=== PATIENT | male | born 1950 | race Caucasian/White ===

== ENCOUNTER 2018-01-08 10:12 | Inpatient (IN) | payer MEDICARE ==
[2018-01-08] MEDS ORDERED: Clindamycin 600 MG IVPREMIX(* 600 MG/50 ML SDV IV ONE (10:23)
[2018-01-08] MEDS ORDERED: Acetaminophen TAB* 325 MG PO ONE (10:24)
[2018-01-08] MEDS: NS 0.9% 1000 ML*IV.FLUID IV ONE (10:30)
[2018-01-08] MEDS ORDERED: cefTRIAXone(*) 1 GM in NS 0.9% 50 ML* 50 ML IVPB ONE (10:41)
[2018-01-08 10:43] LABS: ABS Basophils 0 10^3/ul (0-0.2); ABS Eosinophils 0.1 10^3/ul (0-0.6); ABS Lymphocytes 0.5 10^3/ul (1.0-4.8); ABS Monocytes 0.8 10^3/ul (0-0.8); ABS Neutrophils 8.7 10^3/ul (1.5-7.7); ABS Nucleated RBC 0 10^3/ul; Eosinophil % 0.7 % (0-6); Hematocrit 42 % (42-52); Hemoglobin 14.6 g/dl (14.0-18.0); Lymphocyte % 5.3 % (25-47); Mean Corpuscular HGB Conc 35 g/dl (31-36); Mean Corpuscular Hemoglobin 33 pg (27-31); Mean Corpuscular Volume 94 fL (80-94); Mean Platelet Volume 9.2 um3 (7.4-10.4); Nucleated Red Blood Cells % 0; Platelet Count 147 10^3/ul (150-450); Red Cell Distribution Width 13 % (10.5-15); White Blood Count 10.1 10^3/ul (3.5-10.8)
[2018-01-08 10:52] LABS: INR 1.1 (0.77-1.02)
--- NOTE | 2018-01-08 10:59 | RAD ---
HISTORY: Sepsis COMPARISONS: May 10, 2016 VIEWS: 1: frontal portable view of the chest at 10:50 AM FINDINGS: LINES AND TUBES: None. CARDIOMEDIASTINAL SILHOUETTE: The cardiomediastinal silhouette is normal for portable technique. PLEURA: The costophrenic angles are sharp. No pleural abnormalities are noted. LUNG PARENCHYMA: The lungs are clear. ABDOMEN: The upper abdomen is clear. There is no subphrenic gas. BONES AND SOFT TISSUES: The patient is status post anterior cervical fusion. IMPRESSION: NO ACTIVE CARDIOPULMONARY DISEASE.
[2018-01-08 11:20] LABS: EGFR Non-African American 165.4 (>60)
[2018-01-08 11:40] LABS: Urine Appearance Turbid; Urine Blood 1+ (Negative); Urine Color Yellow; Urine Ketones 2+ (Negative); Urine Protein 2+(100 mg/dL) (Negative); Urine Specific Gravity 1.017 (1.010-1.030); Urine Urobilinogen Negative (Negative)
[2018-01-08] MEDS: Heparin VIAL(*) 5000 UNITS/ML VIAL (FIVE THOUSAND) SUBCUT SCH ×2 (15:29→22:32)
[2018-01-08] MEDS: NS 0.9% 1000 ML* 1,000 ML IV SCH ×2 (15:29→23:37)
--- NOTE | 2018-01-08 16:18 | HP ---
ADDENDUM NOW INCLUDED ON THIS REPORT CC: Dr. Coulter * HISTORY AND PHYSICAL: DATE OF ADMISSION: 01/08/18 PRIMARY CARE PROVIDER: Dr. Coulter. CHIEF COMPLAINT: Fever of 105 degrees. HISTORY OF PRESENT ILLNESS: Mr. Jay is a 67-year-old male with history of multiple sclerosis who is basically wheelchair bound and is able to move only partially his right arm, who has indwelling Reddy in place, and he had been feeling poorly with muscle aches last night, and today in the morning he developed a fever of 105 degrees. The patient was slightly confused when he came into the emergency department with fever of 105 degrees. Currently after 1 g of Tylenol, his fever is down to 101. His confusion appears to have resolved by now. In addition to the symptoms of myalgias, the patient complains of dry and itchy eyes yesterday and "scratchy throat." The patient is going to be admitted with the diagnosis of sepsis. At this point , the suspected source is urinary tract infection and the patient has indwelling Reddy in place. Of note, the patient's Reddy was replaced in the emergency department. PAST MEDICAL HISTORY: 1. Depression. 2. History of multiple sclerosis. Once again, the patient is wheelchair bound. 3. Status post C3-C4 discectomy. CURRENT MEDICATIONS: Include: 1. Multivitamin 1 tablet daily. 2. Vitamin C 1000 mg daily. 3. Zanaflex 6 mg at bedtime. 4. Mirabegron 75 mg at bedtime. 5. Baclofen 20 mg at noon and in the a.m. and 40 mg q.p.m. and bedtime. 6. Lexapro 15 mg daily. 7. Diazepam 5 mg at night p.r.n. 8. Vitamin D3 of 1000 units daily. ALLERGIES: Include DACLIZUMAB. FAMILY HISTORY: Positive for mother with history of colon cancer. SOCIAL HISTORY: The patient is living with his family and his is his healthcare proxy. There is no history of alcohol, tobacco, or drug use. REVIEW OF SYSTEMS: Please see history of present illness. In addition to the above mentioned, the patient stated that he routinely "chokes on food." He does not eat modified diet and he is not interested in further swallow evaluation. Having said that, the patient stated that recently he has not choked on food significantly so that would cause him to be in distress. He denies shortness of breathing or problems with cough. He denies chest pain. All the remaining 12 systems were reviewed with the patient and were otherwise negative. PHYSICAL EXAMINATION GENERAL: This is a very pleasant 67-year-old male who is in no acute distress. Alert, awake, and oriented x3. VITAL SIGNS: Blood pressure is 128/54, heart rate of 93 and regular, respiratory rate 18, oxygen saturation 93% on room air, temperature currently 101.7. HEENT: Head is atraumatic, normocephalic. Eyes: Pupils are equal and reactive to light and accommodation. Oropharynx with slight injection on the pharyngeal arch. No exudates. Mucosa moist. NECK: Supple. No JVD. No bruits bilaterally. RESPIRATORY: Clear to auscultation bilaterally. CARDIOVASCULAR: Regular rate and rhythm. No murmur. ABDOMEN: Soft, nontender. Bowel sounds present in all 4 quadrants. There is no CVA tenderness bilaterally on palpation, although the patient's sensation is somewhat diminished in this level. EXTREMITIES: There is no edema. Pulses +2 bilaterally. No clubbing or cyanosis. NEUROLOGIC: Speech clear. Cranial nerves II through XII grossly intact. Motor strength, basically the patient is paraplegic from the level of his chest down. He is able to move his right upper extremity somewhat at approximately 3+ /5. DIAGNOSTIC STUDIES/LAB DATA: Laboratory data and studies performed during his ER stay includes: White blood cell count of 10.1, hemoglobin 14.6, hematocrit of 42, and platelets of 147. Sodium of 134, potassium 3.9, chloride 97, carbon dioxide 28, anion gap 9, BUN 10, creatinine 0.5. Liver function tests are unremarkable. C-reactive protein 124. Troponin of 0.04. Lactic acid of 0.6. Urinalysis showed +2 ketones, +1 blood, +3 red blood cells, white blood cells, and esterase. No bacteria. Flu testing is pending at the time of dictation. Portable chest x-ray, impression: "No active cardiopulmonary disease." ASSESSMENT AND PLAN: 1. This is a 67-year-old male with history of multiple sclerosis who presents with fever of 101 degrees, altered mental status, and tachycardia. The patient is going to be admitted to the hospital with diagnosis of sepsis with the likely source being unary tract infection, which is probably associated in patient with history of chronic indwelling Reddy. Ceftriaxone is going to be continued at this time. Blood cultures were obtained in the emergency department. I will also obtain flu test and monospot. 2. In regards to the patient's history of multiple sclerosis, his baclofen and diazepam as well as Zanaflex are going to be continued. 3. In regards to the patient's chronically indwelling Reddy, Reddy was already exchanged in the emergency department. I will obtain ultrasound of the bilateral kidneys as well as bladder to evaluate for possibility of obstructive pyelonephritis. At this point, although by exam the patient has no CVA tenderness, it is difficult to be certain of that since the patient has problems with sensation due to his multiple sclerosis. 4. For DVT prophylaxis, the patient is going to be placed on heparin subcutaneously. 5. The patient's code status, the patient wishes to be do not resuscitate and MOLST is going to be signed. His surrogate is his . TIME SPENT: Approximately 65 minutes were spent on admission of this patient, more than half that time was spent [id number] with the patient during the interview and physical exam. ADDENDUM: 1. Please note that I just discussed with the patient's who is upset after the patient was admitted that he is not constantly monitored and no one checks on him on every 30-minute basis. I spoke with the patient's about the hospital routine when we usually check vitals every 4 hours and the nurse checks on the patient as needed. The patient's was concerned that the patient may not be able to push the nurse button to notify nursing staff that he needs something. I did talk with the nurse and apparently the patient is right-handed, so weak that he is unable to push even one of the more sensitive nurse notification buttons. At this point, I offered to the that the patient may be placed on a safety monitoring status which would involve having a person next to his bedside or in his room to monitor for safety making sure that his needs are met. The patient's refused. She requested for the patient to have baclofen at 20 mg every 4 hours. When I questioned that since just a few hours ago at admission, the patient's told me that the patient takes his baclofen in the morning and at noon at 6 p.m. and at night, the patient's stated that now in fact what she told me before was not true and the patient is given baclofen every 4 hours even in the middle of the night, she wakes him up to give it to him. At this point, I did schedule the baclofen every [address] in hold parameters for the baclofen. I also discussed with the nurse that the patient is alert and oriented x3 and he can decide if he want to have his scheduled baclofen as administered every 4 hours later on. I also discussed it with our pharmacist. 2. I explained to the patient's that the studies are still not available and we are awaiting the renal ultrasound results. The patient's appeared to be anxious and exhausted, and I advised her to go home with her daughter, who also has multiple sclerosis, and I asked the nursing staff to monitor the patient more frequently than any other patient due to the patient's inability to once again notify the nurse of a problem. Please also note that although the patient is not able to move his hands apart from minimally moving his right upper extremity, he has no problems with verbal communication. [id number]/CPS #: [id number]/CPS #: [id number] MTDD
[2018-01-08] MEDS: Acetaminophen TAB* 325 MG PO PRN (17:10)
[2018-01-08] MEDS ORDERED: Baclofen TAB* 20 MG PO SCH (18:00)
[2018-01-08] MEDS: Baclofen TAB* 20 MG PO SCH ×3 (18:24→23:11)
--- NOTE | 2018-01-08 18:28 | RAD ---
INDICATION: Pyelonephritis. Evaluate for obstruction COMPARISON: None TECHNIQUE: Longitudinal and transverse scans of the kidneys and bladder were obtained. FINDINGS: Kidneys: The kidneys are normal in size and echogenicity. There is a probable, nonobstructive 0.6 cm lower pole right renal calculus. No masses or hydronephrosis is seen. The right kidney measures 10.5 x 4.7 x 5.0 cm and the left kidney 10.5 x 5.8 x 5.8 cm. Bladder: The bladder is only partially distended. There are no intrinsic or extrinsic masses. The prevoid volume is 41 ml. There is a Reddy catheter. Ureteral jets not seen. This could be technical and related to hydration status. Other: The prostate is normal in size. The prostate measures 3.7 x 4.1 x 4.5 cm (volume equal 35 mL IMPRESSION: PROBABLE LOWER POLE RIGHT RENAL CALCULUS. NO EVIDENCE OF HYDRONEPHROSIS.
--- NOTE | 2018-01-08 21:42 | HP ---
HISTORY AND PHYSICAL: ADDENDUM: 1. Please note that I just discussed with the patient's who is upset after the patient was admitted that he is not constantly monitored and no one checks on him on every 30-minute basis. I spoke with the patient's about the hospital routine when we usually check vitals every 4 hours and the nurse checks on the patient as needed. The patient's was concerned that the patient may not be able to push the nurse button to notify nursing staff that he needs something. I did talk with the nurse and apparently the patient is right-handed, so weak that he is unable to push even one of the more sensitive nurse notification buttons. At this point, I offered to the that the patient may be placed on a safety monitoring status which would involve having a person next to his bedside or in his room to monitor for safety making sure that his needs are met. The patient's refused. She requested for the patient to have baclofen at 20 mg every 4 hours. When I questioned that since just a few hours ago at admission, the patient's told me that the patient takes his baclofen in the morning and at noon at 6 p.m. and at night, the patient's stated that now in fact what she told me before was not true and the patient is given baclofen every 4 hours even in the middle of the night, she wakes him up to give it to him. At this point, I did schedule the baclofen every [address] in hold parameters for the baclofen. I also discussed with the nurse that the patient is alert and oriented x3 and he can decide if he want to have his scheduled baclofen as administered every 4 hours later on. I also discussed it with our pharmacist. 2. I explained to the patient's that the studies are still not available and we are awaiting the renal ultrasound results. The patient's appeared to be anxious and exhausted and I advised her to go home with her daughter, who also has multiple sclerosis and I asked the nursing staff to monitor the patient more frequently than any other patient due to the patient's inability to once again notify the nurse of a problem. Please also note that although the patient is not able to move his hands apart from minimally moving his right upper extremity, he has no problems with verbalizing and verbally communicating with the surroundings. [id number]/[facility] #: [id number] PAPO
[2018-01-08] MEDS: Docusate CAP* 100 MG PO SCH (22:30)
[2018-01-08] MEDS: tiZANidine TAB* 2 MG PO SCH (22:32)
[2018-01-08] MEDS: Diazepam TAB(*) 5 MG PO PRN (22:43)
[2018-01-08] MEDS: Mirabegron (NF) 25 MG TAB PO SCH (23:06)
[2018-01-09] MEDS: Acetaminophen TAB* 325 MG PO PRN ×3 (02:21→20:50)
[2018-01-09] MEDS: Baclofen TAB* 20 MG PO SCH ×7 (02:22→21:49)
[2018-01-09 05:53] LABS: ABS Basophils 0 10^3/ul (0-0.2); ABS Eosinophils 0 10^3/ul (0-0.6); ABS Monocytes 0.7 10^3/ul (0-0.8); ABS Nucleated RBC 0 10^3/ul; Eosinophil % 0 % (0-6); Hematocrit 33 % (42-52); Hemoglobin 11.6 g/dl (14.0-18.0); Lymphocyte % 9.3 % (25-47); Mean Corpuscular HGB Conc 35 g/dl (31-36); Mean Corpuscular Hemoglobin 33 pg (27-31); Mean Corpuscular Volume 94 fL (80-94); Mean Platelet Volume 9.5 um3 (7.4-10.4); Nucleated Red Blood Cells % 0.1; Platelet Count 116 10^3/ul (150-450); Red Blood Count 3.54 10^6/ul (4.0-5.4); Red Cell Distribution Width 14 % (10.5-15); White Blood Count 10.7 10^3/ul (3.5-10.8)
[2018-01-09] MEDS: Heparin VIAL(*) 5000 UNITS/ML VIAL (FIVE THOUSAND) SUBCUT SCH ×3 (06:06→21:49)
[2018-01-09 06:08] LABS: EGFR Non-African American 169.3 (>60)
[2018-01-09] MEDS: Cefepime(*) 1 GM in D5W 50 ML BAG* 50 ML IVPB SCH ×2 (09:44→20:58)
[2018-01-09] MEDS: Cholecalciferol TAB* 1000 UNITS PO SCH (09:46)
[2018-01-09] MEDS: Docusate CAP* 100 MG PO SCH ×3 (09:48→20:55)
[2018-01-09] MEDS: ESCITALOPRAM 5 MG PO SCH (09:49)
[2018-01-09] MEDS: NS 0.9% 1000 ML* 1,000 ML IV SCH ×2 (09:52→20:15)
--- NOTE | 2018-01-09 10:27 | ECHO ---
Patient: MARIAELENA SPICER [facility] Rec#: [id number] : 1950 Date: 01/09/2018 Age: 67y Height: 167.6 cm / 66.0 in Weight: 68 kg / 149.9 lbs Sex: M BSA: 1.8 Room#: 403 Admit Date#: 01/08/2018 Type: Inpatient Referring: Beba Gaspar MD Reading: Irving Adams MD Inspector Brake Lining: Katelynn Ibrahim RN RDCS CC: Elliot Coulter MD Transthoracic Echocardiogram Indication: Elevated troponin levels, sepsis BP: 100/58 HR: 66 Rhythm: NSR Findings History: Multiple sclerosis Technical Comments: The study quality is fair. Completed at 0910. Left Ventricle: The left ventricular chamber size is decreased. There is increased basal septal hypertrophy noted without evidence of an increased gradient across the left ventricular outflow tract. Global left ventricular wall motion and contractility are within normal limits. There is normal left ventricular systolic function. The estimated ejection fraction is 55-60%. The assessment of diastolic function is non-diagnostic. Left Atrium: The left atrial chamber size is normal. Right Ventricle: The right ventricular chamber size and systolic function are within normal limits. Right Atrium: The right atrial cavity size is normal. There is evidence of an atrial septal aneurysm. No shunting noted. Aortic Valve: The aortic valve structure is not well visualized. The aortic valve is trileaflet. The aortic valve leaflets are moderately thickened. There is evidence of aortic sclerosis without stenosis. There is a trace of aortic regurgitation. There is no evidence of aortic stenosis. Mitral Valve: Mild mitral annular calcification present. The mitral valve leaflets are mildly thickened. There is trace to mild mitral regurgitation. Tricuspid Valve: The tricuspid valve leaflets are normal. There is trace to mild tricuspid regurgitation. There is evidence of borderline pulmonary hypertension. Pulmonic Valve: The pulmonic valve structure is not well visualized. There is no evidence of pulmonic regurgitation. There is no pulmonic stenosis. Pericardium: There is no significant pericardial effusion. Aorta: There is mild dilatation of the ascending aorta. There is no dilatation of the aortic arch. There is no dilation of the aortic root. Pulmonary Artery: The main pulmonary artery is not well visualized. Venous: The venous system is not well visualized. The inferior vena cava is not visualized. Conclusions There is normal left ventricular systolic function. The estimated ejection fraction is 55-60%. Global left ventricular wall motion and contractility are within normal limits. The left ventricular chamber size is decreased. Functionally benign heart valves. There is mild dilatation of the ascending aorta. There is no prior echocardiogram available to compare with at this time. Measurements Name Value Normal Range RVDdMajor (2D) 3.9 cm (2.2 - 4.4) RAd ISD 4CH 4.6 cm (3.4 - 4.9) RA (A4C)W 3.3 cm (2.9 - 4.6) IVSd (2D) 1 cm (0.6 - 1) LVPWd (2D) 1 cm (0.6 - 1) LVIDd (2D) 3.5 cm (3.6 - 5.4) LVIDs (2D) 2.5 cm - LV FS (2D) 29 % (25 - 45) Aortic Annulus 2.2 cm (1.4 - 2.6) Ao root diameter (2D) 3.4 cm (2.1 - 3.5) Ascending Ao 3.7 cm (2.1 - 3.4) Aortic arch 3 cm (1.8 - 3.4) LA dimension (AP) 2D 3.1 cm (2.3 - 3.8) LAd ISD 4CH 5.2 cm (2.9 - 5.3) LA ISD 4CH W 4.3 cm (2.5 - 4.5) Name Value Normal Range LA ESV SP 4CH (A/L) 42 ml - LA ESV SP 2CH (A/L) 66 ml - LA ESV BP (A/L) 60 ml - LA ESV BP (A/L) index 34 ml/m2 - LA ESV SP 4CH (MOD) 39 ml - LA ESV SP 2CH (MOD) 64 ml - Name Value Normal Range MV E-wave Vmax 0.71 m/sec - MV deceleration time 207 msec - MV A-wave Vmax 0.86 m/sec - MV E:A ratio 0.82 ratio - LV septal e' Vmax 0.08 m/sec - LV lateral e' Vmax 0.1 m/sec - LV E:e' septal ratio 8.9 ratio - LV E:e' lateral ratio 7.1 ratio - Name Value Normal Range AV Vmax 1.7 m/sec - AV VTI 39.3 cm - AV peak gradient 11.3 mmHg - AV mean gradient 7.4 mmHg - LVOT diameter 2 cm - LVOT Vmax 1.5 m/sec - LVOT VTI 35.2 cm - LVOT peak gradient 8.6 mmHg - LVOT mean gradient 4.8 mmHg - DARWIN (continuity Vmax) 2.8 cm2 - DARWIN (continuity VTI) 2.8 cm2 - LORENA Vmax 0.61 m/sec - Name Value Normal Range TR Vmax 2.6 m/sec - TR peak gradient 27 mmHg - RAP 8 mmHg - RVSP 35 mmHg - Name Value Normal Range PV Vmax 0.75 m/sec -
--- NOTE | 2018-01-09 11:05 | PN ---
Subjective Date of Service: 01/09/18 Interval History: Pt feels much better, friends noted that hi face is "flushed ", but temp down to 98 chocked on a pill today, but swallow eval OK'ed for regular solids Objective Active Medications: Acetaminophen (Tylenol Tab*) 650 mg PO Q4H PRN PRN Reason: FEVER/PAIN Last Admin: 01/09/18 02:21 Dose: 650 mg Baclofen (Lioresal Tab*) 40 mg PO 2100 [facility] Last Admin: 01/08/18 23:11 Dose: 40 mg Baclofen (Lioresal Tab*) 20 mg PO Q4H [facility] Last Admin: 01/09/18 09:47 Dose: 20 mg Cholecalciferol (Vitamin D Tab*) 1,000 units PO DAILY [facility] Last Admin: 01/09/18 09:46 Dose: 1,000 units Diazepam (Valium Tab(*)) 5 mg PO BID PRN PRN Reason: ANXIETY Last Admin: 01/08/18 22:43 Dose: 5 mg Docusate Sodium (Colace Cap*) 100 mg PO BID [facility] Last Admin: 01/09/18 10:01 Dose: Not Given Escitalopram Oxalate (Lexapro (Nf)) 15 mg PO DAILY [facility] Last Admin: 01/09/18 09:49 Dose: 15 mg Heparin Sodium (Porcine) (Heparin Vial(*)) 5,000 units SUBCUT Q8HR [facility] Last Admin: 01/09/18 06:06 Dose: 5,000 units Sodium Chloride (Ns 0.9% 1000 Ml*) 1,000 mls @ 100 mls/hr IV PER RATE [facility] Last Admin: 01/09/18 09:52 Dose: 100 mls/hr Cefepime HCl 1 gm/ Dextrose 50 mls @ 100 mls/hr IVPB Q12H [facility] Last Admin: 01/09/18 09:44 Dose: 100 mls/hr Mirabegron (Myrbetriq (Nf)) 75 mg PO BEDTIME [facility] Last Admin: 01/08/18 23:06 Dose: Not Given Tizanidine HCl (Zanaflex Tab*) 6 mg PO BEDTIME [facility] Last Admin: 01/08/18 22:32 Dose: 6 mg Vital Signs - 8 hr 01/09/18 01/09/18 01/09/18 03:34 04:08 07:24 Temperature 98.2 F 98.1 F Pulse Rate 78 66 Respiratory 14 16 Rate Blood Pressure 100/58 109/45 (mmHg) O2 Sat by Pulse 96 97 Oximetry Oxygen Devices in Use Now: None Appearance: 67 yo M in nAD, aAOx3 Eyes: No Scleral Icterus, PERRLA Ears/Nose/Mouth/Throat: NL Teeth, Lips, Gums, Mucous Membranes Moist Neck: NL Appearance and Movements; NL JVP, Trachea Midline Respiratory: Symmetrical Chest Expansion and Respiratory Effort, Clear to Auscultation Cardiovascular: NL Sounds; No Murmurs; No JVD, RRR Abdominal: NL Sounds; No Tenderness; No Distention, No Hepatosplenomegaly Lymphatic: No Cervical Adenopathy Extremities: No Edema, No Clubbing, Cyanosis Skin: No Nodules or Sclerosis, - - R second toe-dorsal aspect -small area of erythema Neurological: - - contracted, able to move R hand at 3+/5 Result Diagrams: 01/09/18 05:31 01/09/18 05:31 Microbiology and Other Data: Microbiology 01/08/18 13:30 Influenza Types A,B Antigen (ZAIDA) - Final Nasopharyngeal Specimen received for Influenza A/B Molecular testing Assess/Plan/Problems-Billing Assessment:67 yo M with progressive MS and paraplegia due to it as well as indwelling Reddy now with UTI and sepsis - Patient Problems (1) Sepsis Comment: Due to gram neg bacteremia-presumed source if Reddy associated UTI Encephalopathy noted when fever was 105 resolved VS stable Cont IVF Antibiotics changed from Ceftriaxone to Cefepime due to h/o psedudomonas UTI in the past. (2) Multiple sclerosis Comment: Continue home meds. (3) Dysphagia Comment: mild, chronic, due to progressive MS Swallow eval OK'ed regular diet (4) Indwelling Reddy catheter present Comment: Exchanged at admission Renal/bladder US unremarkable (5) DVT prophylaxis Current Visit: Yes Comment: HSQ Status and Disposition: inpatient
[2018-01-09] MEDS ORDERED: Baclofen TAB* 20 MG PO SCH (12:00)
[2018-01-09] MEDS ORDERED: cefTRIAXone 1000 MG SYRINGE IVPB Q24H (in NaCl) IVPB SCH ×2 (14:00)
[2018-01-09] MEDS ORDERED: cefTRIAXone(*) 1 GM in NS 0.9% 50 ML* 50 ML IVPB SCH (14:00)
[2018-01-09] MEDS: Sodium Phosphate ADULT ENEMA* 118 ml bottle PR SCH (19:11)
[2018-01-09] MEDS: tiZANidine TAB* 2 MG PO SCH (20:53)
[2018-01-09] MEDS: Polyethylene Glycol 3350* 17 GM PACKET PO SCH (20:55)
[2018-01-09] MEDS: Mirabegron (NF) 25 MG TAB PO SCH (20:56)
[2018-01-10] MEDS: Baclofen TAB* 20 MG PO SCH ×7 (03:15→23:00)
[2018-01-10] MEDS: Heparin VIAL(*) 5000 UNITS/ML VIAL (FIVE THOUSAND) SUBCUT SCH ×3 (06:05→20:47)
[2018-01-10] MEDS ORDERED: tiZANidine TAB* 2 MG PO SCH ×2 (08:50→21:00)
[2018-01-10 08:54] LABS: Hematocrit 36 % (42-52); Hemoglobin 12.4 g/dl (14.0-18.0); Mean Corpuscular HGB Conc 34 g/dl (31-36); Mean Corpuscular Hemoglobin 32 pg (27-31); Mean Corpuscular Volume 94 fL (80-94); Mean Platelet Volume 9.3 um3 (7.4-10.4); Platelet Count 126 10^3/ul (150-450); Red Blood Count 3.89 10^6/ul (4.0-5.4); Red Cell Distribution Width 14 % (10.5-15); White Blood Count 8.3 10^3/ul (3.5-10.8)
[2018-01-10] MEDS ORDERED: Ciprofloxacin 400MG IVPREMIX(* 400 MG/200 ML BAG IVPB SCH (09:00)
[2018-01-10] MEDS: Docusate CAP* 100 MG PO SCH ×2 (09:24→21:15)
[2018-01-10] MEDS: Cefepime(*) 1 GM in D5W 50 ML BAG* 50 ML IVPB SCH ×2 (09:30→20:47)
[2018-01-10] MEDS: Cholecalciferol TAB* 1000 UNITS PO SCH (09:30)
[2018-01-10] MEDS: ESCITALOPRAM 5 MG PO SCH (09:30)
[2018-01-10 10:09] LABS: ABS Basophils 0 10^3/ul (0-0.2); ABS Eosinophils 0.1 10^3/ul (0-0.6); ABS Lymphocytes 1.3 10^3/ul (1.0-4.8); ABS Monocytes 0.9 10^3/ul (0-0.8); ABS Neutrophils 5.9 10^3/ul (1.5-7.7); ABS Nucleated RBC 0 10^3/ul; Nucleated Red Blood Cells % 0
[2018-01-10 10:12] LABS: Monocytes % 11 % (0-7)
--- NOTE | 2018-01-10 10:21 | PN ---
Subjective Date of Service: 01/10/18 Interval History: Pt feels well. Stated that felt a little confused at night and when awaken at 2 AM thought that it was 2PM Temp max of 100.8 in 24H Objective Active Medications: Acetaminophen (Tylenol Tab*) 650 mg PO Q4H PRN PRN Reason: FEVER/PAIN Last Admin: 01/09/18 20:50 Dose: 650 mg Baclofen (Lioresal Tab*) 40 mg PO 2100 [facility] Last Admin: 01/09/18 20:52 Dose: 40 mg Baclofen (Lioresal Tab*) 20 mg PO Q4H [facility] Last Admin: 01/10/18 09:30 Dose: 20 mg Cholecalciferol (Vitamin D Tab*) 1,000 units PO DAILY [facility] Last Admin: 01/10/18 09:30 Dose: 1,000 units Diazepam (Valium Tab(*)) 5 mg PO BID PRN PRN Reason: ANXIETY Last Admin: 01/08/18 22:43 Dose: 5 mg Docusate Sodium (Colace Cap*) 100 mg PO BID [facility] Last Admin: 01/10/18 09:24 Dose: Not Given Escitalopram Oxalate (Lexapro (Nf)) 15 mg PO DAILY [facility] Last Admin: 01/10/18 09:30 Dose: 15 mg Heparin Sodium (Porcine) (Heparin Vial(*)) 5,000 units SUBCUT Q8HR [facility] Last Admin: 01/10/18 06:05 Dose: 5,000 units Cefepime HCl 1 gm/ Dextrose 50 mls @ 100 mls/hr IVPB Q12H [facility] Last Admin: 01/10/18 09:30 Dose: 100 mls/hr Ciprofloxacin/Dextrose (Cipro 400 Mg Ivpremix(*)) 400 mg in 200 mls @ 200 mls/ hr IVPB Q12HR@1000,2200 [facility] Mirabegron (Myrbetriq (Nf)) 75 mg PO BEDTIME [facility] Last Admin: 01/09/18 20:56 Dose: Not Given Polyethylene Glycol/Electrolytes (Miralax*) 17 gm PO BEDTIME [facility] Last Admin: 01/09/18 20:55 Dose: Not Given Sodium Biphosphate/Sodium Phosphate (Fleet Enema*) 1 bottle IA DAILY [facility] Last Admin: 01/09/18 19:11 Dose: 1 bottle Sodium Biphosphate/Sodium Phosphate (Fleet Enema*) 1 bottle IA BEDTIME PRN PRN Reason: CONSTIPATION Tizanidine HCl (Zanaflex Tab*) 3 mg PO BEDTIME [facility] Oxygen Devices in Use Now: None Appearance: 67 yo M in nAD, aAOx3 Eyes: No Scleral Icterus, PERRLA Ears/Nose/Mouth/Throat: NL Teeth, Lips, Gums, Mucous Membranes Moist Neck: NL Appearance and Movements; NL JVP, Trachea Midline Respiratory: Symmetrical Chest Expansion and Respiratory Effort, Clear to Auscultation Cardiovascular: NL Sounds; No Murmurs; No JVD, RRR Abdominal: NL Sounds; No Tenderness; No Distention Lymphatic: No Cervical Adenopathy Extremities: No Edema, No Clubbing, Cyanosis Skin: No Nodules or Sclerosis, - - slight erythema on R toes Neurological: - - paraplegic Result Diagrams: 01/10/18 08:45 01/09/18 05:31 Microbiology and Other Data: Microbiology 01/08/18 13:30 Influenza Types A,B Antigen (ZAIDA) - Final Nasopharyngeal Specimen received for Influenza A/B Molecular testing Assess/Plan/Problems-Billing Assessment:67 yo M with progressive MS and paraplegia due to it as well as indwelling Reddy now with UTI and sepsis - Patient Problems (1) Sepsis Comment: Due to Pseudomonas bacteremia-presumed source is Reddy associated UTI Encephalopathy noted when fever was 105 resolved, although last night pt felt confused again. Now resolved VS stable Antibiotics changed from Ceftriaxone to Cefepime due to h/o psedudomonas UTI on 01/09/18 in the past. now with dx of Pseudomonas bacteremia will add Cipro (2) Multiple sclerosis Comment: Continue home meds.Zanaflex will be held due to interaction with Cipro (3) Dysphagia Comment: mild, chronic, due to progressive MS Swallow eval OK'ed regular diet (4) Indwelling Reddy catheter present Comment: Exchanged at admission Renal/bladder US unremarkable (5) DVT prophylaxis Current Visit: Yes Comment: HSQ Status and Disposition: inpatient
[2018-01-10] MEDS: Ciprofloxacin 400MG IVPREMIX(* 400 MG/200 ML BAG IVPB SCH ×2 (11:11→23:00)
[2018-01-10] MEDS: Sodium Phosphate ADULT ENEMA* 118 ml bottle PR SCH (11:17)
[2018-01-10] MEDS: Polyethylene Glycol 3350* 17 GM PACKET PO SCH (20:47)
[2018-01-10] MEDS: Mirabegron (NF) 25 MG TAB PO SCH (21:16)
[2018-01-10] MEDS: Sodium Phosphate ADULT ENEMA* 118 ml bottle PR PRN (22:19)
[2018-01-10] MEDS: Diazepam TAB(*) 5 MG PO PRN (23:00)
[2018-01-11] MEDS: amLODIPine TAB* 5 MG PO SCH ×2 (00:44→09:48)
[2018-01-11] MEDS: Baclofen TAB* 20 MG PO SCH ×7 (00:53→22:04)
[2018-01-11] MEDS ORDERED: Diazepam TAB(*) 5 MG PO ONE (03:34)
[2018-01-11] MEDS: Ibuprofen TAB* 200 MG PO PRN ×2 (04:18→13:48)
[2018-01-11] MEDS: Heparin VIAL(*) 5000 UNITS/ML VIAL (FIVE THOUSAND) SUBCUT SCH ×3 (04:19→21:13)
[2018-01-11] MEDS: Cholecalciferol TAB* 1000 UNITS PO SCH (09:47)
[2018-01-11] MEDS: Docusate CAP* 100 MG PO SCH ×2 (09:48→21:13)
[2018-01-11] MEDS: ESCITALOPRAM 5 MG PO SCH (10:00)
[2018-01-11] MEDS: Cefepime(*) 1 GM in D5W 50 ML BAG* 50 ML IVPB SCH ×2 (10:01→21:13)
[2018-01-11] MEDS: Ciprofloxacin 400MG IVPREMIX(* 400 MG/200 ML BAG IVPB SCH ×2 (11:03→22:04)
--- NOTE | 2018-01-11 11:38 | PN ---
Subjective Date of Service: 01/11/18 Interval History: Pt feels well. afebrile x 24H Objective Active Medications: Acetaminophen (Tylenol Tab*) 650 mg PO Q4H PRN PRN Reason: FEVER/PAIN Last Admin: 01/09/18 20:50 Dose: 650 mg Amlodipine Besylate (Norvasc Tab*) 2.5 mg PO DAILY [facility] Last Admin: 01/11/18 09:48 Dose: 2.5 mg Baclofen (Lioresal Tab*) 40 mg PO 2100 [facility] Last Admin: 01/10/18 22:59 Dose: 40 mg Baclofen (Lioresal Tab*) 20 mg PO Q4H [facility] Last Admin: 01/11/18 09:49 Dose: 20 mg Cholecalciferol (Vitamin D Tab*) 1,000 units PO DAILY [facility] Last Admin: 01/11/18 09:47 Dose: 1,000 units Diazepam (Valium Tab(*)) 5 mg PO BID PRN PRN Reason: ANXIETY Last Admin: 01/10/18 23:00 Dose: 5 mg Docusate Sodium (Colace Cap*) 100 mg PO BID [facility] Last Admin: 01/11/18 09:48 Dose: 100 mg Escitalopram Oxalate (Lexapro (Nf)) 15 mg PO DAILY [facility] Last Admin: 01/11/18 10:00 Dose: 15 mg Heparin Sodium (Porcine) (Heparin Vial(*)) 5,000 units SUBCUT Q8HR [facility] Last Admin: 01/11/18 04:19 Dose: 5,000 units Cefepime HCl 1 gm/ Dextrose 50 mls @ 100 mls/hr IVPB Q12H [facility] Last Admin: 01/11/18 10:01 Dose: 100 mls/hr Ciprofloxacin/Dextrose (Cipro 400 Mg Ivpremix(*)) 400 mg in 200 mls @ 200 mls/ hr IVPB Q12HR@1000,2200 [facility] Last Admin: 01/11/18 11:03 Dose: 200 mls/hr Ibuprofen (Advil Tab*) 200 mg PO TID PRN PRN Reason: DISCOMFORT Last Admin: 01/11/18 04:18 Dose: 200 mg Mirabegron (Myrbetriq (Nf)) 75 mg PO BEDTIME [facility] Last Admin: 01/10/18 21:16 Dose: Not Given Polyethylene Glycol/Electrolytes (Miralax*) 17 gm PO BEDTIME [facility] Last Admin: 01/10/18 20:47 Dose: 17 gm Sodium Biphosphate/Sodium Phosphate (Fleet Enema*) 1 bottle [place] DAILY [facility] Last Admin: 01/10/18 11:17 Dose: Not Given Sodium Biphosphate/Sodium Phosphate (Fleet Enema*) 1 bottle [place] BEDTIME PRN PRN Reason: CONSTIPATION Last Admin: 01/10/18 22:19 Dose: 1 bottle Vital Signs - 8 hr 01/11/18 01/11/18 01/11/18 04:17 04:19 06:44 Temperature Pulse Rate Respiratory 18 18 Rate Blood Pressure 150/70 (mmHg) O2 Sat by Pulse Oximetry 01/11/18 08:00 Temperature 98.2 F Pulse Rate 72 Respiratory 18 Rate Blood Pressure 149/69 (mmHg) O2 Sat by Pulse 95 Oximetry Oxygen Devices in Use Now: None Appearance: 67 yo M in NAD, AAOx3 Eyes: No Scleral Icterus, PERRLA Ears/Nose/Mouth/Throat: NL Teeth, Lips, Gums, Mucous Membranes Moist Neck: NL Appearance and Movements; NL JVP, Trachea Midline Respiratory: Symmetrical Chest Expansion and Respiratory Effort, Clear to Auscultation Cardiovascular: NL Sounds; No Murmurs; No JVD, RRR Abdominal: NL Sounds; No Tenderness; No Distention Lymphatic: No Cervical Adenopathy Extremities: No Edema, No Clubbing, Cyanosis Skin: No Rash or Ulcers, No Nodules or Sclerosis Neurological: Alert and Oriented x 3, - - paraplegic Result Diagrams: 01/10/18 08:45 01/09/18 05:31 Microbiology and Other Data: Microbiology 01/08/18 13:30 Influenza Types A,B Antigen (ZAIDA) - Final Nasopharyngeal Specimen received for Influenza A/B Molecular testing Assess/Plan/Problems-Billing Assessment:67 yo M with progressive MS and paraplegia due to it as well as indwelling Reddy now with UTI and sepsis - Patient Problems (1) Sepsis Comment: Due to Pseudomonas bacteremia-presumed source is Reddy associated UTI Encephalopathy noted when fever was 105 resolved. VS stable, was hypertensive at night, but was anxious about finances Antibiotics changed from Ceftriaxone to Cefepime due to h/o psedudomonas UTI on 01/09/18 in the past. Now with dx of Pseudomonas bacteremia -cipro added to to Cefepime on 01/10/18 Plan to curbside ID for antibiotic tx at d/c (2) Multiple sclerosis Comment: Continue home meds.Zanaflex was held due to interaction with Cipro (3) Dysphagia Comment: mild, chronic, due to progressive MS Swallow eval OK'ed regular diet (4) Indwelling Reddy catheter present Comment: Exchanged at admission Renal/bladder US unremarkable (5) DVT prophylaxis Current Visit: Yes Comment: HSQ Status and Disposition: inpatient, plans to d/c on Friday, family interested in [facility] with VNS, CM following
[2018-01-11] MEDS: Sodium Phosphate ADULT ENEMA* 118 ml bottle PR SCH (13:49)
[2018-01-11] MEDS: Mirabegron (NF) 25 MG TAB PO SCH (21:06)
[2018-01-11] MEDS: Polyethylene Glycol 3350* 17 GM PACKET PO SCH (21:13)
[2018-01-11] MEDS: Diazepam TAB(*) 5 MG PO PRN (22:12)
[2018-01-12] MEDS: Baclofen TAB* 20 MG PO SCH ×7 (03:22→22:41)
[2018-01-12] MEDS: Heparin VIAL(*) 5000 UNITS/ML VIAL (FIVE THOUSAND) SUBCUT SCH ×3 (06:30→21:29)
[2018-01-12] MEDS: Cholecalciferol TAB* 1000 UNITS PO SCH (08:36)
[2018-01-12] MEDS: Docusate CAP* 100 MG PO SCH ×2 (08:36→21:28)
[2018-01-12] MEDS: ESCITALOPRAM 5 MG PO SCH (08:39)
[2018-01-12] MEDS: Cefepime(*) 1 GM in D5W 50 ML BAG* 50 ML IVPB SCH (08:40)
[2018-01-12] MEDS: amLODIPine TAB* 5 MG PO SCH (08:40)
[2018-01-12] MEDS: Ciprofloxacin 400MG IVPREMIX(* 400 MG/200 ML BAG IVPB SCH (10:53)
--- NOTE | 2018-01-12 13:19 | PN ---
Subjective Date of Service: 01/12/18 Interval History: No new c/o. Fair appetite. Constipated, takes an enema almost every day at home. Objective Active Medications: Acetaminophen (Tylenol Tab*) 650 mg PO Q4H PRN PRN Reason: FEVER/PAIN Last Admin: 01/09/18 20:50 Dose: 650 mg Amlodipine Besylate (Norvasc Tab*) 2.5 mg PO DAILY [facility] Last Admin: 01/12/18 08:40 Dose: 2.5 mg Baclofen (Lioresal Tab*) 40 mg PO 2100 [facility] Last Admin: 01/11/18 21:13 Dose: 40 mg Baclofen (Lioresal Tab*) 20 mg PO Q4H [facility] Last Admin: 01/12/18 10:53 Dose: 20 mg Cholecalciferol (Vitamin D Tab*) 1,000 units PO DAILY [facility] Last Admin: 01/12/18 08:36 Dose: 1,000 units Diazepam (Valium Tab(*)) 5 mg PO BID PRN PRN Reason: ANXIETY Last Admin: 01/11/18 22:12 Dose: 5 mg Docusate Sodium (Colace Cap*) 100 mg PO BID [facility] Last Admin: 01/12/18 08:36 Dose: Not Given Escitalopram Oxalate (Lexapro (Nf)) 15 mg PO DAILY [facility] Last Admin: 01/12/18 08:39 Dose: 15 mg Heparin Sodium (Porcine) (Heparin Vial(*)) 5,000 units SUBCUT Q8HR [facility] Last Admin: 01/12/18 06:30 Dose: 5,000 units Cefepime HCl 1 gm/ Dextrose 50 mls @ 100 mls/hr IVPB Q12H [facility] Last Admin: 01/12/18 08:40 Dose: 100 mls/hr Ibuprofen (Advil Tab*) 200 mg PO TID PRN PRN Reason: DISCOMFORT Last Admin: 01/11/18 13:48 Dose: 200 mg Mirabegron (Myrbetriq (Nf)) 75 mg PO BEDTIME [facility] Last Admin: 01/11/18 21:06 Dose: Not Given Polyethylene Glycol/Electrolytes (Miralax*) 17 gm PO BEDTIME [facility] Last Admin: 01/11/18 21:13 Dose: 17 gm Sodium Biphosphate/Sodium Phosphate (Fleet Enema*) 1 bottle [place] DAILY [facility] Last Admin: 01/11/18 13:49 Dose: 1 bottle Sodium Biphosphate/Sodium Phosphate (Fleet Enema*) 1 bottle [facility] BEDTIME PRN PRN Reason: CONSTIPATION Last Admin: 01/10/18 22:19 Dose: 1 bottle Vital Signs - 8 hr 01/12/18 08:24 Temperature 97.9 F Pulse Rate 66 Respiratory 16 Rate Blood Pressure 127/71 (mmHg) O2 Sat by Pulse 94 Oximetry Oxygen Devices in Use Now: None Appearance: Alert, partly up in bed. In good spirits. Looks comfortable. Eyes: No Scleral Icterus Respiratory: Symmetrical Chest Expansion and Respiratory Effort, Clear to Auscultation, Clear to Percussion Extremities: No Edema, No Clubbing, Cyanosis, - Skin: No Rash or Ulcers, No Nodules or Sclerosis, - Neurological: Alert and Oriented x 3, NL Sensation, - - Hands contracted, muscle wasting present. Speech clear and appropriate, good memory. No tremor. Result Diagrams: 01/10/18 08:45 01/09/18 05:31 Microbiology and Other Data: Microbiology 01/08/18 13:30 Influenza Types A,B Antigen (ZAIDA) - Final Nasopharyngeal Specimen received for Influenza A/B Molecular testing Assess/Plan/Problems-Billing Assessment:67 yo M with progressive MS and paraplegia due to it as well as indwelling Reddy now with UTI and sepsis - Patient Problems (1) UTI (urinary tract infection) Current Visit: Yes Status: Acute Comment: Pseudomonas, with bacteremia, also E. faecalis infection. Cefepime for Ps., ciprofloxacin for E. faecalis. (2) Multiple sclerosis Current Visit: No Status: Acute Code(s): G35 - MULTIPLE SCLEROSIS SNOMED Code(s): 63421620 Comment: Continue home meds. Zanaflex was held due to interaction with Cipro. Relapsing-remitting MS. According to , they were told by a specialist in [place] that nothing more could be done. (3) Indwelling Reddy catheter present Current Visit: Yes Status: Acute Code(s): Z96.0 - PRESENCE OF UROGENITAL IMPLANTS SNOMED Code(s): 782995877 Comment: Exchanged at admission Renal/bladder US unremarkable Status and Disposition: inpatient, plans to d/c on Friday, family interested in [facility] with VNS, CM following
[2018-01-12] MEDS ORDERED: Zosyn per Pharmacy* NOTE FOLLOW UP PRN (14:14)
[2018-01-12] MEDS ORDERED: ZOSYN 3.375 GM x ONE DOSE over 30 miuntes IVPB ×2 (15:00)
[2018-01-12] MEDS: Sodium Phosphate ADULT ENEMA* 118 ml bottle PR SCH (15:41)
[2018-01-12] MEDS: Sodium Phosphate ADULT ENEMA* 118 ml bottle PR PRN (18:28)
[2018-01-12] MEDS: Piperacillin/Tazobactam 13.5 GM IV 24 hour continuous infusion IVPB SCH ×2 (21:05)
[2018-01-12] MEDS: Mirabegron (NF) 25 MG TAB PO SCH (21:28)
[2018-01-12] MEDS: Polyethylene Glycol 3350* 17 GM PACKET PO SCH (21:29)
[2018-01-12] MEDS: Diazepam TAB(*) 5 MG PO PRN (21:39)
[2018-01-12] MEDS ORDERED: Ciprofloxacin 400MG IVPREMIX(* 400 MG/200 ML BAG IVPB SCH (22:00)
[2018-01-13] MEDS: Baclofen TAB* 20 MG PO SCH ×7 (02:35→22:42)
[2018-01-13] MEDS: Heparin VIAL(*) 5000 UNITS/ML VIAL (FIVE THOUSAND) SUBCUT SCH ×3 (05:59→21:20)
[2018-01-13] MEDS: Cholecalciferol TAB* 1000 UNITS PO SCH (10:46)
[2018-01-13] MEDS: amLODIPine TAB* 5 MG PO SCH (10:46)
[2018-01-13] MEDS: ESCITALOPRAM 5 MG PO SCH (10:46)
[2018-01-13] MEDS: Docusate CAP* 100 MG PO SCH ×2 (10:47→21:19)
[2018-01-13] MEDS: Sodium Phosphate ADULT ENEMA* 118 ml bottle PR SCH (10:54)
--- NOTE | 2018-01-13 12:22 | ED ---
Gerson Hanson Stephanie, scribed for Jacky Palmer MD on 01/08/18 at 1055 . Sepsis HPI - HPI Summary HPI Summary: The pt is a 67 y/o M presenting to the ED with c/o fever that began on 01/06/18. Symptoms include SOB, urinary retention and rhinorrhea. The pt denies sore throat, CP, productive cough and N/V/D. Per , the pt was running a fever on 01/06/18 and received Tylenol from his caregiver. Per caregiver, urine had not passed into his catheter. Dr. Conway stated to press on the pts bladder and urine came out and it was orange. The pt denies hx of prostate issues. He states he has MS and does not have full sensation over entire body. The pt took 2 ibuprofen [facility]ISTANCE WELDER of EMS to house. He denies recent falls. The pt states he thinks his MS symptoms are currently worse than at baseline. Per caregiver, the pt is eating and drinking normally. - History of Current Complaint Chief Complaint: EDFever Time Seen by Provider: 01/08/18 10:21 Stated Complaint: FEVER/SICKNESS Hx Obtained From: Patient, Family/Gunsmith Apprentice - , caregiver Onset/Duration: Started Days Ago - 2, Still Present Timing: Constant Current Severity: Mild Pain Intensity: 0 Pain Scale Used: 0-10 Numeric Aggravating Symptom(s): Nothing Alleviating Factor(s): Nothing Associated Signs & Symptoms: SOB, Other - rhinorrhea, fever - Additional Pertinent History Primary Care Physician: RONIT - Allergy/Home Medications Allergies/Adverse Reactions: Allergies Allergy/AdvReac Type Severity Reaction Status Date / Time daclizumab Allergy Unknown Verified 01/08/18 10:36 Reaction Details xenapak Allergy Intermediate Nausea And Uncoded 01/08/18 10:36 Vomiting Home Medications: Home Medications Ascorbic Acid TAB* [Vitamin C TAB*] 1,000 mg PO DAILY 01/08/18 [History Confirmed 01/08/18] Mirabegron (NF) [Myrbetriq (NF)] 75 mg PO BEDTIME 01/08/18 [History Confirmed ] Multivitamins/Minerals TAB* [Theragran/minerals TAB*] 1 tab PO DAILY 01/08/18 [ History Confirmed 01/08/18] tiZANidine TAB* [Zanaflex TAB*] 6 mg PO BEDTIME 01/08/18 [History Confirmed 02/20] PMH/Surg Hx/FS Hx/Imm Hx Endocrine/Hematology History: Denies: Hx Anticoagulant Therapy, Hx Blood Disorders, Hx Blood Transfusions, Hx Bone Marrow Disease, Hx Diabetes, Hx Systemic Lupus Erythematosus, Hx Sickle Cell Disease, Hx Thyroid Disease, Hx Anemia, Hx Unexplained Bleeding Cardiovascular History: Reports: Hx Hypertension Denies: Hx Aneurysm, Hx Angina, Hx Angioplasty, Hx Auto Implanted Cardiovert Defib, Hx Cardiac Arrest, Hx Cardiomegaly, Hx Congenital Heart Disease, Hx Congestive Heart Failure, Hx Coronary Artery Disease, Hx Deep Vein Thrombosis, Hx Hypercholesterolemia, Hx Hypotension, Hx Pacemaker/ICD, Hx Peripheral Vascular Disease, Hx Rheumatic Fever, Hx Syncope, Hx Valvular Heart Disease, Other Cardiovascular Problems/Disorders Respiratory History: Reports: Hx Seasonal Allergies Denies: Hx Asthma, Hx Chronic Bronchitis, Hx Chronic Obstructive Pulmonary Disease (COPD), Hx Cystic Fibrosis, Hx Lung Cancer, Hx Pleural Effusion, Hx Pneumonia, Hx Pulmonary Edema, Hx Pulmonary Embolism, Hx Sleep Apnea GI History: Reports: Hx Diverticulosis Denies: Hx Cirrhosis, Hx Crohn's Disease, Hx Gall Bladder Disease, Hx Gastroesophageal Reflux Disease, Hx Gastrointestinal Bleed, Hx Hiatal Hernia, Hx Irritable Bowel, Hx Jaundice, Hx Obstructive Bowel, Hx Ileostomy, Hx Pyloric Stenosis, Hx Ulcer History: Reports: Hx Benign Prostatic Hyperplasia, Other Problems/ Disorders - urinary retention Denies: Hx Acute Renal Failure, Hx Chronic Renal Failure, Hx Dialysis, Hx Kidney Infection, Hx Kidney Stones, Hx Renal Disease Musculoskeletal History: Reports: Hx Tendonitis, Other Musculoskeletal History - MS Denies: Hx Arthritis, Hx Back Problems, Hx Bursitis, Hx Congenital Bone Abnormalities, Hx Fibromyalgia, Hx Gout, Hx Orthopedic Injury, Hx Osteoporosis, Hx Scoliosis Sensory History: Reports: Hx Contacts or Glasses Denies: Hx Cataracts, Hx Eye Injury, Hx Eye Prosthesis, Hx Glaucoma, Hx Vision Problem, Hx Deafness, Hx Hearing Aid, Hx Hearing Problem, Other Sensory Impairments Opthamlomology History: Reports: Hx Contacts or Glasses Denies: Hx Cataracts, Hx Eye Injury, Hx Eye Prosthesis, Hx Glaucoma, Hx Vision Problem, Other Sensory Impairments Neurological History: Reports: Other Neuro Impairments/Disorders - MS Denies: Hx Dementia, Hx Developmental Delay, Hx Headaches, Hx Migraine, Hx Nerve Disease, Hx Seizures, Hx Spinal Cord Injury, Hx Transient Ischemic Attacks (TIA) Psychiatric History: Reports: Hx Depression Denies: Hx Anxiety, Hx Attention Deficit Hyperactivity Disorder, Hx Eating Disorder, Hx Panic Disorder, Hx Post Traumatic Stress Disorder, Hx Inpatient Treatment, Hx Community Mental Health Tx, Hx Schizophrenia, Hx Bipolar Disorder , Hx Suicide Attempt, Hx of Violent Episodes Against Others, Hx Substance Abuse , Other Psychiatric Issues/Disorders - Surgical History Surgery Procedure, Year, and Place: October 12, 2012 Anterior cervical dissection with fusion,removal of c3+c4 Hx Anesthesia Reactions: No Infectious Disease History: No Infectious Disease History: Denies: Hx Clostridium Difficile, Hx Hepatitis, Hx Human Immunodeficiency Virus (HIV), Hx of Known/Suspected MRSA, Hx Shingles, Hx Tuberculosis, Hx Known/ Suspected VRE, Hx Known/Suspected VRSA, History Other Infectious Disease, Traveled Outside the [place] in Last 30 Days - Family History Known Family History: Positive: Other - Reviewed and noncontributory. - Social History Occupation: Disabled Lives: With Family Alcohol Use: Occasionally Hx Substance Use: No Substance Use Type: Reports: None Hx Tobacco Use: No Smoking Status (MU): Never Smoked Tobacco Have You Smoked in the Last Year: No Review of Systems Positive: Fever. Negative: Chills Negative: Erythema Positive: Nasal Discharge. Negative: Sore Throat Negative: Chest Pain Positive: Shortness Of Breath. Negative: Cough Negative: Abdominal Pain, Vomiting, Diarrhea, Nausea Positive: other - urinary retention. Negative: dysuria, hematuria Negative: Myalgia, Edema Negative: Rash Neurological: Other - Negative: dizziness All Other Systems Reviewed And Are Negative: Yes Physical Exam - Summary Physical Exam Summary: Constitutional: Well-developed, Well-nourished, Alert. (-) Distressed Skin: Dry, skin diffusely hot to touch HENT: Normocephalic; Atraumatic Eyes: Conjunctiva normal Neck: Musculoskeletal ROM normal neck. (-) JVD, (-) Stridor, (-) Tracheal deviation Cardio: Rhythm regular, rate normal, Heart sounds normal; Intact distal pulses; The pedal pulses are 2+ and symmetric. Radial pulses are 2+ and symmetric. (-) Murmur Pulmonary/Chest wall: Effort normal. (-) Respiratory distress, (-) Wheezes, (-) Rales, crackles in R lower lung field Abd: Soft, (-) Tenderness, (-) Distension, (-) Guarding, (-) Rebound Musculoskeletal: (-) Edema GIGU:urine cloudy in brasher tubing Lymph: (-) Cervical adenopathy Neuro: Alert, Oriented x3 Psych: Mood and affect Normal Triage Information Reviewed: Yes Vital Signs On Initial Exam: Initial Vitals Temp Pulse Resp BP Pulse Ox 105 F 104 18 160/76 91 01/08/18 10:15 01/08/18 10:15 01/08/18 10:15 01/08/18 10:15 01/08/18 10:15 Vital Signs Reviewed: Yes Diagnostics - Vital Signs Vital Signs Temp Pulse Resp BP Pulse Ox 01/08/18 10:29 92 01/08/18 10:15 105 F 104 18 160/76 91 - Laboratory Result Diagrams: 01/08/18 10:30 01/08/18 10:30 Lab Statement: Any lab studies that have been ordered have been reviewed, and results considered in the medical decision making process. - Radiology CXR Xray Interpretation: No Acute Changes Radiology Interpretation Completed By: Radiologist - NO ACTIVE CARDIOPULMONARY DISEASE. ED physician has reviewed this report. Sepsis Re-assessment - Sepsis Re-Assessment First Eval Re-Evaluation Time: 13:47 - ED physician discussed plan of admission with the pt and the pt understands and agrees. Patient's Vitals Signs: Vital Signs Temp Pulse Resp BP Pulse Ox 01/08/18 12:30 90 136/60 92 01/08/18 12:00 91 141/58 93 01/08/18 11:47 101.7 F 01/08/18 11:30 97 143/67 92 01/08/18 11:00 101 150/68 92 01/08/18 10:30 100 163/73 92 01/08/18 10:29 92 01/08/18 10:20 103 91 01/08/18 10:18 160/76 01/08/18 10:15 105 F 104 18 160/76 91 Course/Dx - Course Course Of Treatment: High fever likely associated with UTI secondary to indwelling brasher. - Differential Dx/Clinical Impression Provider Diagnosis: UTI (urinary tract infection), Sepsis, Delirious - Provider Notifications Discussed Care Of Patient With: Beba Gaspar Time Discussed With Above Provider: 13:51 Instructed by Provider To: Admit As Inpatient Discharge - Sign-Out/Discharge Documenting (check all that apply): Discharge - Discharge Plan Condition: Stable Disposition: ADMITTED TO [facility] The documentation as recorded by the Gerson morin Stephanie accurately reflects the service I personally performed and the decisions made by me, Jacky Palmer MD.
--- NOTE | 2018-01-13 12:29 | PN ---
Subjective Date of Service: 01/13/18 Interval History: No new c/o. No chills, sweats, no bowel c/o. Objective Active Medications: Acetaminophen (Tylenol Tab*) 650 mg PO Q4H PRN PRN Reason: FEVER/PAIN Last Admin: 01/09/18 20:50 Dose: 650 mg Amlodipine Besylate (Norvasc Tab*) 2.5 mg PO DAILY [facility] Last Admin: 01/13/18 10:46 Dose: 2.5 mg Baclofen (Lioresal Tab*) 40 mg PO 2100 [facility] Last Admin: 01/12/18 21:29 Dose: 40 mg Baclofen (Lioresal Tab*) 20 mg PO Q4H [facility] Last Admin: 01/13/18 10:47 Dose: 20 mg Cholecalciferol (Vitamin D Tab*) 1,000 units PO DAILY [facility] Last Admin: 01/13/18 10:46 Dose: 1,000 units Diazepam (Valium Tab(*)) 5 mg PO BID PRN PRN Reason: ANXIETY Last Admin: 01/12/18 21:39 Dose: 5 mg Docusate Sodium (Colace Cap*) 100 mg PO BID [facility] Last Admin: 01/13/18 10:47 Dose: Not Given Escitalopram Oxalate (Lexapro (Nf)) 15 mg PO DAILY [facility] Last Admin: 01/13/18 10:46 Dose: 15 mg Heparin Sodium (Porcine) (Heparin Vial(*)) 5,000 units SUBCUT Q8HR [facility] Last Admin: 01/13/18 05:59 Dose: 5,000 units Piperacillin Sod/Tazobactam (Sod 13.5 gm/ Sodium Chloride) 500 mls @ 20.833 mls /hr IVPB Q24H [facility] Last Admin: 01/12/18 21:05 Dose: 20.833 mls/hr Ibuprofen (Advil Tab*) 200 mg PO TID PRN PRN Reason: DISCOMFORT Last Admin: 01/11/18 13:48 Dose: 200 mg Mirabegron (Myrbetriq (Nf)) 75 mg PO BEDTIME [facility] Last Admin: 01/12/18 21:28 Dose: Not Given Pharmacy Consult (Zosyn Per Pharmacy*) 1 note FOLLOW UP . PRN PRN Reason: PER PROTOCOL Polyethylene Glycol/Electrolytes (Miralax*) 17 gm PO BEDTIME [facility] Last Admin: 01/12/18 21:29 Dose: 17 gm Sodium Biphosphate/Sodium Phosphate (Fleet Enema*) 1 bottle [place] DAILY [facility] Last Admin: 01/13/18 10:54 Dose: Not Given Sodium Biphosphate/Sodium Phosphate (Fleet Enema*) 1 bottle WA BEDTIME PRN PRN Reason: CONSTIPATION Last Admin: 01/12/18 18:28 Dose: 1 bottle Vital Signs - 8 hr 01/13/18 01/13/18 01/13/18 05:08 07:44 08:00 Temperature 97.4 F 97.7 F Pulse Rate 73 68 Respiratory 16 16 16 Rate Blood Pressure 131/68 135/67 (mmHg) O2 Sat by Pulse 95 95 Oximetry Oxygen Devices in Use Now: None Appearance: Alert, partly up in bed. In good spirits. Looks comfortable. Eyes: No Scleral Icterus Extremities: No Edema, No Clubbing, Cyanosis, - Skin: No Rash or Ulcers, No Nodules or Sclerosis, - Neurological: Alert and Oriented x 3, NL Sensation Result Diagrams: 01/10/18 08:45 01/09/18 05:31 Microbiology and Other Data: Microbiology 01/08/18 13:30 Influenza Types A,B Antigen (ZAIDA) - Final Nasopharyngeal Specimen received for Influenza A/B Molecular testing Assess/Plan/Problems-Billing Assessment:67 yo M with progressive MS and paraplegia due to it as well as indwelling Reddy now with UTI and sepsis - Patient Problems (1) UTI (urinary tract infection) Current Visit: Yes Status: Acute Comment: Pseudomonas, with bacteremia, also E. faecalis infection. On pip/eleazar which covers both pathogens. Dr. Clark to consult. CBC, CRP 01/14. (2) Multiple sclerosis Current Visit: No Status: Acute Code(s): G35 - MULTIPLE SCLEROSIS SNOMED Code(s): 91837425 Comment: Continue home meds. Zanaflex was held due to interaction with Cipro. Relapsing-remitting MS. According to , they were told by a specialist in [place] that nothing more could be done. (3) Indwelling Reddy catheter present Current Visit: Yes Status: Acute Code(s): Z96.0 - PRESENCE OF UROGENITAL IMPLANTS SNOMED Code(s): 781389288 Comment: Exchanged at admission Renal/bladder US unremarkable (4) Hyponatremia Current Visit: Yes Status: Acute Code(s): E87.1 - HYPO-OSMOLALITY AND HYPONATREMIA SNOMED Code(s): 78259920 Comment: BMP 01/14. Status and Disposition: inpatient, plans to d/c on Friday, family interested in [facility] with VNS, CM following
[2018-01-13] MEDS: Sodium Phosphate ADULT ENEMA* 118 ml bottle PR PRN (19:45)
--- NOTE | 2018-01-13 19:47 | CONS ---
CONSULTATION REPORT: DATE OF CONSULT: 01/13/18 REQUESTING PHYSICIAN: Dr. Ward. CONSULTING SERVICE: Infectious Disease. REASON FOR CONSULT: Pseudomonas bacteremia. IMPRESSION: 1. Pseudomonas urinary tract infection, catheter associated, complicated by pseudomonas bacteremia. 2. Sepsis, present on admission and encephalopathy, present on admission, both resolved. 3. Wheelchair bound due to multiple sclerosis. 4. Chronic Reddy catheter. RECOMMENDATION: Recheck blood cultures assuming they are negative. We will plan on 5 more days of IV antibiotics to complete a 10-day course. There are no oral options for his isolative pseudomonas. He is tolerating Zosyn well. He can continue that. HISTORY OF PRESENT ILLNESS: This is a 67-year-old male with multiple sclerosis , chronic Reddy catheter for neurogenic bladder, admitted with encephalopathy and fever. He was found to have pseudomonas in the blood and the urine. He was initially on cefepime and Cipro, was changed to Zosyn yesterday. He is tolerating that well. He is afebrile. Energy is improving. He had his Reddy catheter exchange while he was here. He had an ultrasound of the abdomen and bladder that showed right lower pole renal calculus, no hydronephrosis. He has not had an infection requiring hospitalization in the last few years. PAST MEDICAL HISTORY: 1. Multiple sclerosis, neurogenic bladder, and chronic Reddy catheter. 2. Depression. 3. Status post C3-C4 diskectomy. MEDICATIONS: 1. Acetaminophen 2. Amlodipine. 3. Baclofen. 4. Cholecalciferol. 5. Diazepam. 6. Docusate. 7. Escitalopram. 8. Heparin subcutaneous injection. 9. Mirabegron. 10. Zosyn by continuous infusion. ALLERGIES: DACLIZUMAB. FAMILY HISTORY: No recurrent infections. SOCIAL HISTORY: He lives in [place]. He is retired truck engine technician. No travel. REVIEW OF SYSTEMS: A 14-point review of systems was all negative except as noted above. PHYSICAL EXAM: Vital Signs: Temperature 36.5, heart rate 70, respirations 16, blood pressure 135/67, and oxygen saturation 95% on room air. In general, he is awake, not in distress. Neurologic: He is oriented x3. Follows all commands. HEENT: There is conjunctival hemorrhage. Oropharynx without lesions. Neck is supple without mass. Lymph Nodes: No inguinal, axillary, or epitrochlear lymphadenopathy. Heart: Regular rate and rhythm without murmurs, rubs, or gallops. Lungs: Clear to auscultation bilaterally. Abdomen: Soft, nontender, nondistended. There are bowel sounds present. Skin: There is no rash or splinter hemorrhages. Genitourinary: There is a Reddy catheter present with clear urine. LABORATORY DATA: White blood cell count 8, hemoglobin 12, platelets 126. Creatinine is 0.5. CRP was 125 on admission. Please see impressions and recommendations as outlined above. Thanks for asking me to see Mr. Jay in consultation. [id number]/[facility] #: [id number] MTDD
[2018-01-13] MEDS: Polyethylene Glycol 3350* 17 GM PACKET PO SCH (21:18)
[2018-01-13] MEDS: Diazepam TAB(*) 5 MG PO PRN (21:18)
[2018-01-13] MEDS: Piperacillin/Tazobactam 13.5 GM IV 24 hour continuous infusion IVPB SCH ×2 (21:18)
[2018-01-13] MEDS: Mirabegron (NF) 25 MG TAB PO SCH (21:19)
[2018-01-14] MEDS: Baclofen TAB* 20 MG PO SCH ×10 (03:41→22:31)
[2018-01-14 05:39] LABS: Hematocrit 41 % (42-52); Hemoglobin 14.1 g/dl (14.0-18.0); Mean Corpuscular HGB Conc 35 g/dl (31-36); Mean Corpuscular Hemoglobin 32 pg (27-31); Mean Corpuscular Volume 93 fL (80-94); Mean Platelet Volume 8.2 um3 (7.4-10.4); Platelet Count 221 10^3/ul (150-450); Red Blood Count 4.38 10^6/ul (4.0-5.4); Red Cell Distribution Width 14 % (10.5-15); White Blood Count 7.2 10^3/ul (3.5-10.8)
[2018-01-14] MEDS: Diazepam TAB(*) 5 MG PO PRN ×2 (05:39→21:44)
[2018-01-14] MEDS: Heparin VIAL(*) 5000 UNITS/ML VIAL (FIVE THOUSAND) SUBCUT SCH ×3 (05:40→21:45)
[2018-01-14 05:57] LABS: EGFR Non-African American 145.1 (>60)
[2018-01-14 06:05] LABS: ABS Basophils 0.1 10^3/ul (0-0.2); ABS Eosinophils 0.4 10^3/ul (0-0.6); ABS Lymphocytes 2.3 10^3/ul (1.0-4.8); ABS Monocytes 0.7 10^3/ul (0-0.8); ABS Neutrophils 3.7 10^3/ul (1.5-7.7)
[2018-01-14 06:32] LABS: ABS Nucleated RBC 0 10^3/ul; Eosinophil % 6.1 % (0-6); Lymphocyte % 31.7 % (25-47); Nucleated Red Blood Cells % 0.1
[2018-01-14] MEDS: ESCITALOPRAM 5 MG PO SCH (09:53)
[2018-01-14] MEDS: Cholecalciferol TAB* 1000 UNITS PO SCH (09:53)
[2018-01-14] MEDS: amLODIPine TAB* 5 MG PO SCH (09:54)
[2018-01-14] MEDS: Docusate CAP* 100 MG PO SCH ×2 (10:02→21:17)
--- NOTE | 2018-01-14 10:53 | PN ---
Subjective Date of Service: 01/14/18 Interval History: He had a period of confusion overnight around 3am, thinking his son was outside his room, concerned about his breakfast getting cold, and thinking it was 330 in the afternoon. After his nurse came in, he was able to re-orient and recalls the episode. Otherwise feels well this morning, close to his baseline but his right hand is not back to its usual strength. Objective Active Medications: Acetaminophen (Tylenol Tab*) 650 mg PO Q4H PRN PRN Reason: FEVER/PAIN Last Admin: 01/09/18 20:50 Dose: 650 mg Amlodipine Besylate (Norvasc Tab*) 2.5 mg PO DAILY [facility] Last Admin: 01/14/18 09:54 Dose: 2.5 mg Baclofen (Lioresal Tab*) 40 mg PO 2100 [facility] Last Admin: 01/13/18 21:18 Dose: 40 mg Baclofen (Lioresal Tab*) 20 mg PO Q4H [facility] Last Admin: 01/14/18 09:53 Dose: 20 mg Cholecalciferol (Vitamin D Tab*) 1,000 units PO DAILY [facility] Last Admin: 01/14/18 09:53 Dose: 1,000 units Diazepam (Valium Tab(*)) 5 mg PO BID PRN PRN Reason: ANXIETY Last Admin: 01/14/18 05:39 Dose: 2.5 mg Docusate Sodium (Colace Cap*) 100 mg PO BID [facility] Last Admin: 01/14/18 10:02 Dose: Not Given Escitalopram Oxalate (Lexapro (Nf)) 15 mg PO DAILY [facility] Last Admin: 01/14/18 09:53 Dose: 15 mg Heparin Sodium (Porcine) (Heparin Vial(*)) 5,000 units SUBCUT Q8HR [facility] Last Admin: 01/14/18 05:40 Dose: 5,000 units Piperacillin Sod/Tazobactam (Sod 13.5 gm/ Sodium Chloride) 500 mls @ 20.833 mls /hr IVPB Q24H [facility] Last Admin: 01/13/18 21:18 Dose: 20.833 mls/hr Ibuprofen (Advil Tab*) 200 mg PO TID PRN PRN Reason: DISCOMFORT Last Admin: 01/11/18 13:48 Dose: 200 mg Mirabegron (Myrbetriq (Nf)) 75 mg PO BEDTIME [facility] Last Admin: 01/13/18 21:19 Dose: Not Given Pharmacy Consult (Zosyn Per Pharmacy*) 1 note FOLLOW UP . PRN PRN Reason: PER PROTOCOL Polyethylene Glycol/Electrolytes (Miralax*) 17 gm PO BEDTIME [facility] Last Admin: 01/13/18 21:18 Dose: 17 gm Sodium Biphosphate/Sodium Phosphate (Fleet Enema*) 1 bottle [place] DAILY [facility] Last Admin: 01/13/18 10:54 Dose: Not Given Sodium Biphosphate/Sodium Phosphate (Fleet Enema*) 1 bottle [place] BEDTIME PRN PRN Reason: CONSTIPATION Last Admin: 01/13/18 19:45 Dose: 1 bottle Vital Signs - 8 hr 01/14/18 01/14/18 01/14/18 03:51 05:39 08:00 Temperature 97.7 F Pulse Rate 65 Respiratory 16 16 16 Rate Blood Pressure 119/66 (mmHg) O2 Sat by Pulse 94 Oximetry 01/14/18 01/14/18 08:27 10:03 Temperature 97.7 F Pulse Rate 76 Respiratory 16 16 Rate Blood Pressure 126/62 (mmHg) O2 Sat by Pulse 94 Oximetry Oxygen Devices in Use Now: None Appearance: alert, nontoxic Eyes: No Scleral Icterus Ears/Nose/Mouth/Throat: NL Teeth, Lips, Gums, Mucous Membranes Moist, - - able to open mouth about 2 inches Neck: NL Appearance and Movements; NL JVP, Trachea Midline Respiratory: Symmetrical Chest Expansion and Respiratory Effort, Clear to Auscultation Cardiovascular: NL Sounds; No Murmurs; No JVD, RRR Abdominal: - - brasher catheter draining clear yellow urine Lymphatic: No Cervical Adenopathy Extremities: No Edema Skin: - - blanching erythematous macules over right dorsum of the foot Neurological: Alert and Oriented x 3, - - strength 0/5 in lue, both lower extremities, and only spasm in the right upper extremity in the thenar eminence Result Diagrams: 01/14/18 05:13 01/14/18 05:31 Microbiology and Other Data: Microbiology 01/08/18 13:30 Influenza Types A,B Antigen (ZAIDA) - Final Nasopharyngeal Specimen received for Influenza A/B Molecular testing Assess/Plan/Problems-Billing Assessment:67 yo M with progressive MS and paraplegia/neurogenic bladder, with indwelling Brasher admitted 4/5 with sepsis, found to have pseudomonas uti and bacteremia - Patient Problems (1) Sepsis Current Visit: Yes Status: Acute Comment: Present on admission, now resolved. Due chronic brasher associated UTI, complicated by bactermia Pseudomonas in blood and urine Pip/tazo until Friday per ID Repeat blood cultures drawn this morning, will follow up (2) Dysphagia Current Visit: Yes Status: Acute Code(s): R13.10 - DYSPHAGIA, UNSPECIFIED SNOMED Code(s): 24436872 Comment: mild, chronic, due to progressive MS Swallow eval OK'ed regular diet (3) Hyponatremia Current Visit: Yes Status: Acute Code(s): E87.1 - HYPO-OSMOLALITY AND HYPONATREMIA SNOMED Code(s): 21775330 Comment: Likely hypovolemic, improving after NS volume resuscitation (4) Indwelling Brasher catheter present Current Visit: Yes Status: Acute Code(s): Z96.0 - PRESENCE OF UROGENITAL IMPLANTS SNOMED Code(s): 515589266 Comment: Exchanged at admission Renal/bladder US unremarkable (5) Multiple sclerosis Current Visit: No Status: Acute Code(s): G35 - MULTIPLE SCLEROSIS SNOMED Code(s): 14810783 Comment: Relapsing-remitting MS. Continue baclofen, zanaflex, merobegron Status and Disposition: inpatient, plans to d/c on Friday, family interested in [facility] with VNS, CM following
[2018-01-14] MEDS: Sodium Phosphate ADULT ENEMA* 118 ml bottle PR SCH (12:19)
[2018-01-14] MEDS: Mirabegron (NF) 25 MG TAB PO SCH (21:18)
[2018-01-14] MEDS: Sodium Phosphate ADULT ENEMA* 118 ml bottle PR PRN (21:20)
[2018-01-14] MEDS: Polyethylene Glycol 3350* 17 GM PACKET PO SCH (21:44)
[2018-01-14] MEDS: Piperacillin/Tazobactam 13.5 GM IV 24 hour continuous infusion IVPB SCH ×2 (22:30)
[2018-01-15] MEDS: Baclofen TAB* 20 MG PO SCH ×7 (01:17→20:38)
[2018-01-15] MEDS: Ibuprofen TAB* 200 MG PO PRN (03:42)
[2018-01-15] MEDS ORDERED: Diazepam TAB(*) 5 MG PO ONE (04:18)
[2018-01-15] MEDS: Heparin VIAL(*) 5000 UNITS/ML VIAL (FIVE THOUSAND) SUBCUT SCH ×3 (05:59→21:58)
--- NOTE | 2018-01-15 08:05 | PN ---
Subjective Date of Service: 01/15/18 Interval History: No overnight events, reports poor sleep. No pain, feels okay. His right hand strength is not back to baseline. Objective Active Medications: Acetaminophen (Tylenol Tab*) 650 mg PO Q4H PRN PRN Reason: FEVER/PAIN Last Admin: 01/09/18 20:50 Dose: 650 mg Amlodipine Besylate (Norvasc Tab*) 2.5 mg PO DAILY [facility] Last Admin: 01/14/18 09:54 Dose: 2.5 mg Baclofen (Lioresal Tab*) 40 mg PO 2100 [facility] Last Admin: 01/14/18 21:44 Dose: 40 mg Baclofen (Lioresal Tab*) 20 mg PO Q4H [facility] Last Admin: 01/15/18 05:59 Dose: 20 mg Cholecalciferol (Vitamin D Tab*) 1,000 units PO DAILY [facility] Last Admin: 01/14/18 09:53 Dose: 1,000 units Diazepam (Valium Tab(*)) 5 mg PO BID PRN PRN Reason: ANXIETY Last Admin: 01/14/18 21:44 Dose: 5 mg Docusate Sodium (Colace Cap*) 100 mg PO BID [facility] Last Admin: 01/14/18 21:17 Dose: Not Given Escitalopram Oxalate (Lexapro (Nf)) 15 mg PO DAILY [facility] Last Admin: 01/14/18 09:53 Dose: 15 mg Heparin Sodium (Porcine) (Heparin Vial(*)) 5,000 units SUBCUT Q8HR [facility] Last Admin: 01/15/18 05:59 Dose: 5,000 units Piperacillin Sod/Tazobactam (Sod 13.5 gm/ Sodium Chloride) 500 mls @ 20.833 mls /hr IVPB Q24H [facility] Last Admin: 01/14/18 22:30 Dose: 20.833 mls/hr Ibuprofen (Advil Tab*) 200 mg PO TID PRN PRN Reason: DISCOMFORT Last Admin: 01/15/18 03:42 Dose: 200 mg Mirabegron (Myrbetriq (Nf)) 75 mg PO BEDTIME [facility] Last Admin: 01/14/18 21:18 Dose: Not Given Pharmacy Consult (Zosyn Per Pharmacy*) 1 note FOLLOW UP . PRN PRN Reason: PER PROTOCOL Polyethylene Glycol/Electrolytes (Miralax*) 17 gm PO BEDTIME [facility] Last Admin: 01/14/18 21:44 Dose: 17 gm Sodium Biphosphate/Sodium Phosphate (Fleet Enema*) 1 bottle [place] DAILY [facility] Last Admin: 01/14/18 12:19 Dose: Not Given Sodium Biphosphate/Sodium Phosphate (Fleet Enema*) 1 bottle [place] BEDTIME PRN PRN Reason: CONSTIPATION Last Admin: 01/14/18 21:20 Dose: 1 bottle Vital Signs - 8 hr 01/15/18 01/15/18 01/15/18 00:20 04:08 04:41 Temperature 97.5 F Pulse Rate 64 Respiratory 18 16 18 Rate Blood Pressure 125/54 (mmHg) O2 Sat by Pulse 96 Oximetry Oxygen Devices in Use Now: None Appearance: alert, nontoxic Eyes: No Scleral Icterus, PERRLA Ears/Nose/Mouth/Throat: NL Teeth, Lips, Gums Neck: NL Appearance and Movements; NL JVP Respiratory: Symmetrical Chest Expansion and Respiratory Effort, Clear to Auscultation Cardiovascular: NL Sounds; No Murmurs; No JVD, RRR Abdominal: NL Sounds; No Tenderness; No Distention, No Hepatosplenomegaly, - - brasher catheter draining clear urine Lymphatic: No Cervical Adenopathy Extremities: No Edema Skin: No Rash or Ulcers Neurological: Alert and Oriented x 3, - - strength 0/5 in all extremities with only 1/5 in the right hand, few spasm in the right leg Result Diagrams: 01/14/18 05:13 01/14/18 05:31 Microbiology and Other Data: Microbiology 01/08/18 13:30 Influenza Types A,B Antigen (ZAIDA) - Final Nasopharyngeal Specimen received for Influenza A/B Molecular testing Assess/Plan/Problems-Billing Assessment:67 yo M with progressive MS and paraplegia/neurogenic bladder, with indwelling Brasher admitted 01/08 with sepsis, found to have pseudomonas uti and bacteremia, now also with e. faecalis in the urine - Patient Problems (1) Sepsis Current Visit: Yes Status: Acute Comment: Present on admission, now resolved. Due chronic brasher associated UTI, complicated by bacteremia Pseudomonas in blood and urine from 01/08; subsequent blood cultures negative so far E. faecalis also in urine; hard to tell if this is pathogenic or colonized; has improved drastically on pip/tazo, but may warrant gram positive coverage Pip/tazo until Friday per ID; will discuss addition of amoxicillin with Dr. Riggins (2) Dysphagia Current Visit: Yes Status: Acute Code(s): R13.10 - DYSPHAGIA, UNSPECIFIED SNOMED Code(s): 83700154 Comment: mild, chronic, due to progressive MS Swallow eval OK'ed regular diet (3) Indwelling Brasher catheter present Current Visit: Yes Status: Acute Code(s): Z96.0 - PRESENCE OF UROGENITAL IMPLANTS SNOMED Code(s): 761354910 Comment: Exchanged at admission Renal/bladder US unremarkable (4) Multiple sclerosis Current Visit: No Status: Acute Code(s): G35 - MULTIPLE SCLEROSIS SNOMED Code(s): 33524879 Comment: Relapsing-remitting MS. Continue baclofen, merobegron Stretching and ROM with PT Status and Disposition: inpatient, plans to d/c on Friday, family interested in [facility] with VNS, CM following
[2018-01-15] MEDS: amLODIPine TAB* 5 MG PO SCH ×2 (09:35→09:36)
[2018-01-15] MEDS: ESCITALOPRAM 5 MG PO SCH (09:35)
[2018-01-15] MEDS: Cholecalciferol TAB* 1000 UNITS PO SCH (09:36)
[2018-01-15] MEDS: Docusate CAP* 100 MG PO SCH ×3 (09:37→20:41)
[2018-01-15] MEDS: Sodium Phosphate ADULT ENEMA* 118 ml bottle PR SCH (09:39)
[2018-01-15] MEDS ORDERED: NS 0.9% 1000 ML* 500 ML IV ONE (15:24)
--- NOTE | 2018-01-15 17:25 | PN ---
Hospitalist Progress Note Date of Service: 01/15/18 I updated Mr. Jay's , his daughter, and their caregiver at his bedside about his UTI, the presence of enterococcus and likely colonization, the need for iv antibiotics, the positive blood cultures which have since cleared. They request a Cough Assist at discharge, which I will discuss with Case Management. They use [facility].
[2018-01-15] MEDS: Polyethylene Glycol 3350* 17 GM PACKET PO SCH (20:36)
[2018-01-15] MEDS: Piperacillin/Tazobactam 13.5 GM IV 24 hour continuous infusion IVPB SCH ×2 (20:36)
[2018-01-15] MEDS: Diazepam TAB(*) 5 MG PO PRN (21:03)
[2018-01-16] MEDS: Baclofen TAB* 20 MG PO SCH ×7 (02:41→21:54)
[2018-01-16] MEDS: Diazepam TAB(*) 5 MG PO PRN (02:42)
[2018-01-16] MEDS: Heparin VIAL(*) 5000 UNITS/ML VIAL (FIVE THOUSAND) SUBCUT SCH ×3 (05:57→21:24)
[2018-01-16 06:01] LABS: ABS Basophils 0 10^3/ul (0-0.2); ABS Eosinophils 0.4 10^3/ul (0-0.6); ABS Monocytes 0.5 10^3/ul (0-0.8); ABS Neutrophils 3.1 10^3/ul (1.5-7.7); ABS Nucleated RBC 0 10^3/ul; Eosinophil % 7.2 % (0-6); Hematocrit 41 % (42-52); Hemoglobin 13.9 g/dl (14.0-18.0); Lymphocyte % 32.5 % (25-47); Mean Corpuscular HGB Conc 34 g/dl (31-36); Mean Corpuscular Hemoglobin 32 pg (27-31); Mean Corpuscular Volume 94 fL (80-94); Mean Platelet Volume 8.4 um3 (7.4-10.4); Nucleated Red Blood Cells % 0; Platelet Count 246 10^3/ul (150-450); Red Blood Count 4.38 10^6/ul (4.0-5.4); Red Cell Distribution Width 14 % (10.5-15); White Blood Count 6.1 10^3/ul (3.5-10.8)
[2018-01-16 06:17] LABS: EGFR Non-African American 161.6 (>60)
[2018-01-16] MEDS: Docusate CAP* 100 MG PO SCH ×3 (09:03→21:29)
[2018-01-16] MEDS: ESCITALOPRAM 5 MG PO SCH (09:03)
[2018-01-16] MEDS: amLODIPine TAB* 5 MG PO SCH (09:04)
[2018-01-16] MEDS: Cholecalciferol TAB* 1000 UNITS PO SCH (09:04)
[2018-01-16] MEDS: Sodium Phosphate ADULT ENEMA* 118 ml bottle PR SCH (09:05)
--- NOTE | 2018-01-16 15:12 | PN ---
Subjective Date of Service: 01/16/18 Interval History: No overnight events, feels okay today but not back to baseline with ability to use his right hand to steer his wheelchair. He has no pain. Otherwise he feels okay. Objective Active Medications: Acetaminophen (Tylenol Tab*) 650 mg PO Q4H PRN PRN Reason: FEVER/PAIN Last Admin: 01/09/18 20:50 Dose: 650 mg Amlodipine Besylate (Norvasc Tab*) 2.5 mg PO DAILY [facility] Last Admin: 01/16/18 09:04 Dose: 2.5 mg Baclofen (Lioresal Tab*) 40 mg PO 2100 [facility] Last Admin: 01/15/18 20:37 Dose: 40 mg Baclofen (Lioresal Tab*) 20 mg PO Q4H [facility] Last Admin: 01/16/18 14:32 Dose: 20 mg Cholecalciferol (Vitamin D Tab*) 1,000 units PO DAILY [facility] Last Admin: 01/16/18 09:04 Dose: 1,000 units Docusate Sodium (Colace Cap*) 100 mg PO BID [facility] Last Admin: 01/16/18 09:03 Dose: 100 mg Escitalopram Oxalate (Lexapro (Nf)) 15 mg PO DAILY [facility] Last Admin: 01/16/18 09:03 Dose: 15 mg Heparin Sodium (Porcine) (Heparin Vial(*)) 5,000 units SUBCUT Q8HR [facility] Last Admin: 01/16/18 14:32 Dose: 5,000 units Piperacillin Sod/Tazobactam (Sod 13.5 gm/ Sodium Chloride) 500 mls @ 20.833 mls /hr IVPB Q24H [facility] Last Admin: 01/15/18 20:36 Dose: 20.833 mls/hr Ibuprofen (Advil Tab*) 200 mg PO TID PRN PRN Reason: DISCOMFORT Last Admin: 01/15/18 03:42 Dose: 200 mg Pharmacy Consult (Zosyn Per Pharmacy*) 1 note FOLLOW UP . PRN PRN Reason: PER PROTOCOL Polyethylene Glycol/Electrolytes (Miralax*) 17 gm PO BEDTIME [facility] Last Admin: 01/15/18 20:36 Dose: 17 gm Sodium Biphosphate/Sodium Phosphate (Fleet Enema*) 1 bottle [place] DAILY [facility] Last Admin: 01/16/18 09:05 Dose: 1 bottle Sodium Biphosphate/Sodium Phosphate (Fleet Enema*) 1 bottle [place] BEDTIME PRN PRN Reason: CONSTIPATION Last Admin: 01/14/18 21:20 Dose: 1 bottle Vital Signs - 8 hr 01/16/18 08:01 Temperature 97.9 F Pulse Rate 78 Respiratory 19 Rate Blood Pressure 129/65 (mmHg) O2 Sat by Pulse 94 Oximetry Oxygen Devices in Use Now: None Appearance: alert, sitting up in his wheelchair in no distress Eyes: No Scleral Icterus Neck: NL Appearance and Movements; NL JVP Respiratory: Symmetrical Chest Expansion and Respiratory Effort, Clear to Auscultation, - - weak cough Cardiovascular: NL Sounds; No Murmurs; No JVD, RRR Abdominal: NL Sounds; No Tenderness; No Distention, - - brasher catheter draining clear yellow urine Lymphatic: No Cervical Adenopathy Extremities: No Edema Skin: No Rash or Ulcers Neurological: Alert and Oriented x 3, - - diffuse muscle atrophy, strength 0/5 in all extremities except right hand 1/5 Result Diagrams: 01/16/18 05:37 01/16/18 05:37 Microbiology and Other Data: Microbiology 01/08/18 13:30 Influenza Types A,B Antigen (ZAIDA) - Final Nasopharyngeal Specimen received for Influenza A/B Molecular testing Assess/Plan/Problems-Billing Assessment:67 yo M with progressive MS and paraplegia/neurogenic bladder, with indwelling Brasher admitted 01/08 with sepsis, found to have pseudomonas uti and bacteremia - Patient Problems (1) Complicated UTI (urinary tract infection) Current Visit: Yes Status: Acute Code(s): N39.0 - URINARY TRACT INFECTION, SITE NOT SPECIFIED SNOMED Code(s): 25960405 Comment: with pseudomonas complicated by bacteremia, blood cultures have subsequently cleared no PO antibiotic options pip/tazo until Friday E. faecalis also in urine; not thought to be pathogenic in this case (2) Dysphagia Current Visit: Yes Status: Acute Code(s): R13.10 - DYSPHAGIA, UNSPECIFIED SNOMED Code(s): 12960581 Comment: mild, chronic, due to progressive MS Swallow eval OK'ed regular diet (3) Indwelling Brasher catheter present Current Visit: Yes Status: Acute Code(s): Z96.0 - PRESENCE OF UROGENITAL IMPLANTS SNOMED Code(s): 313845223 Comment: Exchanged at admission Renal/bladder US unremarkable (4) Multiple sclerosis Current Visit: No Status: Acute Code(s): G35 - MULTIPLE SCLEROSIS SNOMED Code(s): 54735914 Comment: Relapsing-remitting MS. Continue baclofen, merobegron Stretching and ROM with PT Status and Disposition: inpatient, plans to d/c on Friday, family interested in [facility] with VNS, CM following
--- NOTE | 2018-01-16 15:45 | PN ---
Hospitalist Progress Note Date of Service: 01/16/18 Mr. Jay was evaluated by me today. Regarding the need for a hospital bed, Mr. Jay has the diagnosis of Multiple Sclerosis, necessitating an order for a semi-electric hospital bed. His medical condition requires the body to be positioned in a way that an ordinary bed cannot provide. He has progressive muscle atrophy and weakness such that a [place]ado lift is necessary to transfer him. Multiple sclerosis has also caused a weak cough reflex and as such, he would benefit from a Cough Assist machine.
[2018-01-16] MEDS: Polyethylene Glycol 3350* 17 GM PACKET PO SCH (21:22)
[2018-01-16] MEDS: Sodium Phosphate ADULT ENEMA* 118 ml bottle PR PRN (21:22)
[2018-01-16] MEDS: Piperacillin/Tazobactam 13.5 GM IV 24 hour continuous infusion IVPB SCH ×2 (21:24)
[2018-01-16] MEDS ORDERED: Diazepam TAB(*) 5 MG PO PRN (21:58)
[2018-01-17] MEDS: Baclofen TAB* 20 MG PO SCH ×7 (02:03→22:07)
[2018-01-17] MEDS: Heparin VIAL(*) 5000 UNITS/ML VIAL (FIVE THOUSAND) SUBCUT SCH ×3 (05:53→22:08)
[2018-01-17] MEDS: Cholecalciferol TAB* 1000 UNITS PO SCH (09:24)
[2018-01-17] MEDS: ESCITALOPRAM 5 MG PO SCH (09:24)
[2018-01-17] MEDS: Sodium Phosphate ADULT ENEMA* 118 ml bottle PR SCH (09:25)
[2018-01-17] MEDS: Docusate CAP* 100 MG PO SCH ×2 (09:25→22:07)
[2018-01-17] MEDS: amLODIPine TAB* 5 MG PO SCH (09:28)
--- NOTE | 2018-01-17 09:42 | PN ---
Subjective Date of Service: 01/17/18 Interval History: Slept better last night and denies any further episodes of confusion. No complaints this morning. No shortness of breath, cough, fevers, diarrhea, pain. Objective Active Medications: Acetaminophen (Tylenol Tab*) 650 mg PO Q4H PRN PRN Reason: FEVER/PAIN Last Admin: 01/09/18 20:50 Dose: 650 mg Baclofen (Lioresal Tab*) 40 mg PO 2100 [facility] Last Admin: 01/16/18 21:23 Dose: 40 mg Baclofen (Lioresal Tab*) 20 mg PO Q4H [facility] Last Admin: 01/17/18 09:24 Dose: 20 mg Cholecalciferol (Vitamin D Tab*) 1,000 units PO DAILY [facility] Last Admin: 01/17/18 09:24 Dose: 1,000 units Diazepam (Valium Tab(*)) 5 mg PO Q6H PRN PRN Reason: spasms Docusate Sodium (Colace Cap*) 100 mg PO BID [facility] Last Admin: 01/17/18 09:25 Dose: Not Given Escitalopram Oxalate (Lexapro (Nf)) 15 mg PO DAILY [facility] Last Admin: 01/17/18 09:24 Dose: 15 mg Heparin Sodium (Porcine) (Heparin Vial(*)) 5,000 units SUBCUT Q8HR [facility] Last Admin: 01/17/18 05:53 Dose: 5,000 units Piperacillin Sod/Tazobactam (Sod 13.5 gm/ Sodium Chloride) 500 mls @ 20.833 mls /hr IVPB Q24H [facility] Last Admin: 01/16/18 21:24 Dose: 20.833 mls/hr Ibuprofen (Advil Tab*) 200 mg PO TID PRN PRN Reason: DISCOMFORT Last Admin: 01/15/18 03:42 Dose: 200 mg Pharmacy Consult (Zosyn Per Pharmacy*) 1 note FOLLOW UP . PRN PRN Reason: PER PROTOCOL Polyethylene Glycol/Electrolytes (Miralax*) 17 gm PO BEDTIME [facility] Last Admin: 01/16/18 21:22 Dose: 17 gm Sodium Biphosphate/Sodium Phosphate (Fleet Enema*) 1 bottle [place] DAILY [facility] Last Admin: 01/17/18 09:25 Dose: 1 bottle Sodium Biphosphate/Sodium Phosphate (Fleet Enema*) 1 bottle [place] BEDTIME PRN PRN Reason: CONSTIPATION Last Admin: 01/16/18 21:22 Dose: 1 bottle Vital Signs - 8 hr 01/17/18 01/17/18 02:36 08:27 Temperature 98.8 F Pulse Rate 70 Respiratory 18 22 Rate Blood Pressure 122/65 (mmHg) O2 Sat by Pulse 95 Oximetry Oxygen Devices in Use Now: None Appearance: alert, well appearing Eyes: No Scleral Icterus Ears/Nose/Mouth/Throat: NL Teeth, Lips, Gums Neck: NL Appearance and Movements; NL JVP Respiratory: Symmetrical Chest Expansion and Respiratory Effort, Clear to Auscultation, - - anteriorly Cardiovascular: NL Sounds; No Murmurs; No JVD, RRR Abdominal: NL Sounds; No Tenderness; No Distention Lymphatic: No Cervical Adenopathy Extremities: No Edema Skin: No Rash or Ulcers Neurological: Alert and Oriented x 3, - - strength 0/5 in all extremities except 1/5 in right hand. sensation in tact. Result Diagrams: 01/16/18 05:37 01/16/18 05:37 Microbiology and Other Data: Microbiology 01/08/18 13:30 Influenza Types A,B Antigen (ZAIDA) - Final Nasopharyngeal Specimen received for Influenza A/B Molecular testing Assess/Plan/Problems-Billing Assessment:67 yo M with progressive MS and paraplegia/neurogenic bladder, with indwelling Brasher admitted /5 with sepsis, found to have pseudomonas uti and bacteremia - Patient Problems (1) Complicated UTI (urinary tract infection) Current Visit: Yes Status: Acute Code(s): N39.0 - URINARY TRACT INFECTION, SITE NOT SPECIFIED SNOMED Code(s): 99578756 Comment: in setting of chronic indwelling brasher cx: pseudomonas, e. faecalis complicated by pseudomonas bacteremia, blood cultures have subsequently cleared no PO antibiotic options pip/tazo until Friday (2) Dysphagia Current Visit: Yes Status: Acute Code(s): R13.10 - DYSPHAGIA, UNSPECIFIED SNOMED Code(s): 58016779 Comment: mild, chronic, due to progressive MS Swallow eval OK'ed regular diet (3) Indwelling Brasher catheter present Current Visit: Yes Status: Acute Code(s): Z96.0 - PRESENCE OF UROGENITAL IMPLANTS SNOMED Code(s): 245209108 Comment: Exchanged at admission Renal/bladder US unremarkable (4) Multiple sclerosis Current Visit: No Status: Acute Code(s): G35 - MULTIPLE SCLEROSIS SNOMED Code(s): 74418782 Comment: Relapsing-remitting MS. Continue baclofen. merobegron not on formulary Appreciate PT re-consultation for stretching and ROM Status and Disposition: inpatient, plans to d/c on Friday, CM following
[2018-01-17] MEDS: Piperacillin/Tazobactam 13.5 GM IV 24 hour continuous infusion IVPB SCH ×2 (22:04)
[2018-01-17] MEDS: Diazepam TAB(*) 5 MG PO PRN (22:07)
[2018-01-17] MEDS: Polyethylene Glycol 3350* 17 GM PACKET PO SCH (22:08)
[2018-01-18] MEDS: Baclofen TAB* 20 MG PO SCH ×7 (03:22→21:56)
[2018-01-18] MEDS: Heparin VIAL(*) 5000 UNITS/ML VIAL (FIVE THOUSAND) SUBCUT SCH ×3 (04:43→21:56)
[2018-01-18] MEDS: Diazepam TAB(*) 5 MG PO PRN ×3 (04:44→21:56)
[2018-01-18 07:15] LABS: ABS Basophils 0.1 10^3/ul (0-0.2); ABS Eosinophils 0.4 10^3/ul (0-0.6); ABS Lymphocytes 2.2 10^3/ul (1.0-4.8); ABS Monocytes 0.5 10^3/ul (0-0.8); ABS Neutrophils 2.4 10^3/ul (1.5-7.7); ABS Nucleated RBC 0 10^3/ul; Eosinophil % 7.2 % (0-6); Hematocrit 40 % (42-52); Hemoglobin 13.5 g/dl (14.0-18.0); Lymphocyte % 39.3 % (25-47); Mean Corpuscular HGB Conc 34 g/dl (31-36); Mean Corpuscular Hemoglobin 32 pg (27-31); Mean Corpuscular Volume 94 fL (80-94); Mean Platelet Volume 8.4 um3 (7.4-10.4); Nucleated Red Blood Cells % 0.1; Platelet Count 255 10^3/ul (150-450); Red Blood Count 4.21 10^6/ul (4.0-5.4); Red Cell Distribution Width 14 % (10.5-15); White Blood Count 5.5 10^3/ul (3.5-10.8)
[2018-01-18 07:16] LABS: EGFR Non-African American 154.6 (>60)
[2018-01-18] MEDS: Docusate CAP* 100 MG PO SCH ×2 (09:02→21:56)
[2018-01-18] MEDS: ESCITALOPRAM 5 MG PO SCH (09:03)
[2018-01-18] MEDS: Cholecalciferol TAB* 1000 UNITS PO SCH (09:03)
[2018-01-18] MEDS: Sodium Phosphate ADULT ENEMA* 118 ml bottle PR SCH (10:29)
[2018-01-18] MEDS: Polyethylene Glycol 3350* 17 GM PACKET PO SCH (21:57)
[2018-01-18] MEDS: Piperacillin/Tazobactam 13.5 GM IV 24 hour continuous infusion IVPB SCH ×2 (22:05)
--- NOTE | 2018-01-18 22:08 | PN ---
Subjective Date of Service: 01/18/18 Interval History: No overnight events. Feels good today. Right hand is still not back to baseline. His and friend are visiting. Objective Active Medications: Acetaminophen (Tylenol Tab*) 650 mg PO Q4H PRN PRN Reason: FEVER/PAIN Last Admin: 01/09/18 20:50 Dose: 650 mg Baclofen (Lioresal Tab*) 40 mg PO 2100 [facility] Last Admin: 01/18/18 21:55 Dose: 40 mg Baclofen (Lioresal Tab*) 20 mg PO Q4H [facility] Last Admin: 01/18/18 21:56 Dose: 20 mg Cholecalciferol (Vitamin D Tab*) 1,000 units PO DAILY [facility] Last Admin: 01/18/18 09:03 Dose: 1,000 units Diazepam (Valium Tab(*)) 5 mg PO Q6H PRN PRN Reason: spasms Last Admin: 01/18/18 21:56 Dose: 5 mg Docusate Sodium (Colace Cap*) 100 mg PO BID [facility] Last Admin: 01/18/18 21:56 Dose: Not Given Escitalopram Oxalate (Lexapro (Nf)) 15 mg PO DAILY [facility] Last Admin: 01/18/18 09:03 Dose: 15 mg Heparin Sodium (Porcine) (Heparin Vial(*)) 5,000 units SUBCUT Q8HR [facility] Last Admin: 01/18/18 21:56 Dose: 5,000 units Piperacillin Sod/Tazobactam (Sod 13.5 gm/ Sodium Chloride) 500 mls @ 20.833 mls /hr IVPB Q24H [facility] Last Admin: 01/17/18 22:04 Dose: 20.833 mls/hr Ibuprofen (Advil Tab*) 200 mg PO TID PRN PRN Reason: DISCOMFORT Last Admin: 01/15/18 03:42 Dose: 200 mg Pharmacy Consult (Zosyn Per Pharmacy*) 1 note FOLLOW UP . PRN PRN Reason: PER PROTOCOL Polyethylene Glycol/Electrolytes (Miralax*) 17 gm PO BEDTIME [facility] Last Admin: 01/18/18 21:57 Dose: 17 gm Sodium Biphosphate/Sodium Phosphate (Fleet Enema*) 1 bottle [place] DAILY [facility] Last Admin: 01/18/18 10:29 Dose: 1 bottle Sodium Biphosphate/Sodium Phosphate (Fleet Enema*) 1 bottle [place] BEDTIME PRN PRN Reason: CONSTIPATION Last Admin: 01/16/18 21:22 Dose: 1 bottle Vital Signs - 8 hr 01/18/18 01/18/18 01/18/18 14:12 15:37 18:15 Temperature 97.6 F Pulse Rate 66 Respiratory 16 16 18 Rate Blood Pressure 128/65 (mmHg) O2 Sat by Pulse 97 Oximetry 01/18/18 21:56 Temperature Pulse Rate Respiratory 16 Rate Blood Pressure (mmHg) O2 Sat by Pulse Oximetry Oxygen Devices in Use Now: None Appearance: alert, sitting in his wheelchair, pleasant Eyes: No Scleral Icterus Ears/Nose/Mouth/Throat: NL Teeth, Lips, Gums Neck: NL Appearance and Movements; NL JVP Respiratory: Symmetrical Chest Expansion and Respiratory Effort Extremities: No Edema Neurological: Alert and Oriented x 3 Result Diagrams: 01/18/18 06:34 01/18/18 06:34 Microbiology and Other Data: Microbiology 01/08/18 13:30 Influenza Types A,B Antigen (ZAIDA) - Final Nasopharyngeal Specimen received for Influenza A/B Molecular testing Assess/Plan/Problems-Billing Assessment:67 yo M with progressive MS and paraplegia/neurogenic bladder, with indwelling Brasher admitted /5 with sepsis, found to have pseudomonas uti and bacteremia - Patient Problems (1) Complicated UTI (urinary tract infection) Current Visit: Yes Status: Acute Code(s): N39.0 - URINARY TRACT INFECTION, SITE NOT SPECIFIED SNOMED Code(s): 03757557 Comment: now resolved. in setting of chronic indwelling brasher cx: pseudomonas, e. faecalis complicated by pseudomonas bacteremia, blood cultures have subsequently cleared no PO antibiotic options today is the last day of pip/tazo ? role for chronic antibiotics, need to discuss with ID tomorrow (2) Dysphagia Current Visit: Yes Status: Acute Code(s): R13.10 - DYSPHAGIA, UNSPECIFIED SNOMED Code(s): 90103372 Comment: mild, chronic, due to progressive MS Swallow eval OK'ed regular diet (3) Indwelling Brasher catheter present Current Visit: Yes Status: Acute Code(s): Z96.0 - PRESENCE OF UROGENITAL IMPLANTS SNOMED Code(s): 807101246 Comment: Exchanged at admission Renal/bladder US unremarkable (4) Multiple sclerosis Current Visit: No Status: Acute Code(s): G35 - MULTIPLE SCLEROSIS SNOMED Code(s): 22223701 Comment: Relapsing-remitting MS. Continue baclofen. merobegron not on formulary Appreciate PT re-consultation for stretching and ROM Status and Disposition: plan for Bridges Friday with VNS
[2018-01-19] MEDS: Baclofen TAB* 20 MG PO SCH ×4 (02:15→15:00)
[2018-01-19] MEDS: Diazepam TAB(*) 5 MG PO PRN (03:01)
[2018-01-19] MEDS: Heparin VIAL(*) 5000 UNITS/ML VIAL (FIVE THOUSAND) SUBCUT SCH ×2 (06:19→20:00)
--- NOTE | 2018-01-19 09:54 | PN ---
Progress Note - Progress Note Date of Service: 01/19/18 SOAP: Subjective: CC: UTI HPI: 67 year year old man with MS, neurogenic bladder, chronic brasher catheter admitted with sepsis due to Psuedomonas. Feels back to usual self, no fever, rash, or diarrhea. Objective: Vital Signs Temp 36.4 C 01/18/18 20:45 Pulse 64 01/18/18 20:45 Resp 16 01/19/18 06:20 BP 124/57 01/18/18 20:45 Pulse Ox 97 01/18/18 20:45 Intake & Output 01/18/18 01/19/18 01/19/18 18:59 06:59 18:59 Intake Total 680 1515 240 Output Total 1700 800 Balance -1020 715 240 Intake: IV Fluids 515 ABX - ZOSYN 515 Oral 680 1000 240 Output: Brasher 1700 800 Other: # Bowel Movements 1 1 Estimated Stool Amount Large Large # Voids 1 Gen:awake, no distress HEENT:PERRL, MMM Heart:RRR no murmur Lungs:CTA BL Abd:+BS NTND soft Skin: no rash MSK: no spine tenderness Microbiology 01/14/18 05:31 Aerobic Blood Culture - Final Blood Venous No Growth Day 5 Anaerobic Blood Culture - Final No Growth Day 5 Assessment: 1. Pseudomonas catheter associated UTI with bacteremia, resolved 2. sepsis, present on admission, resolved 3. encephalopathy, present on admission, resolved 4. MS, neurogenic bladder, chronic brasher catheter Plan: 1. day 7 of zosyn; no oral options for suppression and he has not had frequent UTI. 35 minutes floor time >50% face to face in counseling regarding infection prevention in setting of chronic brasher
[2018-01-19] MEDS: ESCITALOPRAM 5 MG PO SCH (10:23)
[2018-01-19] MEDS: Sodium Phosphate ADULT ENEMA* 118 ml bottle PR SCH (10:23)
[2018-01-19] MEDS: Docusate CAP* 100 MG PO SCH ×2 (10:23→10:29)
[2018-01-19] MEDS: Cholecalciferol TAB* 1000 UNITS PO SCH (10:23)
[2018-01-19 14:09] VITALS: BP 124/61
--- NOTE | 2018-01-19 14:53 | DS ---
CC: Dr. Gaspar; Dr. Coulter. * DISCHARGE SUMMARY: DATE OF ADMISSION: 01/08/18 DATE OF DISCHARGE: 01/19/18 PRIMARY CARE PROVIDER: Dr. Elliot Coulter. ATTENDING FOR THIS ADMISSION: Dr. Beba Gaspar.* (DICTATED BY PAWEL GUPTA NP) MY ATTENDING FOR TODAY: Dr. Gaspar. HOSPITAL COURSE: This is a 67-year-old male patient with a longstanding history of multiple sclerosis. He is wheelchair bound and only has partial movement of the right upper extremity. He also has neurogenic bladder and has had an indwelling Reddy catheter in place for sometime. The patient was at home , in his usual state of health until he began to feel poorly with some body aches and fever. He presented to the emergency department, his fever was 105 degrees Fahrenheit and then received a gram of Tylenol in the ER and some IV fluids. The temperature was down to 101. He was acutely confused and has a mild amount of resolution when the fever started to come down; however, the patient was still entirely too ill to be discharged. He was admitted with a diagnosis of sepsis secondary to urinary tract infection, secondary to chronic indwelling Reddy catheter. The patient was seen by Dr. Chace Clark of Infectious Disease, also had an echocardiogram to rule out any infective endocarditis or valvular vegetation. His echocardiogram was negative. He was placed on Zosyn empirically. His cultures on his urinalysis were growing out pseudomonas with limited options for p.o. medications. The patient has received 7 straight days of Zosyn. His sepsis and bacteremia have resolved. His encephalopathy has also resolved. His Reddy catheter was changed in the emergency department. The discussion of suppression medication being that he has chronic indwelling catheter was discussed; however given pseudomonas, there is no alternate p.o. antibiotic that the patient would be able to take for suppression on a long- term basis. The patient was cleared for discharge, was seen by Dr. Clark today and vital signs have been normal for the last 24 to 48 hours. The patient has been afebrile. PHYSICAL EXAM ON THE DAY OF DISCHARGE: Vital Signs: Temperature 97.5, heart rate 64, respiratory rate 16, and O2 saturation 97% on room air with a blood pressure of 124/57. HEENT: The patient is atraumatic and normocephalic. PERRLA with nonicteric sclerae. Neck is supple and nontender. No JVD noted and no carotid bruits auscultated. Cardiovascular: S1 and S2 were present. Rate and rhythm were regular. No murmurs, gallops, or rubs noted. Lungs are clear bilaterally to auscultation with no wheezing, rhonchi, or rales. Abdomen is soft, nontender, and nondistended. He has positive bowel sounds in all 4 quadrants. He did have a normal bowel movement earlier today. : Reddy catheter is inserted draining clear yellow urine. Musculoskeletal: There was no clubbing and no cyanosis. He does have spasms at baseline and some purposeless movements. He is wheelchair bound and not able to ambulate. He has a minimal amount of movement where he can be stood up and pivoted; however, he is essentially not able to control his lower extremities at all, has minimal movement of the right upper extremity. Neurologic: He is otherwise appropriate and intact, alert and oriented x3. Psychiatric: He is cooperative and appropriate. LABORATORY DATA: Most recent labs dated 01/18/18: WBC is 5.5, RBC is 4.21, hemoglobin 13.5, hematocrit 40, platelets 255. Sodium 137, potassium 4.0, chloride 102, CO2 of 29, BUN 10, creatinine 0.53, GFR is 154.6, lactic acid at admission was 0.6 and 0.8. Troponins were mildly elevated and likely due to demand ischemia and fever. Troponins were 0.04, 0.07, and then trended down to 0.05. Calcium is 8.8, phosphorous 3.5, magnesium 2.1. LFTs were within normal range. Urinalysis showed 2+ protein, 2+ ketones, 1+ blood, 3+ leukocyte esterase, 3+ wbc's, 3+ rbc's, and was yellow and turbid in appearance. The patient also had renal ultrasound given his advanced UTI which was negative for pyelonephritis or hydronephrosis. DISCHARGE PLAN: The patient will be discharged to [facility]. Normally, he would have gone home; however, the does need some respite from caring for the patient. He will be set up at [facility] with all his durable medical equipment that is required. DIAGNOSES: 1. Urinary tract infection complicated with urosepsis with pseudomonas in his urine culture. 2. Encephalopathy secondary to #1. 3. History of multiple sclerosis with neurogenic bladder and chronic Reddy catheter. DISCHARGE MEDICATIONS: Include: 1. Tylenol 650 mg q.4 hours as needed. 2. Baclofen 40 mg at 9 p.m. and 20 mg q.6 hours as needed. 3. Lexapro 15 mg daily. 4. Valium 5 to 10 mg q.6 hours as needed. 5. MiraLAX 17 g at bedtime. 6. Docusate 100 mg 2 times a day. 7. Vitamin D tablet 1000 units daily. 8. Myrbetriq 75 mg at bedtime. 9. Tizanidine 6 mg at bedtime. 10. Vitamin C 1000 mg daily. 11. Multivitamin 1 tablet daily. DISCHARGE PLAN: The patient again was discharged to [facility] in stable condition. This plan was discussed with Case Management who coordinated this with the patient's . His medical equipment has been set up. He does not require additional antibiotics or further changes in his medications. He will be discharged at approximately 2 p.m. today. All questions were answered. The patient is in agreement with his discharge plan. PAWEL GUPTA, ABDULAZIZ [id number]/[facility] #: [id number] PAPO
== END 2018-01-19 15:50 | DRG 698 ==
LOC: ED 10:12 → MED 12:49
PROVIDERS: ADMIT Internal Medicine; ATTEND Internal Medicine
DX: T83.518A Infection and inflammatory reaction due to other urinary catheter, initial encounter (principal); G93.40 Encephalopathy, unspecified; A41.9 Sepsis, unspecified organism; N39.0 Urinary tract infection, site not specified; G82.20 Paraplegia, unspecified; E87.1 Hypo-osmolality and hyponatremia; B96.5 Pseudomonas (aeruginosa) (mallei) (pseudomallei) as the cause of diseases classified elsewhere; B95.2 Enterococcus as the cause of diseases classified elsewhere; G35 Multiple sclerosis; N31.8 Other neuromuscular dysfunction of bladder; R13.10 Dysphagia, unspecified; K59.00 Constipation, unspecified; Z99.3 Dependence on wheelchair; Z79.899 Other long term (current) drug therapy; Z88.8 Allergy status to other drugs, medicaments and biological substances; Z80.0 Family history of malignant neoplasm of digestive organs
CPT/HCPCS: 36415; 71045; 76770; 80048; 80053; 81003; 81015; 83605; 83735; 84100; 84484; 85025; 85060; 85610; 85730; 86140; 86308; 86664; 86665; 87040; 87077; 87086; 87186; 87205; 87502; 93306; 99285; A9270-GY; G8978-GP-CM; G8978-GP-CN; G8979-GP-CL; G8979-GP-CM; G8981-GP-CM; G8982-GP-CL; G8987-GO-CL; G8988-GO-CL; G8989-GO-CL; J0692; J0696; J0744; J1644; J2543

== ENCOUNTER 2018-04-25 13:25 | Inpatient (IN) | payer MEDICARE ==
[2018-04-25] MEDS ORDERED: NS 0.9% 1000 ML* 1,000 ML IV ONE (15:38)
[2018-04-25] MEDS ORDERED: Piperacillin/Tazobac ADVAN(*) 3.375 GM in NS 0.9% 100 ML* 100 ML IVPB ONE (15:42)
--- NOTE | 2018-04-25 15:44 | ED ---
GI/ HPI - HPI Summary HPI Summary: This is scribe Zhane Martinez documenting for attending Michael Reyes MD. Pt is a 68 y/o male who [place] [facility] [place]. As per aerospace engineer officer armament, he started to spike a slight fever of 99.4 degrees F yesterday, and have urinary retention and dark urine. She states that usually a fever is related to a UTI for him. Pt was [place] [facility] for a septic UTI, and was advised to return to the ED for IV antibiotics for future UTIs. Pt lives at [facility], who called this morning to inform his aerospace engineer officer armament that his urine was positive for bacteria. He denies any pain, CP, SOB, cough, diarrhea, or constipation. PMHx MS, and he has a Reddy catheter in place. - History of Current Complaint Chief Complaint: EDUrogenitalProblems Time Seen by Provider: 04/25/18 14:55 Stated Complaint: UTI-LIKE SYMPTOMS-SENT BY DR Burton Obtained From: Patient, Family/Drama Professor Onset/Duration: Started Days Ago - 1, Still Present Timing: Constant Current Severity: None Pain Intensity: 0 Location of Pain: Other - None Associated Signs and Symptoms: Positive: Fever, Hematuria, Other: - Urinary retention. Negative: Constipation, Diarrhea, Cough, Chest Pain - Additional Pertinent History Primary Care Physician: [id number] - Allergy/Home Medications Allergies/Adverse Reactions: Allergies Allergy/AdvReac Type Severity Reaction Status Date / Time daclizumab Allergy Unknown Verified 01/08/18 10:36 Reaction Details xenapak Allergy Intermediate Nausea And Uncoded 01/08/18 10:36 Vomiting Home Medications: Home Medications Baclofen TAB* [Lioresal TAB*] 20 mg PO SEE INSTRUCTIONS 04/25/18 [History Confirmed 04/25/18] PMH/Surg Hx/FS Hx/Imm Hx Endocrine/Hematology History: Denies: Hx Anticoagulant Therapy, Hx Blood Disorders, Hx Blood Transfusions, Hx Bone Marrow Disease, Hx Diabetes, Hx Systemic Lupus Erythematosus, Hx Sickle Cell Disease, Hx Thyroid Disease, Hx Anemia, Hx Unexplained Bleeding Cardiovascular History: Reports: Hx Hypertension Denies: Hx Aneurysm, Hx Angina, Hx Angioplasty, Hx Auto Implanted Cardiovert Defib, Hx Cardiac Arrest, Hx Cardiomegaly, Hx Congenital Heart Disease, Hx Congestive Heart Failure, Hx Coronary Artery Disease, Hx Deep Vein Thrombosis, Hx Hypercholesterolemia, Hx Hypotension, Hx Pacemaker/ICD, Hx Peripheral Vascular Disease, Hx Rheumatic Fever, Hx Syncope, Hx Valvular Heart Disease, Other Cardiovascular Problems/Disorders Respiratory History: Reports: Hx Seasonal Allergies Denies: Hx Asthma, Hx Chronic Bronchitis, Hx Chronic Obstructive Pulmonary Disease (COPD), Hx Cystic Fibrosis, Hx Lung Cancer, Hx Pleural Effusion, Hx Pneumonia, Hx Pulmonary Edema, Hx Pulmonary Embolism, Hx Sleep Apnea GI History: Reports: Hx Diverticulosis Denies: Hx Cirrhosis, Hx Crohn's Disease, Hx Gall Bladder Disease, Hx Gastroesophageal Reflux Disease, Hx Gastrointestinal Bleed, Hx Hiatal Hernia, Hx Irritable Bowel, Hx Jaundice, Hx Obstructive Bowel, Hx Ileostomy, Hx Pyloric Stenosis, Hx Ulcer History: Reports: Hx Benign Prostatic Hyperplasia, Other Problems/ Disorders - urinary retention, septic UTI Denies: Hx Acute Renal Failure, Hx Chronic Renal Failure, Hx Dialysis, Hx Kidney Infection, Hx Kidney Stones, Hx Renal Disease Musculoskeletal History: Reports: Hx Tendonitis, Other Musculoskeletal History - MS Denies: Hx Arthritis, Hx Back Problems, Hx Bursitis, Hx Congenital Bone Abnormalities, Hx Fibromyalgia, Hx Gout, Hx Orthopedic Injury, Hx Osteoporosis, Hx Scoliosis Sensory History: Reports: Hx Contacts or Glasses Denies: Hx Cataracts, Hx Eye Injury, Hx Eye Prosthesis, Hx Glaucoma, Hx Vision Problem, Hx Deafness, Hx Hearing Aid, Hx Hearing Problem, Other Sensory Impairments Opthamlomology History: Reports: Hx Contacts or Glasses Denies: Hx Cataracts, Hx Eye Injury, Hx Eye Prosthesis, Hx Glaucoma, Hx Vision Problem, Other Sensory Impairments Neurological History: Reports: Other Neuro Impairments/Disorders - MS Denies: Hx Dementia, Hx Developmental Delay, Hx Headaches, Hx Migraine, Hx Nerve Disease, Hx Seizures, Hx Spinal Cord Injury, Hx Transient Ischemic Attacks (TIA) Psychiatric History: Reports: Hx Depression Denies: Hx Anxiety, Hx Attention Deficit Hyperactivity Disorder, Hx Eating Disorder, Hx Panic Disorder, Hx Post Traumatic Stress Disorder, Hx Inpatient Treatment, Hx Community Mental Health Tx, Hx Schizophrenia, Hx Bipolar Disorder , Hx Suicide Attempt, Hx of Violent Episodes Against Others, Hx Substance Abuse , Other Psychiatric Issues/Disorders - Surgical History Surgery Procedure, Year, and Place: October 12, 2012 Anterior cervical dissection with fusion,removal of c3+c4 Hx Anesthesia Reactions: No Infectious Disease History: No Infectious Disease History: Denies: Hx Clostridium Difficile, Hx Hepatitis, Hx Human Immunodeficiency Virus (HIV), Hx of Known/Suspected MRSA, Hx Shingles, Hx Tuberculosis, Hx Known/ Suspected VRE, Hx Known/Suspected VRSA, History Other Infectious Disease, Traveled Outside the [place] in Last 30 Days - Family History Known Family History: Positive: Other - Colon cancer - Social History Alcohol Use: Daily Alcohol Amount: 1 beer Hx Substance Use: No Substance Use Type: Reports: None Hx Tobacco Use: No Smoking Status (MU): Never Smoked Tobacco Have You Smoked in the Last Year: No Review of Systems Positive: Fever Negative: Chest Pain Negative: Shortness Of Breath, Cough Positive: Other - NEGATIVE: constipation. Negative: Diarrhea Positive: hematuria, other - urinary retention All Other Systems Reviewed And Are Negative: Yes Physical Exam - Summary Physical Exam Summary: VITAL SIGNS: Reviewed. GENERAL: Patient is a paraplegic MALE who is lying comfortable his wheelchair. Patient is not in any acute respiratory distress. HEAD AND FACE: No signs of trauma. No ecchymosis, hematomas or skull depressions. No sinus tenderness. EYES: PERRLA, EOMI x 2, No injected conjunctiva, no nystagmus. EARS: Hearing grossly intact. Ear canals and tympanic membranes are within normal limits. MOUTH: Oropharynx within normal limits. NECK: Supple, trachea is midline, no adenopathy, no JVD, no carotid bruit, no c- spine tenderness, neck with full ROM. CHEST: Symmetric, no tenderness at palpation LUNGS: Clear to auscultation bilaterally. No wheezing or crackles. CVS: Regular rate and rhythm, S1 and S2 present, no murmurs or gallops appreciated. ABDOMEN: Soft, non-tender. No signs of distention. No rebound no guarding, and no masses palpated. Bowel sounds are normal. EXTREMITIES: FROM in all major joints, no edema, no cyanosis or clubbing. NEURO: Alert and oriented x 3. No acute neurological deficits. Speech is normal and follows commands. SKIN: Dry and warm : Reddy catheter in place. Triage Information Reviewed: Yes Vital Signs On Initial Exam: Initial Vitals Temp Pulse Resp BP Pulse Ox 97.8 F 60 16 162/83 96 04/25/18 13:37 04/25/18 13:37 04/25/18 13:37 04/25/18 13:37 04/25/18 13:37 Vital Signs Reviewed: Yes Diagnostics - Vital Signs Vital Signs Temp Pulse Resp BP Pulse Ox 04/25/18 15:28 58 14 153/79 96 04/25/18 15:10 98.3 F 04/25/18 15:00 58 12 95 04/25/18 14:58 59 158/82 95 04/25/18 13:37 97.8 F 60 16 162/83 96 - Laboratory Result Diagrams: 04/25/18 16:10 04/25/18 16:10 Lab Statement: Any lab studies that have been ordered have been reviewed, and results considered in the medical decision making process. - EKG 15:49 Cardiac Rate: Bradycardia - 60 bpm EKG Rhythm: Sinus Rhythm ST Segment: Normal Re-Evaluation - Re-Evaluation First Eval Re-Evaluation Time: 15:43 Change: Unchanged Comment: Pt refuses CXR. GIGU Course/Dx - Course Assessment/Plan: This patient is a 59-year-old male with past medical history significant for multiple sclerosis and basically now well chair bound. He also has an chronic indwelling Reddy urinary catheter, depression, and back surgery. He presents today after he was sent by Dr. Chavarria the primary care physician reporting that the patient is having a fever. He reports that every time he has a fever is usually related to urinary tract infection and he wants IV antibiotics started ventilator since the patient tends to go into sepsis For the past. The last time the patient was admitted to the hospital he was in January 13 with a deep urine cultures and he was positive for pseudomonas and sensitivity for Zosyn. Dr. Conner was consulted and he also agreed with Zosyn. In the ED course the patient is not febrile. Blood test results without any significant abnormality except for sodium 1:30, glucose 104, and urinalysis with a possible UTI. I gave the patient so seen and at this point I discussed the physical exam findings and test results with Dr. Arce from the hospitalist services who accepted the patient for admission. The patient is hemodynamically stable alert and oriented 3. - Diagnoses Provider Diagnoses: Urinary tract infection - Physician Notifications Discussed Care Of Patient With: Nick Arce Time Discussed With Above Provider: 16:48 Instructed by Provider To: Will See In ED - Dr. Arce will see pt in the ED. Discharge - Sign-Out/Discharge Documenting (check all that apply): Patient Departure - Discharge Plan Condition: Stable Disposition: ADMITTED TO [facility] Referrals: Elliot Coulter MD [Medical Doctor] - - Billing Disposition and Condition Condition: STABLE Disposition: Admitted to [facility]
[2018-04-25 16:19] LABS: ABS Basophils 0 10^3/ul (0-0.2); ABS Eosinophils 0.3 10^3/ul (0-0.6); ABS Lymphocytes 1.6 10^3/ul (1.0-4.8); ABS Monocytes 0.5 10^3/ul (0-0.8); ABS Neutrophils 2.5 10^3/ul (1.5-7.7); ABS Nucleated RBC 0 10^3/ul; Eosinophil % 6.4 % (0-6); Hematocrit 41 % (42-52); Hemoglobin 14.3 g/dl (14.0-18.0); Lymphocyte % 33.1 % (25-47); Mean Corpuscular HGB Conc 35 g/dl (31-36); Mean Corpuscular Hemoglobin 32 pg (27-31); Mean Corpuscular Volume 91 fL (80-94); Mean Platelet Volume 7.9 um3 (7.4-10.4); Nucleated Red Blood Cells % 0.1; Platelet Count 182 10^3/ul (150-450); Red Cell Distribution Width 14 % (10.5-15)
[2018-04-25 16:30] LABS: Urine Appearance Cloudy; Urine Blood Negative (Negative); Urine Ketones Negative (Negative); Urine Protein Negative (Negative); Urine Red Blood Cell Trace(0-2/hpf) (Absent); Urine Specific Gravity 1.006 (1.010-1.030); Urine Urobilinogen Negative (Negative); Urine White Blood Cell 1+(6-10/hpf) (Absent)
[2018-04-25 16:31] LABS: Urine Color Yellow
[2018-04-25 16:35] LABS: EGFR Non-African American 201.6 (>60)
[2018-04-25] MEDS ORDERED: Acetaminophen TAB* 325 MG PO PRN (17:34)
[2018-04-25] MEDS ORDERED: Zosyn per Pharmacy* NOTE FOLLOW UP SCH (18:00)
[2018-04-25] MEDS ORDERED: Baclofen TAB* 20 MG PO SCH (18:00)
--- NOTE | 2018-04-25 19:29 | HP ---
HISTORY AND PHYSICAL: DATE OF ADMISSION: 04/25/18 ADMITTING PROVIDER: Nick Arce MD PRIMARY CARE PHYSICIAN: Dr. Karissa Garza. CHIEF COMPLAINT: Fevers; clinical concern for urinary tract infection in the setting of history of fluoroquinolone-resistant Pseudomonas UTIs which caused prolonged severe sepsis admission. HISTORY OF PRESENT ILLNESS: Pedro Jay is a 68-year-old male with past medical history of severely progressive multiple sclerosis, who is wheelchair bound, can barely move any of his extremities, with chronic indwelling Brasher and history of an 11-day stay between 01/08/18 and 01/19/18 for severe sepsis secondary to fluoroquinolone-resistant Pseudomonas. He had his chronic Brasher changed 3 days prior to admission, got a prophylaxis ciprofloxacin dose prior to that and then developed bladder spasms and his Brasher was again changed due to concern for it being too big. That day of the second change 2 days prior to admission, he started to develop fevers of "100.7 or 100.8". He has also noticed that his right hand seems to be more clenched than usual, which did happen last time he had severe infection. At [facility], a urine sample was collected on 04/24/18 and the patient was called this morning with results with concern for urinalysis suspicious for urinary tract infection and he was asked by Dr. Garza to present to the emergency room for further evaluation. His urinalysis was again repeated here, showed 2+ leukocyte esterase, 1+ wbc's and 1 + bacteria. He is currently afebrile without leukocytosis, but given the PSDA history needing IV zosyn and severity of his last UTI leading to systemic infection, hospitalist service was asked to admit for chronic indwelling brasher associated urinary tract infection given his clinical frailty. PAST MEDICAL HISTORY: 1. Progressive severe multiple sclerosis. 2. Chronic indwelling Brasher with frequent urinary tract infections, last with Pseudomonas UTI and Pseudomonas bacteremia, which was not susceptible to fluoroquinolones and only sensitive to cefepime and Zosyn. MEDICATIONS: Include (as confirmed with outpatient pharmacy by ED nursing staff ). 1. Ascorbic acid 1000 mg p.o. daily. 2. Baclofen 20 mg 1 tab in the morning, 1 tab in the afternoon, 2 tabs in the evening and 2 tabs before bed. 3. Tylenol 650 mg p.o. q.4 hours p.r.n. 4. Lexapro 15 mg p.o. daily. 5. Docusate 100 mg p.o. b.i.d. 7. Valium 5 to 10 mg p.o. q.6 hours. 8. Cholecalciferol 1000 units p.o. daily. 9. Zanaflex 6 mg p.o. at bedtime. 10. MiraLAX 17 g p.o. at bedtime. 11. Theragran Minerals tab 1 tab p.o. daily. 12. Myrbetriq 75 mg p.o. at bedtime. ALLERGIES: Include DACLIZUMAB, unknown and ZENAPAX, nausea, vomiting. FAMILY HISTORY: Positive for colon cancer in his mother. SOCIAL HISTORY: The patient drinks 1 beer nightly. He is never a smoker. No other drug use. His healthcare proxy is his , Amaya. His lives at [facility]. REVIEW OF SYSTEMS: A complete 14-point review of systems negative except as per HPI. PHYSICAL EXAMINATION GENERAL APPEARANCE: No acute distress. Sitting in his motorized wheelchair. VITAL SIGNS: Temperature 98.3, pulse 63, respiratory rate 13, blood pressure 145/78, satting 96% on room air. HEENT: Normocephalic, atraumatic. Pupils are equal, round, and reactive to light. Extraocular motions intact. No scleral icterus. No oropharyngeal lesions. NECK: No cervical lymphadenopathy. Neck is supple. LUNGS: Clear to auscultation bilaterally with no wheezing, rales, or rhonchi. CARDIAC: Regular rate and rhythm. No murmurs, rubs, or gallops. ABDOMEN: Soft, nontender, nondistended. EXTREMITIES: Warm, well perfused. No peripheral edema. NEURO: Not able to elicit any noticeable movement in the lower extremities or left arm. There is slight movement 1/5 in the right upper extremity. Facial motions are intact. DIAGNOSTIC STUDIES/LAB DATA: White count 5.0, hemoglobin 14.3, hematocrit 41, platelets 182. Sodium 130, potassium 3.9, chloride 95, carbon dioxide 28, BUN 8 , creatinine 0.42, glucose 104. AST 18, ALT 15, alk phos 64. CRP 7.3. Albumin 4.0, lipase 35. Urinalysis significant for specific gravity of 1.006, 2 + leukocyte esterase, 1+ rbc's, 1+ bacteria, negative nitrites. Of note, the urinalysis from 04/24/18 showed 1+ protein, 2+ leukocyte esterase, 3+ wbc's, no bacteria and no nitrites. Imaging: None. EKG demonstrated sinus bradycardia. No ST elevations or depressions. There is 1 PVC, T-wave inversions in lead III, QTc 472. ASSESSMENT AND PLAN: Pedro Jay is a 68-year-old male with past medical history significant for severe progressive multiple sclerosis, nearly paralyzed below the waist and chronic indwelling Brasher with history of severe sepsis, with 11 day stay (with Pseudomonas bacteremia as well) in January, who is presenting with urinalysis suspicious for urinary tract infection and fevers recently as high as 100.8 few days prior to presentation. He is afebrile currently. Of note, had 1 or 2 doses (not clear, we not have received records from [facility] yet) of ciprofloxacin. Given his clinical frailty and severity of reaction last time, I believe it is prudent to admit him to observation status until the sensitivities of his urine culture can be obtained. He will be continued on Zosyn given history of Pseudomonas in the past for now. I am adding on a procalcitonin and continuing with his home medications including his baclofen 20 mg multiple times a day for spasms along with the Zanaflex. Also continuing his Lexapro 15 mg daily, docusate 100 mg p.o. b.i.d., Tylenol as needed for pain or fevers, and MiraLAX p.o. at bedtime and Colace 100 mg p.o. b.i.d. p.r.n. for constipation. We will follow up his blood cultures, get BMP and CBC in the morning. I will call down to the lab to see if the urine that was dropped off yesterday has been also sent for urine culture that would greatly speed up his discharge disposition. Hopefully, we can get him back to [facility] in the next 24 to 48 hours. He is a DNR/DNI. Medical surrogate is Amaya (Celsa Jay). For DVT prophylaxis, we will continue heparin 5000 units t.i.d. Of note, given his multiple sclerosis, it will be important to position and reposition the patient frequently overnight and during the day as he is largely paralyzed. [id number]/[facility] #: [id number] [facility]
[2018-04-25] MEDS: Baclofen TAB* 20 MG PO PRN ×2 (19:51→23:13)
[2018-04-25] MEDS ORDERED: Baclofen TAB* 20 MG PO PRN ×3 (20:00→22:00)
[2018-04-25] MEDS: tiZANidine TAB* 2 MG PO SCH (21:40)
[2018-04-25] MEDS: Docusate CAP* 100 MG PO SCH (21:40)
[2018-04-25] MEDS: Polyethylene Glycol 3350* 17 GM PACKET PO SCH (21:59)
[2018-04-25] MEDS: Heparin VIAL(*) 5000 UNITS/ML VIAL (FIVE THOUSAND) SUBCUT SCH (21:59)
[2018-04-25] MEDS: ZOSYN 3.375 GM Q8H per EXTENDED INFUSION IVPB SCH ×2 (21:59)
[2018-04-25] MEDS: NF:Mirabegron (NF) 25 MG TAB PO SCH (22:06)
[2018-04-25] MEDS: Diazepam TAB(*) 5 MG PO SCH (23:10)
[2018-04-26] MEDS ORDERED: Piperacillin/Tazobac ADVAN(*) 3.375 GM in NS 0.9% 100 ML* 100 ML IVPB ONE (02:00)
[2018-04-26] MEDS: ZOSYN 3.375 GM Q8H per EXTENDED INFUSION IVPB SCH ×6 (06:03→20:23)
[2018-04-26] MEDS: Heparin VIAL(*) 5000 UNITS/ML VIAL (FIVE THOUSAND) SUBCUT SCH ×3 (06:06→20:24)
[2018-04-26] MEDS: Diazepam TAB(*) 5 MG PO SCH ×4 (06:06→23:21)
[2018-04-26 07:15] LABS: ABS Basophils 0 10^3/ul (0-0.2); ABS Eosinophils 0.3 10^3/ul (0-0.6); ABS Lymphocytes 1.7 10^3/ul (1.0-4.8); ABS Monocytes 0.5 10^3/ul (0-0.8); ABS Neutrophils 2.4 10^3/ul (1.5-7.7); ABS Nucleated RBC 0 10^3/ul; Hematocrit 39 % (42-52); Hemoglobin 13.1 g/dl (14.0-18.0); Lymphocyte % 35.1 % (25-47); Mean Corpuscular HGB Conc 34 g/dl (31-36); Mean Corpuscular Hemoglobin 31 pg (27-31); Mean Corpuscular Volume 93 fL (80-94); Mean Platelet Volume 8.2 um3 (7.4-10.4); Nucleated Red Blood Cells % 0.1; Platelet Count 159 10^3/ul (150-450); Red Blood Count 4.16 10^6/ul (4.00-5.40); Red Cell Distribution Width 14 % (10.5-15); White Blood Count 4.9 10^3/ul (3.5-10.8)
[2018-04-26 07:34] LABS: EGFR Non-African American 186.2 (>60)
[2018-04-26] MEDS: Baclofen TAB* 20 MG PO PRN ×3 (09:42→18:25)
[2018-04-26] MEDS: CMC:Escitalopram (NF) 10 MG TAB PO SCH (09:43)
[2018-04-26] MEDS: Ascorbic Acid TAB* 500 MG PO SCH (09:45)
[2018-04-26] MEDS: Multivitamins/Minerals TAB PO SCH (09:46)
[2018-04-26] MEDS: Cholecalciferol TAB* 1000 UNITS PO SCH (09:46)
[2018-04-26] MEDS: Docusate CAP* 100 MG PO SCH ×2 (09:46→20:25)
[2018-04-26] MEDS ORDERED: Baclofen TAB* 20 MG PO PRN ×2 (14:00→17:00)
[2018-04-26] MEDS ORDERED: Glycerin ADULT SUPP PR PRN (15:25)
[2018-04-26] MEDS ORDERED: Sodium Phosphate ADULT ENEMA* 118 ml bottle PR PRN (16:24)
--- NOTE | 2018-04-26 18:08 | PN ---
Subjective Date of Service: 04/26/18 Interval History: Sacral ulcer observed by nursing. Wound Care consult placed. Spasms in hand. Slept very poorly. Constipated requesting enemas. Objective Active Medications: Acetaminophen (Tylenol Tab*) 650 mg PO Q4H PRN PRN Reason: FEVER/PAIN Last Admin: 04/25/18 22:12 Dose: 650 mg Ascorbic Acid (Vitamin C Tab*) 1,000 mg PO DAILY [facility] Last Admin: 04/26/18 09:45 Dose: 1,000 mg Baclofen (Lioresal Tab*) 20 mg PO 1000,1400 PRN PRN Reason: SPASMS - MUSCLE Last Admin: 04/26/18 13:38 Dose: 20 mg Baclofen (Lioresal Tab*) 40 mg PO 1800,2200 PRN PRN Reason: SPASMS - MUSCLE Last Admin: 04/25/18 23:13 Dose: 40 mg Cholecalciferol (Vitamin D Tab*) 1,000 units PO DAILY [facility] Last Admin: 04/26/18 09:46 Dose: 1,000 units Diazepam (Valium Tab(*)) 5 mg PO Q6HR [facility] Last Admin: 04/26/18 13:38 Dose: 5 mg Docusate Sodium (Colace Cap*) 100 mg PO BID [facility] Last Admin: 04/26/18 09:46 Dose: Not Given Escitalopram Oxalate (Lexapro (Nf)) 15 mg PO DAILY [facility] Last Admin: 04/26/18 09:43 Dose: 15 mg Glycerin (Glycerin Adult Supp*) 1 supp [place] DAILY PRN PRN Reason: CONSTIPATION Last Admin: 04/26/18 16:21 Dose: 1 supp Heparin Sodium (Porcine) (Heparin Vial(*)) 5,000 units SUBCUT Q8HR [facility] Last Admin: 04/26/18 13:39 Dose: 5,000 units Piperacillin Sod/Tazobactam (Sod 3.375 gm/ Sodium Chloride) 100 mls @ 25 mls/ hr IVPB Q8H [facility] Last Admin: 04/26/18 13:38 Dose: 25 mls/hr Mirabegron (Myrbetriq (Nf)) 75 mg PO BEDTIME [facility] Last Admin: 04/25/18 22:06 Dose: Not Given Multivitamins/Minerals (Theragran/Minerals Tab*) 1 tab PO DAILY [facility] Last Admin: 04/26/18 09:46 Dose: 1 tab Pharmacy Consult (Zosyn Per Pharmacy*) 1 note FOLLOW UP .ZOSYN [facility] Polyethylene Glycol/Electrolytes (Miralax*) 17 gm PO BEDTIME [facility] Last Admin: 04/25/18 21:59 Dose: 17 gm Sodium Biphosphate/Sodium Phosphate (Fleet Enema*) 1 bottle [place] DAILY PRN PRN Reason: CONSTIPATION Tizanidine HCl (Zanaflex Tab*) 6 mg PO BEDTIME [facility] Last Admin: 04/25/18 21:40 Dose: Not Given Vital Signs - 8 hr 04/26/18 04/26/18 04/26/18 11:47 13:38 15:27 Temperature 97.5 F 97.9 F Pulse Rate 62 71 Respiratory 16 16 18 Rate Blood Pressure 149/72 123/54 (mmHg) O2 Sat by Pulse 95 93 Oximetry Oxygen Devices in Use Now: None Appearance: NAD. Eyes: No Scleral Icterus, PERRLA Ears/Nose/Mouth/Throat: NL Teeth, Lips, Gums, Mucous Membranes Moist Neck: NL Appearance and Movements; NL JVP, Trachea Midline Respiratory: Symmetrical Chest Expansion and Respiratory Effort, Clear to Auscultation Cardiovascular: NL Sounds; No Murmurs; No JVD, RRR Abdominal: NL Sounds; No Tenderness; No Distention, No Hepatosplenomegaly Extremities: No Edema, No Clubbing, Cyanosis Skin: - - sacral decub per nursing. Neurological: Alert and Oriented x 3, NL Sensation, - - can't move hands or legs. Nutrition: Taking PO's Result Diagrams: 04/26/18 06:48 04/26/18 06:48 Additional Lab and Data: Laboratory Results - last 24 hr 04/25/18 04/26/18 04/26/18 16:10 06:48 06:48 WBC 4.9 RBC 4.16 Hgb 13.1 L Hct 39 L MCV 93 MCH 31 MCHC 34 RDW 14 Plt Count 159 MPV 8.2 Neut % (Auto) 48.1 Lymph % (Auto) 35.1 Branch % (Auto) 10.0 H Eos % (Auto) 6.0 Baso % (Auto) 0.8 Absolute Neuts (auto) 2.4 Absolute Lymphs (auto) 1.7 Absolute Monos (auto) 0.5 Absolute Eos (auto) 0.3 Absolute Basos (auto) 0 Absolute Nucleated RBC 0 Nucleated RBC % 0.1 Sodium 134 L Potassium 3.8 Chloride 99 L Carbon Dioxide 28 Anion Gap 7 BUN 6 Creatinine 0.45 L Est GFR ( Amer) 225.3 Est GFR (Non-Af Amer) 186.2 BUN/Creatinine Ratio 13.3 Glucose 85 Calcium 8.4 L Procalcitonin < 0.1 Microbiology and Other Data: Microbiology 04/25/18 17:00 Blood Venous Aerobic Blood Culture - Preliminary No Growth Day 1 04/25/18 17:00 Blood Venous Anaerobic Blood Culture - Preliminary No Growth Day 1 04/25/18 16:11 Blood Venous Aerobic Blood Culture - Preliminary No Growth Day 1 04/25/18 16:11 Blood Venous Anaerobic Blood Culture - Preliminary No Growth Day 04/25/18 19:25 Nasal Nasal Screen MRSA (PCR) - Final Mrsa Not Detected Assess/Plan/Problems-Billing Assessment: 68 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 PSDA on UCx. Speciation pending. Zosyn. #UTI, chronic indwelling brasher catheter associated. - await UCx - low grade fevers have resolved. no leukocytosis, - procalcitonin negative BCx negative #Constipation - bowel meds and enemas #Sacral wound - wound care consulted. #MS - baclofen, zanaflex. DVT ppx: heparin 5000 TID. diet: no restriction. Dispo: medicine inpatient from obs (still trying to detemine if needs zosyn vs can descalate) - Patient Problems (1) Complicated UTI (urinary tract infection) Current Visit: No Status: Acute Code(s): N39.0 - URINARY TRACT INFECTION, SITE NOT SPECIFIED SNOMED Code(s): 14250422 (2) Indwelling Brasher catheter present Current Visit: No Status: Acute Code(s): Z96.0 - PRESENCE OF UROGENITAL IMPLANTS SNOMED Code(s): 380770435 Comment: Exchanged prior to admission (3) Multiple sclerosis Current Visit: No Status: Acute Code(s): G35 - MULTIPLE SCLEROSIS SNOMED Code(s): 73285442 Comment: Relapsing-remitting MS. Continue baclofen. zanaflex. Status and Disposition: medicine inpatient.
[2018-04-26] MEDS: NF:Mirabegron (NF) 25 MG TAB PO SCH (20:25)
[2018-04-26] MEDS: Polyethylene Glycol 3350* 17 GM PACKET PO SCH (20:25)
[2018-04-26] MEDS: tiZANidine TAB* 2 MG PO SCH (20:26)
[2018-04-27] MEDS: Baclofen TAB* 20 MG PO PRN ×3 (03:46→22:27)
[2018-04-27] MEDS: Diazepam TAB(*) 5 MG PO SCH ×4 (05:17→22:34)
[2018-04-27] MEDS: Heparin VIAL(*) 5000 UNITS/ML VIAL (FIVE THOUSAND) SUBCUT SCH ×3 (05:21→22:33)
[2018-04-27] MEDS: ZOSYN 3.375 GM Q8H per EXTENDED INFUSION IVPB SCH ×4 (05:21→14:41)
[2018-04-27 07:45] LABS: ABS Basophils 0.1 10^3/ul (0-0.2); ABS Eosinophils 0.3 10^3/ul (0-0.6); ABS Lymphocytes 2.1 10^3/ul (1.0-4.8); ABS Monocytes 0.5 10^3/ul (0-0.8); ABS Neutrophils 2.1 10^3/ul (1.5-7.7); ABS Nucleated RBC 0 10^3/ul; Eosinophil % 6.6 % (0-6); Hematocrit 40 % (42-52); Hemoglobin 13.6 g/dl (14.0-18.0); Lymphocyte % 42.1 % (25-47); Mean Corpuscular HGB Conc 34 g/dl (31-36); Mean Corpuscular Hemoglobin 31 pg (27-31); Mean Corpuscular Volume 93 fL (80-94); Mean Platelet Volume 8.4 um3 (7.4-10.4); Nucleated Red Blood Cells % 0; Platelet Count 166 10^3/ul (150-450); Red Blood Count 4.33 10^6/ul (4.00-5.40); Red Cell Distribution Width 14 % (10.5-15)
[2018-04-27 07:55] LABS: EGFR Non-African American 177.1 (>60)
[2018-04-27] MEDS: CMC:Escitalopram (NF) 10 MG TAB PO SCH (09:29)
[2018-04-27] MEDS: Multivitamins/Minerals TAB PO SCH (09:29)
[2018-04-27] MEDS: Ascorbic Acid TAB* 500 MG PO SCH (09:32)
[2018-04-27] MEDS: Cholecalciferol TAB* 1000 UNITS PO SCH (09:32)
[2018-04-27] MEDS: Docusate CAP* 100 MG PO SCH ×2 (09:32→20:33)
--- NOTE | 2018-04-27 10:27 | PN ---
Subjective Date of Service: 04/27/18 Interval History: poor sleep. had BM. contractures better. afebrile. UCx sensitivites still pending, expected this afternoon. Objective Active Medications: Acetaminophen (Tylenol Tab*) 650 mg PO Q4H PRN PRN Reason: FEVER/PAIN Last Admin: 04/25/18 22:12 Dose: 650 mg Ascorbic Acid (Vitamin C Tab*) 1,000 mg PO DAILY [facility] Last Admin: 04/27/18 09:32 Dose: 1,000 mg Baclofen (Lioresal Tab*) 20 mg PO 1000,1400 PRN PRN Reason: SPASMS - MUSCLE Last Admin: 04/26/18 13:38 Dose: 20 mg Baclofen (Lioresal Tab*) 40 mg PO 1800,2200 PRN PRN Reason: SPASMS - MUSCLE Last Admin: 04/27/18 03:46 Dose: 40 mg Cholecalciferol (Vitamin D Tab*) 1,000 units PO DAILY [facility] Last Admin: 04/27/18 09:32 Dose: 1,000 units Diazepam (Valium Tab(*)) 5 mg PO Q6HR [facility] Last Admin: 04/27/18 05:17 Dose: Not Given Docusate Sodium (Colace Cap*) 100 mg PO BID [facility] Last Admin: 04/27/18 09:32 Dose: Not Given Escitalopram Oxalate (Lexapro (Nf)) 15 mg PO DAILY [facility] Last Admin: 04/27/18 09:29 Dose: 15 mg Glycerin (Glycerin Adult Supp*) 1 supp [place] DAILY PRN PRN Reason: CONSTIPATION Last Admin: 04/26/18 16:21 Dose: 1 supp Heparin Sodium (Porcine) (Heparin Vial(*)) 5,000 units SUBCUT Q8HR [facility] Last Admin: 04/27/18 05:21 Dose: 5,000 units Piperacillin Sod/Tazobactam (Sod 3.375 gm/ Sodium Chloride) 100 mls @ 25 mls/ hr IVPB Q8H [facility] Last Admin: 04/27/18 05:21 Dose: 25 mls/hr Mirabegron (Myrbetriq (Nf)) 75 mg PO BEDTIME [facility] Last Admin: 04/26/18 20:25 Dose: Not Given Multivitamins/Minerals (Theragran/Minerals Tab*) 1 tab PO DAILY [facility] Last Admin: 04/27/18 09:29 Dose: 1 tab Pharmacy Consult (Zosyn Per Pharmacy*) 1 note FOLLOW UP .ZOSYN [facility] Polyethylene Glycol/Electrolytes (Miralax*) 17 gm PO BEDTIME [facility] Last Admin: 04/26/18 20:25 Dose: 17 gm Sodium Biphosphate/Sodium Phosphate (Fleet Enema*) 1 bottle [place] DAILY PRN PRN Reason: CONSTIPATION Tizanidine HCl (Zanaflex Tab*) 6 mg PO BEDTIME [facility] Last Admin: 04/26/18 20:26 Dose: Not Given Vital Signs - 8 hr 04/27/18 04/27/18 03:12 07:34 Temperature 98.1 F 97.7 F Pulse Rate 69 69 Respiratory 14 16 Rate Blood Pressure 149/64 140/82 (mmHg) O2 Sat by Pulse 97 96 Oximetry Oxygen Devices in Use Now: None Appearance: NAD Ears/Nose/Mouth/Throat: NL Teeth, Lips, Gums, Mucous Membranes Moist Respiratory: Symmetrical Chest Expansion and Respiratory Effort, Clear to Auscultation Abdominal: NL Sounds; No Tenderness; No Distention, No Hepatosplenomegaly Extremities: No Edema Skin: - - mepiplex covering left elbow. sacral decub reported. Neurological: Alert and Oriented x 3, - - decreased sensation in legs and feet( baseline). 1/5 right hand otherwise preserved neck,head strength. Nutrition: Taking PO's Result Diagrams: 04/27/18 07:21 04/27/18 07:21 Additional Lab and Data: Laboratory Results - last 24 hr 04/27/18 04/27/18 07:21 07:21 WBC 5.0 RBC 4.33 Hgb 13.6 L Hct 40 L MCV 93 MCH 31 MCHC 34 RDW 14 Plt Count 166 MPV 8.4 Neut % (Auto) 41.1 Lymph % (Auto) 42.1 [place] % (Auto) 9.0 H Eos % (Auto) 6.6 H Baso % (Auto) 1.2 Absolute Neuts (auto) 2.1 Absolute Lymphs (auto) 2.1 Absolute Monos (auto) 0.5 Absolute Eos (auto) 0.3 Absolute Basos (auto) 0.1 Absolute Nucleated RBC 0 Nucleated RBC % 0 Sodium 136 Potassium 3.6 Chloride 100 L Carbon Dioxide 30 Anion Gap 6 BUN 7 Creatinine 0.47 L Est GFR ( Amer) 214.3 Est GFR (Non-Af Amer) 177.1 BUN/Creatinine Ratio 14.9 Glucose 87 Calcium 8.7 Microbiology and Other Data: Microbiology 04/25/18 17:00 Blood Venous Aerobic Blood Culture - Preliminary No Growth Day 1 04/25/18 17:00 Blood Venous Anaerobic Blood Culture - Preliminary No Growth Day 1 04/25/18 16:11 Blood Venous Aerobic Blood Culture - Preliminary No Growth Day 1 04/25/18 16:11 Blood Venous Anaerobic Blood Culture - Preliminary No Growth Day 1 04/25/18 19:25 Nasal Nasal Screen MRSA (PCR) - Final Mrsa Not Detected Assess/Plan/Problems-Billing Assessment: 68 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 PSDA on UCx. Speciation pending. Zosyn. #UTI, chronic indwelling brasher catheter associated. - await UCx abx sensitivities. - low grade fevers have resolved. no leukocytosis, - procalcitonin negative - BCx negative #Constipation - bowel meds and enemas #Sacral wound - wound care consulted. pending. #MS - baclofen, zanaflex. DVT ppx: heparin 5000 TID. diet: no restriction. Dispo: medicine inpatient (still trying to detemine if needs zosyn vs can descalate) , hopeful to [facility] later today. - Patient Problems (1) Complicated UTI (urinary tract infection) Current Visit: No Status: Acute Code(s): N39.0 - URINARY TRACT INFECTION, SITE NOT SPECIFIED SNOMED Code(s): 85227175 (2) Indwelling Brasher catheter present Current Visit: No Status: Acute Code(s): Z96.0 - PRESENCE OF UROGENITAL IMPLANTS SNOMED Code(s): 213162167 Comment: Exchanged prior to admission (3) Multiple sclerosis Current Visit: No Status: Acute Code(s): G35 - MULTIPLE SCLEROSIS SNOMED Code(s): 48822860 Comment: Relapsing-remitting MS. Continue baclofen. zanaflex. Status and Disposition: medicine inpatient.
[2018-04-27] MEDS: Cefepime 1 GM in Dextrose(*) 1 GM/50 ML BAG IV SCH (15:26)
[2018-04-27] MEDS ORDERED: Sodium Phosphate ADULT ENEMA* 118 ml bottle PR PRN (22:00)
[2018-04-27] MEDS: Polyethylene Glycol 3350* 17 GM PACKET PO SCH (22:27)
[2018-04-27] MEDS: NF:Mirabegron (NF) 25 MG TAB PO SCH (22:29)
[2018-04-27] MEDS: tiZANidine TAB* 2 MG PO SCH (22:29)
[2018-04-28] MEDS: Cefepime 1 GM in Dextrose(*) 1 GM/50 ML BAG IV SCH ×2 (03:05→13:55)
[2018-04-28] MEDS: Heparin VIAL(*) 5000 UNITS/ML VIAL (FIVE THOUSAND) SUBCUT SCH ×3 (06:06→21:00)
[2018-04-28 07:02] LABS: ABS Basophils 0 10^3/ul (0-0.2); ABS Eosinophils 0.4 10^3/ul (0-0.6); ABS Monocytes 0.5 10^3/ul (0-0.8); ABS Neutrophils 1.6 10^3/ul (1.5-7.7); ABS Nucleated RBC 0 10^3/ul; Hematocrit 41 % (42-52); Hemoglobin 14.1 g/dl (14.0-18.0); Lymphocyte % 44.6 % (25-47); Mean Corpuscular HGB Conc 34 g/dl (31-36); Mean Corpuscular Hemoglobin 31 pg (27-31); Mean Corpuscular Volume 92 fL (80-94); Mean Platelet Volume 8.4 um3 (7.4-10.4); Nucleated Red Blood Cells % 0.1; Platelet Count 174 10^3/ul (150-450); Red Blood Count 4.48 10^6/ul (4.00-5.40); Red Cell Distribution Width 14 % (10.5-15); White Blood Count 4.4 10^3/ul (3.5-10.8)
[2018-04-28 07:29] LABS: EGFR Non-African American 191.1 (>60)
[2018-04-28] MEDS: CMC:Escitalopram (NF) 10 MG TAB PO SCH (09:14)
[2018-04-28] MEDS: Ascorbic Acid TAB* 500 MG PO SCH (09:14)
[2018-04-28] MEDS: Diazepam TAB(*) 5 MG PO SCH ×4 (09:14→20:39)
[2018-04-28] MEDS: Cholecalciferol TAB* 1000 UNITS PO SCH (09:14)
[2018-04-28] MEDS: Multivitamins/Minerals TAB PO SCH (09:14)
[2018-04-28] MEDS: Baclofen TAB* 20 MG PO PRN (09:16)
[2018-04-28] MEDS: Docusate CAP* 100 MG PO SCH ×2 (09:30→20:39)
--- NOTE | 2018-04-28 12:25 | PN ---
Subjective Date of Service: 04/28/18 Interval History: No new c/o. Objective Active Medications: Acetaminophen (Tylenol Tab*) 650 mg PO Q4H PRN PRN Reason: FEVER/PAIN Last Admin: 04/25/18 22:12 Dose: 650 mg Ascorbic Acid (Vitamin C Tab*) 1,000 mg PO DAILY [facility] Last Admin: 04/28/18 09:14 Dose: 1,000 mg Baclofen (Lioresal Tab*) 20 mg PO 1000,1400 PRN PRN Reason: SPASMS - MUSCLE Last Admin: 04/28/18 09:16 Dose: 20 mg Baclofen (Lioresal Tab*) 40 mg PO 1800,2200 PRN PRN Reason: SPASMS - MUSCLE Last Admin: 04/27/18 22:27 Dose: 40 mg Cholecalciferol (Vitamin D Tab*) 1,000 units PO DAILY [facility] Last Admin: 04/28/18 09:14 Dose: 1,000 units Diazepam (Valium Tab(*)) 5 mg PO Q6HR [facility] Last Admin: 04/28/18 09:14 Dose: Not Given Docusate Sodium (Colace Cap*) 100 mg PO BID [facility] Last Admin: 04/28/18 09:30 Dose: Not Given Escitalopram Oxalate (Lexapro (Nf)) 15 mg PO DAILY [facility] Last Admin: 04/28/18 09:14 Dose: 15 mg Glycerin (Glycerin Adult Supp*) 1 supp [place] DAILY PRN PRN Reason: CONSTIPATION Last Admin: 04/26/18 16:21 Dose: 1 supp Heparin Sodium (Porcine) (Heparin Vial(*)) 5,000 units SUBCUT Q8HR [facility] Last Admin: 04/28/18 06:06 Dose: 5,000 units Cefepime HCl (Maxipime 1 Gm In Dextrose Duplex (*)) 1 gm in 50 mls @ 100 mls/ hr IV Q12H [facility] Last Admin: 04/28/18 03:05 Dose: 100 mls/hr Mirabegron (Myrbetriq (Nf)) 75 mg PO BEDTIME [facility] Last Admin: 04/27/18 22:29 Dose: Not Given Multivitamins/Minerals (Theragran/Minerals Tab*) 1 tab PO DAILY [facility] Last Admin: 04/28/18 09:14 Dose: 1 tab Polyethylene Glycol/Electrolytes (Miralax*) 17 gm PO BEDTIME [facility] Last Admin: 04/27/18 22:27 Dose: 17 gm Sodium Biphosphate/Sodium Phosphate (Fleet Enema*) 1 bottle [place] BID [facility] Tizanidine HCl (Zanaflex Tab*) 6 mg PO BEDTIME [facility] Last Admin: 04/27/18 22:29 Dose: Not Given Vital Signs - 8 hr 04/28/18 04/28/18 04/28/18 07:56 08:00 11:09 Temperature 97.6 F 98.5 F Pulse Rate 70 71 Respiratory 16 16 15 Rate Blood Pressure 152/76 141/77 (mmHg) O2 Sat by Pulse 96 97 Oximetry Oxygen Devices in Use Now: None Appearance: Alert, partly up in bed. In fair spirits. Looks comfortable. Eyes: No Scleral Icterus Extremities: No Edema, No Clubbing, Cyanosis, - Skin: No Rash or Ulcers, No Nodules or Sclerosis, - Neurological: Alert and Oriented x 3, NL Sensation - Both hands clenched. Poor use of arms, no use of legs. No tremor. Result Diagrams: 04/28/18 06:31 04/28/18 06:31 Additional Lab and Data: Laboratory Results - last 24 hr 04/27/18 04/27/18 07:21 07:21 WBC 5.0 RBC 4.33 Hgb 13.6 L Hct 40 L MCV 93 MCH 31 MCHC 34 RDW 14 Plt Count 166 MPV 8.4 Neut % (Auto) 41.1 Lymph % (Auto) 42.1 [place] % (Auto) 9.0 H Eos % (Auto) 6.6 H Baso % (Auto) 1.2 Absolute Neuts (auto) 2.1 Absolute Lymphs (auto) 2.1 Absolute Monos (auto) 0.5 Absolute Eos (auto) 0.3 Absolute Basos (auto) 0.1 Absolute Nucleated RBC 0 Nucleated RBC % 0 Sodium 136 Potassium 3.6 Chloride 100 L Carbon Dioxide 30 Anion Gap 6 BUN 7 Creatinine 0.47 L Est GFR ( Amer) 214.3 Est GFR (Non-Af Amer) 177.1 BUN/Creatinine Ratio 14.9 Glucose 87 Calcium 8.7 Microbiology and Other Data: Microbiology 04/25/18 17:00 Blood Venous Aerobic Blood Culture - Preliminary No Growth Day 1 04/25/18 17:00 Blood Venous Anaerobic Blood Culture - Preliminary No Growth Day 1 04/25/18 16:11 Blood Venous Aerobic Blood Culture - Preliminary No Growth Day 1 04/25/18 16:11 Blood Venous Anaerobic Blood Culture - Preliminary No Growth Day 1 04/25/18 19:25 Nasal Nasal Screen MRSA (PCR) - Final Mrsa Not Detected Assess/Plan/Problems-Billing Assessment: 68 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 PSDA on UCx. Speciation pending. Zosyn. #UTI, chronic indwelling brasher catheter associated. - await UCx abx sensitivities. - low grade fevers have resolved. no leukocytosis, - procalcitonin negative - BCx negative #Constipation - bowel meds and enemas #Sacral wound - wound care consulted. pending. #MS - baclofen, zanaflex. DVT ppx: heparin 5000 TID. diet: no restriction. Dispo: medicine inpatient (still trying to detemine if needs zosyn vs can descalate) , hopeful to [facility] later today. - Patient Problems (1) Multiple sclerosis Current Visit: No Status: Acute Code(s): G35 - MULTIPLE SCLEROSIS SNOMED Code(s): 84933439 Comment: Relapsing-remitting MS. Continue baclofen. zanaflex. His neurologist is at [facility]. (2) UTI (urinary tract infection) Current Visit: No Status: Acute Comment: Temp 100.7 at [facility]. Urine growing Pseudomonas sens to both cefepime and pip/eleazar. Complete 7 days antibiotic, last dose 05/02 AM. Status and Disposition: medicine inpatient.
[2018-04-28] MEDS: Sodium Phosphate ADULT ENEMA* 118 ml bottle PR SCH ×2 (13:30→20:38)
--- NOTE | 2018-04-28 18:12 | CONS ---
CONSULTATION REPORT: DATE OF CONSULT: 04/28/18 REQUESTING PHYSICIAN: Dr. Arce. CONSULTING SERVICE: Infectious Disease. REASON FOR CONSULT: Pseudomonas urinary tract infection. IMPRESSION: 1. Urinary retention with chronic indwelling Reddy catheter, fever, and bladder spasms and urinalysis that showed leukocyte esterase, red cells, bacteria, and urine cultures growing 10 to 25,000 colonies of Pseudomonas sensitive to cefepime and Zosyn. His symptoms were fever and bladder spasms, which are resolved. 2. Multiple sclerosis with neurogenic bladder. RECOMMENDATIONS: Agree with cefepime 1 g every 12 hours. He is day 3 of IV antibiotics. We will plan for a 5-day course and followup with me as well as his urologist as an outpatient. HISTORY OF PRESENT ILLNESS: This is a 68-year-old male with multiple sclerosis , neurogenic bladder, chronic indwelling Reddy. He had a Pseudomonas bacteremia and urinary tract infection in January, has been free of infection since then. End of last week, he developed fevers in the 99 range, which is a typical fever for him. He started to have increasing bladder spasms. Family felt there was some change in the consistency of the urine. He had urine cultures send as an outpatient, it grew Pseudomonas. He was directed in by Dr. Garza. He was initially started on Zosyn that was switched to cefepime yesterday. He has been tolerating that well. He has had no fever while he has been here. His C-reactive protein was 7 on 04/25/18 and it is 5 today. He is having no abdominal pain, diarrhea, or bladder spasms. No difficulty with his Reddy catheter. He did have change in the Reddy catheter and was switched out from 5 or 6 days before he came into the hospital. PAST MEDICAL HISTORY: 1. Multiple sclerosis, which is complicated by neurogenic bladder and chronic indwelling Reddy catheter. 2. History of urinary tract infection. MEDICATIONS: 1. Tylenol. 2. Vitamin C. 3. Baclofen. 4. Cholecalciferol. 5. Diazepam as scheduled. 6. Docusate. 7. Lexapro. 8. Glycerin suppository as needed. 9. Heparin subcutaneous injection. 10. Cefepime 1 g every 12 hours. 11. Myrbetriq. 12. Tizanidine. ALLERGIES: DACLIZUMAB, ZENAPAX, which cause nausea and vomiting. FAMILY HISTORY: No recurrent infections. SOCIAL HISTORY: He lives at [facility]. He is retired. He has no travel or sick contacts. REVIEW OF SYSTEMS: All negative to a 14-point review of systems except as noted above in the history of present illness. PHYSICAL EXAM: Vital Signs: Temperature is 37, heart rate 60, respiratory rate 18, blood pressure 145/71, oxygen saturation 95% on room air. In general, he is awake, not in distress. Neurologic: He is oriented x3. Follows all commands. HEENT: There is no conjunctival hemorrhage. Oropharynx is without lesions. Neck is supple without mass. Heart has regular rate and rhythm without murmurs, rubs, or gallops. Lungs are clear to auscultation bilaterally. Abdomen: Soft, nontender, nondistended. There is no suprapubic tenderness or flank tenderness to palpation. Skin: There is no rash or splinter hemorrhages. Musculoskeletal: There is no joint synovitis. LABORATORY DATA: White blood cell count is 4, hemoglobin 14, platelets 174. Creatinine is 0.4, procalcitonin was 0 on admission. Please see impressions and recommendations as outlined above. Thank for asking me to see Mr. Jay in consultation. [id number]/[facility] #: [id number] [facility]
[2018-04-28] MEDS: tiZANidine TAB* 2 MG PO SCH (20:38)
[2018-04-28] MEDS: NF:Mirabegron (NF) 25 MG TAB PO SCH (20:40)
[2018-04-28] MEDS: Polyethylene Glycol 3350* 17 GM PACKET PO SCH (20:40)
[2018-04-29] MEDS: Cefepime 1 GM in Dextrose(*) 1 GM/50 ML BAG IV SCH ×3 (01:51→22:08)
[2018-04-29] MEDS: Diazepam TAB(*) 5 MG PO SCH ×5 (01:57→22:08)
[2018-04-29] MEDS: Heparin VIAL(*) 5000 UNITS/ML VIAL (FIVE THOUSAND) SUBCUT SCH ×3 (05:18→22:09)
[2018-04-29] MEDS: Ascorbic Acid TAB* 500 MG PO SCH (09:47)
[2018-04-29] MEDS: Docusate CAP* 100 MG PO SCH ×2 (09:47→22:21)
[2018-04-29] MEDS: Multivitamins/Minerals TAB PO SCH (09:47)
[2018-04-29] MEDS: CMC:Escitalopram (NF) 10 MG TAB PO SCH (09:48)
[2018-04-29] MEDS: Cholecalciferol TAB* 1000 UNITS PO SCH (09:48)
[2018-04-29] MEDS: Sodium Phosphate ADULT ENEMA* 118 ml bottle PR SCH ×2 (09:52→20:58)
[2018-04-29] MEDS: Baclofen TAB* 20 MG PO PRN ×2 (12:17→15:24)
--- NOTE | 2018-04-29 15:14 | PN ---
Progress Note - Progress Note Date of Service: 04/29/18 Note: Time spent on discharge 45 minutes, including discussion with patient and his daughter, discussion with [facility] nurse, floor nurse, pharmacy, CM, review of EMR and preparation of discharge documents.
--- NOTE | 2018-04-29 15:56 | DS ---
CC: Dr. Garza * DATE OF ADMISSION: 04/25/2018. DATE OF DISCHARGE: 04/30/2018. This is being dictated in advance. HISTORY OF PRESENT ILLNESS/HOSPITAL COURSE: This 68-year-old man presented with fever and malaise. He had a temperature of 100.7 at [facility]. He has a long history of multiple sclerosis. He and his family have noted that whenever he gets a urinary tract infection or any other cause of even a low grade fever, he has deterioration in his multiple sclerosis in terms of often arm function or other function. He has had many urinary tract infections due to his neurogenic bladder. The patient has pseudomonas growth in his urine and was treated with Cefepime. He was seen by Dr. Clark. It was felt that five days of Cefepime would be adequate which he will finish at the time of discharge. He was noted to have a buttock as well as a left elbow ulcer. It was recommended that the buttock ulcer be treated with alginate dressing and gauze and the left below be treated with alginate dressing and Mepilex. The patient had his Reddy catheter changed on 04/28/2018. FINAL DIAGNOSES: 1. Urinary tract infection. 2. Multiple sclerosis. DISCHARGE MEDICATIONS: 1. Baclofen 40 mg 6:00 p.m. and 10:00 p.m. 2. Baclofen 20 mg 10:00 a.m. and 2:00 p.m. 3. Fleet enema b.i.d. 4. Escitalopram 15 mg daily. 5. Vitamin D 1,000 units daily. 6. Multivitamin with mineral one daily. 7. Ascorbic acid 1,000 mg daily. 8. Tizanidine 6 mg at bedtime. 9. Mirabegron 75 mg at bedtime. 10. Acetaminophen 650 mg every 4 hours prn. 11. Docusate 100 mg b.i.d. 12. Polyethylene Glycol 17 gm at bedtime. 13. Diazepam as prescribed. [id number]/[facility] #: [id number] [facility]
[2018-04-29] MEDS: Polyethylene Glycol 3350* 17 GM PACKET PO SCH (22:08)
[2018-04-29] MEDS: tiZANidine TAB* 2 MG PO SCH (22:08)
[2018-04-29] MEDS: NF:Mirabegron (NF) 25 MG TAB PO SCH (22:21)
[2018-04-30] MEDS: Diazepam TAB(*) 5 MG PO SCH ×2 (00:47→06:13)
[2018-04-30] MEDS: Baclofen TAB* 20 MG PO PRN ×3 (04:12→12:41)
[2018-04-30] MEDS: Heparin VIAL(*) 5000 UNITS/ML VIAL (FIVE THOUSAND) SUBCUT SCH (06:13)
[2018-04-30 08:27] VITALS: BP 149/73
[2018-04-30] MEDS: Sodium Phosphate ADULT ENEMA* 118 ml bottle PR SCH (10:15)
[2018-04-30] MEDS: Cefepime 1 GM in Dextrose(*) 1 GM/50 ML BAG IV SCH (11:01)
[2018-04-30] MEDS: CMC:Escitalopram (NF) 10 MG TAB PO SCH (11:23)
[2018-04-30] MEDS: Multivitamins/Minerals TAB PO SCH ×2 (11:24→11:26)
[2018-04-30] MEDS: Ascorbic Acid TAB* 500 MG PO SCH (11:25)
[2018-04-30] MEDS: Cholecalciferol TAB* 1000 UNITS PO SCH (11:25)
[2018-04-30] MEDS: Docusate CAP* 100 MG PO SCH (11:25)
== END 2018-04-30 13:40 | disposition home or self-care (01) | DRG 699 ==
LOC: ED 13:25 → MED 17:26 → OBSVTOIN 18:02
PROVIDERS: ADMIT Internal Medicine; ATTEND Student in an Organized Health Care Education/Training Program
PROC: 0T2BX0Z Change Drainage Device in Bladder, External Approach (ICD-10-PCS; principal; 2018-04-28)
DX: T83.518A Infection and inflammatory reaction due to other urinary catheter, initial encounter (principal); N39.0 Urinary tract infection, site not specified; G82.20 Paraplegia, unspecified; Y73.1 Therapeutic (nonsurgical) and rehabilitative gastroenterology and urology devices associated with adverse incidents; N31.9 Neuromuscular dysfunction of bladder, unspecified; F32.9 Major depressive disorder, single episode, unspecified; I10 Essential (primary) hypertension; J30.2 Other seasonal allergic rhinitis; K57.90 Diverticulosis of intestine, part unspecified, without perforation or abscess without bleeding; N40.0 Benign prostatic hyperplasia without lower urinary tract symptoms; G35 Multiple sclerosis; R00.1 Bradycardia, unspecified; B96.5 Pseudomonas (aeruginosa) (mallei) (pseudomallei) as the cause of diseases classified elsewhere; L89.029 Pressure ulcer of left elbow, unspecified stage; L89.309 Pressure ulcer of unspecified buttock, unspecified stage; L89.159 Pressure ulcer of sacral region, unspecified stage; R33.9 Retention of urine, unspecified; N32.89 Other specified disorders of bladder; K59.00 Constipation, unspecified; Z88.1 Allergy status to other antibiotic agents; Z99.3 Dependence on wheelchair; Z88.8 Allergy status to other drugs, medicaments and biological substances; Y92.009 Unspecified place in unspecified non-institutional (private) residence as the place of occurrence of the external cause; Z80.0 Family history of malignant neoplasm of digestive organs; Z72.89 Other problems related to lifestyle; Z98.1 Arthrodesis status
CPT/HCPCS: 36415; 80048; 80053; 81003; 81015; 83605; 83690; 84145; 85025; 86140; 87040; 87077; 87086; 87186; 87641; 93005; 99284; A9270-GY; G8978-GP-CM; G8979-GP-CM; G8980-GP-CM; G8987-GO-CM; G8988-GO-CM; G8989-GO-CM; J0692; J1644; J2543

== ENCOUNTER 2018-06-17 10:00 | Inpatient (IN) | payer MEDICARE ==
--- NOTE | 2018-06-17 10:27 | ED ---
HPI Febrile Illness - HPI Summary HPI Summary: This patient is a 68 year old M BIBA to [facility] from his assisted living facility to rule out sepsis. EMS reports patient had a fever of 107F last evening that was reduced to 102F with Tylenol. Today patients temperature was 99.2. Patient has a history of frequent UTIs with a brasher catheter. Patient is currently taking Amoxicillin for a STAPH infection of a bed sore that is currently being treated at the wound clinic. Patient denies urinary symptoms, abdominal pain, current n/v/d, changes in BMs, cough, rhinorrhea, sore throat. Patient has no complaints at this time. PMHx of MS. Patient does not have sensation of the extremities, but reports good sensation of his abdomen. - History of Current Complaint Chief Complaint: EDFever Time Seen by Provider: 06/17/18 10:04 Hx Obtained From: Patient Onset/Duration: Started Hours Ago Initial Severity: Severe Current Severity: Mild Pain Intensity: 0 Pain Scale Used: 0-10 Numeric Aggravating Factors: Nothing Alleviating Factors: OTC Medicine Associated Signs and Symptoms: Negative - Additional Pertinent History Primary Care Physician: LAKEISHA - Allergy/Home Medications Allergies/Adverse Reactions: Allergies Allergy/AdvReac Type Severity Reaction Status Date / Time daclizumab Allergy Unknown Verified 01/08/18 10:36 Reaction Details xenapak Allergy Intermediate Nausea And Uncoded 01/08/18 10:36 Vomiting Home Medications: Home Medications Baclofen TAB* [Lioresal TAB*] 20 mg PO Q2HR PRN 06/17/18 [History Confirmed 09/22] Baclofen TAB* [Lioresal TAB*] 20 mg PO Q6HR 06/17/18 [History Confirmed ] Baclofen TAB* [Lioresal TAB*] 40 mg PO 2200 06/17/18 [History Confirmed ] Cholecalciferol TAB* [Vitamin D TAB*] 1,000 unit PO DAILY 06/17/18 [History Confirmed 06/17/18] Cran/Vitc/Mannose/Fos/Bromeln [Cystex] 15 ml PO BID 06/17/18 [History Confirmed 06/17/18] Diazepam TAB(*) [Valium TAB(*)] 5 - 10 mg PO Q6HR PRN 06/17/18 [History Confirmed 06/17/18] Diazepam TAB(*) [Valium TAB(*)] 5 mg PO BEDTIME 06/17/18 [History Confirmed 09/22] Escitalopram (NF) [Lexapro 10 mg (NF)] 15 mg PO DAILY 06/17/18 [History Confirmed 06/17/18] Ibuprofen TAB* [Advil TAB*] 200 mg PO TID PRN 06/17/18 [History Confirmed ] Multivitamins/Minerals TAB* [Theragran/minerals TAB*] 1 tab PO DAILY 06/17/18 [ History Confirmed 06/17/18] Polyethylene Glycol 3350* [Miralax*] 17 gm PO BEDTIME PRN 06/17/18 [History Confirmed 06/17/18] Sodium Phosphate ADULT ENEMA* [Fleet Enema*] 1 bottle ND BID PRN 06/17/18 [ History Confirmed 06/17/18] tiZANidine TAB* [Zanaflex TAB*] 6 mg PO BEDTIME 06/17/18 [History Confirmed 09/22] PMH/Surg Hx/FS Hx/Imm Hx Endocrine/Hematology History: Denies: Hx Anticoagulant Therapy, Hx Blood Disorders, Hx Blood Transfusions, Hx Bone Marrow Disease, Hx Diabetes, Hx Systemic Lupus Erythematosus, Hx Sickle Cell Disease, Hx Thyroid Disease, Hx Anemia, Hx Unexplained Bleeding Cardiovascular History: Reports: Hx Hypertension Denies: Hx Aneurysm, Hx Angina, Hx Angioplasty, Hx Auto Implanted Cardiovert Defib, Hx Cardiac Arrest, Hx Cardiomegaly, Hx Congenital Heart Disease, Hx Congestive Heart Failure, Hx Coronary Artery Disease, Hx Deep Vein Thrombosis, Hx Hypercholesterolemia, Hx Hypotension, Hx Pacemaker/ICD, Hx Peripheral Vascular Disease, Hx Rheumatic Fever, Hx Syncope, Hx Valvular Heart Disease, Other Cardiovascular Problems/Disorders Respiratory History: Reports: Hx Seasonal Allergies Denies: Hx Asthma, Hx Chronic Bronchitis, Hx Chronic Obstructive Pulmonary Disease (COPD), Hx Cystic Fibrosis, Hx Lung Cancer, Hx Pleural Effusion, Hx Pneumonia, Hx Pulmonary Edema, Hx Pulmonary Embolism, Hx Sleep Apnea GI History: Reports: Hx Diverticulosis Denies: Hx Cirrhosis, Hx Crohn's Disease, Hx Gall Bladder Disease, Hx Gastroesophageal Reflux Disease, Hx Gastrointestinal Bleed, Hx Hiatal Hernia, Hx Irritable Bowel, Hx Jaundice, Hx Obstructive Bowel, Hx Ileostomy, Hx Pyloric Stenosis, Hx Ulcer History: Reports: Hx Benign Prostatic Hyperplasia, Other Problems/ Disorders - urinary retention, septic UTI Denies: Hx Acute Renal Failure, Hx Chronic Renal Failure, Hx Dialysis, Hx Kidney Infection, Hx Kidney Stones, Hx Renal Disease Musculoskeletal History: Reports: Hx Tendonitis, Other Musculoskeletal History - MS Denies: Hx Arthritis, Hx Back Problems, Hx Bursitis, Hx Congenital Bone Abnormalities, Hx Fibromyalgia, Hx Gout, Hx Orthopedic Injury, Hx Osteoporosis, Hx Scoliosis Sensory History: Reports: Hx Contacts or Glasses Denies: Hx Cataracts, Hx Eye Injury, Hx Eye Prosthesis, Hx Glaucoma, Hx Vision Problem, Hx Deafness, Hx Hearing Aid, Hx Hearing Problem, Other Sensory Impairments Opthamlomology History: Reports: Hx Contacts or Glasses Denies: Hx Cataracts, Hx Eye Injury, Hx Eye Prosthesis, Hx Glaucoma, Hx Vision Problem, Other Sensory Impairments Neurological History: Reports: Other Neuro Impairments/Disorders - MS Denies: Hx Dementia, Hx Developmental Delay, Hx Headaches, Hx Migraine, Hx Nerve Disease, Hx Seizures, Hx Spinal Cord Injury, Hx Transient Ischemic Attacks (TIA) Psychiatric History: Reports: Hx Depression Denies: Hx Anxiety, Hx Attention Deficit Hyperactivity Disorder, Hx Eating Disorder, Hx Panic Disorder, Hx Post Traumatic Stress Disorder, Hx Inpatient Treatment, Hx Community Mental Health Tx, Hx Schizophrenia, Hx Bipolar Disorder , Hx Suicide Attempt, Hx of Violent Episodes Against Others, Hx Substance Abuse , Other Psychiatric Issues/Disorders - Surgical History Surgery Procedure, Year, and Place: October 12, 2012 Anterior cervical dissection with fusion,removal of c3+c4 Hx Anesthesia Reactions: No Infectious Disease History: No Infectious Disease History: Denies: Hx Clostridium Difficile, Hx Hepatitis, Hx Human Immunodeficiency Virus (HIV), Hx of Known/Suspected MRSA, Hx Shingles, Hx Tuberculosis, Hx Known/ Suspected VRE, Hx Known/Suspected VRSA, History Other Infectious Disease, Traveled Outside the [place] in Last 30 Days - Family History Known Family History: Positive: Other - Colon cancer - Social History Alcohol Use: Daily Alcohol Amount: 1 beer Hx Substance Use: No Substance Use Type: Reports: None Hx Tobacco Use: No Smoking Status (MU): Never Smoked Tobacco Have You Smoked in the Last Year: No Review of Systems Negative: Fever, Chills Negative: Erythema Negative: Sore Throat Negative: Chest Pain Negative: Shortness Of Breath, Cough Negative: Abdominal Pain, Vomiting, Diarrhea, Nausea Negative: dysuria, hematuria Negative: Myalgia, Edema Positive: Other - bed sore, currently being treated. Negative: Rash Neurological: Negative - dizziness All Other Systems Reviewed And Are Negative: Yes Physical Exam - Summary Physical Exam Summary: Constitutional: Well-developed, Well-nourished, Alert. (-) Distressed Skin: Warm, Dry HENT: Normocephalic; Atraumatic Eyes: Conjunctiva normal Neck: Musculoskeletal ROM normal neck. (-) JVD, (-) Stridor, (-) Tracheal deviation Cardio: Rhythm regular, rate normal, Heart sounds normal; Intact distal pulses; The pedal pulses are 2+ and symmetric. Radial pulses are 2+ and symmetric. (-) Murmur Pulmonary/Chest wall: Effort normal. (-) Respiratory distress, (-) Wheezes, (-) Rales Abd: Soft, (-) epigastric tenderness, (-) Distension, (-) Guarding, (-) Rebound Musculoskeletal: (-) Edema Lymph: (-) Cervical adenopathy Neuro: Alert, Oriented x3 Psych: Mood and affect Normal Triage Information Reviewed: Yes Vital Signs On Initial Exam: Initial Vitals Temp Pulse Resp BP Pulse Ox 98.2 F 66 17 142/70 95 06/17/18 10:05 06/17/18 10:05 06/17/18 10:05 06/17/18 10:05 06/17/18 10:05 Vital Signs Reviewed: Yes Diagnostics - Vital Signs Vital Signs Temp Pulse Resp BP Pulse Ox 06/17/18 10:05 98.2 F 66 17 142/70 95 - Laboratory Result Diagrams: 06/17/18 10:45 06/17/18 10:45 Lab Statement: Any lab studies that have been ordered have been reviewed, and results considered in the medical decision making process. - Radiology CXR Radiology Interpretation Completed By: Radiologist - No radiographic evidence for acute cardiopulmonary abnormality on this portable chest x-ray. ED Physician has reviewed this report. - EKG 1010 Cardiac Rate: NL - 61 BPM EKG Rhythm: Sinus Rhythm Course/Dx - Course Course Of Treatment: 68 year old M ASHLEIGH to [facility] from his assisted living facility to rule out sepsis. EMS reports patient had a fever of 107F last evening that was reduced to 102F with Tylenol. Today patients temperature was 99.2. Patient has a history of frequent UTIs with a brasher catheter. Patient is currently taking Amoxicillin for a STAPH infection of a bed sore that is currently being treated at the wound clinic. PMHx of MS. Bloodwork and UA is obtained and is indicative of a UTI. A CXR and EKG are of no acute concern. Patient is given 1L of IVF and 1gm of Ceftriaxone Sodium. Patient had polyresistent organisms in urine cultures, Given culture results and brasher catheter patient will be admitted to Dr. Beck. - Diagnoses Provider Diagnoses: Catheter-associated urinary tract infection, Urine culture positive - Provider Notifications Discussed Care Of Patient With: Lala Beck - hospitalist Time Discussed With Above Provider: 12:38 Instructed by Provider To: Admit As Inpatient Discharge - Sign-Out/Discharge Documenting (check all that apply): Patient Departure - admit - Discharge Plan Condition: Stable Disposition: ADMITTED TO [facility] - Attestation Statements Document Initiated by Scribe: Yes Documenting Scribe: Autumn Bartlett Provider For Whom Scribe is Documenting (Include Credential): Jacky Palmer MD Scribe Attestation: IAutumn, scribed for Jacky Palmer MD on 06/17/18 at 1507.
[2018-06-17 10:44] LABS: Urine Appearance Cloudy; Urine Blood 1+ (Negative); Urine Color Yellow; Urine Ketones Negative (Negative); Urine Protein Negative (Negative); Urine Red Blood Cell 1+(3-5/hpf) (Absent); Urine Specific Gravity 1.003 (1.010-1.030); Urine Urobilinogen Negative (Negative); Urine White Blood Cell 3+(>20/hpf) (Absent)
--- NOTE | 2018-06-17 10:44 | RAD ---
INDICATION: Fever COMPARISON: Most recent comparison chest x-ray is dated January 08, 2018 TECHNIQUE: Single AP portable view of the chest was obtained. FINDINGS: Image quality is compromised due to the relative inferiority of a portable chest x-ray. The heart and mediastinum exhibit normal size and contour. There is faint calcification overlying the arch of the aorta. Coarse calcification is seen overlying the expected location of the bilateral carotid bulbs. The lungs are grossly clear. There is no evidence of a large pleural effusion. Again noted is a plate and screw fixator overlying the lower cervical spine. IMPRESSION: No radiographic evidence for acute cardiopulmonary abnormality on this portable chest x-ray.
[2018-06-17] MEDS ORDERED: cefTRIAXone(*) 1 GM in NS 0.9% 50 ML* 50 ML IVPB ONE (11:04)
[2018-06-17] MEDS ORDERED: NS 0.9% 1000 ML* 2,000 ML IV ONE (11:04)
[2018-06-17 11:17] LABS: ABS Basophils 0 10^3/ul (0-0.2); ABS Eosinophils 0.1 10^3/ul (0-0.6); ABS Lymphocytes 1.6 10^3/ul (1.0-4.8); ABS Monocytes 1.2 10^3/ul (0-0.8); ABS Neutrophils 9.1 10^3/ul (1.5-7.7); ABS Nucleated RBC 0 10^3/ul; Eosinophil % 0.9 % (0-6); Hematocrit 38 % (42-52); Hemoglobin 13.1 g/dl (14.0-18.0); Lymphocyte % 13.6 % (25-47); Mean Corpuscular HGB Conc 34 g/dl (31-36); Mean Corpuscular Hemoglobin 31 pg (27-31); Mean Corpuscular Volume 92 fL (80-94); Mean Platelet Volume 8.8 um3 (7.4-10.4); Nucleated Red Blood Cells % 0.1; Platelet Count 139 10^3/ul (150-450); Red Blood Count 4.17 10^6/ul (4.00-5.40); Red Cell Distribution Width 14 % (10.5-15); White Blood Count 12.1 10^3/ul (3.5-10.8)
[2018-06-17 11:26] LABS: INR 1.07 (0.77-1.02)
[2018-06-17 11:38] LABS: EGFR Non-African American 213.3 (>60)
[2018-06-17] MEDS ORDERED: Cefepime 2 GM in Dextrose(*) 2 GM/50 ML BAG IV ONE (12:33)
[2018-06-17] MEDS ORDERED: Acetaminophen TAB* 325 MG PO PRN ×2 (14:10→14:13)
[2018-06-17] MEDS ORDERED: Polyethylene Glycol 3350* 17 GM PACKET PO PRN (14:13)
[2018-06-17] MEDS: Diazepam TAB(*) 5 MG PO PRN (17:48)
[2018-06-17] MEDS: Baclofen TAB* 20 MG PO SCH ×2 (18:40→22:30)
--- NOTE | 2018-06-17 20:56 | HP ---
HISTORY AND PHYSICAL: DATE OF ADMISSION: 06/17/18 PROVIDER: Elizabeth Gillis NP ATTENDING PHYSICIAN: Dr. Holm * (report dictated by Elizabeth Gillis NP). PRIMARY CARE PROVIDER: Karissa Garza MD UROLOGIST: Dr. Conway. CHIEF COMPLAINT: Fever. HISTORY OF PRESENT ILLNESS: Mr. Jay is a 68-year-old male with a past medical history of multiple sclerosis who is bedbound, chronic Reddy catheter secondary to neurogenic bladder, chronic constipation, who started to not feel well last night after dinner reporting some mild nausea. He then was noted to have a temperature last night of 101.9 per his . EMS reported that the patient had a fever of 107 and it was reduced to 102 with Tylenol per the emergency department notes; however, per the , this did not seem to be accurate. Today on evaluation at [facility], the patient's temperature was noted to be 99.2. The patient was transferred to the emergency room for further workup due to history of frequent urinary tract infections secondary to chronic indwelling Reddy catheter. The patient has a history of pseudomonas urinary tract infections. Currently, in the emergency department, the patient is noted to have a leukocytosis of 12. He is afebrile with a temperature of 98.2 and currently he feels much better. He was given 2 L of normal saline in the emergency department and was given cefepime and ceftriaxone. He is noted to have an abnormal urinalysis. He also reports he has a sacral wound, on which he is followed by wound clinic. He is about to be discharged from their services as the wound on his sacrum he reports is "practically healed." He denies any other open wounds. Currently , he denies fevers, chills, nausea, abdominal pain, joint pain. His only complaint is feeling frustrated that he is back in the emergency department. Otherwise, he states he is feeling better. PAST MEDICAL HISTORY: Multiple sclerosis diagnosed in the 1970s, he is completely bedbound, cannot move his upper and lower extremities; urinary retention, with chronic indwelling Reddy catheter with frequent urinary tract infections including pseudomonas UTIs; history of bladder spasms and muscle spasms. PAST SURGICAL HISTORY: In October 2012, anterior cervical dissection with fusion, removal of C3 and C4. CURRENT MEDICATIONS: 1. Amoxicillin 500 mg p.o. b.i.d. This was recently prescribed by the wound clinic. The patient is unclear how long of a course he is supposed to complete of this. 2. Valium 5 mg p.o. at bedtime. 3. Valium 5 to 10 mg p.o. q.6 hours p.r.n. 4. Baclofen 20 mg p.o. q.6 hours. 5. Baclofen 40 mg p.o. 2200. 6. Baclofen 20 mg p.o. q.2 hours p.r.n. 7. Advil 200 mg p.o. t.i.d. p.r.n. 8. Cystex 15 mL p.o. b.i.d. 9. Acetaminophen 650 mg p.o. q.4 hours p.r.n. 10. Adult enema 1 bottle per rectum b.i.d. p.r.n. 11. MiraLAX 17 g p.o. daily p.r.n. 12. Mirabegron 75 mg p.o. daily. 13. Lexapro 15 mg p.o. daily. 14. Vitamin D 1000 units p.o. daily. 15. Zanaflex 6 mg p.o. at bedtime. 16. Multivitamin with mineral 1 tab p.o. daily. 17. Vitamin C 1000 mg p.o. daily. 18. Zofran 4 mg p.o. q.8 hours p.r.n. ALLERGIES: DACLIZUMAB, ZENAPAX. FAMILY HISTORY: Positive for colon cancer. His daughter has multiple sclerosis. SOCIAL HISTORY: The patient denies history of tobacco abuse. Rare alcohol use. He currently lives at [facility]. His , Amaya, is his healthcare proxy. REVIEW OF SYSTEMS: A 14-point review of systems was performed. All the pertinent positives and negatives are mentioned in the history of present illness. Otherwise are negative. PHYSICAL EXAMINATION GENERAL APPEARANCE: Chronically ill 68-year-old male, lying in the emergency room stretcher. Alert and oriented x3, in no acute distress. VITAL SIGNS: Temperature 98.2, heart rate 66, respirations 17, O2 sat 95% on room air, blood pressure 142/70. HEENT: Head is normocephalic, atraumatic. Pupils are equal and reactive to light. Oropharynx is clear. Moist mucous membranes. NECK: Supple. LUNGS: Clear to auscultation bilaterally. Good aeration throughout. CARDIAC: S1, S2. Regular rate and rhythm. No murmur, rub, or gallop appreciated. No lower extremity edema noted. ABDOMEN: Soft, nontender, nondistended. Normal bowel sounds throughout. EXTREMITIES: No edema or cyanosis noted. Upper and lower extremities are contracted. NEURO: Alert and oriented. Speech is clear. The patient is unable to move his upper and lower extremities. DIAGNOSTIC STUDIES/LAB DATA: WBC 12.1, RBC 4.17, Hgb 13.1, Hct 38, MCV 92, MCH 31, MCHC 34, RDW 14, platelet count 139. INR 1.07. Sodium 133, potassium 3.9, chloride 97, carbon dioxide 29, anion gap 7, BUN 8, creatinine 0.40, glucose 85, lactic acid 0.6, calcium 8.8. Total bilirubin 0.70, AST 18, ALT 18 , alkaline phosphatase 60. Total protein 6.6, albumin 3.6. Urinalysis grossly abnormal. Chest x-ray, impression: No acute cardiopulmonary abnormality. ASSESSMENT AND PLAN: Mr. Jay is a 68-year-old male with a past medical history of multiple sclerosis who is bedbound, urinary retention with neurogenic bladder with chronic indwelling Reddy catheter with frequent urinary tract infections including pseudomonas urinary tract infections, chronic constipation, muscle spasms who presents to the emergency department today with report of fever and not feeling well. 1. Fever. I suspect most likely source is his urine. He does have abnormal urinalysis; however, he probably has an abnormal urinalysis at baseline. I evaluated his sacral wound, which appears to be healing with no open areas. It is unclear why he is taking amoxicillin for the sacral wound and we will try to obtain notes from the wound clinic. Blood cultures have been sent. He is not septic. He was given cefepime and ceftriaxone in the emergency department. We will continue cefepime only. We will ask Dr. Clark to consult on the patient. We will obtain renal, bladder ultrasound. He does have a history of having stones in the past. We will assess for any obstruction or hydronephrosis. 2. Multiple sclerosis. Continue home medications. Strict turning q.2 hours to prevent any skin breakdown. 3. Chronic constipation. Continue bowel regimen. 4. DVT prophylaxis. Heparin subcu. 5. Code status. DNR. MOLST has been updated and is on the chart. 6. Surrogate decision maker is his , Amaya. 7. Hospital status. Inpatient for IV antibiotics for most likely resistant urinary tract infection. TIME SPENT: Approximately 60 minutes was spent on this history and physical. ELIZABETH GILLIS, HEEL COVERER [id number]/[facility] #: [id number] PAPO
[2018-06-17] MEDS: Diazepam TAB(*) 5 MG PO SCH (22:30)
[2018-06-17] MEDS: tiZANidine TAB* 2 MG PO SCH (22:30)
[2018-06-17] MEDS: Heparin VIAL(*) 5000 UNITS/ML VIAL (FIVE THOUSAND) SUBCUT SCH (22:31)
[2018-06-17] MEDS: Mirabegron (NF) 25 MG TAB PO SCH (22:31)
--- NOTE | 2018-06-17 23:58 | RAD ---
EXAM: US Retroperitoneal Complete, Renal CLINICAL HISTORY: 68 years old, male; Condition or disease; Kidney or ureter condition; Other: Uti; Additional info: Uti, HX of renal stones TECHNIQUE: Real-time ultrasound of the retroperitoneum (complete) with image documentation. COMPARISON: RENAL BLAD US RENAL AND BLADDER 01/08/2018 5:31 PM FINDINGS: Right kidney: There is a 6 mm calculus in the superior pole the right kidney without hydronephrosis, also previously seen. Left kidney: No left renal calculi or hydronephrosis. Bladder: A Reddy catheter is present in the urinary bladder volume with urinary bladder volume of 204 cc. The urinary bladder appears otherwise unremarkable. A left ureteral jet was demonstrated but the Reddy catheter balloon was likely obscuring right ureteral jet. Other findings: Prostate gland volume is enlarged measuring 34 cc. IMPRESSION: 1. Prostate gland volume is enlarged measuring 34 cc. 2. Possible nonobstructive right nephrolithiasis as previously seen.
[2018-06-18] MEDS: Baclofen TAB* 20 MG PO SCH ×5 (00:59→21:21)
[2018-06-18] MEDS: NS 0.9% 50 ML* 50 ML with Cefepime(*) 2 GM IVPB SCH ×4 (00:59→12:39)
[2018-06-18] MEDS: Baclofen TAB* 20 MG PO PRN (04:23)
[2018-06-18] MEDS: Diazepam TAB(*) 5 MG PO PRN (04:23)
[2018-06-18] MEDS: Heparin VIAL(*) 5000 UNITS/ML VIAL (FIVE THOUSAND) SUBCUT SCH ×3 (06:11→22:15)
[2018-06-18 07:30] LABS: ABS Basophils 0 10^3/ul (0-0.2); ABS Eosinophils 0.2 10^3/ul (0-0.6); ABS Lymphocytes 1.9 10^3/ul (1.0-4.8); ABS Monocytes 0.7 10^3/ul (0-0.8); ABS Neutrophils 4.2 10^3/ul (1.5-7.7); ABS Nucleated RBC 0 10^3/ul; Hematocrit 36 % (42-52); Hemoglobin 12.4 g/dl (14.0-18.0); Lymphocyte % 26.6 % (25-47); Mean Corpuscular HGB Conc 34 g/dl (31-36); Mean Corpuscular Hemoglobin 32 pg (27-31); Mean Corpuscular Volume 92 fL (80-94); Mean Platelet Volume 8.6 um3 (7.4-10.4); Nucleated Red Blood Cells % 0; Platelet Count 130 10^3/ul (150-450); Red Blood Count 3.93 10^6/ul (4.00-5.40); Red Cell Distribution Width 14 % (10.5-15)
[2018-06-18 07:58] LABS: EGFR Non-African American 191.1 (>60)
[2018-06-18] MEDS: Multivitamins/Minerals TAB PO SCH (08:56)
[2018-06-18] MEDS: Ascorbic Acid TAB* 500 MG PO SCH (08:57)
[2018-06-18] MEDS: Cholecalciferol TAB* 1000 UNITS PO SCH (08:57)
[2018-06-18] MEDS: ESCITALOPRAM 5 MG PO SCH (08:57)
[2018-06-18] MEDS: Sodium Phosphate ADULT ENEMA* 118 ml bottle PR PRN (10:37)
--- NOTE | 2018-06-18 15:57 | PN ---
Subjective Date of Service: 06/18/18 Interval History: Seen this afternoon with his at bedside. Admitted via our ER for hypotension and Fever of 101.7 at his detention. Found to have leukocytosis and admitted for UTI. Patient states he is feeling better this morning. No nausea or vomit. tolerating po well Family History: Unchanged from Admission Social History: Unchanged from Admission Objective Active Medications: Acetaminophen (Tylenol Tab*) 650 mg PO Q6H PRN PRN Reason: FEVER/PAIN Acetaminophen (Tylenol Tab*) 650 mg PO Q4H PRN PRN Reason: FEVER/PAIN Ascorbic Acid (Vitamin C Tab*) 1,000 mg PO DAILY [facility] Last Admin: 06/18/18 08:57 Dose: 1,000 mg Baclofen (Lioresal Tab*) 20 mg PO Q2HR PRN PRN Reason: SPASMS Last Admin: 06/18/18 04:23 Dose: 20 mg Baclofen (Lioresal Tab*) 20 mg PO Q6HR [facility] Last Admin: 06/18/18 12:30 Dose: 20 mg Baclofen (Lioresal Tab*) 40 mg PO 2200 [facility] Last Admin: 06/17/18 22:30 Dose: 40 mg Cholecalciferol (Vitamin D Tab*) 1,000 units PO DAILY [facility] Last Admin: 06/18/18 08:57 Dose: 1,000 units Diazepam (Valium Tab(*)) 5 mg PO BEDTIME [facility] Last Admin: 06/17/18 22:30 Dose: 5 mg Diazepam (Valium Tab(*)) 5 mg PO Q6H PRN PRN Reason: SPASMS Last Admin: 06/18/18 04:23 Dose: 2.5 mg Escitalopram Oxalate (Lexapro (Nf)) 15 mg PO DAILY [facility] Last Admin: 06/18/18 08:57 Dose: 15 mg Heparin Sodium (Porcine) (Heparin Vial(*)) 5,000 units SUBCUT Q8HR [facility] Last Admin: 06/18/18 14:01 Dose: 5,000 units Cefepime HCl 2 gm/ Sodium (Chloride) 50 mls @ 100 mls/hr IVPB Q12H [facility] Stop: 06/19/18 00:29 Last Admin: 06/18/18 12:39 Dose: 100 mls/hr Cefepime HCl 2 gm/ Sodium (Chloride) 50 mls @ 100 mls/hr IVPB Q12H [facility] Ibuprofen (Advil Tab*) 200 mg PO TID PRN PRN Reason: DISCOMFORT Influenza Virus Vaccine (Fluarix *Quad* 2018-*) 0.5 ml IM .ONCE ONE Stop: 06/19/18 11:01 Mirabegron (Myrbetriq (Nf)) 75 mg PO BEDTIME [facility] Last Admin: 06/17/18 22:31 Dose: Not Given Multivitamins/Minerals (Theragran/Minerals Tab*) 1 tab PO DAILY [facility] Last Admin: 06/18/18 08:56 Dose: 1 tab Polyethylene Glycol/Electrolytes (Miralax*) 17 gm PO BEDTIME PRN PRN Reason: CONSTIPATION Sodium Biphosphate/Sodium Phosphate (Fleet Enema*) 1 bottle TN BID PRN PRN Reason: CONSTIPATION Last Admin: 06/18/18 10:37 Dose: 1 bottle Tizanidine HCl (Zanaflex Tab*) 6 mg PO BEDTIME [facility] Last Admin: 06/17/18 22:30 Dose: 6 mg Vital Signs - 8 hr 06/18/18 06/18/18 06/18/18 07:59 12:24 14:53 Temperature 97.6 F 97.8 F Pulse Rate 59 64 Respiratory 16 18 18 Rate Blood Pressure 166/70 174/71 (mmHg) O2 Sat by Pulse 97 96 97 Oximetry Oxygen Devices in Use Now: None Eyes: No Scleral Icterus Ears/Nose/Mouth/Throat: NL Teeth, Lips, Gums, Mucous Membranes Moist Neck: NL Appearance and Movements; NL JVP, Trachea Midline Respiratory: Symmetrical Chest Expansion and Respiratory Effort, Clear to Auscultation Cardiovascular: NL Sounds; No Murmurs; No JVD Abdominal: NL Sounds; No Tenderness; No Distention Extremities: No Edema, - - contracted Neurological: Alert and Oriented x 3 Result Diagrams: 06/18/18 07:17 06/18/18 07:17 Microbiology and Other Data: Microbiology 06/17/18 10:30 Urine Culture - Preliminary Urine Pseudomonas Aeruginosa 06/17/18 10:51 Aerobic Blood Culture - Preliminary Blood Venous No Growth Day 1 Anaerobic Blood Culture - Preliminary No Growth Day 1 06/17/18 10:45 Aerobic Blood Culture - Preliminary Blood Venous No Growth Day 1 Anaerobic Blood Culture - Preliminary No Growth Day 1 Assess/Plan/Problems-Billing Assessment: Admitted via our ER for hypotension and Fever of 101.7 at his detention. Found to have leukocytosis and admitted for UTI - Patient Problems (1) Complicated UTI (urinary tract infection) Current Visit: No Status: Acute Code(s): N39.0 - URINARY TRACT INFECTION, SITE NOT SPECIFIED SNOMED Code(s): 65633476 Comment: - UC shows pseudomonas >100,000 - On cefepime. clinidally he is responding - Given the reccurence of his UTI, he may benefit from prolong course and exchange brasher catheter again mid treatment. - Follow up ID input. - US shows right kidney stone, non obstructing. He will benefit from urology evaluations (2) Indwelling Brasher catheter present Current Visit: No Status: Acute Code(s): Z96.0 - PRESENCE OF UROGENITAL IMPLANTS SNOMED Code(s): 959839888 Comment: - UC shows pseudomonas >100,000 - On cefepime. clinidally he is responding - Given the reccurence of his UTI, he may benefit from prolong course and exchange brasher catheter again mid treatment. - Follow up ID input. (3) Multiple sclerosis Current Visit: No Status: Acute Code(s): G35 - MULTIPLE SCLEROSIS SNOMED Code(s): 65057046 Comment: Relapsing-remitting MS. Continue baclofen. zanaflex. His neurologist is at [facility]. (4) DVT prophylaxis Current Visit: No Status: Acute Code(s): TTY7695 - SNOMED Code(s): 328375217 Comment: [facility] Q 8rhs
[2018-06-18] MEDS: tiZANidine TAB* 2 MG PO SCH (21:21)
[2018-06-18] MEDS: Diazepam TAB(*) 5 MG PO SCH (21:22)
[2018-06-18] MEDS: Ibuprofen TAB* 200 MG PO PRN (22:05)
[2018-06-18] MEDS: Mirabegron (NF) 25 MG TAB PO SCH (22:15)
[2018-06-19] MEDS ORDERED: Cefepime(*) 2 GM in NS 0.9% 50 ML* 50 ML IVPB SCH (00:30)
[2018-06-19] MEDS: Baclofen TAB* 20 MG PO SCH ×6 (00:33→23:26)
[2018-06-19] MEDS: Baclofen TAB* 20 MG PO PRN ×2 (03:45→07:52)
[2018-06-19] MEDS: Diazepam TAB(*) 5 MG PO PRN (04:21)
[2018-06-19] MEDS: Heparin VIAL(*) 5000 UNITS/ML VIAL (FIVE THOUSAND) SUBCUT SCH ×3 (06:17→21:28)
[2018-06-19 07:37] LABS: ABS Basophils 0 10^3/ul (0-0.2); ABS Eosinophils 0.3 10^3/ul (0-0.6); ABS Monocytes 0.5 10^3/ul (0-0.8); ABS Nucleated RBC 0 10^3/ul; Eosinophil % 7.2 % (0-6); Hematocrit 37 % (42-52); Hemoglobin 12.6 g/dl (14.0-18.0); Lymphocyte % 41.2 % (25-47); Mean Corpuscular HGB Conc 34 g/dl (31-36); Mean Corpuscular Hemoglobin 32 pg (27-31); Mean Corpuscular Volume 92 fL (80-94); Mean Platelet Volume 8.2 um3 (7.4-10.4); Nucleated Red Blood Cells % 0; Platelet Count 152 10^3/ul (150-450); Red Cell Distribution Width 14 % (10.5-15); White Blood Count 4.9 10^3/ul (3.5-10.8)
[2018-06-19] MEDS: ESCITALOPRAM 5 MG PO SCH (07:52)
[2018-06-19] MEDS: Ascorbic Acid TAB* 500 MG PO SCH (07:52)
[2018-06-19] MEDS: Multivitamins/Minerals TAB PO SCH (07:52)
[2018-06-19 07:53] LABS: EGFR Non-African American 186.2 (>60)
[2018-06-19] MEDS: Ibuprofen TAB* 200 MG PO PRN (07:53)
[2018-06-19] MEDS: Cholecalciferol TAB* 1000 UNITS PO SCH (07:53)
[2018-06-19] MEDS ORDERED: amLODIPine TAB* 5 MG PO SCH (09:00)
[2018-06-19] MEDS: [UNRECOGNIZED DRUG - OTHER] TOPICAL SCH (12:45)
[2018-06-19] MEDS: Sodium Phosphate ADULT ENEMA* 118 ml bottle PR PRN (12:46)
[2018-06-19] MEDS ORDERED: Cefepime(*) 1 GM in NS 0.9% 50 ML* 50 ML IVPB SCH (13:00)
[2018-06-19] MEDS: Methenamine Hippurate TAB* 1 GM TAB PO SCH (14:05)
[2018-06-19] MEDS: Cefepime 1 GM in Dextrose(*) 1 GM/50 ML BAG IV SCH (14:06)
[2018-06-19] MEDS ORDERED: amLODIPine TAB* 5 MG PO ONE (16:27)
--- NOTE | 2018-06-19 16:47 | PN ---
Subjective Date of Service: 06/19/18 Interval History: Patient seen today and met with his , I did discuss with them both the plan for his infections as outline in the assessment plan for his UTI below. He is pleased with the plan. Denies any acute concerns at this time Family History: Unchanged from Admission Social History: Unchanged from Admission Objective Active Medications: Acetaminophen (Tylenol Tab*) 650 mg PO Q6H PRN PRN Reason: FEVER/PAIN Acetaminophen (Tylenol Tab*) 650 mg PO Q4H PRN PRN Reason: FEVER/PAIN Amlodipine Besylate (Norvasc Tab*) 10 mg PO DAILY [facility] Ascorbic Acid (Vitamin C Tab*) 1,000 mg PO DAILY [facility] Last Admin: 06/19/18 07:52 Dose: 1,000 mg Baclofen (Lioresal Tab*) 20 mg PO Q2HR PRN PRN Reason: SPASMS Last Admin: 06/19/18 07:52 Dose: 20 mg Baclofen (Lioresal Tab*) 20 mg PO Q6HR [facility] Last Admin: 06/19/18 12:44 Dose: 20 mg Baclofen (Lioresal Tab*) 40 mg PO 2200 [facility] Last Admin: 06/18/18 21:21 Dose: 40 mg Cholecalciferol (Vitamin D Tab*) 1,000 units PO DAILY [facility] Last Admin: 06/19/18 07:53 Dose: 1,000 units Diazepam (Valium Tab(*)) 5 mg PO BEDTIME [facility] Last Admin: 06/18/18 21:22 Dose: 5 mg Diazepam (Valium Tab(*)) 5 mg PO Q6H PRN PRN Reason: SPASMS Last Admin: 06/19/18 04:21 Dose: 2.5 mg Escitalopram Oxalate (Lexapro (Nf)) 15 mg PO DAILY [facility] Last Admin: 06/19/18 07:52 Dose: 15 mg Heparin Sodium (Porcine) (Heparin Vial(*)) 5,000 units SUBCUT Q8HR [facility] Last Admin: 06/19/18 14:05 Dose: 5,000 units Cefepime HCl (Maxipime 1 Gm In Dextrose Duplex (*)) 1 gm in 50 mls @ 100 mls/ hr IV 0100,1300 [facility] Last Admin: 06/19/18 14:06 Dose: 100 mls/hr Ibuprofen (Advil Tab*) 200 mg PO TID PRN PRN Reason: DISCOMFORT Last Admin: 06/19/18 07:53 Dose: 200 mg Methenamine Hippurate (Hiprex Tab*) 1 gm PO DAILY [facility] Last Admin: 06/19/18 14:05 Dose: 1 gm Mirabegron (Myrbetriq (Nf)) 75 mg PO BEDTIME [facility] Last Admin: 06/18/18 22:15 Dose: Not Given Multivitamins/Minerals (Theragran/Minerals Tab*) 1 tab PO DAILY [facility] Last Admin: 06/19/18 07:52 Dose: 1 tab Pto:Arglaes Powder 1 dose TOPICAL DAILY [facility] Last Admin: 06/19/18 12:45 Dose: 1 dose Polyethylene Glycol/Electrolytes (Miralax*) 17 gm PO BEDTIME PRN PRN Reason: CONSTIPATION Sodium Biphosphate/Sodium Phosphate (Fleet Enema*) 1 bottle [place] BID PRN PRN Reason: CONSTIPATION Last Admin: 06/19/18 12:46 Dose: 1 bottle Tizanidine HCl (Zanaflex Tab*) 6 mg PO BEDTIME [facility] Last Admin: 06/18/18 21:21 Dose: 6 mg Vital Signs - 8 hr 06/19/18 06/19/18 06/19/18 09:15 12:03 15:44 Temperature 97.7 F 97.7 F Pulse Rate 68 61 Respiratory 18 16 Rate Blood Pressure 160/80 148/70 173/69 (mmHg) O2 Sat by Pulse 95 97 Oximetry Oxygen Devices in Use Now: None Appearance: No acute distress Eyes: No Scleral Icterus Ears/Nose/Mouth/Throat: Clear Oropharnyx, Mucous Membranes Moist Neck: NL Appearance and Movements; NL JVP, Trachea Midline Respiratory: Symmetrical Chest Expansion and Respiratory Effort, Clear to Auscultation Cardiovascular: NL Sounds; No Murmurs; No JVD Abdominal: NL Sounds; No Tenderness; No Distention Extremities: - - contracted Skin: No Rash or Ulcers Neurological: Alert and Oriented x 3 Result Diagrams: 06/19/18 07:29 06/19/18 07:29 Microbiology and Other Data: Microbiology 06/17/18 10:30 Urine Culture - Preliminary Urine Pseudomonas Aeruginosa 06/17/18 10:51 Aerobic Blood Culture - Preliminary Blood Venous No Growth Day 1 Anaerobic Blood Culture - Preliminary No Growth Day 1 06/17/18 10:45 Aerobic Blood Culture - Preliminary Blood Venous No Growth Day 1 Anaerobic Blood Culture - Preliminary No Growth Day 1 Assess/Plan/Problems-Billing Assessment: Admitted via our ER for hypotension and Fever of 101.7 at [facility] [place] [facility]. Found to have leukocytosis and admitted for UTI - Patient Problems (1) Complicated UTI (urinary tract infection) Current Visit: No Status: Acute Code(s): N39.0 - URINARY TRACT INFECTION, SITE NOT SPECIFIED SNOMED Code(s): 00609529 Comment: - UC shows pseudomonas >100,000 - On cefepime day # 3/7. clinically he is responding. - Given the reccurence of his UTI, he was placed on Hibrex . Also discussed that if devellops again after this time that he will benefit from prolong course ~ 3 weeks but if fails prophylactic use of Hibrex daily, and also to exchange brasher catheter every 3 weeks instead of 4 weeks - US shows right kidney stone, non obstructing. He will benefit from urology evaluations outpatient (2) Indwelling Brasher catheter present Current Visit: No Status: Acute Code(s): Z96.0 - PRESENCE OF UROGENITAL IMPLANTS SNOMED Code(s): 452096272 Comment: - UC shows pseudomonas >100,000 - On cefepime day # 3/7. clinically he is responding. - Given the reccurence of his UTI, he was placed on Hibrex . Also discussed that if devellops again after this time that he will benefit from prolong course ~ 3 weeks but if fails prophylactic use of Hibrex daily, and also to exchange brasher catheter every 3 weeks instead of 4 weeks - US shows right kidney stone, non obstructing. He will benefit from urology evaluations outpatient (3) Multiple sclerosis Current Visit: No Status: Acute Code(s): G35 - MULTIPLE SCLEROSIS SNOMED Code(s): 89107070 Comment: Relapsing-remitting MS. Continue baclofen. zanaflex. His neurologist is at [facility]. (4) DVT prophylaxis Current Visit: No Status: Acute Code(s): [id number] - SNOMED Code(s): 759381124 Comment: [facility]
--- NOTE | 2018-06-19 20:24 | CONS ---
CONSULTATION REPORT: DATE OF CONSULT: 06/19/18 REQUESTING PHYSICIAN: Dr. Lai. CONSULTING SERVICE: Infectious Disease. REASON FOR CONSULT: Pseudomonas urinary tract infection. IMPRESSION: 1. Recurrence of a fever and malaise, relative hypotension while at home. He has had no fever here. 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 Taken together, he has a catheter-associated urinary tract infection which is community acquired. This has been a recurrent issue for him in the setting of his chronic Reddy catheter. 2. We did discuss prostatitis as the potential other reservoir for the recurrence of his infections. He also has a nonobstructing stone in the right kidney, which could be a reservoir as well. 3. Multiple sclerosis with paraplegia, urinary retention, and chronic indwelling Reddy catheter. 4. Sacral decubitus ulcer, nearly resolved and not infected. RECOMMENDATIONS: We will continue cefepime here, plan on a 5-day course. I discussed with him two paths we could take. One would be plan on 3 to 4 weeks of antibiotic treatment, the isolate is now Levaquin sensitive, which I would like to hold off on to preserve it for later use if necessary. The longer course would be aimed at sterilizing the prostate gland, which may be a reservoir. He is reluctant to undergo a long course of antibiotics at this time point, but could be done down the road. The alternative is to increase the frequency of his Reddy changing to every 3 weeks, add hippuric acid which is 1000 mg twice a day to see if it would decrease the frequency of infections. We should also have him follow up with Urology to see if stone removal would improve his frequency of infection. He is pondering these two alternative pathways currently. HISTORY OF PRESENT ILLNESS: This is a 68-year-old man with multiple sclerosis, indwelling Reddy catheter, has had 3 or 4 episodes of hospitalization for fever and pseudomonas urinary tract infection over the last 6 months, the last was about 5 or 6 weeks ago. He had 5 days of Zosyn at that time and did well. The night before admission, he developed fever, malaise. The next morning, he was found to be relatively hypotensive and systolic pressure in the 100s. He was brought into the hospital by ambulance. He has been afebrile here and from the beginning has been normotensive. Urine culture was taken. The sample of the urinalysis showed blood, nitrites, leukocyte esterase, white cells. The culture grew pseudomonas. His blood cultures are negative. The isolate is sensitive to cefepime, Zosyn, and Levaquin. He has had no fever since being here. He feels well. He has been followed for a decubitus culture a the wound clinic as well had been on amoxicillin for that, but has had near resolution of that and no drainage noted by the nursing staff. PAST MEDICAL HISTORY: 1. Multiple sclerosis with paraplegia. 2. Urinary retention with a chronic indwelling Reddy catheter. 3. Pseudomonas urinary tract infection. 4. Status post anterior cervical diskectomy and fusion in October 2012. MEDICATIONS: 1. Tylenol. 2. Amlodipine. 3. Vitamin C. 4. Baclofen. 5. Cefepime 2 g every 12 hours. 6. Cholecalciferol. 7. Diazepam. 8. Escitalopram. 9. Ibuprofen as needed. 10. Heparin subcutaneous injection. 11. Myrbetriq. 12. Multivitamin. 13. Tizanidine. ALLERGIES: DACLIZUMAB and ZENAPAX. FAMILY HISTORY: No recurrent infections. SOCIAL HISTORY: Lives in assisted living. Has no travel. No sick contacts. REVIEW OF SYSTEMS: All negative except as noted above to the 14-point review of systems. PHYSICAL EXAM: Vital Signs: Temperature is 37, heart rate 60, respiratory rate 14, blood pressure 173/74, oxygen saturation 96% on room air. In general, he is awake, not in distress. Neurologic: He is oriented x3, follows all commands. No sensation to light touch in both feet. Does have lower extremity contractures. HEENT: There is no conjunctival hemorrhage. Oropharynx without lesions. Neck is supple without mass. Heart has regular rate and rhythm without murmurs, rubs, or gallops. Lungs are clear to auscultation bilaterally. Abdomen: Soft, nontender, and nondistended. There are bowel sounds present. Genitourinary: There is a Reddy catheter present. Skin: There is no rash or splinter hemorrhage. There is a 1- to 2-mm sacral decubitus ulceration without surrounding erythema. Musculoskeletal: There is no spine tenderness to palpation. LABORATORY DATA: White blood cell count 4, hemoglobin 12, platelets 152. Creatinine is 0.4. Please see impressions and recommendations outlined above. Thanks for asking me to see Mr. Jay in consultation. [id number]/[facility] #: [id number] PAP[facility]
[2018-06-19] MEDS: Diazepam TAB(*) 5 MG PO SCH (21:27)
[2018-06-19] MEDS: tiZANidine TAB* 2 MG PO SCH (21:28)
[2018-06-19] MEDS: Mirabegron (NF) 25 MG TAB PO SCH (21:42)
[2018-06-20] MEDS: Cefepime 1 GM in Dextrose(*) 1 GM/50 ML BAG IV SCH ×2 (01:10→13:10)
[2018-06-20] MEDS: Baclofen TAB* 20 MG PO SCH ×4 (05:45→21:30)
[2018-06-20] MEDS: Heparin VIAL(*) 5000 UNITS/ML VIAL (FIVE THOUSAND) SUBCUT SCH ×3 (05:45→21:31)
[2018-06-20] MEDS: Diazepam TAB(*) 5 MG PO PRN (05:53)
[2018-06-20] MEDS: Ascorbic Acid TAB* 500 MG PO SCH (09:31)
[2018-06-20] MEDS: Methenamine Hippurate TAB* 1 GM TAB PO SCH (09:31)
[2018-06-20] MEDS: Cholecalciferol TAB* 1000 UNITS PO SCH (09:31)
[2018-06-20] MEDS: amLODIPine TAB* 5 MG PO SCH (09:31)
[2018-06-20] MEDS: Multivitamins/Minerals TAB PO SCH (09:31)
[2018-06-20] MEDS: ESCITALOPRAM 5 MG PO SCH (09:31)
[2018-06-20] MEDS: Sodium Phosphate ADULT ENEMA* 118 ml bottle PR PRN (11:00)
[2018-06-20] MEDS: [UNRECOGNIZED DRUG - OTHER] TOPICAL SCH (13:10)
--- NOTE | 2018-06-20 16:20 | PN ---
Subjective Date of Service: 06/20/18 Interval History: No acute events. taking po. Positive bowel movements. no nausea or vomiting. Family History: Unchanged from Admission Social History: Unchanged from Admission Objective Active Medications: Acetaminophen (Tylenol Tab*) 650 mg PO Q6H PRN PRN Reason: FEVER/PAIN Acetaminophen (Tylenol Tab*) 650 mg PO Q4H PRN PRN Reason: FEVER/PAIN Amlodipine Besylate (Norvasc Tab*) 10 mg PO DAILY [facility] Last Admin: 06/20/18 09:31 Dose: 10 mg Ascorbic Acid (Vitamin C Tab*) 1,000 mg PO DAILY [facility] Last Admin: 06/20/18 09:31 Dose: 1,000 mg Baclofen (Lioresal Tab*) 20 mg PO Q2HR PRN PRN Reason: SPASMS Last Admin: 06/19/18 07:52 Dose: 20 mg Baclofen (Lioresal Tab*) 20 mg PO Q6HR [facility] Last Admin: 06/20/18 13:10 Dose: 20 mg Baclofen (Lioresal Tab*) 40 mg PO 2200 [facility] Last Admin: 06/19/18 21:27 Dose: 40 mg Cholecalciferol (Vitamin D Tab*) 1,000 units PO DAILY [facility] Last Admin: 06/20/18 09:31 Dose: 1,000 units Diazepam (Valium Tab(*)) 5 mg PO BEDTIME [facility] Last Admin: 06/19/18 21:27 Dose: 5 mg Diazepam (Valium Tab(*)) 5 mg PO Q6H PRN PRN Reason: SPASMS Last Admin: 06/20/18 05:53 Dose: 2.5 mg Escitalopram Oxalate (Lexapro (Nf)) 15 mg PO DAILY [facility] Last Admin: 06/20/18 09:31 Dose: 15 mg Heparin Sodium (Porcine) (Heparin Vial(*)) 5,000 units SUBCUT Q8HR [facility] Last Admin: 06/20/18 13:10 Dose: 5,000 units Cefepime HCl (Maxipime 1 Gm In Dextrose Duplex (*)) 1 gm in 50 mls @ 100 mls/ hr IV 0100,1300 [facility] Last Admin: 06/20/18 13:10 Dose: 100 mls/hr Ibuprofen (Advil Tab*) 200 mg PO TID PRN PRN Reason: DISCOMFORT Last Admin: 06/19/18 07:53 Dose: 200 mg Methenamine Hippurate (Hiprex Tab*) 1 gm PO DAILY [facility] Last Admin: 06/20/18 09:31 Dose: 1 gm Mirabegron (Myrbetriq (Nf)) 75 mg PO BEDTIME [facility] Last Admin: 06/19/18 21:42 Dose: Not Given Multivitamins/Minerals (Theragran/Minerals Tab*) 1 tab PO DAILY [facility] Last Admin: 06/20/18 09:31 Dose: 1 tab Pto:Arglaes Powder 1 dose TOPICAL DAILY [facility] Last Admin: 06/20/18 13:10 Dose: 1 dose Polyethylene Glycol/Electrolytes (Miralax*) 17 gm PO BEDTIME PRN PRN Reason: CONSTIPATION Sodium Biphosphate/Sodium Phosphate (Fleet Enema*) 1 bottle [place] BID PRN PRN Reason: CONSTIPATION Last Admin: 06/19/18 12:46 Dose: 1 bottle Tizanidine HCl (Zanaflex Tab*) 6 mg PO BEDTIME [facility] Last Admin: 06/19/18 21:28 Dose: 6 mg Vital Signs - 8 hr 06/20/18 11:22 Temperature 97.6 F Pulse Rate 66 Respiratory 18 Rate Blood Pressure 146/64 (mmHg) O2 Sat by Pulse 96 Oximetry Oxygen Devices in Use Now: None Eyes: No Scleral Icterus Ears/Nose/Mouth/Throat: NL Teeth, Lips, Gums, Clear Oropharnyx Neck: NL Appearance and Movements; NL JVP, Trachea Midline Respiratory: Symmetrical Chest Expansion and Respiratory Effort, Clear to Auscultation Cardiovascular: NL Sounds; No Murmurs; No JVD Abdominal: NL Sounds; No Tenderness; No Distention Neurological: - - increase spasticity bilateral leg. muscular hypotrophy Result Diagrams: 06/19/18 07:29 06/19/18 07:29 Microbiology and Other Data: Microbiology 06/17/18 10:30 Urine Culture - Preliminary Urine Pseudomonas Aeruginosa 06/17/18 10:51 Aerobic Blood Culture - Preliminary Blood Venous No Growth Day 1 Anaerobic Blood Culture - Preliminary No Growth Day 1 06/17/18 10:45 Aerobic Blood Culture - Preliminary Blood Venous No Growth Day 1 Anaerobic Blood Culture - Preliminary No Growth Day 1 Assess/Plan/Problems-Billing Assessment: Admitted via our ER for hypotension and F[facility] 101.7 [facility]. Found to have leukocytosis and admitted for UTI - Patient Problems (1) Complicated UTI (urinary tract infection) Current Visit: No Status: Acute Code(s): N39.0 - URINARY TRACT INFECTION, SITE NOT SPECIFIED SNOMED Code(s): 97092490 Comment: - UC shows pseudomonas >100,000 - On cefepime day # 3/5. clinically he is responding Last dose friday afternoon. - Given the reccurence of his UTI, he was placed on Hibrex . Also discussed that if devellops again after this time that he will benefit from prolong course ~ 3 weeks but if fails prophylactic use of Hibrex daily, and also to exchange brasher catheter every 3 weeks instead of 4 weeks - US shows right kidney stone, non obstructing. He will benefit from urology evaluations outpatient (he see outpatient Dr. Saldana) (2) Indwelling Brasher catheter present Current Visit: No Status: Acute Code(s): Z96.0 - PRESENCE OF UROGENITAL IMPLANTS SNOMED Code(s): 239530651 Comment: - UC shows pseudomonas >100,000 - On cefepime day # 3/5. clinically he is responding. - Given the reccurence of his UTI, he was placed on Hibrex . Also discussed that if devellops again after this time that he will benefit from prolong course ~ 3 weeks but if fails prophylactic use of Hibrex daily, and also to exchange brasher catheter every 3 weeks instead of 4 weeks - US shows right kidney stone, non obstructing. He will benefit from urology evaluations outpatient (3) Multiple sclerosis Current Visit: No Status: Acute Code(s): G35 - MULTIPLE SCLEROSIS SNOMED Code(s): 07223322 Comment: Relapsing-remitting MS. Continue baclofen. zanaflex. His neurologist is at [facility]. (4) DVT prophylaxis Current Visit: No Status: Acute Code(s): FTI5708 - SNOMED Code(s): 404773336 Comment: [facility]
[2018-06-20] MEDS: Mirabegron (NF) 25 MG TAB PO SCH (21:26)
[2018-06-20] MEDS: tiZANidine TAB* 2 MG PO SCH (21:30)
[2018-06-20] MEDS: Diazepam TAB(*) 5 MG PO SCH (21:30)
[2018-06-21] MEDS: Cefepime 1 GM in Dextrose(*) 1 GM/50 ML BAG IV SCH ×2 (00:30→14:00)
[2018-06-21] MEDS: Baclofen TAB* 20 MG PO SCH ×3 (00:30→11:54)
[2018-06-21] MEDS: Heparin VIAL(*) 5000 UNITS/ML VIAL (FIVE THOUSAND) SUBCUT SCH ×3 (05:41→22:17)
[2018-06-21] MEDS: Diazepam TAB(*) 5 MG PO PRN (05:45)
[2018-06-21] MEDS: Cholecalciferol TAB* 1000 UNITS PO SCH (10:15)
[2018-06-21] MEDS: ESCITALOPRAM 5 MG PO SCH (10:15)
[2018-06-21] MEDS: Ascorbic Acid TAB* 500 MG PO SCH (10:15)
[2018-06-21] MEDS: Multivitamins/Minerals TAB PO SCH (10:15)
[2018-06-21] MEDS: Methenamine Hippurate TAB* 1 GM TAB PO SCH (10:15)
[2018-06-21] MEDS: amLODIPine TAB* 5 MG PO SCH (10:15)
[2018-06-21] MEDS: [UNRECOGNIZED DRUG - OTHER] TOPICAL SCH (10:16)
[2018-06-21] MEDS: Sodium Phosphate ADULT ENEMA* 118 ml bottle PR PRN (11:00)
--- NOTE | 2018-06-21 16:17 | PN ---
Subjective Date of Service: 06/21/18 Interval History: Patient seen this morning, no acute events. He asks me about the plan which I have reviewed with him daily, but yesterday his was not in the room. I tried to call her from the room to update her about the plan she did not answer. it went to voice. I reviewed ID's input and recommended 5 days total course. Hence he will be completing his abx tomorrow day # 5. Family History: Unchanged from Admission Social History: Unchanged from Admission Objective Active Medications: Acetaminophen (Tylenol Tab*) 650 mg PO Q6H PRN PRN Reason: FEVER/PAIN Acetaminophen (Tylenol Tab*) 650 mg PO Q4H PRN PRN Reason: FEVER/PAIN Amlodipine Besylate (Norvasc Tab*) 10 mg PO DAILY [facility] Last Admin: 06/21/18 10:15 Dose: 10 mg Ascorbic Acid (Vitamin C Tab*) 1,000 mg PO DAILY [facility] Last Admin: 06/21/18 10:15 Dose: 1,000 mg Baclofen (Lioresal Tab*) 20 mg PO Q2HR PRN PRN Reason: SPASMS Last Admin: 06/19/18 07:52 Dose: 20 mg Baclofen (Lioresal Tab*) 20 mg PO Q6HR [facility] Last Admin: 06/21/18 11:54 Dose: 20 mg Baclofen (Lioresal Tab*) 40 mg PO 2200 [facility] Last Admin: 06/20/18 21:30 Dose: 40 mg Cholecalciferol (Vitamin D Tab*) 1,000 units PO DAILY [facility] Last Admin: 06/21/18 10:15 Dose: 1,000 units Diazepam (Valium Tab(*)) 5 mg PO BEDTIME [facility] Last Admin: 06/20/18 21:30 Dose: 5 mg Diazepam (Valium Tab(*)) 5 mg PO Q6H PRN PRN Reason: SPASMS Last Admin: 06/21/18 05:45 Dose: 2.5 mg Escitalopram Oxalate (Lexapro (Nf)) 15 mg PO DAILY [facility] Last Admin: 06/21/18 10:15 Dose: 15 mg Heparin Sodium (Porcine) (Heparin Vial(*)) 5,000 units SUBCUT Q8HR [facility] Last Admin: 06/21/18 13:59 Dose: 5,000 units Cefepime HCl (Maxipime 1 Gm In Dextrose Duplex (*)) 1 gm in 50 mls @ 100 mls/ hr IV 0100,1300 [facility] Last Admin: 06/21/18 14:00 Dose: 100 mls/hr Ibuprofen (Advil Tab*) 200 mg PO TID PRN PRN Reason: DISCOMFORT Last Admin: 06/19/18 07:53 Dose: 200 mg Methenamine Hippurate (Hiprex Tab*) 1 gm PO DAILY [facility] Last Admin: 06/21/18 10:15 Dose: 1 gm Mirabegron (Myrbetriq (Nf)) 75 mg PO BEDTIME [facility] Last Admin: 06/20/18 21:26 Dose: Not Given Multivitamins/Minerals (Theragran/Minerals Tab*) 1 tab PO DAILY [facility] Last Admin: 06/21/18 10:15 Dose: 1 tab Pto:Arglaes Powder 1 dose TOPICAL DAILY [facility] Last Admin: 06/21/18 10:16 Dose: 1 dose Polyethylene Glycol/Electrolytes (Miralax*) 17 gm PO BEDTIME PRN PRN Reason: CONSTIPATION Sodium Biphosphate/Sodium Phosphate (Fleet Enema*) [address] BID PRN PRN Reason: CONSTIPATION Last Admin: 06/19/18 12:46 Dose: 1 bottle Tizanidine HCl (Zanaflex Tab*) 6 mg PO BEDTIME [facility] Last Admin: 06/20/18 21:30 Dose: 6 mg Vital Signs - 8 hr 06/21/18 10:13 Respiratory 16 Rate Oxygen Devices in Use Now: None Appearance: no acute distess. in bed. pleasant and cooporative Eyes: No Scleral Icterus Ears/Nose/Mouth/Throat: NL Teeth, Lips, Gums, Mucous Membranes Moist Neck: NL Appearance and Movements; NL JVP Respiratory: Symmetrical Chest Expansion and Respiratory Effort Cardiovascular: NL Sounds; No Murmurs; No JVD Result Diagrams: 06/19/18 07:29 06/19/18 07:29 Microbiology and Other Data: Microbiology 06/17/18 10:30 Urine Culture - Preliminary Urine Pseudomonas Aeruginosa 06/17/18 10:51 Aerobic Blood Culture - Preliminary Blood Venous No Growth Day 1 Anaerobic Blood Culture - Preliminary No Growth Day 1 06/17/18 10:45 Aerobic Blood Culture - Preliminary Blood Venous No Growth Day 1 Anaerobic Blood Culture - Preliminary No Growth Day 1 Assess/Plan/Problems-Billing Assessment: Admitted via our ER for hypotension and Fever of 101.7 at his residential. Found to have leukocytosis and admitted for UTI - Patient Problems (1) Complicated UTI (urinary tract infection) Current Visit: No Status: Acute Code(s): N39.0 - URINARY TRACT INFECTION, SITE NOT SPECIFIED SNOMED Code(s): 85327132 Comment: - UC shows pseudomonas >100,000 - On cefepime day # 4/5. clinically he is responding Last dose friday afternoon. - Given the reccurence of his UTI, he was placed on Hibrex . Also I discussed that if devellops UTI again than he will benefit from prolong course ~ 3 weeks. Also to exchange brasher catheter every 3 weeks instead of 4 weeks - US shows right kidney stone, non obstructing. He will benefit from urology evaluations outpatient (he see outpatient Dr. Saldana) (2) Indwelling Brasher catheter present Current Visit: No Status: Acute Code(s): Z96.0 - PRESENCE OF UROGENITAL IMPLANTS SNOMED Code(s): 566534394 Comment: - UC shows pseudomonas >100,000 - On cefepime day # 4/5. clinically he is responding Last dose friday afternoon. - Given the reccurence of his UTI, he was placed on Hibrex . Also I discussed that if devellops UTI again than he will benefit from prolong course ~ 3 weeks. Also to exchange brasher catheter every 3 weeks instead of 4 weeks - US shows right kidney stone, non obstructing. He will benefit from urology evaluations outpatient (he see outpatient Dr. Saldana) (3) Multiple sclerosis Current Visit: No Status: Acute Code(s): G35 - MULTIPLE SCLEROSIS SNOMED Code(s): 30024495 Comment: Relapsing-remitting MS. Continue zanaflex prn 4 mg qid prn. He is still getting increase pain and spasm I will resume his home previous regimen of datrolene 25 mg tid ATC and zanaflex only for prn. I agree with lyrica 25 mg tid and this can be titrate in few days if he does not have releive. Continue PRN Valium His neurologist is at [facility]. (4) DVT prophylaxis Current Visit: No Status: Acute Code(s): JZA2062 - SNOMED Code(s): 283267632 Comment: [facility]
--- NOTE | 2018-06-21 16:21 | PN ---
Subjective Family History: Unchanged from Admission Social History: Unchanged from Admission Objective Active Medications: Acetaminophen (Tylenol Tab*) 650 mg PO Q6H PRN PRN Reason: FEVER/PAIN Acetaminophen (Tylenol Tab*) 650 mg PO Q4H PRN PRN Reason: FEVER/PAIN Amlodipine Besylate (Norvasc Tab*) 10 mg PO DAILY [facility] Last Admin: 06/21/18 10:15 Dose: 10 mg Ascorbic Acid (Vitamin C Tab*) 1,000 mg PO DAILY [facility] Last Admin: 06/21/18 10:15 Dose: 1,000 mg Cholecalciferol (Vitamin D Tab*) 1,000 units PO DAILY [facility] Last Admin: 06/21/18 10:15 Dose: 1,000 units Diazepam (Valium Tab(*)) 5 mg PO BEDTIME [facility] Last Admin: 06/20/18 21:30 Dose: 5 mg Diazepam (Valium Tab(*)) 5 mg PO Q6H PRN PRN Reason: SPASMS Last Admin: 06/21/18 05:45 Dose: 2.5 mg Escitalopram Oxalate (Lexapro (Nf)) 15 mg PO DAILY [facility] Last Admin: 06/21/18 10:15 Dose: 15 mg Heparin Sodium (Porcine) (Heparin Vial(*)) 5,000 units SUBCUT Q8HR [facility] Last Admin: 06/21/18 13:59 Dose: 5,000 units Cefepime HCl (Maxipime 1 Gm In Dextrose Duplex (*)) 1 gm in 50 mls @ 100 mls/ hr IV 0100,1300 [facility] Last Admin: 06/21/18 14:00 Dose: 100 mls/hr Ibuprofen (Advil Tab*) 200 mg PO TID PRN PRN Reason: DISCOMFORT Last Admin: 06/19/18 07:53 Dose: 200 mg Methenamine Hippurate (Hiprex Tab*) 1 gm PO DAILY [facility] Last Admin: 06/21/18 10:15 Dose: 1 gm Mirabegron (Myrbetriq (Nf)) 75 mg PO BEDTIME [facility] Last Admin: 06/20/18 21:26 Dose: Not Given Multivitamins/Minerals (Theragran/Minerals Tab*) 1 tab PO DAILY [facility] Last Admin: 06/21/18 10:15 Dose: 1 tab Pto:Arglaes Powder 1 dose TOPICAL DAILY [facility] Last Admin: 06/21/18 10:16 Dose: 1 dose Polyethylene Glycol/Electrolytes (Miralax*) 17 gm PO BEDTIME PRN PRN Reason: CONSTIPATION Sodium Biphosphate/Sodium Phosphate (Fleet Enema*) 1 bottle [place] BID PRN PRN Reason: CONSTIPATION Last Admin: 06/19/18 12:46 Dose: 1 bottle Tizanidine HCl (Zanaflex Tab*) 6 mg PO BEDTIME [facility] Last Admin: 06/20/18 21:30 Dose: 6 mg Vital Signs - 8 hr 06/21/18 10:13 Respiratory 16 Rate Oxygen Devices in Use Now: None Result Diagrams: 06/19/18 07:29 06/19/18 07:29 Microbiology and Other Data: Microbiology 06/17/18 10:30 Urine Culture - Preliminary Urine Pseudomonas Aeruginosa 06/17/18 10:51 Aerobic Blood Culture - Preliminary Blood Venous No Growth Day 1 Anaerobic Blood Culture - Preliminary No Growth Day 1 06/17/18 10:45 Aerobic Blood Culture - Preliminary Blood Venous No Growth Day 1 Anaerobic Blood Culture - Preliminary No Growth Day 1 Assess/Plan/Problems-Billing Assessment: Admitted via our ER for hypotension and Fever [facility].7 [facility]. Found to have leukocytosis and admitted for UTI - Patient Problems (1) Complicated UTI (urinary tract infection) Current Visit: No Status: Acute Code(s): N39.0 - URINARY TRACT INFECTION, SITE NOT SPECIFIED SNOMED Code(s): 12982741 Comment: - UC shows pseudomonas >100,000 - On cefepime day # 4/5. clinically he is responding Last dose friday afternoon. - Given the reccurence of his UTI, he was placed on Hibrex . Also I discussed that if devellops UTI again than he will benefit from prolong course ~ 3 weeks. Also to exchange brasher catheter every 3 weeks instead of 4 weeks - US shows right kidney stone, non obstructing. He will benefit from urology evaluations outpatient (he see outpatient Dr. Saldana) (2) Indwelling Brasher catheter present Current Visit: No Status: Acute Code(s): Z96.0 - PRESENCE OF UROGENITAL IMPLANTS SNOMED Code(s): 289194191 Comment: - UC shows pseudomonas >100,000 - On cefepime day # 4/5. clinically he is responding Last dose friday. - Given the reccurence of his UTI, he was placed on Hibrex . Also I discussed that if devellops UTI again than he will benefit from prolong course ~ 3 weeks. Also to exchange brasher catheter every 3 weeks instead of 4 weeks - US shows right kidney stone, non obstructing. He will benefit from urology evaluations outpatient (he see outpatient Dr. Saldana) (3) Multiple sclerosis Current Visit: No Status: Acute Code(s): G35 - MULTIPLE SCLEROSIS SNOMED Code(s): 66778686 Comment: Relapsing-remitting MS. Continue zanaflex prn Continue prn baclofen Continue PRN Valium His neurologist is at [facility]. (4) DVT prophylaxis Current Visit: No Status: Acute Code(s): NNA5745 - SNOMED Code(s): 294063217 Comment: HSQ Q 8rhs
[2018-06-21] MEDS ORDERED: Baclofen TAB* 10 MG PO PRN (16:23)
[2018-06-21] MEDS: Baclofen TAB* 10 MG PO SCH (17:02)
[2018-06-21] MEDS: Ibuprofen TAB* 200 MG PO PRN (18:38)
[2018-06-21] MEDS ORDERED: Baclofen TAB* 10 MG PO SCH (21:00)
[2018-06-21] MEDS: Diazepam TAB(*) 5 MG PO SCH (22:16)
[2018-06-21] MEDS: tiZANidine TAB* 2 MG PO SCH (22:16)
[2018-06-21] MEDS: Mirabegron (NF) 25 MG TAB PO SCH (22:50)
[2018-06-22] MEDS: Baclofen TAB* 10 MG PO SCH ×3 (01:28→11:55)
[2018-06-22] MEDS: Cefepime 1 GM in Dextrose(*) 1 GM/50 ML BAG IV SCH ×2 (01:29→13:07)
[2018-06-22] MEDS: Diazepam TAB(*) 5 MG PO PRN (01:30)
[2018-06-22] MEDS: Heparin VIAL(*) 5000 UNITS/ML VIAL (FIVE THOUSAND) SUBCUT SCH ×2 (05:37→15:31)
[2018-06-22] MEDS: amLODIPine TAB* 5 MG PO SCH ×2 (08:03→08:04)
[2018-06-22] MEDS: Ibuprofen TAB* 200 MG PO PRN (08:03)
[2018-06-22] MEDS: Ascorbic Acid TAB* 500 MG PO SCH (08:03)
[2018-06-22] MEDS: Methenamine Hippurate TAB* 1 GM TAB PO SCH (08:04)
[2018-06-22] MEDS: Multivitamins/Minerals TAB PO SCH (08:04)
[2018-06-22] MEDS: ESCITALOPRAM 5 MG PO SCH (08:04)
[2018-06-22] MEDS: Cholecalciferol TAB* 1000 UNITS PO SCH (08:04)
[2018-06-22] MEDS: [UNRECOGNIZED DRUG - OTHER] TOPICAL SCH (08:12)
[2018-06-22 08:56] VITALS: BP 126/60
--- NOTE | 2018-06-22 10:27 | PN ---
Progress Note - Progress Note Date of Service: 06/22/18 SOAP: Subjective: CC: urinary tract infection HPI: 68 year old man with chronic brasher catheter admitted with fever and malaise ; symptoms resolved with antibiotics here. No fever, rash, or diarrhea. Has had a sacral wound and was recently on amox for it. Objective: Vital Signs Temp 36.3 C 06/22/18 07:56 Pulse 58 06/22/18 07:56 Resp 16 06/22/18 08:00 BP 126/60 06/22/18 07:56 Pulse Ox 96 06/22/18 08:00 Intake & Output 06/21/18 06/22/18 06/22/18 18:59 06:59 18:59 Intake Total 550 1400 820 Output Total 2400 1700 Balance -1850 -300 820 Intake: IV Fluids 70 70 NS 20 20 cefepime 50 50 Oral 480 1400 750 Output: Brasher 2400 1700 Other: Date of Last Bowel 06/21/18 Movement # Bowel Movements 1 0 Estimated Stool Amount Medium Gen:awake, no distress HEENT: no thrush Chest:RRR no murmur Abd: +BS NTND soft Skin: no rash Microbiology 06/17/18 10:45 Aerobic Blood Culture - Preliminary Blood Venous No Growth Day 4 Anaerobic Blood Culture - Preliminary No Growth Day 4 06/17/18 10:51 Aerobic Blood Culture - Preliminary Blood Venous No Growth Day 4 Anaerobic Blood Culture - Preliminary No Growth Day 4 Assessment: 1. Pseudomonas catheter assoc UTI (community acquired) 2. MS with urinary retention Plan: 1. has had 5 days cefepime; continue hippurate, brasher change q3-4 weeks (had been 2 months per his ). Urology fu ? left kidney stone and role in infection recurrence 35 minutes floor time >50% face to face with patient and discussing follow up plans to prevent recurrence of infection
[2018-06-22] MEDS: Sodium Phosphate ADULT ENEMA* 118 ml bottle PR PRN (11:57)
--- NOTE | 2018-06-22 12:04 | PN ---
Subjective Date of Service: 06/22/18 Interval History: Patient seen and examined at bedside. Denies fever, chills, shortness of breath , chest discomfort, N/V/D. Pt would like to be seen by the [facility] prior to being discharged today. Family History: Unchanged from Admission Social History: Unchanged from Admission Past Medical History: Unchanged from Admission Objective Active Medications: Acetaminophen (Tylenol Tab*) 650 mg PO Q6H PRN Reason: FEVER/PAIN Acetaminophen (Tylenol Tab*) 650 mg PO Q4H PRN Reason: FEVER/PAIN Amlodipine Besylate (Norvasc Tab*) 10 mg PO DAILY [facility] Ascorbic Acid (Vitamin C Tab*) 1,000 mg PO DAILY [facility] Baclofen (Lioresal Tab*) 20 mg PO Q2H PRN Reason: SPASMS Baclofen (Lioresal Tab*) 20 mg PO Q6H [facility] Baclofen (Lioresal Tab*) 40 mg PO BEDTIME [facility] Cholecalciferol (Vitamin D Tab*) 1,000 units PO DAILY [facility] Diazepam (Valium Tab(*)) 5 mg PO BEDTIME [facility] Diazepam (Valium Tab(*)) 5 mg PO Q6H PRN Reason: SPASMS Escitalopram Oxalate (Lexapro (Nf)) 15 mg PO DAILY [facility] Heparin Sodium (Porcine) (Heparin Vial(*)) 5,000 units SUBCUT Q8HR [facility] Cefepime HCl (Maxipime 1 Gm In Dextrose Duplex (*)) 1 gm in 50 mls @ 100 mls/ hr IV 0100,1300 [facility] Ibuprofen (Advil Tab*) 200 mg PO TID PRN Reason: DISCOMFORT Methenamine Hippurate (Hiprex Tab*) 1 gm PO DAILY [facility] Mirabegron (Myrbetriq (Nf)) 75 mg PO BEDTIME [facility] Multivitamins/Minerals (Theragran/Minerals Tab*) 1 tab PO DAILY [facility] Pto:Arglaes Powder 1 dose TOPICAL DAILY [facility] Polyethylene Glycol/Electrolytes (Miralax*) 17 gm PO BEDTIME PRN Reason: CONSTIPATION Sodium Biphosphate/Sodium Phosphate (Fleet Enema*) 1 bottle [place] BID PRN Reason: CONSTIPATION Tizanidine HCl (Zanaflex Tab*) 6 mg PO BEDTIME [facility] Vital Signs - 8 hr 06/22/18 06/22/18 07:56 08:00 Temperature 97.4 F Pulse Rate 58 Respiratory 18 16 Rate Blood Pressure 126/60 (mmHg) O2 Sat by Pulse 96 96 Oximetry Oxygen Devices in Use Now: None Appearance: NAD, laying in bed Ears/Nose/Mouth/Throat: Mucous Membranes Moist Respiratory: Symmetrical Chest Expansion and Respiratory Effort, Clear to Auscultation Cardiovascular: NL Sounds; No Murmurs; No JVD, RRR Abdominal: NL Sounds; No Tenderness; No Distention Extremities: No Edema Skin: No Rash or Ulcers Neurological: Alert and Oriented x 3 Lines/Tubes/Other Access: Clean, Dry and Intact Peripheral IV - site benign Nutrition: Taking PO's Result Diagrams: 06/19/18 07:29 06/19/18 07:29 Microbiology and Other Data: Microbiology 06/17/18 10:30 Urine Culture - Preliminary Urine Pseudomonas Aeruginosa 06/17/18 10:51 Aerobic Blood Culture - Preliminary Blood Venous No Growth Day 1 Anaerobic Blood Culture - Preliminary No Growth Day 1 06/17/18 10:45 Aerobic Blood Culture - Preliminary Blood Venous No Growth Day 1 Anaerobic Blood Culture - Preliminary No Growth Day 1 Assess/Plan/Problems-Billing Assessment: Mr. Jay is a 68 yo male with PMH significant for MS who is bed bound, urinary retention with chronic indwelling brasher catheter who presented to the the ED with hypotension and Fever [facility] 101.7 at the [facility]. - Patient Problems (1) Complicated UTI (urinary tract infection) Code(s): N39.0 - URINARY TRACT INFECTION, SITE NOT SPECIFIED SNOMED Code(s): 68370845 Comment: - Afebrile, and no leukocytosis - Community Acquired CAUTI - Urine Culture shows pseudomonas >100,000 - Given the reccurence of his UTI, he was placed on Hibrex - If develops UTI again than he will benefit from prolong antibiotic course ~ 3 weeks - Exchange brasher catheter every 3 weeks instead of 4 weeks - US shows right kidney stone, non obstructing. He will benefit from urology evaluations outpatient (he sees Dr. Saldana outpatient ) - Cefepime day # 02/07 (2) Indwelling Brasher catheter present Code(s): Z96.0 - PRESENCE OF UROGENITAL IMPLANTS SNOMED Code(s): 381108137 Comment: - CAUTI, Urine Culture shows pseudomonas >100,000 - Exchange brasher catheter every 3 weeks instead of 4 weeks - See above (3) HTN (hypertension) Code(s): I10 - ESSENTIAL (PRIMARY) HYPERTENSION SNOMED Code(s): 22136138 Comment: - Pt hypertensive during this hospitalization - SBP 100-140's, normotensive - Continue Amlodipine (4) Stage II pressure ulcer Code(s): L89.92 - PRESSURE ULCER OF UNSPECIFIED SITE, STAGE 2 SNOMED Code(s): 375163779 Comment: - Buttock - Newly healed, plan to keep pressure off area and apply protective lotion (5) Multiple sclerosis Code(s): G35 - MULTIPLE SCLEROSIS SNOMED Code(s): 11615460 Comment: - Relapsing-remitting MS - Follows with neurologist at [facility] - Continue zanaflex PRN, baclofen PRN, and Valium PRN (6) DVT prophylaxis Code(s): LUH7807 - SNOMED Code(s): 411423543 Comment: - HSQ (7) DNR (do not resuscitate) Status and Disposition: Inpatient. Discharge to home when medically stable, Pt will be discharged back to [facility] later today after his last does of antibiotics. Attending: Brielle Hickman
[2018-06-22] MEDS: Baclofen TAB* 20 MG PO PRN (15:49)
--- NOTE | 2018-06-23 16:14 | DS ---
CC: Dr. Jose Alejandro Conway; Dr. Karissa Garza * DISCHARGE SUMMARY: DATE OF ADMISSION: 06/17/18 DATE OF DISCHARGE: 06/22/18 ATTENDING PHYSICIAN: Brielle Hickman DO * (dictated by Marisela Wilde NP). PRIMARY CARE PROVIDER: Karissa Garza MD. PRIMARY UROLOGIST: Jose Alejandro Conway MD. PRIMARY DIAGNOSES: 1. Community acquired pseudomonas urinary catheter acquired urinary tract infection. 2. Chronic indwelling urinary catheter. 3. Stage 2 pressure injuries, healed. 4. Hypertension. SECONDARY DIAGNOSIS: Multiple sclerosis. CONSULTATIONS WHILE IN THE HOSPITAL: Dr. Chace Clark with Infectious Disease. STUDIES WHILE IN THE HOSPITAL: 1. Chest x-ray 06/17/18. Radiologist's impression: No radiographic evidence for acute cardiopulmonary abnormality on this portable chest x-ray. 2. Abdomen and bladder ultrasound on 06/17/18. Radiologist's impression: Prostate gland volume is enlarged measuring 34 cc, possible nonobstructing right nephrolysis as previously seen. DISCHARGE MEDICATIONS: New home medications: 1. Zofran 4 mg oral every 8 hours as needed for nausea and vomiting. 2. Amlodipine 10 mg oral daily. 3. Hiprex 1 g oral twice daily. Continued home medications: 1. Vitamin C 1000 mg oral daily. 2. Mirabegron 75 mg oral daily at bedtime. 3. Acetaminophen 650 mg oral every 4 hours as needed for fever or pain. 4. Baclofen 20 mg oral every 2 hours as needed for muscle spasms. 5. Baclofen 40 mg oral daily at 2200. 6. Ibuprofen 200 mg oral 3 times daily as needed for discomfort. 7. Valium 5 mg oral daily at bedtime. 8. Cystex cranberry liquid 15 mL oral twice daily. 9. Lexapro 15 mg oral daily. 10. Vitamin D 1000 units oral daily. 11. Zanaflex 6 mg oral daily at bedtime. 12. Multivitamin 1 tab oral daily. 13. Baclofen 20 mg oral every 6 hours. 14. Valium 5 to 10 mg oral every 6 hours as needed for muscle spasm. 15. Fleet Enema 1 bottle per rectum twice daily as needed for constipation. 16. MiraLAX 17 g oral daily at bedtime as needed for constipation. Discontinued home medications: 1. Amoxicillin. HISTORY OF PRESENT ILLNESS/HOSPITAL COURSE: Mr. Jay is a 68-year-old male with past medical history significant for multiple sclerosis; bedbound, unable to move his extremities, with chronic urinary retention, and a chronic indwelling urinary catheter, who started feeling unwell the night prior to his presentation with some mild nausea. He was then found to have a fever of 101.9 per his . EMS reported that the patient's fever was 107, it was reduced to 102 with Tylenol per the emergency room note. The patient was evaluated at [facility], and his temperature was noted to be 99.2. He was transported to the emergency room for further workup due to his history of frequent urinary tract infections secondary to his chronic indwelling Reddy catheter. While in the emergency room, the patient was noted to have leukocytosis with a WBC count of 12. He was afebrile with a temperature of 98.2 and feeling much better. He received 2 L of normal saline, given cefepime and ceftriaxone. He was noted to have an abnormal urinalysis. It was also noted that the patient had a sacral wound, he has followed with the wound clinic. It was reported that this wound was "practically" healed. Due to the patient's presentation and history, the hospitalists were asked to evaluate the patient for admission. While in the hospital, the patient was continued on cefepime, he was seen in consultation by Dr. Clark with Infectious Disease. He had a renal bladder ultrasound showing left kidney nephrolysis. His urine culture ended up growing pseudomonas greater than 100,000. He had his Reddy catheter exchanged with plans to exchange his catheter every 3 weeks instead of every 4 weeks. It was felt that he would benefit from evaluation as outpatient regarding his kidney stones as it was questioned whether this could be contributing to his recurrent infections. The patient was also noted to be hypertensive during his stay and was started on amlodipine. His stage 2 pressure injury to his buttocks has healed. The patient was stable for discharge back to [facility] today after completing a 5-day course of cefepime. Mr. Jay is stable for discharge today. Vital signs are as follows: Temperature 97.4, heart rate 58, respiratory rate 18, O2 sat 96% on room air, blood pressure 126/60. DISCHARGE PLAN: Mr. Jay will be discharged to [facility]. He will be activity as tolerated. He will be on a regular diet. In regards to his pseudomonas urinary tract infection, he completed a 5-day course of IV cefepime. He should continue to have his Reddy catheter changed every 3 weeks. He was also started on hippuric acid 1000 mg oral twice daily. He should be seen in consultation by Dr. Conway, his urologist, for consideration and removal of his kidney stones as this could be contributing to his recurrent urinary tract infections. His sacral stage 2 pressure injury has healed and he no longer needs to follow with the wound clinic. In regard to his blood pressure, he was initially hypertensive during his stay and his blood pressures improved after being initiated on amlodipine 10 mg oral daily. I recommend continuing the amlodipine and following his blood pressure as an outpatient. He should be seen in followup by his primary care provider, Dr. Garza in the next 3 to 5 days. Again, the patient has been asked to call Dr. Conway's office to set up a followup appointment. He should return to the emergency room for any shortness of breath or chest pain. This is a summarized report of a complex medical history and hospital stay. For further details, please see the entire medical record. TIME SPENT: Time for this discharge was 50 minutes, greater than half of that was spent with the patient discussing discharge plans and instructions. CONDITION ON DISCHARGE: Stable. Reviewed by ANABELL MAHARAJ 06/24/18 1510 [id number] #: [id number]
== END 2018-06-22 16:15 | disposition home or self-care (01) | DRG 699 ==
LOC: ED 10:00 → MED 14:08
PROVIDERS: ADMIT Internal Medicine; ATTEND Internal Medicine
DX: T83.511A Infection and inflammatory reaction due to indwelling urethral catheter, initial encounter (principal); G82.20 Paraplegia, unspecified; E46 Unspecified protein-calorie malnutrition; N39.0 Urinary tract infection, site not specified; B96.5 Pseudomonas (aeruginosa) (mallei) (pseudomallei) as the cause of diseases classified elsewhere; G35 Multiple sclerosis; R33.8 Other retention of urine; L89.322 Pressure ulcer of left buttock, stage 2; Z66 Do not resuscitate; L89.312 Pressure ulcer of right buttock, stage 2; K59.09 Other constipation; N31.9 Neuromuscular dysfunction of bladder, unspecified; N20.0 Calculus of kidney; Z74.01 Bed confinement status; Z79.2 Long term (current) use of antibiotics; Z79.1 Long term (current) use of non-steroidal anti-inflammatories (NSAID); Z79.899 Other long term (current) drug therapy; Z88.8 Allergy status to other drugs, medicaments and biological substances; Z80.0 Family history of malignant neoplasm of digestive organs; Z82.69 Family history of other diseases of the musculoskeletal system and connective tissue
CPT/HCPCS: 36415; 71045; 76770; 80048; 80053; 81003; 81015; 83605; 85025; 85610; 85730; 87040; 87077; 87086; 87186; 90686; 93005; 99284; A9270-GY; G8978-GP-CM; G8979-GP-CM; G8980-GP-CM; G8987-GO-CN; G8988-GO-CN; G8989-GO-CN; J0692; J0696; J1644

== ENCOUNTER 2018-07-15 21:20 | Observation (INO) | payer MEDICARE ==
[2018-07-15 22:29] LABS: Urine Appearance Clear; Urine Blood Negative (Negative); Urine Color Yellow; Urine Ketones Negative (Negative); Urine Protein Negative (Negative); Urine Red Blood Cell Trace(0-2/hpf) (Absent); Urine Specific Gravity 1.009 (1.010-1.030); Urine Urobilinogen Negative (Negative); Urine White Blood Cell 1+(6-10/hpf) (Absent)
[2018-07-15] MEDS ORDERED: NS 0.9% 1000 ML*IV.FLUID IV ONE (22:45)
--- NOTE | 2018-07-15 22:45 | ED ---
HPI Febrile Illness - HPI Summary HPI Summary: A 68 y/o male ASHLEIGH presents to ED c/o fever. In the ED room, the patient has a pulse of 70 BPM, O2 saturation of 92% and blood pressure of 123/76. As per triage, "Patient to ED for fever. Joyce was concerned that he might have UTI. Wanted to rule it out". According to the patient, he has multiple sclerosis and has a Reddy Catheter. He was told by his PCP that if his temperature ever spikes , to go to ED. He has a cough with sputum Patient has taken no Tylenol tonight. Patient changed catheter 3 weeks ago. PMHx of UTI. - History of Current Complaint Chief Complaint: EDFever Time Seen by Provider: 07/15/18 21:54 Hx Obtained From: Patient Onset/Duration: Started Hours Ago Timing: Constant Current Severity: None Pain Intensity: 0 Pain Scale Used: 0-10 Numeric Aggravating Factors: Nothing Alleviating Factors: Nothing Associated Signs and Symptoms: Cough - Additional Pertinent History Primary Care Physician: LAKEISHA - Allergy/Home Medications Allergies/Adverse Reactions: Allergies Allergy/AdvReac Type Severity Reaction Status Date / Time daclizumab Allergy Unknown Verified 07/15/18 21:46 Reaction Details xenapak Allergy Intermediate Nausea And Uncoded 07/15/18 21:46 Vomiting PMH/Surg Hx/FS Hx/Imm Hx Endocrine/Hematology History: Denies: Hx Anticoagulant Therapy, Hx Blood Disorders, Hx Blood Transfusions, Hx Bone Marrow Disease, Hx Diabetes, Hx Systemic Lupus Erythematosus, Hx Sickle Cell Disease, Hx Thyroid Disease, Hx Anemia, Hx Unexplained Bleeding Cardiovascular History: Reports: Hx Hypertension Denies: Hx Aneurysm, Hx Angina, Hx Angioplasty, Hx Auto Implanted Cardiovert Defib, Hx Cardiac Arrest, Hx Cardiomegaly, Hx Congenital Heart Disease, Hx Congestive Heart Failure, Hx Coronary Artery Disease, Hx Deep Vein Thrombosis, Hx Hypercholesterolemia, Hx Hypotension, Hx Pacemaker/ICD, Hx Peripheral Vascular Disease, Hx Rheumatic Fever, Hx Syncope, Hx Valvular Heart Disease, Other Cardiovascular Problems/Disorders Respiratory History: Reports: Hx Seasonal Allergies Denies: Hx Asthma, Hx Chronic Bronchitis, Hx Chronic Obstructive Pulmonary Disease (COPD), Hx Cystic Fibrosis, Hx Lung Cancer, Hx Pleural Effusion, Hx Pneumonia, Hx Pulmonary Edema, Hx Pulmonary Embolism, Hx Sleep Apnea GI History: Reports: Hx Diverticulosis Denies: Hx Cirrhosis, Hx Crohn's Disease, Hx Gall Bladder Disease, Hx Gastroesophageal Reflux Disease, Hx Gastrointestinal Bleed, Hx Hiatal Hernia, Hx Irritable Bowel, Hx Jaundice, Hx Obstructive Bowel, Hx Ileostomy, Hx Pyloric Stenosis, Hx Ulcer History: Reports: Hx Benign Prostatic Hyperplasia, Other Problems/ Disorders - urinary retention, septic UTI Denies: Hx Acute Renal Failure, Hx Chronic Renal Failure, Hx Dialysis, Hx Kidney Infection, Hx Kidney Stones, Hx Renal Disease Musculoskeletal History: Reports: Hx Tendonitis, Other Musculoskeletal History - MS Denies: Hx Arthritis, Hx Back Problems, Hx Bursitis, Hx Congenital Bone Abnormalities, Hx Fibromyalgia, Hx Gout, Hx Orthopedic Injury, Hx Osteoporosis, Hx Scoliosis Sensory History: Reports: Hx Contacts or Glasses Denies: Hx Cataracts, Hx Eye Injury, Hx Eye Prosthesis, Hx Glaucoma, Hx Vision Problem, Hx Deafness, Hx Hearing Aid, Hx Hearing Problem, Other Sensory Impairments Opthamlomology History: Reports: Hx Contacts or Glasses Denies: Hx Cataracts, Hx Eye Injury, Hx Eye Prosthesis, Hx Glaucoma, Hx Vision Problem, Other Sensory Impairments Neurological History: Reports: Other Neuro Impairments/Disorders - MS Denies: Hx Dementia, Hx Developmental Delay, Hx Headaches, Hx Migraine, Hx Nerve Disease, Hx Seizures, Hx Spinal Cord Injury, Hx Transient Ischemic Attacks (TIA) Psychiatric History: Reports: Hx Depression Denies: Hx Anxiety, Hx Attention Deficit Hyperactivity Disorder, Hx Eating Disorder, Hx Panic Disorder, Hx Post Traumatic Stress Disorder, Hx Inpatient Treatment, Hx Community Mental Health Tx, Hx Schizophrenia, Hx Bipolar Disorder , Hx Suicide Attempt, Hx of Violent Episodes Against Others, Hx Substance Abuse , Other Psychiatric Issues/Disorders - Surgical History Surgery Procedure, Year, and Place: October 12, 2012 Anterior cervical dissection with fusion,removal of c3+c4 Hx Anesthesia Reactions: No Infectious Disease History: No Infectious Disease History: Denies: Hx Clostridium Difficile, Hx Hepatitis, Hx Human Immunodeficiency Virus (HIV), Hx of Known/Suspected MRSA, Hx Shingles, Hx Tuberculosis, Hx Known/ Suspected VRE, Hx Known/Suspected VRSA, History Other Infectious Disease, Traveled Outside the [place] in Last 30 Days - Family History Known Family History: Positive: Other - Colon cancer - Social History Alcohol Use: Daily Alcohol Amount: one beer a day Hx Substance Use: No Substance Use Type: Reports: None Hx Tobacco Use: No Smoking Status (MU): Never Smoked Tobacco Have You Smoked in the Last Year: No Review of Systems Positive: Fever Positive: Cough - with Sputum All Other Systems Reviewed And Are Negative: Yes Physical Exam - Summary Physical Exam Summary: VITAL SIGNS: Reviewed. GENERAL: Patient is a male who has advanced multiple sclerosis and is bed bound. Patient is not in any acute respiratory distress. HEAD AND FACE: No signs of trauma. No ecchymosis, hematomas or skull depressions. No sinus tenderness. EYES: PERRLA, EOMI x 2, No injected conjunctiva, no nystagmus. EARS: Hearing grossly intact. Ear canals and tympanic membranes are within normal limits. MOUTH: Oropharynx within normal limits. NECK: Supple, trachea is midline, no adenopathy, no JVD, no carotid bruit, no c- spine tenderness, neck with full ROM. CHEST: Symmetric, no tenderness at palpation LUNGS: Clear to auscultation bilaterally. No wheezing or crackles. CVS: Regular rate and rhythm, S1 and S2 present, no murmurs or gallops appreciated. ABDOMEN: Soft, non-tender. No signs of distention. No rebound no guarding, and no masses palpated. Bowel sounds are normal. EXTREMITIES: FROM in all major joints, no edema, no cyanosis or clubbing. Patient has extreme bilateral upper weakness with contractions. Lower extremity weakness as well. NEURO: Alert and oriented x 3. No acute neurological deficits. Speech is normal and follows commands. SKIN: Dry and warm : Patient has a Reddy Catheter. Triage Information Reviewed: Yes Vital Signs On Initial Exam: Initial Vitals Pulse Pulse Ox 84 92 07/15/18 21:33 07/15/18 21:33 Vital Signs Reviewed: Yes Diagnostics - Vital Signs Vital Signs Temp Pulse Resp BP Pulse Ox 07/15/18 22:37 98.1 F 07/15/18 22:12 79 6 123/76 93 07/15/18 22:07 80 0 123/76 93 07/15/18 22:00 81 1 93 07/15/18 21:39 99.1 F 83 13 118/78 94 07/15/18 21:37 79 97 118/78 92 07/15/18 21:33 84 92 - Laboratory Lab Results: Lab Results 07/15/18 Range/Units 22:00 Urine Color Yellow Urine Appearance Clear Urine pH 6.0 (5-9) Ur Specific [place] 1.009 L (1.010-1.030) Urine Protein Negative (Negative) Urine Ketones Negative (Negative) Urine Blood Negative (Negative) Urine Nitrate Negative (Negative) Urine Bilirubin Negative (Negative) Urine Urobilinogen Negative (Negative) Ur Leukocyte Esterase 2+ A (Negative) Urine WBC (Auto) 1+(6-10/hpf) A (Absent) Urine RBC (Auto) Trace(0-2/hpf) (Absent) Urine Bacteria 1+ A (Absent) Urine Glucose Negative (Negative) Urine Ascorbic Acid * A (Negative) Result Diagrams: 07/15/18 23:00 07/15/18 23:00 Lab Statement: Any lab studies that have been ordered have been reviewed, and results considered in the medical decision making process. - EKG 0258 Cardiac Rate: NL - 79 BPM EKG Rhythm: Sinus Rhythm EKG Interpretation: Normal axis, normal interval, no ischemic changes. Re-Evaluation - Re-Evaluation First Eval Re-Evaluation Time: 01:00 Comment: It was discussed with patient that he would like to go back to [facility]. Patient will get a Reddy Catheter changed. Second Eval Re-Evaluation Time: 01:56 Comment: Hospitalist was paged. Course/Dx - Course Course Of Treatment: A 68 y/o male ASHLEIGH presents to ED c/o fever. In the ED room , the patient has a pulse of 70 BPM, O2 saturation of 92% and blood pressure of 123/76. No laboratory scans were done. In the ED course, the patient recieved Levaquin and IV fluids. During reevaluation, it was discussed with patient that he would like to go back to [facility]. Patient will get a Reddy Catheter changed. Patient will be discharged with a diagnosis of UTI. Patient is to follow up with PCP and return to ED for any new or worsening symptoms. Patient is agreeable with this plan. 0156: Patient changed his mind. Patient would like to stay. Hosptialist was paged. 0305: Dr. Eason accepts patient for admission. Patient will be admitted with a diagnosis of UTI. Patient is agreeable with this plan. - Diagnoses Provider Diagnoses: UTI (urinary tract infection) - Provider Notifications Discussed Care Of Patient With: Sandie Eason Time Discussed With Above Provider: 03:05 Instructed by Provider To: Other - Accepts patient for admission. Discharge - Sign-Out/Discharge Documenting (check all that apply): Patient Departure - ADMIT, Sign-Out Patient Signing out patient TO: Sandie Eason Receiving patient FROM: Mara Rodriguez - Discharge Plan Condition: Stable Disposition: ADMITTED TO [facility] Prescriptions: Levofloxacin TAB* [Levaquin TAB*] 500 mg PO DAILY #10 tab Referrals: Karissa Garza MD [Primary Care Provider] - - Attestation Statements Document Initiated by Scribe: Yes Documenting Scribe: Khoi Stewart Provider For Whom Scribe is Documenting (Include Credential): Mara Rodriguez MD Scribe Attestation: Khoi Hanson, scribed for Mara Rodriguez MD on 07/16/18 at 0305.
[2018-07-15] MEDS ORDERED: Levofloxacin TAB* 500 MG PO ONE (22:46)
[2018-07-15] MEDS ORDERED: Levofloxacin 500 MG IVPREMIX(* 500 MG/100 ML BAG IVPB ONE (22:47)
[2018-07-15 23:12] LABS: ABS Basophils 0 10^3/ul (0-0.2); ABS Eosinophils 0.3 10^3/ul (0-0.6); ABS Lymphocytes 0.9 10^3/ul (1.0-4.8); ABS Monocytes 0.6 10^3/ul (0-0.8); ABS Neutrophils 7.2 10^3/ul (1.5-7.7); ABS Nucleated RBC 0 10^3/ul; Eosinophil % 3.5 % (0-6); Hematocrit 41 % (42-52); Hemoglobin 14.1 g/dl (14.0-18.0); Mean Corpuscular HGB Conc 34 g/dl (31-36); Mean Corpuscular Hemoglobin 32 pg (27-31); Mean Corpuscular Volume 93 fL (80-94); Mean Platelet Volume 8.4 um3 (7.4-10.4); Nucleated Red Blood Cells % 0; Platelet Count 137 10^3/ul (150-450); Red Blood Count 4.48 10^6/ul (4.00-5.40); Red Cell Distribution Width 14 % (10.5-15)
[2018-07-15 23:24] LABS: INR 1.02 (0.77-1.02)
[2018-07-15 23:27] LABS: EGFR Non-African American 136.2 (>60)
[2018-07-16] MEDS ORDERED: Baclofen TAB* 20 MG PO ONE (02:53)
[2018-07-16] MEDS ORDERED: Acetaminophen TAB* 325 MG PO PRN ×2 (03:43→03:49)
[2018-07-16] MEDS ORDERED: NS 0.9% 1000 ML* 1,000 ML IV SCH (03:45)
[2018-07-16] MEDS ORDERED: Polyethylene Glycol 3350* 17 GM PACKET PO PRN (03:49)
[2018-07-16] MEDS ORDERED: Baclofen TAB* 20 MG PO PRN (03:49)
[2018-07-16] MEDS ORDERED: Sodium Phosphate ADULT ENEMA* 118 ml bottle PR PRN (03:49)
[2018-07-16] MEDS ORDERED: Ondansetron ODT TAB* 4 MG PO PRN (03:49)
[2018-07-16] MEDS ORDERED: Ibuprofen TAB* 200 MG PO PRN (03:49)
--- NOTE | 2018-07-16 03:57 | ADMNOTE ---
Subjective Date of Service: 07/16/18 Interval History: this is admission h/p hpi 68 yr old wm with hx of end stage ms bed bound chronic indewelliing brasher ( last change three weeks ago ) was sent to er due to fever to 100 at snf. pt was found to have uti ---> hx of multiple uti with different strains of psudomonas ( hx of e facelis prior ) most recent urine cx 06/23 + psudomonas senstive to cipro/levaquin ---> started from er. pt did not have any wbc on admission Family History: Findings - colon ca daughter also has ms Social History: Findings - no cig no etoh from snf bed bound chronic indewelling brasher Past Medical History: Findings - end stage ms chronically bed bound chronic brasher recurrent uti with different strains of psudomonas hx of sacral wound hx of muscle/bladder spasm indewelling brasher last changed three weeks ago pshx s/p c3/c4 dissectomy and fusion 10/2012 Review of Systems - Measurements Intake and Output: Intake and Output Last 24 Hours 07/13/18 07/14/18 07/15/18 07/16/18 06:59 06:59 06:59 06:59 Intake Total 2310 Output Total 200 Balance 2110 Weight 170 lb Intake: IV Fluids 2310 Output: Residual 200 14 F 200 - Review of Systems General Comments: 09/16 ros reviewed with him please refer to hpi Objective Active Medications: Acetaminophen (Tylenol Tab*) 650 mg PO Q4H PRN PRN Reason: FEVER/PAIN Acetaminophen (Tylenol Tab*) 650 mg PO Q4H PRN PRN Reason: FEVER/PAIN Ascorbic Acid (Vitamin C Tab*) 1,000 mg PO DAILY [place] Baclofen (Lioresal Tab*) 20 mg PO Q2HR PRN PRN Reason: SPASMS Baclofen (Lioresal Tab*) 20 mg PO Q6HR [place] Baclofen (Lioresal Tab*) 40 mg PO 2200 [place] Cholecalciferol (Vitamin D Tab*) 1,000 units PO DAILY [place] Diazepam (Valium Tab(*)) 5 mg PO BEDTIME [place] Escitalopram Oxalate (Lexapro (Nf)) 15 mg PO DAILY [place] Heparin Sodium (Porcine) (Heparin Vial(*)) 5,000 units SUBCUT Q8HR [place] Sodium Chloride (Ns 0.9% 1000 Ml*) 1,000 mls @ 100 mls/hr IV PER RATE [facility] Stop: 07/16/18 13:44 Ibuprofen (Advil Tab*) 200 mg PO TID PRN PRN Reason: DISCOMFORT Levofloxacin (Levaquin Tab*) 750 mg PO Q24H [place] Methenamine Hippurate (Hiprex Tab*) 1 gm PO BID [place] Multivitamins/Minerals (Theragran/Minerals Tab*) 1 tab PO DAILY [facility] Non-Formulary Medication (Mirabegron (Nf) [Myrbetriq (Nf)]) 75 mg PO BEDTIME [place] Ondansetron HCl (Zofran Odt Tab*) 4 mg PO Q8H PRN PRN Reason: NAUSEA/VOMITING Polyethylene Glycol/Electrolytes (Miralax*) 17 gm PO BEDTIME PRN PRN Reason: CONSTIPATION Sodium Biphosphate/Sodium Phosphate (Fleet Enema*) 1 bottle [place] BID PRN PRN Reason: CONSTIPATION Tizanidine HCl (Zanaflex Tab*) 6 mg PO BEDTIME [facility] Vital Signs - 8 hr 07/15/18 07/15/18 07/15/18 21:33 21:37 21:39 Temperature 99.1 F Pulse Rate 84 79 83 Respiratory 97 13 Rate Blood Pressure 118/78 118/78 (mmHg) O2 Sat by Pulse 92 92 94 Oximetry 07/15/18 07/15/18 07/15/18 22:00 22:07 22:12 Temperature Pulse Rate 81 80 79 Respiratory 1 0 6 Rate Blood Pressure 123/76 123/76 (mmHg) O2 Sat by Pulse 93 93 93 Oximetry 07/15/18 07/15/18 07/15/18 22:37 22:52 23:00 Temperature 98.1 F Pulse Rate 77 69 Respiratory Rate Blood Pressure 131/82 (mmHg) O2 Sat by Pulse 93 94 94 Oximetry 07/15/18 07/15/18 07/15/18 23:07 23:24 23:37 Temperature Pulse Rate 75 77 76 Respiratory Rate Blood Pressure 123/72 142/76 (mmHg) O2 Sat by Pulse 93 92 92 Oximetry 07/16/18 07/16/18 07/16/18 00:00 00:07 00:37 Temperature Pulse Rate 74 63 75 Respiratory Rate Blood Pressure 139/77 123/77 (mmHg) O2 Sat by Pulse 92 91 93 Oximetry 07/16/18 07/16/18 07/16/18 01:00 01:07 01:37 Temperature Pulse Rate 76 75 71 Respiratory Rate Blood Pressure 145/78 150/71 (mmHg) O2 Sat by Pulse 93 93 94 Oximetry 07/16/18 02:00 Temperature 99.2 F Pulse Rate Respiratory Rate Blood Pressure (mmHg) O2 Sat by Pulse Oximetry Oxygen Devices in Use Now: None Eyes: No Scleral Icterus, PERRLA Ears/Nose/Mouth/Throat: Mucous Membranes Moist Neck: NL Appearance and Movements; NL JVP, Trachea Midline, No Thyroid Enlargement, Masses Respiratory: Symmetrical Chest Expansion and Respiratory Effort, Clear to Auscultation Cardiovascular: NL Sounds; No Murmurs; No JVD, No Edema Abdominal: NL Sounds; No Tenderness; No Distention Extremities: - - + pedal edema unable to move ue and le due to end stage ms Skin: No Rash or Ulcers Neurological: Alert and Oriented x 3, - - aao times three but otherwise unable to move exts with spasm due to end stage ms Result Diagrams: 07/17/18 04:50 07/17/18 04:50 Additional Lab and Data: Lab Results 07/15/18 Range/Units 22:00 Urine Color Yellow Urine Appearance Clear Urine pH 6.0 (5-9) Ur Specific [place] 1.009 L (1.010-1.030) Urine Protein Negative (Negative) Urine Ketones Negative (Negative) Urine Blood Negative (Negative) Urine Nitrate Negative (Negative) Urine Bilirubin Negative (Negative) Urine Urobilinogen Negative (Negative) Ur Leukocyte Esterase 2+ A (Negative) Urine WBC (Auto) 1+(6-10/hpf) A (Absent) Urine RBC (Auto) Trace(0-2/hpf) (Absent) Urine Bacteria 1+ A (Absent) Urine Glucose Negative (Negative) Urine Ascorbic Acid * A (Negative) Assess/Plan/Problems-Billing Assessment: 68 yr old wm with hx of end stage ms recurrent uti with different strains of psudomonas with chronic indewlling brasher was sent to er from [facility] due to low grade temp 100 no wbc he was found to have uti but last urine cx 06/23 + psudomonas sensitive to levaquin - Patient Problems (1) UTI (urinary tract infection) Status: Acute Comment: levaquin while waiting for urine cx ? isolation (2) Multiple sclerosis Status: Chronic Code(s): G35 - MULTIPLE SCLEROSIS SNOMED Code(s): 32622604 Comment: - History of end stage relapsing-remitting MS - Continue outpt meds including zanaflex and baclofen at bedtime and Valuim PRN (3) Dysphagia Status: Acute Code(s): R13.10 - DYSPHAGIA, UNSPECIFIED SNOMED Code(s): 97160270 Comment: bedside swallow before feeding (4) HTN (hypertension) Status: Acute Code(s): I10 - ESSENTIAL (PRIMARY) HYPERTENSION SNOMED Code(s) : 76627641 Comment: - Pt hypertensive during this hospitalization - SBP 100-140's, normotensive - Continue Amlodipine (5) Indwelling Brasher catheter present Status: Chronic Code(s): Z96.0 - PRESENCE OF UROGENITAL IMPLANTS SNOMED Code (s): 758027420 Comment: - CAUTI, Urine Culture shows pseudomonas >100,000 - Exchange brasher catheter every 3 weeks instead of 4 weeks - See above (6) Dysphagia Status: Acute Code(s): R13.10 - DYSPHAGIA, UNSPECIFIED SNOMED Code(s): 33878933 (7) Dysphagia Status: Acute Code(s): R13.10 - DYSPHAGIA, UNSPECIFIED SNOMED Code(s): 63044822 Comment: bedside swallow prior to feed
[2018-07-16] MEDS ORDERED: LORazepam TAB(*) 0.5 MG PO PRN (05:15)
[2018-07-16] MEDS: Heparin VIAL(*) 5000 UNITS/ML VIAL (FIVE THOUSAND) SUBCUT SCH ×3 (05:20→21:36)
[2018-07-16] MEDS: Baclofen TAB* 10 MG PO SCH ×4 (05:29→23:02)
[2018-07-16] MEDS ORDERED: Heparin VIAL(*) 5000 UNITS/ML VIAL (FIVE THOUSAND) SUBCUT SCH (06:00)
[2018-07-16 07:30] LABS: ABS Basophils 0 10^3/ul (0-0.2); ABS Eosinophils 0.4 10^3/ul (0-0.6); ABS Lymphocytes 1.6 10^3/ul (1.0-4.8); ABS Monocytes 0.6 10^3/ul (0-0.8); ABS Neutrophils 3.4 10^3/ul (1.5-7.7); ABS Nucleated RBC 0 10^3/ul; Eosinophil % 6.1 % (0-6); Hematocrit 42 % (42-52); Hemoglobin 14.1 g/dl (14.0-18.0); Lymphocyte % 26.6 % (25-47); Mean Corpuscular HGB Conc 34 g/dl (31-36); Mean Corpuscular Hemoglobin 31 pg (27-31); Mean Corpuscular Volume 92 fL (80-94); Mean Platelet Volume 8.5 um3 (7.4-10.4); Nucleated Red Blood Cells % 0.1; Platelet Count 134 10^3/ul (150-450); Red Blood Count 4.51 10^6/ul (4.00-5.40); Red Cell Distribution Width 14 % (10.5-15)
[2018-07-16 07:56] LABS: EGFR Non-African American 172.8 (>60)
--- NOTE | 2018-07-16 10:06 | PN ---
Subjective Date of Service: 07/16/18 Interval History: Pt resting comfortably. Afebrile. Denies flank pain, chest pain, shortness of breath, N/V. Brasher draining clear yellow urine. Family History: Findings - colon ca daughter also has ms Social History: Findings - no cig no etoh from snf bed bound chronic indewelling brasher Past Medical History: Findings - end stage ms chronically bed bound chronic brasher recurrent uti with different strains of psudomonas hx of sacral wound hx of muscle/bladder spasm indewelling brasher last changed three weeks ago pshx s/p c3/c4 dissectomy and fusion 10/2012 Objective Active Medications: Acetaminophen (Tylenol Tab*) 650 mg PO Q4H PRN PRN Reason: FEVER/PAIN Ascorbic Acid (Vitamin C Tab*) 1,000 mg PO DAILY [facility] Baclofen (Lioresal Tab*) 20 mg PO Q6HR [facility] Last Admin: 07/16/18 05:29 Dose: 20 mg Cholecalciferol (Vitamin D Tab*) 1,000 units PO DAILY [facility] Diazepam (Valium Tab(*)) 5 mg PO BEDTIME [facility] Escitalopram Oxalate (Lexapro (Nf)) 15 mg PO DAILY [facility] Heparin Sodium (Porcine) (Heparin Vial(*)) 5,000 units SUBCUT Q8HR [facility] Last Admin: 07/16/18 05:20 Dose: 5,000 units Sodium Chloride (Ns 0.9% 1000 Ml*) 1,000 mls @ 100 mls/hr IV PER RATE [facility] Stop: 07/16/18 13:44 Ibuprofen (Advil Tab*) 200 mg PO TID PRN PRN Reason: DISCOMFORT Levofloxacin (Levaquin Tab*) 750 mg PO Q24H [place] Lorazepam (Ativan Tab(*)) 0.5 mg PO Q4H PRN PRN Reason: ANXIETY Last Admin: 07/16/18 05:29 Dose: 0.5 mg Methenamine Hippurate (Hiprex Tab*) 1 gm PO BID [place] Mirabegron (Myrbetriq (Nf)) 75 mg PO BEDTIME [place] Multivitamins/Minerals (Theragran/Minerals Tab*) 1 tab PO DAILY [facility] Ondansetron HCl (Zofran Odt Tab*) 4 mg PO Q8H PRN PRN Reason: NAUSEA/VOMITING Polyethylene Glycol/Electrolytes (Miralax*) 17 gm PO BEDTIME PRN PRN Reason: CONSTIPATION Sodium Biphosphate/Sodium Phosphate (Fleet Enema*) 1 bottle [place] BID PRN PRN Reason: CONSTIPATION Tizanidine HCl (Zanaflex Tab*) 6 mg PO BEDTIME [place] Vital Signs - 8 hr 07/16/18 07/16/18 07/16/18 02:00 02:07 02:37 Temperature 99.2 F Pulse Rate 75 73 79 Respiratory Rate Blood Pressure 152/67 146/88 (mmHg) O2 Sat by Pulse 94 93 93 Oximetry 07/16/18 07/16/18 07/16/18 03:00 03:07 03:37 Temperature Pulse Rate 79 77 79 Respiratory Rate Blood Pressure 184/93 182/103 (mmHg) O2 Sat by Pulse 93 92 93 Oximetry 07/16/18 07/16/18 07/16/18 04:00 04:03 04:07 Temperature Pulse Rate 70 70 75 Respiratory Rate Blood Pressure 172/78 167/78 (mmHg) O2 Sat by Pulse 92 92 93 Oximetry 07/16/18 07/16/18 07/16/18 04:26 04:37 04:59 Temperature 98.0 F 99.0 F Pulse Rate 93 71 72 Respiratory 20 20 Rate Blood Pressure 148/60 160/72 160/72 (mmHg) O2 Sat by Pulse 93 94 94 Oximetry 07/16/18 05:29 Temperature Pulse Rate Respiratory 20 Rate Blood Pressure (mmHg) O2 Sat by Pulse Oximetry Oxygen Devices in Use Now: None Eyes: No Scleral Icterus, PERRLA Ears/Nose/Mouth/Throat: NL Teeth, Lips, Gums, Clear Oropharnyx, Mucous Membranes Moist Neck: NL Appearance and Movements; NL JVP, Trachea Midline Respiratory: Symmetrical Chest Expansion and Respiratory Effort, Clear to Auscultation Cardiovascular: NL Sounds; No Murmurs; No JVD, RRR, No Edema Abdominal: NL Sounds; No Tenderness; No Distention Extremities: No Edema, No Clubbing, Cyanosis Skin: No Rash or Ulcers, No Nodules or Sclerosis Neurological: Alert and Oriented x 3 Result Diagrams: 07/16/18 07:16 07/16/18 07:16 Additional Lab and Data: Lab Results 07/15/18 Range/Units 22:00 Urine Color Yellow Urine Appearance Clear Urine pH 6.0 (5-9) Ur Specific [place] 1.009 L (1.010-1.030) Urine Protein Negative (Negative) Urine Ketones Negative (Negative) Urine Blood Negative (Negative) Urine Nitrate Negative (Negative) Urine Bilirubin Negative (Negative) Urine Urobilinogen Negative (Negative) Ur Leukocyte Esterase 2+ A (Negative) Urine WBC (Auto) 1+(6-10/hpf) A (Absent) Urine RBC (Auto) Trace(0-2/hpf) (Absent) Urine Bacteria 1+ A (Absent) Urine Glucose Negative (Negative) Urine Ascorbic Acid * A (Negative) Assess/Plan/Problems-Billing Assessment: Pt is a 68 yr old male with hx of end stage MS (bed bound), recurrent uti with different strains of pseudomonas with chronic indwelling brasher who presented to the ED from [facility] due to low grade temp to 100 but WBC WNL. He was found to have UTI. Last urine cx 06/23 + pseudomonas sensitive to levaquin, and was started on levaquin again and given IVF - Patient Problems (1) Complicated UTI (urinary tract infection) Current Visit: No Status: Acute Code(s): N39.0 - URINARY TRACT INFECTION, SITE NOT SPECIFIED SNOMED Code(s): 17666426 Comment: - Afebrile w/o leukocytosis - Urine culture shows pseudomonas 50-75,000. Sensitivities pending. - Started on levaquin in ED. ID is following and appreciate reqs on further therapy. - Brasher has been changed - Hx Recurrent UTIs/Community Acquired CAUTI: hospitalized in June for pseudomonas UTI. Was placed on Hiprex at the time given his history of recurrence - On previous hospitalization in June: US shows right kidney stone, non obstructing. He will benefit from urology evaluations outpatient (he sees Dr. Saldana outpatient ) (2) Fever Current Visit: Yes Status: Acute Code(s): R50.9 - FEVER, UNSPECIFIED SNOMED Code(s): 242719615 Comment: - Resolved. Likely secondary to UTI, however CXR and blood cultures pending. - ID following. Appreciate reqs (3) Multiple sclerosis Current Visit: No Status: Chronic Code(s): G35 - MULTIPLE SCLEROSIS SNOMED Code(s): 04143987 Comment: - History of end stage relapsing-remitting MS - Continue outpt meds including zanaflex and baclofen at bedtime and Valuim PRN (4) DVT prophylaxis Current Visit: No Status: Acute Code(s): NWV5201 - SNOMED Code(s): 481031519 Comment: - SQ Heparin (5) DNR (do not resuscitate) Current Visit: No Status: Acute Status and Disposition: Inpatient Attending: Beba Gaspar
[2018-07-16] MEDS: Cholecalciferol TAB* 1000 UNITS PO SCH (11:15)
[2018-07-16] MEDS: Ascorbic Acid TAB* 500 MG PO SCH (11:15)
[2018-07-16] MEDS: ESCITALOPRAM 5 MG PO SCH (11:16)
[2018-07-16] MEDS: Methenamine Hippurate TAB* 1 GM TAB PO SCH ×2 (11:16→20:24)
[2018-07-16] MEDS ORDERED: Multivitamins/Minerals TAB ONE (11:18)
[2018-07-16] MEDS: Multivitamins/Minerals TAB PO SCH (11:19)
--- NOTE | 2018-07-16 16:00 | RAD ---
Indication: Fever. 2 views of the chest demonstrate no mediastinal shift. Heart is of normal size and configuration. Lungs are clear. When compared to previous exam of June 17, 2018 no significant change is noted. IMPRESSION: No active cardiopulmonary disease is noted.
--- NOTE | 2018-07-16 17:07 | CONS ---
CONSULTATION REPORT: DATE OF CONSULT: 07/16/18 REQUESTING PROVIDER: Gisselle Hernandez NP CONSULTING SERVICE: Infectious Disease. REASON FOR CONSULT: Fever. IMPRESSION: 1. Low-grade fever, history of recurrent urinary tract infections. 2. Catheter-associated urinary tract infections in the past due to Pseudomonas. The last isolate was sensitive for fluoroquinolones. 3. Multiple sclerosis with neurogenic bladder. RECOMMENDATIONS: Agree with Levaquin 750 mg by mouth daily while we await the urine culture results. So far, there is no other focus of infection identified. He has had no fever since he has been here . CRP is minimally elevated at 9. We will check a chest x-ray PA and lateral. 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 The last isolate was sensitive to Levaqu in. He was discharged on a course of that with addition of hippuric acid and more frequent Reddy cat heter changes. The last Reddy catheter change was last week and yesterday he felt flushed, had a tem perature of 99.9 and was directed to the emergency room. He had a white count of 9, was hyponatremic at 127. His appetite had been off. He has had no fevers here. He is hemodynamically stable. He h ad some fluids overnight. Sodium is up to 138. His urinalysis showed blood and white cells. Urine culture is pending. PAST MEDICAL HISTORY: 1. Multiple sclerosis with neurogenic bladder. 2. Recurrent urinary tract infection. 3. Chronic Reddy catheter. ALLERGIES: DACLIZUMAB. MEDICATIONS: 1. Tylenol. 2. Baclofen. 3. Cholecalciferol. 4. Diazepam at bedtime. 5. Lexapro. 6. Heparin subcutaneous injection. 7. Levofloxacin 750 mg by mouth daily. 8. Ativan as needed. 9. Hippuric acid. 10. Myrbetriq. 11. Zofran. 12. Polyethylene glycol. 13. Tizanidine. SOCIAL HISTORY: He lives at [facility]. Nonsmoker. FAMILY HISTORY: No recurrent infections. REVIEW OF SYSTEMS: All negative except as noted above. PHYSICAL EXAM: Vital Signs: Temperature 37, heart rate 76, respiratory rate 12, blood pressure 164/ 71, oxygen saturation 91% on room air. In general, he is awake, not in distress. Neurologic: He is oriented x3. Follows all commands. HEENT: There is no conjunctival hemorrhage. Oropharynx without lesions. Neck is supple without mass. Heart is regular rate and rhythm without murmurs, rubs, or g allops. Lungs are clear to auscultation bilaterally. Abdomen: Soft, nontender, nondistended. Skin: There is no rash or splinter hemorrhage. Genitourinary: There is a Reddy catheter present. LABORATORY DATA: Creatinine 0.5. CRP 9. White blood cell count 6, hemoglobin 14, platelets 134. Please see impressions and recommendations as outlined above. Thanks for asking me to see Mr. Jay in consultation. [id number]/[facility] #: [id number]
[2018-07-16] MEDS ORDERED: hydrALAZINE IV* 20 MG/ML VIAL IV SLOW PU ONE (20:00)
[2018-07-16] MEDS ORDERED: NF:Mirabegron (NF) 25 MG TAB PO SCH (21:00)
[2018-07-16] MEDS ORDERED: tiZANidine TAB* 2 MG PO SCH (21:00)
[2018-07-16] MEDS ORDERED: Diazepam TAB(*) 5 MG PO SCH (21:00)
[2018-07-16] MEDS ORDERED: Baclofen TAB* 20 MG PO SCH (22:00)
[2018-07-16] MEDS ORDERED: Levofloxacin TAB* 250 MG PO SCH (23:00)
[2018-07-17 05:16] LABS: ABS Basophils 0 10^3/ul (0-0.2); ABS Eosinophils 0.5 10^3/ul (0-0.6); ABS Lymphocytes 1.9 10^3/ul (1.0-4.8); ABS Monocytes 0.5 10^3/ul (0-0.8); ABS Neutrophils 1.9 10^3/ul (1.5-7.7); ABS Nucleated RBC 0 10^3/ul; Eosinophil % 10.2 % (0-6); Hematocrit 38 % (42-52); Hemoglobin 12.8 g/dl (14.0-18.0); Lymphocyte % 39.5 % (25-47); Mean Corpuscular HGB Conc 34 g/dl (31-36); Mean Corpuscular Hemoglobin 32 pg (27-31); Mean Corpuscular Volume 93 fL (80-94); Nucleated Red Blood Cells % 0.1; Platelet Count 126 10^3/ul (150-450); Red Blood Count 4.06 10^6/ul (4.00-5.40); Red Cell Distribution Width 14 % (10.5-15); White Blood Count 4.8 10^3/ul (3.5-10.8)
[2018-07-17 05:32] LABS: EGFR Non-African American 164.9 (>60)
[2018-07-17] MEDS: Baclofen TAB* 10 MG PO SCH ×2 (05:32→11:39)
[2018-07-17] MEDS: Heparin VIAL(*) 5000 UNITS/ML VIAL (FIVE THOUSAND) SUBCUT SCH ×2 (05:32→15:22)
[2018-07-17] MEDS: ESCITALOPRAM 5 MG PO SCH (09:33)
[2018-07-17] MEDS: Multivitamins/Minerals TAB PO SCH (09:33)
[2018-07-17] MEDS: Methenamine Hippurate TAB* 1 GM TAB PO SCH (09:34)
[2018-07-17] MEDS: Cholecalciferol TAB* 1000 UNITS PO SCH (09:34)
[2018-07-17] MEDS: Ascorbic Acid TAB* 500 MG PO SCH (09:35)
--- NOTE | 2018-07-17 09:56 | PN ---
Progress Note - Progress Note Date of Service: 07/17/18 SOAP: Subjective: CC: fever HPI: 68 year old man with MS and chronic brasher catheter admitted with fever and malaise. Last brasher change approx 1 week before admission. Energy improved, fever resolved. No rash or diarrhea. Objective: Vital Signs Temp 36.4 C 07/17/18 03:32 Pulse 61 07/17/18 03:32 Resp 18 07/17/18 03:32 BP 109/53 07/17/18 03:32 Pulse Ox 96 07/17/18 03:32 Intake & Output 07/16/18 07/17/18 07/17/18 18:59 06:59 18:59 Intake Total 1420 0 Output Total 900 1600 Balance 520 -1600 Intake: IV Fluids 1000 NS (0.9%) 1000 Oral 420 0 Output: Brasher 900 1600 Other: # Bowel Movements 0 Gen:awake, no distress HEENT: no thrush Heart:RRR no murmur Lungs:CTA BL Abd+BS NTND soft Skin: no rash Laboratory Results - last 24 hr 07/17/18 07/17/18 04:50 04:50 WBC 4.8 RBC 4.06 Hgb 12.8 L Hct 38 L MCV 93 MCH 32 H MCHC 34 RDW 14 Plt Count 126 L MPV 9.0 Neut % (Auto) 40.0 Lymph % (Auto) 39.5 [place] % (Auto) 9.6 H Eos % (Auto) 10.2 H Baso % (Auto) 0.7 Absolute Neuts (auto) 1.9 Absolute Lymphs (auto) 1.9 Absolute Monos (auto) 0.5 Absolute Eos (auto) 0.5 Absolute Basos (auto) 0 Absolute Nucleated RBC 0 Nucleated RBC % 0.1 Sodium 134 L Potassium 3.8 Chloride 102 Carbon Dioxide 28 Anion Gap 4 BUN 10 Creatinine 0.50 L Est GFR ( Amer) 199.5 Est GFR (Non-Af Amer) 164.9 BUN/Creatinine Ratio 20.0 Glucose 91 Calcium 8.5 L Microbiology 07/15/18 22:00 Urine Culture - Final Urine Pseudomonas Aeruginosa Normal Ayde 07/15/18 23:23 Aerobic Blood Culture - Preliminary Blood Venous No Growth Day 1 Anaerobic Blood Culture - Preliminary No Growth Day 1 07/15/18 23:00 Aerobic Blood Culture - Preliminary Blood Venous No Growth Day 1 Anaerobic Blood Culture - Preliminary No Growth Day 1 Assessment: 1. CAUTI, community acquired, due to Pseudomonas 2. Urinary retention and chronic brasher catheter 3. MS Plan: 1. 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
--- NOTE | 2018-07-17 10:10 | PN ---
Subjective Date of Service: 07/17/18 Interval History: Pt resting comfortably in bed. Denies flank pain, chest pain, shortness of breath, palpitations, dizziness, N/V, abdominal pain. Pt expressed concern about old sacral wound, so wound consult was placed. Family History: Findings - colon ca daughter also has ms Social History: Findings - no cig no etoh from snf bed bound chronic indewelling brasher Past Medical History: Findings - end stage ms chronically bed bound chronic brasher recurrent uti with different strains of psudomonas hx of sacral wound hx of muscle/bladder spasm indewelling brasher last changed three weeks ago pshx s/p c3/c4 dissectomy and fusion 10/2012 Objective Active Medications: Acetaminophen (Tylenol Tab*) 650 mg PO Q4H PRN PRN Reason: FEVER/PAIN Ascorbic Acid (Vitamin C Tab*) 1,000 mg PO DAILY [facility] Last Admin: 07/17/18 09:35 Dose: 1,000 mg Baclofen (Lioresal Tab*) 20 mg PO Q6HR [facility] Last Admin: 07/17/18 05:32 Dose: 20 mg Cholecalciferol (Vitamin D Tab*) 1,000 units PO DAILY [facility] Last Admin: 07/17/18 09:34 Dose: 1,000 units Diazepam (Valium Tab(*)) 5 mg PO BEDTIME [facility] Last Admin: 07/16/18 20:25 Dose: 5 mg Escitalopram Oxalate (Lexapro (Nf)) 15 mg PO DAILY [facility] Last Admin: 07/17/18 09:33 Dose: 15 mg Heparin Sodium (Porcine) (Heparin Vial(*)) 5,000 units SUBCUT Q8HR [facility] Last Admin: 07/17/18 05:32 Dose: 5,000 units Ibuprofen (Advil Tab*) 200 mg PO TID PRN PRN Reason: DISCOMFORT Levofloxacin (Levaquin Tab*) 750 mg PO Q24H [facility] Last Admin: 07/16/18 23:02 Dose: 750 mg Lorazepam (Ativan Tab(*)) 0.5 mg PO Q4H PRN PRN Reason: ANXIETY Last Admin: 07/16/18 05:29 Dose: 0.5 mg Methenamine Hippurate (Hiprex Tab*) 1 gm PO BID [facility] Last Admin: 07/17/18 09:34 Dose: 1 gm Mirabegron (Myrbetriq (Nf)) 75 mg PO BEDTIME [place] Last Admin: 07/16/18 20:35 Dose: Not Given Multivitamins/Minerals (Theragran/Minerals Tab*) 1 tab PO DAILY [facility] Last Admin: 07/17/18 09:33 Dose: 1 tab Ondansetron HCl (Zofran Odt Tab*) 4 mg PO Q8H PRN PRN Reason: NAUSEA/VOMITING Polyethylene Glycol/Electrolytes (Miralax*) 17 gm PO BEDTIME PRN PRN Reason: CONSTIPATION Sodium Biphosphate/Sodium Phosphate (Fleet Enema*) 1 bottle [place] BID PRN PRN Reason: CONSTIPATION Tizanidine HCl (Zanaflex Tab*) 6 mg PO BEDTIME [facility] Last Admin: 07/16/18 20:24 Dose: 6 mg Vital Signs - 8 hr 07/17/18 03:32 Temperature 97.5 F Pulse Rate 61 Respiratory 18 Rate Blood Pressure 109/53 (mmHg) O2 Sat by Pulse 96 Oximetry Oxygen Devices in Use Now: None Eyes: No Scleral Icterus, PERRLA Ears/Nose/Mouth/Throat: NL Teeth, Lips, Gums, Mucous Membranes Moist Neck: NL Appearance and Movements; NL JVP, Trachea Midline Respiratory: Symmetrical Chest Expansion and Respiratory Effort, Clear to Auscultation Cardiovascular: NL Sounds; No Murmurs; No JVD, RRR, No Edema Abdominal: NL Sounds; No Tenderness; No Distention Extremities: No Edema, No Clubbing, Cyanosis, - Neurological: Alert and Oriented x 3, - - Limited strength and mobility 2/2 MS Result Diagrams: 07/17/18 04:50 07/17/18 04:50 Additional Lab and Data: Lab Results 07/15/18 Range/Units 22:00 Urine Color Yellow Urine Appearance Clear Urine pH 6.0 (5-9) Ur Specific [place] 1.009 L (1.010-1.030) Urine Protein Negative (Negative) Urine Ketones Negative (Negative) Urine Blood Negative (Negative) Urine Nitrate Negative (Negative) Urine Bilirubin Negative (Negative) Urine Urobilinogen Negative (Negative) Ur Leukocyte Esterase 2+ A (Negative) Urine WBC (Auto) 1+(6-10/hpf) A (Absent) Urine RBC (Auto) Trace(0-2/hpf) (Absent) Urine Bacteria 1+ A (Absent) Urine Glucose Negative (Negative) Urine Ascorbic Acid * A (Negative) Microbiology and Other Data: Microbiology 07/15/18 22:00 Urine Culture - Final Urine Pseudomonas Aeruginosa Normal Ayde 07/15/18 23:23 Aerobic Blood Culture - Preliminary Blood Venous No Growth Day 1 Anaerobic Blood Culture - Preliminary No Growth Day 1 07/15/18 23:00 Aerobic Blood Culture - Preliminary Blood Venous No Growth Day 1 Anaerobic Blood Culture - Preliminary No Growth Day 1 Assess/Plan/Problems-Billing Assessment: Pt is a 68 yr old male with hx of end stage MS (bed bound), recurrent uti with different strains of pseudomonas with chronic indwelling brasher who presented to the ED from [facility] due to low grade temp to 100 but WBC WNL. He was found to have UTI. Last urine cx 06/23 + pseudomonas sensitive to levaquin, and was started on levaquin again and given IVF - Patient Problems (1) Complicated UTI (urinary tract infection) Current Visit: No Status: Acute Code(s): N39.0 - URINARY TRACT INFECTION, SITE NOT SPECIFIED SNOMED Code(s): 66193488 Comment: - Associated with chronic brasher, which was changed in ED. Hx of recurrent UTIs. - Afebrile w/o leukocytosis - Urine culture shows pseudomonas 50-75,000. Sensitive to levaquin - Started on levaquin in ED. ID is following and reqs 28 more days of levaquin 500 mg levaquin PO given history of recurrence. Also will continue Hibrex, which was started on prior hospitalization. - On previous hospitalization in June: US shows right kidney stone, non obstructing. He will benefit from urology evaluations outpatient (he sees Dr. Saldana outpatient ) (2) Fever Current Visit: Yes Status: Acute Code(s): R50.9 - FEVER, UNSPECIFIED SNOMED Code(s): 953009641 Comment: - Resolved. Likely secondary to UTI. CXR WNL and Blood culture with no growth to date. - ID following. Appreciate reqs (3) Multiple sclerosis Current Visit: No Status: Chronic Code(s): G35 - MULTIPLE SCLEROSIS SNOMED Code(s): 39636178 Comment: - History of end stage relapsing-remitting MS - Continue outpt meds including zanaflex and baclofen at bedtime and Valuim PRN (4) History of decubitus ulcer Current Visit: Yes Status: Acute Code(s): Z87.2 - PERSONAL HISTORY OF DISEASES OF THE SKIN, SUBCU SNOMED Code(s): 266021427 Comment: - Pt requested wound consult (which has been ordered) due to history of healing sacral ulcer, however does not report pain. Pt's nurse reports ulcer appears to be healing well. (5) DVT prophylaxis Current Visit: No Status: Acute Code(s): DOG5207 - SNOMED Code(s): 682446672 Comment: - SQ Heparin (6) DNR (do not resuscitate) Current Visit: No Status: Acute Status and Disposition: Discharge to retirement facility where he has been a resident.
[2018-07-17 15:46] VITALS: BP 163/83
--- NOTE | 2018-07-18 06:53 | DS ---
AMENDED REPORT NOW INCLUDES COSIGNER DESIGNATION - ESIGNED BEFORE ADJUSTMENTS CC: Dr. Karissa Garza * DISCHARGE SUMMARY: DATE OF ADMISSION: 07/16/18 DATE OF DISCHARGE: 07/17/18 ATTENDING PHYSICIAN: Dr. Ward * (dictated by Gisselle Almeida NP) PRIMARY CARE PHYSICIAN: Dr. Karissa Garza. PRIMARY DIAGNOSIS: Complicated pseudomonas urinary tract infection. SECONDARY DIAGNOSES: 1. Multiple sclerosis. 2. History of sacral pressure ulcer. DISCHARGE MEDICATIONS: 1. Zanaflex tablet 6 mg p.o. at bedtime. 2. Fleet Enema 1 bottle per rectum b.i.d. p.r.n. 3. MiraLAX 17 g p.o. at bedtime p.r.n. 4. Zofran 4 mg p.o. q.8 hours p.r.n. 5. Multivitamin/mineral tablet 1 tablet p.o. daily. 6. Mirabegron 75 mg p.o. at bedtime. 7. Hiprex 1 g p.o. b.i.d. 8. Ibuprofen 200 mg p.o. t.i.d. p.r.n. 9. Lexapro 15 mg p.o. daily. 10. Valium 5 mg p.o. at bedtime. 11. Valium 5 to 10 mg p.o. q.6 hours p.r.n. 12. Cran/vitamin C/christina/FOS/bromelain 15 mL p.o. b.i.d. That is Cystex cranberry liquid. 13. Vitamin D tablet 1000 units p.o. daily. 14. Baclofen 20 mg p.o. q.6 hours. 15. Baclofen 40 mg p.o. at 2200. 16. Baclofen 20 mg p.o. q.2 hours p.r.n. 17. Vitamin C tablet 1000 mg p.o. daily. 18. Tylenol 650 mg p.o. q.4 hours p.r.n. New medications: 1. Zinc oxide 12.8% one application topical daily. 2. Levaquin 500 mg p.o. daily. HOSPITAL COURSE: Mr. Jay is a 68-year-old male with a history of end-stage multiple sclerosis, recurrent UTI with different strains of pseudomonas with a chronic indwelling Reddy, who presented to the ED from a senior care facility due to a low-grade temperature of 100. The rest of his vitals were stable. He did not have leukocytosis. The patient denied any associated symptoms. The urinalysis was completed and he was found to have UTI. The patient's Reddy was changed in the ED. His previous urine culture from showed pseudomonas sensitive to Levaquin and he was started on Levaquin and given IV fluids pending new culture results. The urine culture came back with pseudomonas sensitive to Levaquin. He was seen by Dr. Clark with Infectious Disease who recommended a 28-day course of Levaquin 500 mg p.o. daily as well as continuing Hiprex which started on a prior admission. The patient did not have any further incidence of fever and on day of discharge Reddy was draining clear yellow urine. The patient was also seen by wound care during his stay as he expressed concern about his sacral wound. The wound nurse recommended he use zinc-based ointment on his wound, which has been prescribed. DISPOSITION: The patient's condition is stable for discharge to [facility] where he was residing prior to admission. DIET: Regular diet. ACTIVITY: As tolerated. FOLLOWUP: Please follow up with primary care provider, Dr. Garza in 4 to 7 days. TIME SPENT: Time spent for this discharge was 35 minutes. GISSELLE ALMEIDA NP [id number]/[facility] #: [id number] PAPO
== END 2018-07-17 16:00 ==
LOC: ED 21:20 → MED 07-16 03:43 → INTOOBSV 07-16 03:43 → MED 07-16 09:22
PROVIDERS: ADMIT Internal Medicine; ATTEND Internal Medicine
DX: N39.0 Urinary tract infection, site not specified (principal); B96.5 Pseudomonas (aeruginosa) (mallei) (pseudomallei) as the cause of diseases classified elsewhere; L89.159 Pressure ulcer of sacral region, unspecified stage; G35 Multiple sclerosis; R50.9 Fever, unspecified; Z87.2 Personal history of diseases of the skin and subcutaneous tissue; Z96.0 Presence of urogenital implants
CPT/HCPCS: 36415; 71046; 80048; 80053; 81003; 81015; 83605; 84484; 85025; 85610; 85730; 86140; 87040; 87077; 87086; 87186; 90471; 90686; 93005; 96365; 96366; 96376; 99284; A9270-GY; G0008; G0378; J0360; J1644; J1956

== ENCOUNTER 2018-10-23 22:05 | Inpatient (IN) | payer MEDICARE ==
--- NOTE | 2018-10-23 23:13 | ED ---
HPI Febrile Illness - HPI Summary HPI Summary: This patient is a 68 year old M brought in by ambulance to [facility] with a chief complaint of fever since 2 days ago. His temperature was reported to be 101 degrees between 17:00 and 20:00. The patient rates the pain 0/10 in severity. Symptoms aggravated by nothing. Symptoms alleviated by nothing. Patient reports lethargy. The patient took 2 doses of Tylenol at 19:00. Pt has indwelling brasher catheter that was last changed 5 days ago. Hx MS, UTIs/urosepsis. The patients reports that the patients memory is not very good. - History of Current Complaint Chief Complaint: EDFever Time Seen by Provider: 10/23/18 22:11 Hx Obtained From: Patient Onset/Duration: Started Days Ago - 2 days ago, Atraumatic, Still Present Timing: Constant Initial Severity: Mild Current Severity: Mild Pain Intensity: 0 Pain Scale Used: 0-10 Numeric Aggravating Factors: Nothing Alleviating Factors: Nothing Associated Signs and Symptoms: Other: - lethargy - Additional Pertinent History Primary Care Physician: LAKEISHA - Allergy/Home Medications Allergies/Adverse Reactions: Allergies Allergy/AdvReac Type Severity Reaction Status Date / Time daclizumab Allergy Unknown Verified 10/23/18 22:41 Reaction Details xenapak Allergy Intermediate Nausea And Uncoded 10/23/18 22:41 Vomiting PMH/Surg Hx/FS Hx/Imm Hx Endocrine/Hematology History: Denies: Hx Anticoagulant Therapy, Hx Blood Disorders, Hx Blood Transfusions, Hx Bone Marrow Disease, Hx Diabetes, Hx Systemic Lupus Erythematosus, Hx Sickle Cell Disease, Hx Thyroid Disease, Hx Anemia, Hx Unexplained Bleeding Cardiovascular History: Reports: Hx Hypertension Denies: Hx Aneurysm, Hx Angina, Hx Angioplasty, Hx Auto Implanted Cardiovert Defib, Hx Cardiac Arrest, Hx Cardiomegaly, Hx Congenital Heart Disease, Hx Congestive Heart Failure, Hx Coronary Artery Disease, Hx Deep Vein Thrombosis, Hx Hypercholesterolemia, Hx Hypotension, Hx Pacemaker/ICD, Hx Peripheral Vascular Disease, Hx Rheumatic Fever, Hx Syncope, Hx Valvular Heart Disease, Other Cardiovascular Problems/Disorders Respiratory History: Reports: Hx Seasonal Allergies Denies: Hx Asthma, Hx Chronic Bronchitis, Hx Chronic Obstructive Pulmonary Disease (COPD), Hx Cystic Fibrosis, Hx Lung Cancer, Hx Pleural Effusion, Hx Pneumonia, Hx Pulmonary Edema, Hx Pulmonary Embolism, Hx Sleep Apnea GI History: Reports: Hx Diverticulosis Denies: Hx Cirrhosis, Hx Crohn's Disease, Hx Gall Bladder Disease, Hx Gastroesophageal Reflux Disease, Hx Gastrointestinal Bleed, Hx Hiatal Hernia, Hx Irritable Bowel, Hx Jaundice, Hx Obstructive Bowel, Hx Ileostomy, Hx Pyloric Stenosis, Hx Ulcer History: Reports: Hx Benign Prostatic Hyperplasia, Other Problems/ Disorders - urinary retention, septic UTI Denies: Hx Acute Renal Failure, Hx Chronic Renal Failure, Hx Dialysis, Hx Kidney Infection, Hx Kidney Stones, Hx Renal Disease Musculoskeletal History: Reports: Hx Tendonitis, Other Musculoskeletal History - MS Denies: Hx Arthritis, Hx Back Problems, Hx Bursitis, Hx Congenital Bone Abnormalities, Hx Fibromyalgia, Hx Gout, Hx Orthopedic Injury, Hx Osteoporosis, Hx Scoliosis Sensory History: Reports: Hx Contacts or Glasses - Reading Denies: Hx Cataracts, Hx Eye Injury, Hx Eye Prosthesis, Hx Glaucoma, Hx Vision Problem, Hx Deafness, Hx Hearing Aid, Hx Hearing Problem, Other Sensory Impairments Opthamlomology History: Reports: Hx Contacts or Glasses - Reading Denies: Hx Cataracts, Hx Eye Injury, Hx Eye Prosthesis, Hx Glaucoma, Hx Vision Problem, Other Sensory Impairments Neurological History: Reports: Other Neuro Impairments/Disorders - MS Denies: Hx Dementia, Hx Developmental Delay, Hx Headaches, Hx Migraine, Hx Nerve Disease, Hx Seizures, Hx Spinal Cord Injury, Hx Transient Ischemic Attacks (TIA) Psychiatric History: Reports: Hx Depression Denies: Hx Anxiety, Hx Attention Deficit Hyperactivity Disorder, Hx Eating Disorder, Hx Panic Disorder, Hx Post Traumatic Stress Disorder, Hx Inpatient Treatment, Hx Community Mental Health Tx, Hx Schizophrenia, Hx Bipolar Disorder , Hx Suicide Attempt, Hx of Violent Episodes Against Others, Hx Substance Abuse , Other Psychiatric Issues/Disorders - Surgical History Surgery Procedure, Year, and Place: October 12, 2012 Anterior cervical dissection with fusion,removal of c3+c4 Hx Anesthesia Reactions: No Infectious Disease History: No Infectious Disease History: Denies: Hx Clostridium Difficile, Hx Hepatitis, Hx Human Immunodeficiency Virus (HIV), Hx of Known/Suspected MRSA, Hx Shingles, Hx Tuberculosis, Hx Known/ Suspected VRE, Hx Known/Suspected VRSA, History Other Infectious Disease, Traveled Outside the [place] in Last 30 Days - Family History Known Family History: Positive: Other - Colon cancer - Social History Alcohol Use: Daily Alcohol Amount: one beer nightly Hx Substance Use: No Substance Use Type: Reports: None Hx Tobacco Use: No Smoking Status (MU): Never Smoked Tobacco Have You Smoked in the Last Year: No Review of Systems Positive: Fever, Other - lethargy Negative: Epistaxis Negative: Chest Pain Negative: Cough Negative: Vomiting All Other Systems Reviewed And Are Negative: Yes Physical Exam - Summary Physical Exam Summary: VITAL SIGNS: Reviewed. GENERAL: Patient is a well-developed and nourished MALE who is lying comfortable in the stretcher. Patient is not in any acute respiratory distress. HEAD AND FACE: No signs of trauma. No ecchymosis, hematomas or skull depressions. No sinus tenderness. EYES: PERRLA, EOMI x 2, No injected conjunctiva, no nystagmus. EARS: Hearing grossly intact. Ear canals and tympanic membranes are within normal limits. MOUTH: Oropharynx within normal limits. NECK: Supple, trachea is midline, no adenopathy, no JVD, no carotid bruit, no c- spine tenderness, neck with full ROM. CHEST: Symmetric, no tenderness at palpation LUNGS: Clear to auscultation bilaterally. No wheezing or crackles. CVS: Regular rate and rhythm, S1 and S2 present, no murmurs or gallops appreciated. ABDOMEN: Soft, non-tender. No signs of distention. No rebound no guarding, and no masses palpated. Bowel sounds are normal. Brasher catheter in place EXTREMITIES: FROM in all major joints, no edema, no cyanosis or clubbing. Quadriplegic from MS NEURO: Alert and oriented x 3. No acute neurological deficits. Speech is normal and follows commands. SKIN: Dry and warm Triage Information Reviewed: Yes Vital Signs On Initial Exam: Initial Vitals Temp Pulse Resp BP Pulse Ox 99.0 F 82 16 154/87 92 10/23/18 22:15 10/23/18 22:15 10/23/18 22:15 10/23/18 22:15 10/23/18 22:15 Vital Signs Reviewed: Yes Diagnostics - Vital Signs Vital Signs Temp Pulse Resp BP Pulse Ox 10/23/18 22:32 82 154/87 92 10/23/18 22:15 99.0 F 82 16 154/87 92 - Laboratory Result Diagrams: 10/23/18 23:49 10/23/18 23:49 Lab Statement: Any lab studies that have been ordered have been reviewed, and results considered in the medical decision making process. Course/Dx - Course Course Of Treatment: This patient is a 68 year old M brought in by ambulance to [facility] with a chief complaint of fever since 2 days ago. His temperature was reported to be 101 degrees between 17:00 and 20:00. The patient rates the pain 0 /10 in severity. Symptoms aggravated by nothing. Symptoms alleviated by nothing. Patient reports lethargy. The patient took 2 doses of Tylenol at 19: 00. Pt has indwelling brasher catheter that was last changed 5 days ago. Hx MS, UTIs/urosepsis. The patients reports that the patients memory is not very good. In the ED course the patient was given Tylenol, Levaquin, and IV fluids. We discussed patient care with Dr. Beck and they agreed to admit the patient. Patient will be admitted to [facility]. The patient is agreeable with this plan. Dx urosepsis. - Diagnoses Provider Diagnoses: UTI (urinary tract infection) - Provider Notifications Discussed Care Of Patient With: Lala Beck Time Discussed With Above Provider: 00:40 Instructed by Provider To: Admit As Inpatient Discharge - Sign-Out/Discharge Documenting (check all that apply): Patient Departure - admit - Discharge Plan Condition: Stable Disposition: ADMITTED TO [facility] Referrals: Karissa Garza MD [Primary Care Provider] - - Attestation Statements Document Initiated by Scribe: Yes Documenting Scribe: Maryanne Norris Provider For Whom Keysha is Documenting (Include Credential): Mara Rodriguez MD Scribe Attestation: Maryanne Hanson, neelaibed for Mara Rodriguez MD on 10/24/18 at 0114. Status of Scribe Document: Ready
[2018-10-23] MEDS ORDERED: Acetaminophen TAB* 325 MG PO ONE (23:33)
[2018-10-23] MEDS ORDERED: NS 0.9% 1000 ML*IV.FLUID IV ONE (23:33)
[2018-10-23] MEDS ORDERED: Levofloxacin 750 MG IVPREMIX(* 750 MG/150 ML BAG IVPB ONE (23:35)
[2018-10-23 23:57] LABS: ABS Basophils 0.1 10^3/ul (0-0.2); ABS Eosinophils 0.1 10^3/ul (0-0.6); ABS Lymphocytes 1.2 10^3/ul (1.0-4.8); ABS Monocytes 0.8 10^3/ul (0-0.8); ABS Neutrophils 11.4 10^3/ul (1.5-7.7); ABS Nucleated RBC 0 10^3/ul; Eosinophil % 0.7 %; Hematocrit 41 % (42-52); Hemoglobin 14.2 g/dl (14.0-18.0); Lymphocyte % 9.1 %; Mean Corpuscular HGB Conc 35 g/dl (31-36); Mean Corpuscular Hemoglobin 31 pg (27-31); Mean Corpuscular Volume 91 fL (80-94); Mean Platelet Volume 8.3 fL (7.4-10.4); Nucleated Red Blood Cells % 0; Platelet Count 186 10^3/ul (150-450); Red Blood Count 4.54 10^6/ul (4.00-5.40); Red Cell Distribution Width 14 % (10.5-15); White Blood Count 13.6 10^3/ul (3.5-10.8)
[2018-10-24 00:13] LABS: Albumin 3.7 g/dL (3.2-5.2); Albumin/Globulin Ratio 1.2 (1-3); BUN/Creatinine Ratio 23.1 (8-20); C Reactive Protein 83.52 mg/L (<8.01); Calcium 9.1 mg/dL (8.6-10.3); EGFR African American 265.7 (>60); EGFR Non-African American 219.6 (>60); Globulin 3.2 g/dL (2-4); Total Bilirubin 0.7 mg/dL (0.2-1.0); Total Protein 6.9 g/dL (6.4-8.9)
[2018-10-24 00:33] LABS: Activated Partial Thrombo Time 33.9 seconds (26.0-36.3); INR 1.02 (0.77-1.02)
[2018-10-24 00:36] LABS: Urine Appearance Clear; Urine Bacteria 1+ (Absent); Urine Bilirubin Negative (Negative); Urine Blood 1+ (Negative); Urine Color Straw; Urine Glucose Negative (Negative); Urine Ketones Trace (Negative); Urine Nitrite Negative (Negative); Urine Protein Negative (Negative); Urine Red Blood Cell Trace(0-2/hpf) (Absent); Urine Specific Gravity 1.002 (1.010-1.030); Urine Urobilinogen Negative (Negative); Urine White Blood Cell 1+(6-10/hpf) (Absent)
[2018-10-24 01:01] LABS: Influenza A Molecular NEGATIVE (Negative); Influenza B Molecular NEGATIVE (Negative)
[2018-10-24] MEDS ORDERED: Baclofen TAB* 20 MG PO ONE (01:19)
[2018-10-24] MEDS ORDERED: Diazepam TAB(*) 5 MG PO ONE (01:20)
[2018-10-24] MEDS: Sodium Phosphate ADULT ENEMA* 118 ml bottle PR PRN (01:30)
[2018-10-24] MEDS: NS 0.9% 1000 ML* 1,000 ML IV SCH ×2 (05:20→17:31)
[2018-10-24] MEDS: Diazepam TAB(*) 5 MG PO PRN (05:20)
[2018-10-24] MEDS: Heparin VIAL(*) 5000 UNITS/ML VIAL (FIVE THOUSAND) SUBCUT SCH ×3 (05:21→22:11)
[2018-10-24] MEDS: Ibuprofen TAB* 200 MG PO PRN (05:24)
--- NOTE | 2018-10-24 07:01 | PN ---
Hospitalist Progress Note Date of Service: 10/24/18 HOSPITALIST ADDENDUM Notified by RN patient has a small stage 2 pressure ulcer left buttock, present on admission. Will continue pressure relief measures.
[2018-10-24 07:57] LABS: BUN/Creatinine Ratio 14.3 (8-20); C Reactive Protein 97.32 mg/L (<8.01); Calcium 8.9 mg/dL (8.6-10.3); EGFR Non-African American 201.6 (>60); Potassium 3.9 mmol/L (3.5-5.0)
--- NOTE | 2018-10-24 08:40 | PN ---
Subjective Date of Service: 10/24/18 Interval History: Mr. Jay reports feeling well today and denies any complaint. He reports feeling much better than on admission. He denies chest pain, SOB, nausea, or abdominal pain. Objective Active Medications: Acetaminophen (Tylenol Tab*) 650 mg PO Q4H PRN Ascorbic Acid (Vitamin C Tab*) 1,000 mg PO DAILY [facility] Baclofen (Lioresal Tab*) 40 mg PO 2200 [facility] Baclofen (Lioresal Tab*) 20 mg PO 0400,1000,1600 [facility] Cholecalciferol (Vitamin D Tab*) 1,000 units PO DAILY [facility] Cyclobenzaprine HCl (Flexeril Tab*) 10 mg PO BEDTIME [facility] Diazepam (Valium Tab(*)) 5 mg PO Q6HR PRN Diazepam (Valium Tab(*)) 5 mg PO BEDTIME [facility] Escitalopram Oxalate (Lexapro (Nf)) 15 mg PO DAILY [facility] Heparin Sodium (Porcine) (Heparin Vial(*)) 5,000 units SUBCUT Q8HR [facility] Sodium Chloride (Ns 0.9% 1000 Ml*) 1,000 mls @ 100 mls/hr IV PER RATE [facility] Levofloxacin/Dextrose (Levaquin 750 Mg Ivpremix(*)) 750 mg in 150 mls @ 100 mls /hr IVPB Q24H [facility] Ibuprofen (Advil Tab*) 200 mg PO TID PRN Methenamine Hippurate (Hiprex Tab*) 1 gm PO BID [facility] Mirabegron (Myrbetriq (Nf)) 75 mg PO BEDTIME [facility] Multivitamins/Minerals (Theragran/Minerals Tab*) 1 tab PO DAILY [facility] Polyethylene Glycol/Electrolytes (Miralax*) 17 gm PO BEDTIME PRN Sodium Biphosphate/Sodium Phosphate (Fleet Enema*) 1 bottle [place] BID PRN Vital Signs: Temp Pulse Resp BP Pulse Ox 97.4 F 65 18 144/63 95 10/24/18 07:33 10/24/18 07:33 10/24/18 07:33 10/24/18 07:33 10/24/18 07:33 Oxygen Devices in Use Now: None Appearance: Male lying in bed in NAD Eyes: No Scleral Icterus Ears/Nose/Mouth/Throat: Mucous Membranes Moist Neck: Trachea Midline Respiratory: Symmetrical Chest Expansion and Respiratory Effort, Clear to Auscultation Cardiovascular: NL Sounds; No Murmurs; No JVD, No Edema Abdominal: NL Sounds; No Tenderness; No Distention Extremities: No Edema Skin: No Rash or Ulcers Neurological: Alert and Oriented x 3 Nutrition: Taking PO's Result Diagrams: 10/23/18 23:49 10/24/18 07:27 Microbiology and Other Data: . Assess/Plan/Problems-Billing Assessment: Mr. Jay is a 68 yo M with a PMH of MS with indwelling brasher who presents with fever, lethargy, and suspected UTI. - Patient Problems (1) Sepsis Comment: - Mild, tachypneic with leukocytosis on arrival. Present on admission, now resolved. - Due chronic brasher associated UTI (2) Complicated UTI (urinary tract infection) Comment: - Associated with chronic brasher - Continue levaquin for now and monitor cultures. High risk for resistant pathogen that would require IV antibiotics, plan to observe while monitoring urine cultures. (3) Multiple sclerosis Comment: - History of end stage relapsing-remitting MS - Continue outpt meds including zanaflex and baclofen at bedtime and Valuim PRN (4) Hyponatremia Comment: - Resolved with IV fluids. (5) Stage II pressure ulcer Comment: - Buttock - Plan to keep pressure off area and apply protective lotion (6) DVT prophylaxis Comment: - SQ Heparin (7) DNR (do not resuscitate) Status and Disposition: OBV. Return to [facility] when medically stable.
[2018-10-24] MEDS: Baclofen TAB* 20 MG PO SCH ×4 (08:42→22:11)
[2018-10-24] MEDS: Cholecalciferol TAB* 1000 UNITS PO SCH (08:42)
[2018-10-24] MEDS: Multivitamins/Minerals TAB PO SCH (08:42)
[2018-10-24] MEDS: Methenamine Hippurate TAB* 1 GM TAB PO SCH ×2 (08:42→22:10)
[2018-10-24] MEDS: CMCS: Escitalopram (NF) 10 MG TAB PO SCH (08:42)
[2018-10-24] MEDS: Ascorbic Acid TAB* 500 MG PO SCH (08:42)
--- NOTE | 2018-10-24 10:31 | HP ---
CC: Dr. Karissa Garza; Dr. Clark; Dr. Conway HISTORY AND PHYSICAL: DATE OF ADMISSION: 10/24/18 TIME OF EVALUATION: 4 a.m. PRIMARY CARE PHYSICIAN: Dr. Karissa Garza. INFECTIOUS DISEASE SPECIALIST: Dr. Clark. UROLOGIST: Dr. Conway. CHIEF COMPLAINT: Fever. HISTORY OF PRESENT ILLNESS: Mr. Jay is a 68-year-old male with a past medical history of multiple sclerosis diagnosed in the 70s with chronic indwelling Reddy and recurrent urinary tract infections, who presented to the emergency room with fever. His last admission was in July 2018 and at that t pablo his urine culture grew Pseudomonas that was sensitive to levofloxacin. He was seen by Dr. Valentin carter at that time and the recommendation was to continue treatment with levofloxacin. The patient states that he was feeling well until earlier yesterday when he started to feel poorly wi th fatigue and malaise. In the afternoon, he was noted to have a fever with a temperature of 100.8 a nd received Tylenol and was sent to the emergency room for further evaluation. He states that he usu ally has bladder spasms and these are unchanged. He states that usually when he has a UTI, the only symptoms are urinary tract infection and malaise. PAST MEDICAL HISTORY: 1. Multiple sclerosis. The patient requires a Amado lift for transfer and he is usually on a motori zed wheelchair. 2. Chronic indwelling Reddy. 3. Recurrent urinary tract infections. PAST SURGICAL HISTORY: Status post cervical spine surgery. MEDICATIONS: 1. Acetaminophen 650 mg p.o. q.4 hours p.r.n. pain or fever. 2. Vitamin C 1000 mg p.o. daily. 3. Baclofen 20 mg p.o. q.6 hours and 40 mg p.o. at 10 p.m. 4. Cholecalciferol 1000 units p.o. daily. 5. Cystex 15 mL p.o. b.i.d. 6. Diazepam 5 mg p.o. at bedtime and 5-10 mg p.o. q.6 hours as needed for spasms. 7. Escitalopram 15 mg p.o. daily. 8. Ibuprofen 200 mg p.o. t.i.d. as needed for pain or fever. 9. Hiprex 1 g p.o. b.i.d. 10. Mirabegron 75 mg p.o. at bedtime. 11. Multivitamin one tablet p.o. daily. 12. MiraLAX 17 g p.o. at bedtime as needed for constipation. 13. Sodium phosphate one bottle per rectum b.i.d. as needed for constipation. 14. Zanaflex 6 mg p.o. at bedtime. ALLERGIES: The patient had reactions to DACLIZUMAB and ZENAPAX. FAMILY HISTORY: Positive for colon cancer. Son and daughter have multiple sclerosis. SOCIAL HISTORY: No history of tobacco, alcohol or drug abuse. Surrogate decision maker is his , Celsa Jay, phone #[phone]. The patient is a resident of [facility]. REVIEW OF SYSTEMS: A 14-point review of systems was performed and all the pertinent negative and pos itive findings are in the HPI. PHYSICAL EXAMINATION GENERAL: The patient is a pleasant elderly gentleman lying in the ED stretcher in no acute distress. VITAL SIGNS: Temperature 99.0, heart rate is 64, respiratory rate is 16, oxygen saturation is 96% on room air, blood pressure is 132/73. CHEST: Breath sounds present bilaterally with no added sounds. CVS: Normal S1, S2. Regular rate and rhythm. ABDOMEN: Soft, nontender. Bowel sounds are present. EXTREMITIES: The patient has contracted upper extremities and atrophic lower extremities. : A Reddy catheter is in place draining clear light yellow urine. NEUROLOGIC: He is alert and oriented x3. He is unable to move upper and lower extremities with sign ificant spasticity. LABORATORY AND IMAGING DATA: The patient had a CBC that showed a WBC of 13.6, hemoglobin of 14.2, h ematocrit of 41, platelets of 186,000. INR is 1.02. Chemistry showed a sodium of 126, potassium 4, c hloride 92, bicarbonate 26, BUN 9, creatinine 0.39, glucose of 111, lactic acid 0.7, calcium 9.1. LF Ts are normal. CRP is 83. Urinalysis showed 1+ blood, 1+ LE, 1+ wbc's, 1+ bacteria. Influenza rapid test was negative. ASSESSMENT AND PLAN: Mr. Jay is a 68-year-old male with a past medical history of multiple scleros is, chronic Reddy catheter, recurrent urinary tract infection who presented to the emergency room wit h complaints of fever and the source appears to be another episode of urinary tract infection. 1. Sepsis. The patient met sepsis criteria on admission with fever of 100.8 and leukocytosis. qSOF A is 0. Source is likely urinary tract infection related to his Reddy catheter. 2. Urinary tract infection, present admission, Reddy catheter related. The patient will be admitted to the medical floor, we are going to continue IV fluids and levofloxaci n. His last culture grew Pseudomonas and he was sensitive to Levaquin. Urine and blood cultures wer e sent, his lactic acid is normal and we are going to continue to monitor. Levofloxacin can interact with his tizanidine and escitalopram but unfortunately, his antibiotic opti ons are limited and we will check serial EKGs to monitor his QT interval while on quinolone therapy. He says that his Reddy catheter was changed on 10/11/18 and we will change his catheter after 24 to 48 hours of antibiotics. 3. Hyponatremia likely secondary to dehydration. We will continue IV fluids and we will monitor. 4. Multiple sclerosis. The patient will be continued on his usual medications including baclofen, d iazepam and mirabegron and tizanidine. 5. Depression, we will continue escitalopram. 6. DVT prophylaxis, the patient has a score of 2 on the DVT Prophylaxis Assessment Guide, he will be started on subcutaneous heparin. 7. Code status is discussed with the patient, he wishes to be a do not resuscitate and a MOLST form was filled up. TIME SPENT: Approximately 45 minutes were spent with patient interview, medical recor ds review, physical examination to complete this admission, more than half of this time was spent fac e-to-face with the patient in coordination of care. [id number]/[facility] #: [id number]
[2018-10-24] MEDS: Polyethylene Glycol 3350* 17 GM PACKET PO PRN (19:59)
[2018-10-24] MEDS ORDERED: hydrALAZINE IV* 20 MG/ML VIAL IV SLOW PU PRN (20:07)
[2018-10-24] MEDS: Acetaminophen TAB* 325 MG PO PRN (20:08)
--- NOTE | 2018-10-24 20:09 | PN ---
Hospitalist Progress Note Date of Service: 10/24/18 HOSPITALIST ADDENDUM Called by RN as patient's BP is elevated. He's asymptomatic. Selected Entries 10/24/18 19:52 Temperature 98.5 F Pulse Rate 98 Respiratory 20 Rate Blood Pressure 201/94 (mmHg) O2 Sat by Pulse 91 Oximetry Will give hydralazine and monitor.
[2018-10-24 20:28] LABS: ABS Basophils 0 10^3/ul (0-0.2); ABS Eosinophils 0.3 10^3/ul (0-0.6); ABS Monocytes 0.9 10^3/ul (0-0.8); ABS Neutrophils 6.9 10^3/ul (1.5-7.7); ABS Nucleated RBC 0 10^3/ul; Eosinophil % 2.6 %; Hematocrit 41 % (42-52); Hemoglobin 13.9 g/dl (14.0-18.0); Lymphocyte % 19.9 %; Mean Corpuscular HGB Conc 34 g/dl (31-36); Mean Corpuscular Hemoglobin 31 pg (27-31); Mean Corpuscular Volume 92 fL (80-94); Mean Platelet Volume 8.5 fL (7.4-10.4); Nucleated Red Blood Cells % 0.1; Platelet Count 151 10^3/ul (150-450); Red Blood Count 4.42 10^6/ul (4.00-5.40); Red Cell Distribution Width 14 % (10.5-15)
[2018-10-24] MEDS ORDERED: tiZANidine TAB* 2 MG PO SCH (21:00)
[2018-10-24] MEDS: Cyclobenzaprine TAB* 10 MG PO SCH (22:08)
[2018-10-24] MEDS: Diazepam TAB(*) 5 MG PO SCH (22:10)
[2018-10-24] MEDS: NFT: Mirabegron (NF) 25 MG TAB PO SCH (22:12)
[2018-10-24] MEDS ORDERED: Levofloxacin 750 MG IVPREMIX(* 750 MG/150 ML BAG IVPB SCH (23:00)
[2018-10-25] MEDS: Acetaminophen TAB* 325 MG PO PRN ×2 (00:57→08:18)
[2018-10-25] MEDS: NS 0.9% 1000 ML* 1,000 ML IV SCH ×2 (05:04→17:12)
[2018-10-25] MEDS: Heparin VIAL(*) 5000 UNITS/ML VIAL (FIVE THOUSAND) SUBCUT SCH ×3 (05:05→21:53)
[2018-10-25] MEDS: Cholecalciferol TAB* 1000 UNITS PO SCH (08:16)
[2018-10-25] MEDS: CMCS: Escitalopram (NF) 10 MG TAB PO SCH (08:16)
[2018-10-25] MEDS: Ascorbic Acid TAB* 500 MG PO SCH (08:16)
[2018-10-25] MEDS: Baclofen TAB* 20 MG PO SCH ×5 (08:16→21:53)
[2018-10-25] MEDS: Methenamine Hippurate TAB* 1 GM TAB PO SCH (08:16)
[2018-10-25] MEDS: Multivitamins/Minerals TAB PO SCH (08:17)
--- NOTE | 2018-10-25 09:09 | PN ---
Subjective Date of Service: 10/25/18 Interval History: Mr. Jay reports that he feels very tired today, maybe even a little rung out, worse than on arrival. He denies specific complaint including chest pain, SOB, nausea, or abdominal pain. Objective Active Medications: Acetaminophen (Tylenol Tab*) 650 mg PO Q4H PRN Amlodipine Besylate (Norvasc Tab*) 5 mg PO DAILY [facility] Ascorbic Acid (Vitamin C Tab*) 1,000 mg PO DAILY [facility] Baclofen (Lioresal Tab*) 40 mg PO 2200 [facility] Baclofen (Lioresal Tab*) 20 mg PO 0800,1400,2000 [facility] Cholecalciferol (Vitamin D Tab*) 1,000 units PO DAILY [facility] Cyclobenzaprine HCl (Flexeril Tab*) 10 mg PO BEDTIME [facility] Diazepam (Valium Tab(*)) 5 mg PO Q6HR PRN Diazepam (Valium Tab(*)) 5 mg PO BEDTIME [facility] Escitalopram Oxalate (Lexapro (Nf)) 15 mg PO DAILY [facility] Heparin Sodium (Porcine) (Heparin Vial(*)) 5,000 units SUBCUT Q8HR [facility] Hydralazine HCl (Apresoline Iv*) 5 mg IV SLOW PU Q6H PRN Sodium Chloride (Ns 0.9% 1000 Ml*) 1,000 mls @ 100 mls/hr IV PER RATE [facility] Levofloxacin/Dextrose (Levaquin 750 Mg Ivpremix(*)) 750 mg in 150 mls @ 100 mls /hr IVPB Q24H [facility] Ibuprofen (Advil Tab*) 200 mg PO TID PRN Methenamine Hippurate (Hiprex Tab*) 1 gm PO BID [facility] Mirabegron (Myrbetriq (Nf)) 75 mg PO BEDTIME [facility] Multivitamins/Minerals (Theragran/Minerals Tab*) 1 tab PO DAILY [facility] Polyethylene Glycol/Electrolytes (Miralax*) 17 gm PO BEDTIME PRN Sodium Biphosphate/Sodium Phosphate (Fleet Enema*) 1 bottle [place] BID PRN Vital Signs: Temp Pulse Resp BP Pulse Ox 99.5 F 93 16 172/76 94 10/25/18 07:47 10/25/18 07:47 10/25/18 07:47 10/25/18 07:47 10/25/18 07:47 Oxygen Devices in Use Now: None Appearance: Male lying in bed in NAD Eyes: No Scleral Icterus Ears/Nose/Mouth/Throat: Mucous Membranes Moist Neck: Trachea Midline Respiratory: Symmetrical Chest Expansion and Respiratory Effort, Clear to Auscultation Cardiovascular: NL Sounds; No Murmurs; No JVD, No Edema Abdominal: NL Sounds; No Tenderness; No Distention Lymphatic: No Cervical Adenopathy Extremities: No Edema Skin: No Rash or Ulcers Neurological: Alert and Oriented x 3 Nutrition: Taking PO's Result Diagrams: 10/25/18 10:02 10/25/18 10:02 Microbiology and Other Data: . Assess/Plan/Problems-Billing Assessment: Mr. Jay is a 68 yo M with a PMH of MS with indwelling brasher who presents with sepsis with suspected complicated UTI. - Patient Problems (1) Sepsis Comment: - Leukocytosis worse and CRP rising, BP stable, mildly tachycardic at times - Due to chronic brasher associated UTI (2) Complicated UTI (urinary tract infection) Comment: - Associated with chronic brasher - Given that he is feeling worse and markers for infection or slightly worse, plan to switch to cefepime pending sensitivity results. Culture with pseudomonas and enterococcus. (3) Hypertension Comment: - SBP as high as 200s over night - Amlodipine started today (4) Multiple sclerosis Comment: - History of end stage relapsing-remitting MS - Continue outpt meds including zanaflex and baclofen at bedtime and Valuim PRN (5) Hyponatremia Comment: - Resolved with IV fluids. (6) Stage II pressure ulcer Comment: - Buttock - Plan to keep pressure off area and apply protective lotion (7) DVT prophylaxis Comment: - SQ Heparin (8) DNR (do not resuscitate) Status and Disposition: Switch to inpatient. Return to [facility] when medically stable.
[2018-10-25] MEDS: amLODIPine TAB* 5 MG PO SCH (09:35)
[2018-10-25 10:07] LABS: ABS Basophils 0.1 10^3/ul (0-0.2); ABS Eosinophils 0 10^3/ul (0-0.6); ABS Lymphocytes 1.2 10^3/ul (1.0-4.8); ABS Monocytes 1.3 10^3/ul (0-0.8); ABS Neutrophils 10.5 10^3/ul (1.5-7.7); ABS Nucleated RBC 0 10^3/ul; Eosinophil % 0.2 %; Hematocrit 39 % (42-52); Hemoglobin 13.4 g/dl (14.0-18.0); Lymphocyte % 9.5 %; Mean Corpuscular HGB Conc 34 g/dl (31-36); Mean Corpuscular Hemoglobin 31 pg (27-31); Mean Corpuscular Volume 92 fL (80-94); Mean Platelet Volume 8.2 fL (7.4-10.4); Nucleated Red Blood Cells % 0; Platelet Count 156 10^3/ul (150-450); Red Cell Distribution Width 14 % (10.5-15); White Blood Count 13.2 10^3/ul (3.5-10.8)
[2018-10-25 10:24] LABS: BUN/Creatinine Ratio 12.8 (8-20); C Reactive Protein 139.09 mg/L (<8.01); Calcium 8.5 mg/dL (8.6-10.3); EGFR African American 265.7 (>60); EGFR Non-African American 219.6 (>60); Potassium 3.3 mmol/L (3.5-5.0)
[2018-10-25] MEDS: Ibuprofen TAB* 200 MG PO PRN (11:29)
[2018-10-25] MEDS: Sodium Phosphate ADULT ENEMA* 118 ml bottle PR PRN (13:00)
[2018-10-25] MEDS: Cefepime 1 GM in Dextrose(*) 1 GM/50 ML BAG IV SCH (13:18)
[2018-10-25] MEDS ORDERED: Potassium Chlor TAB* 20 MEQ TAB.ER PO ONE (16:03)
[2018-10-25] MEDS: Diazepam TAB(*) 5 MG PO SCH (19:59)
[2018-10-25] MEDS: NFT: Mirabegron (NF) 25 MG TAB PO SCH (20:00)
[2018-10-25] MEDS: Cyclobenzaprine TAB* 10 MG PO SCH (21:26)
[2018-10-26] MEDS: Cefepime 1 GM in Dextrose(*) 1 GM/50 ML BAG IV SCH ×2 (00:17→12:58)
[2018-10-26] MEDS: NS 0.9% 1000 ML* 1,000 ML IV SCH ×2 (04:01→17:21)
[2018-10-26] MEDS: Heparin VIAL(*) 5000 UNITS/ML VIAL (FIVE THOUSAND) SUBCUT SCH ×3 (05:17→22:40)
[2018-10-26] MEDS: Acetaminophen TAB* 325 MG PO PRN (06:08)
[2018-10-26] MEDS: Baclofen TAB* 20 MG PO SCH ×4 (06:47→22:40)
[2018-10-26 07:37] LABS: ABS Basophils 0.1 10^3/ul (0-0.2); ABS Eosinophils 0.2 10^3/ul (0-0.6); ABS Lymphocytes 1.8 10^3/ul (1.0-4.8); ABS Monocytes 0.7 10^3/ul (0-0.8); ABS Neutrophils 5.4 10^3/ul (1.5-7.7); ABS Nucleated RBC 0 10^3/ul; Hematocrit 38 % (42-52); Lymphocyte % 21.6 %; Mean Corpuscular HGB Conc 34 g/dl (31-36); Mean Corpuscular Hemoglobin 31 pg (27-31); Mean Corpuscular Volume 92 fL (80-94); Mean Platelet Volume 9.9 fL (7.4-10.4); Nucleated Red Blood Cells % 0; Platelet Count 161 10^3/ul (150-450); Red Blood Count 4.17 10^6/ul (4.00-5.40); Red Cell Distribution Width 14 % (10.5-15); White Blood Count 8.2 10^3/ul (3.5-10.8)
[2018-10-26 07:50] LABS: BUN/Creatinine Ratio 13.5 (8-20); Calcium 8.4 mg/dL (8.6-10.3); EGFR African American 282.4 (>60); EGFR Non-African American 233.4 (>60); Potassium 3.4 mmol/L (3.5-5.0)
--- NOTE | 2018-10-26 08:13 | PN ---
Subjective Date of Service: 10/26/18 Interval History: HD#4 on 10/26 68 yo M with a PMH of MS with indwelling brasher who presents with sepsis with suspected complicated UTI. Last UTI 07/2018 Overnight no acute events, broadened to Cefipime, VSS, afebrile, tolerating PO, Good UOP Seen at lunch time with at bedside, some anxiety pending not knowning the culutre data and frustrations with recurrent UTIs. Discussed case with Dr. Conner some concern for resistance. He otherwise is well with no pain no acute complaints aside from being in the hospital. Objective Active Medications: Acetaminophen (Tylenol Tab*) 650 mg PO Q4H PRN PRN Reason: FEVER/PAIN Last Admin: 10/26/18 06:08 Dose: 650 mg Amlodipine Besylate (Norvasc Tab*) 5 mg PO DAILY [facility] Last Admin: 10/25/18 09:35 Dose: 5 mg Ascorbic Acid (Vitamin C Tab*) 1,000 mg PO DAILY [facility] Last Admin: 10/25/18 08:16 Dose: 1,000 mg Baclofen (Lioresal Tab*) 40 mg PO 2200 [facility] Last Admin: 10/25/18 21:53 Dose: 40 mg Baclofen (Lioresal Tab*) 20 mg PO 0800,1400,2000 [facility] Last Admin: 10/26/18 06:47 Dose: 20 mg Cholecalciferol (Vitamin D Tab*) 1,000 units PO DAILY [facility] Last Admin: 10/25/18 08:16 Dose: 1,000 units Cyclobenzaprine HCl (Flexeril Tab*) 10 mg PO BEDTIME [facility] Last Admin: 10/25/18 21:26 Dose: 10 mg Diazepam (Valium Tab(*)) 5 mg PO Q6HR PRN PRN Reason: SPASMS Last Admin: 10/24/18 05:20 Dose: 5 mg Diazepam (Valium Tab(*)) 5 mg PO BEDTIME [facility] Last Admin: 10/25/18 19:59 Dose: 5 mg Escitalopram Oxalate (Lexapro (Nf)) 15 mg PO DAILY [facility] Last Admin: 10/25/18 08:16 Dose: 15 mg Heparin Sodium (Porcine) (Heparin Vial(*)) 5,000 units SUBCUT Q8HR [facility] Last Admin: 10/26/18 05:17 Dose: 5,000 units Hydralazine HCl (Apresoline Iv*) 5 mg IV SLOW PU Q6H PRN PRN Reason: SBP>180 Last Admin: 10/24/18 20:16 Dose: 5 mg Sodium Chloride (Ns 0.9% 1000 Ml*) 1,000 mls @ 100 mls/hr IV PER RATE [facility] Last Admin: 10/26/18 04:01 Dose: 100 mls/hr Cefepime HCl (Maxipime 1 Gm In Dextrose Duplex (*)) 1 gm in 50 mls @ 100 mls/ hr IV Q12H [facility] Last Admin: 10/26/18 00:17 Dose: 100 mls/hr Ibuprofen (Advil Tab*) 200 mg PO TID PRN PRN Reason: DISCOMFORT Last Admin: 10/25/18 11:29 Dose: 200 mg Mirabegron (Myrbetriq (Nf)) 75 mg PO BEDTIME [facility] Last Admin: 10/25/18 20:00 Dose: Not Given Multivitamins/Minerals (Theragran/Minerals Tab*) 1 tab PO DAILY [facility] Last Admin: 10/25/18 08:17 Dose: 1 tab Polyethylene Glycol/Electrolytes (Miralax*) 17 gm PO BEDTIME PRN PRN Reason: CONSTIPATION Last Admin: 10/24/18 19:59 Dose: 17 gm Sodium Biphosphate/Sodium Phosphate (Fleet Enema*) 1 bottle [place] BID PRN PRN Reason: CONSTIPATION Last Admin: 10/25/18 13:00 Dose: 1 bottle Vital Signs - 8 hr 10/26/18 10/26/18 01:14 03:47 Temperature 98.1 F Pulse Rate 55 Respiratory 16 15 Rate Blood Pressure 149/79 (mmHg) Oxygen Devices in Use Now: None Appearance: Pleasant man in NAD laying in bed Eyes: No Scleral Icterus Ears/Nose/Mouth/Throat: NL Teeth, Lips, Gums, Mucous Membranes Moist Neck: NL Appearance and Movements; NL JVP Respiratory: Symmetrical Chest Expansion and Respiratory Effort, Clear to Auscultation Cardiovascular: NL Sounds; No Murmurs; No JVD, RRR Abdominal: NL Sounds; No Tenderness; No Distention Lymphatic: No Cervical Adenopathy Extremities: No Edema Skin: No Rash or Ulcers Neurological: Alert and Oriented x 3 Lines/Tubes/Other Access: Clean, Dry and Intact Brasher Result Diagrams: 10/26/18 06:59 01/21/19 06:59 Microbiology and Other Data: .Pseudomonas, Jen pending Enterococcus, Jen pending Assess/Plan/Problems-Billing Assessment: Mr. Jay is a 68 yo M with a PMH of MS with indwelling brasher who presents with sepsis with suspected complicated UTI. Culture showing enterococcus and Pseudomonas. - Patient Problems (1) Complicated UTI (urinary tract infection) Current Visit: No Status: Acute Code(s): N39.0 - URINARY TRACT INFECTION, SITE NOT SPECIFIED SNOMED Code(s): 30149310 Comment: - Associated with chronic brasher - Broadend from Levaquin to Cefipime on 10/25 Culture with pseudomonas and enterococcus. Intermediate Jen for both to Levaquin, will consult Dalila formally. (2) Multiple sclerosis Current Visit: No Status: Chronic Code(s): G35 - MULTIPLE SCLEROSIS SNOMED Code(s): 54649210 Comment: - History of end stage relapsing-remitting MS - Continue outpt meds including zanaflex and baclofen at bedtime and Valuim PRN (3) Hypertension Current Visit: Yes Status: Acute Code(s): I10 - ESSENTIAL (PRIMARY) HYPERTENSION SNOMED Code(s): 68726607 Comment: -Stable today Amlodipine (4) Hyponatremia Current Visit: No Status: Acute Code(s): E87.1 - HYPO-OSMOLALITY AND HYPONATREMIA SNOMED Code(s): 40143897 Comment: - Resolving with IV fluids. Stop IVF, likely hypovol HypoNA (5) DVT prophylaxis Current Visit: No Status: Acute Code(s): GCW5025 - SNOMED Code(s): 463597369 Comment: - SQ Heparin Status and Disposition: Switch to inpatient. Return to [facility] when medically stable.
[2018-10-26] MEDS ORDERED: amLODIPine TAB* 5 MG PO SCH (09:00)
[2018-10-26] MEDS: amLODIPine TAB* 5 MG PO SCH (09:52)
[2018-10-26] MEDS: Cholecalciferol TAB* 1000 UNITS PO SCH (09:52)
[2018-10-26] MEDS: Ascorbic Acid TAB* 500 MG PO SCH (09:52)
[2018-10-26] MEDS: Multivitamins/Minerals TAB PO SCH (09:52)
[2018-10-26] MEDS: CMCS: Escitalopram (NF) 10 MG TAB PO SCH (09:53)
[2018-10-26] MEDS: Diazepam TAB(*) 5 MG PO SCH (20:07)
[2018-10-26] MEDS: Cyclobenzaprine TAB* 10 MG PO SCH (20:07)
[2018-10-26] MEDS: Polyethylene Glycol 3350* 17 GM PACKET PO PRN (20:39)
[2018-10-26] MEDS: NFT: Mirabegron (NF) 25 MG TAB PO SCH (22:56)
[2018-10-27] MEDS: Cefepime 1 GM in Dextrose(*) 1 GM/50 ML BAG IV SCH ×3 (00:12→23:23)
[2018-10-27] MEDS ORDERED: Baclofen TAB* 10 MG PO ONE (00:20)
[2018-10-27] MEDS: Heparin VIAL(*) 5000 UNITS/ML VIAL (FIVE THOUSAND) SUBCUT SCH ×3 (05:20→21:20)
[2018-10-27] MEDS: Diazepam TAB(*) 5 MG PO PRN (05:20)
[2018-10-27 06:22] LABS: ABS Basophils 0.1 10^3/ul (0-0.2); ABS Eosinophils 0.4 10^3/ul (0-0.6); ABS Monocytes 0.5 10^3/ul (0-0.8); ABS Neutrophils 2.6 10^3/ul (1.5-7.7); ABS Nucleated RBC 0 10^3/ul; Eosinophil % 7.4 %; Hematocrit 38 % (42-52); Hemoglobin 13.4 g/dl (14.0-18.0); Lymphocyte % 34.9 %; Mean Corpuscular HGB Conc 35 g/dl (31-36); Mean Corpuscular Hemoglobin 32 pg (27-31); Mean Corpuscular Volume 92 fL (80-94); Mean Platelet Volume 10.2 fL (7.4-10.4); Nucleated Red Blood Cells % 0.1; Platelet Count 182 10^3/ul (150-450); Red Cell Distribution Width 14 % (10.5-15); White Blood Count 5.6 10^3/ul (3.5-10.8)
[2018-10-27 06:43] LABS: BUN/Creatinine Ratio 14.3 (8-20); Calcium 8.6 mg/dL (8.6-10.3); EGFR African American 301.1 (>60); EGFR Non-African American 248.8 (>60); Potassium 3.3 mmol/L (3.5-5.0)
[2018-10-27] MEDS: Cholecalciferol TAB* 1000 UNITS PO SCH (08:35)
[2018-10-27] MEDS: amLODIPine TAB* 5 MG PO SCH (08:35)
[2018-10-27] MEDS: Multivitamins/Minerals TAB PO SCH (08:35)
[2018-10-27] MEDS: Baclofen TAB* 20 MG PO SCH ×4 (08:35→22:53)
[2018-10-27] MEDS: Ascorbic Acid TAB* 500 MG PO SCH (08:35)
[2018-10-27] MEDS: CMCS: Escitalopram (NF) 10 MG TAB PO SCH (08:36)
--- NOTE | 2018-10-27 10:07 | PN ---
Subjective Date of Service: 10/27/18 Interval History: HD#5 on 10/27 68 yo M with a PMH of MS with indwelling brasher who presents with sepsis with suspected complicated UTI. Last UTI 07/2018 Overnight no acute events, broadened to Cefipime on 10/25 22 to clinical non improvement, VSS mild HTN at 150/68, afebrile, tolerating PO, Good UOP Jen returned yesterday evening with I to Levoquin for enterococcus and pseudomonas Seen this morning, discussed possible change in plans and now pending ID input Discussed case with Dr. Conner some concern for resistance. He otherwise is well with no pain no acute complaints aside from being in the hospital. Objective Active Medications: Acetaminophen (Tylenol Tab*) 650 mg PO Q4H PRN PRN Reason: FEVER/PAIN Last Admin: 10/26/18 06:08 Dose: 650 mg Amlodipine Besylate (Norvasc Tab*) 5 mg PO DAILY [facility] Last Admin: 10/27/18 08:35 Dose: 5 mg Ascorbic Acid (Vitamin C Tab*) 1,000 mg PO DAILY [facility] Last Admin: 10/27/18 08:35 Dose: 1,000 mg Baclofen (Lioresal Tab*) 40 mg PO 2200 [facility] Last Admin: 10/26/18 22:40 Dose: 40 mg Baclofen (Lioresal Tab*) 20 mg PO 0800,1400,2000 [facility] Last Admin: 10/27/18 08:35 Dose: 20 mg Cholecalciferol (Vitamin D Tab*) 1,000 units PO DAILY [facility] Last Admin: 10/27/18 08:35 Dose: 1,000 units Cyclobenzaprine HCl (Flexeril Tab*) 10 mg PO BEDTIME [facility] Last Admin: 10/26/18 20:07 Dose: 10 mg Diazepam (Valium Tab(*)) 5 mg PO Q6HR PRN PRN Reason: SPASMS Last Admin: 10/27/18 05:20 Dose: 5 mg Diazepam (Valium Tab(*)) 5 mg PO BEDTIME [facility] Last Admin: 10/26/18 20:07 Dose: 5 mg Escitalopram Oxalate (Lexapro (Nf)) 15 mg PO DAILY [facility] Last Admin: 10/27/18 08:36 Dose: 15 mg Heparin Sodium (Porcine) (Heparin Vial(*)) 5,000 units SUBCUT Q8HR [facility] Last Admin: 10/27/18 05:20 Dose: 5,000 units Cefepime HCl (Maxipime 1 Gm In Dextrose Duplex (*)) 1 gm in 50 mls @ 100 mls/ hr IV Q12H [facility] Last Admin: 10/27/18 00:12 Dose: 100 mls/hr Ibuprofen (Advil Tab*) 200 mg PO TID PRN PRN Reason: DISCOMFORT Last Admin: 10/25/18 11:29 Dose: 200 mg Mirabegron (Myrbetriq (Nf)) 75 mg PO BEDTIME [facility] Last Admin: 10/26/18 22:56 Dose: Not Given Multivitamins/Minerals (Theragran/Minerals Tab*) 1 tab PO DAILY [facility] Last Admin: 10/27/18 08:35 Dose: 1 tab Polyethylene Glycol/Electrolytes (Miralax*) 17 gm PO BEDTIME PRN PRN Reason: CONSTIPATION Last Admin: 10/26/18 20:39 Dose: 17 gm Sodium Biphosphate/Sodium Phosphate (Fleet Enema*) 1 bottle [place] BID PRN PRN Reason: CONSTIPATION Last Admin: 10/25/18 13:00 Dose: 1 bottle Vital Signs - 8 hr 10/27/18 10/27/18 10/27/18 02:13 05:20 08:02 Temperature 97.9 F Pulse Rate 61 Respiratory 16 16 18 Rate Blood Pressure 150/68 (mmHg) O2 Sat by Pulse 95 Oximetry Oxygen Devices in Use Now: None Appearance: Pleasant man in NAD, sleeping in bed, rouses to voice Eyes: No Scleral Icterus, PERRLA Ears/Nose/Mouth/Throat: NL Teeth, Lips, Gums, Mucous Membranes Moist Neck: NL Appearance and Movements; NL JVP Respiratory: Symmetrical Chest Expansion and Respiratory Effort Cardiovascular: NL Sounds; No Murmurs; No JVD, RRR Abdominal: NL Sounds; No Tenderness; No Distention, No Hepatosplenomegaly Lymphatic: No Cervical Adenopathy Extremities: No Edema Skin: No Rash or Ulcers Neurological: Alert and Oriented x 3 Lines/Tubes/Other Access: Clean, Dry and Intact Brasher Result Diagrams: 10/27/18 05:11 10/27/18 05:07 Microbiology and Other Data: .Pseudomonas, Jen pending Enterococcus, Jen pending Assess/Plan/Problems-Billing Assessment: Mr. Jay is a 68 yo M with a PMH of MS with indwelling brasher who presents with sepsis with suspected complicated UTI. Culture showing enterococcus and Pseudomonas. - Patient Problems (1) Complicated UTI (urinary tract infection) Current Visit: No Status: Acute Code(s): N39.0 - URINARY TRACT INFECTION, SITE NOT SPECIFIED SNOMED Code(s): 12453673 Comment: - Associated with chronic brasher - Broadend from Levaquin to Cefipime on 10/25 Culture with pseudomonas and enterococcus. Intermediate Jen for both to Levaquin, will consult Dalila formally. (2) Multiple sclerosis Current Visit: No Status: Chronic Code(s): G35 - MULTIPLE SCLEROSIS SNOMED Code(s): 73921819 Comment: - History of end stage relapsing-remitting MS - Continue outpt meds including zanaflex and baclofen at bedtime and Valuim PRN (3) Hypertension Current Visit: Yes Status: Acute Code(s): I10 - ESSENTIAL (PRIMARY) HYPERTENSION SNOMED Code(s): 83985659 Comment: -Stable today Amlodipine, watch closely (4) Hyponatremia Current Visit: No Status: Acute Code(s): E87.1 - HYPO-OSMOLALITY AND HYPONATREMIA SNOMED Code(s): 42210211 Comment: - Resolving with IV fluids. Stop IVF, likely hypovol HypoNA (5) DVT prophylaxis Current Visit: No Status: Acute Code(s): VTA8158 - SNOMED Code(s): 107287200 Comment: - SQ Heparin Status and Disposition: Switch to inpatient. Return to [facility] when medically stable.
[2018-10-27] MEDS: Sodium Phosphate ADULT ENEMA* 118 ml bottle PR PRN (10:51)
[2018-10-27] MEDS: Potassium Chlor TAB* 20 MEQ TAB.ER PO SCH ×2 (10:51→21:12)
--- NOTE | 2018-10-27 19:48 | CONS ---
CONSULTATION REPORT: DATE OF CONSULT: 10/27/18 REQUESTING PHYSICIAN: Dr. Womack. CONSULTING SERVICE: Infectious Disease. REASON FOR CONSULT: Urinary tract infection. IMPRESSION: 1. Pseudomonas urinary tract infection, catheter-associated urinary tract infection. 2. Urinary retention, neurogenic bladder with chronic Reddy catheter. 3. Multiple sclerosis, quadriplegia and neurogenic bladder. 4. Recurrent urinary tract infection. RECOMMENDATIONS: Cefepime 1 g IV every 12 hours to complete 5 days followed by Levaquin 750 mg by mouth every 4 to 8 hours to complete 2 weeks. HISTORY OF PRESENT ILLNESS: This is a 68-year-old man with MS, recurrent urinary tract infection and Reddy catheter, which was changed about every 3 weeks. He has been on hippuric acid. He spent about 2-1/2 months from his last urinary tract infection. This weekend, he developed fever, malaise. He was sent to the emergency room. His white count was 13,000. Urinalysis showed blood and leukocyte esterase. The urine culture grew Pseudomonas and Enterococcus. His appetite has been good. He has been on cefepime here. He has been afebrile. Clear urine in the Reddy bag. PAST MEDICAL HISTORY: 1. Multiple sclerosis. 2. Neurogenic bladder with chronic Reddy catheter. 3. Recurrent urinary tract infection. ALLERGIES: DACLIZUMAB and ZENAPAX. MEDICATIONS: 1. Tylenol. 2. Amlodipine. 3. Vitamin C. 4. Baclofen. 5. Flexeril. 6. Cholecalciferol. 7. Diazepam. 8. Heparin subcutaneous injection. 9. Cefepime 1 g IV every 12 hours. SOCIAL HISTORY: Lives at [facility]. Nonsmoker. Retired care administrative tech. FAMILY HISTORY: No recurrent infections. REVIEW OF SYSTEMS: All negative except as noted above to a 14-point review of systems. PHYSICAL EXAM: Vital Signs: Temperature is 37, heart rate 70, respiratory rate 18, blood pressure 126/64, oxygen saturation 93% on room air. In general, he is awake, not in distress. Neurologic: He is oriented x3, follows all commands. HEENT: There is no conjunctival hemorrhage. Oropharynx without lesions. Neck: Neck is supple without mass. Heart is regular rate and rhythm without murmurs, rubs, or gallops. Lungs are clear to auscultation bilaterally. Abdomen: Soft, nontender, nondistended. There is no flank tenderness to palpation. Skin: There is no rash or splinter hemorrhage. Genitourinary: There is a Reddy catheter with clear urine. LABORATORY DATA: White blood cell count 5, hemoglobin 13, platelets 182. Creatinine is 0.3. Please see impressions and recommendations as outlined above, which I have discussed with Dr. Womack and the patient and his daughter. Thanks for asking me to see Mr. Jay in consultation. [id number]/[facility] #: [id number] [facility]ITAL[facility]
[2018-10-27] MEDS: NFT: Mirabegron (NF) 25 MG TAB PO SCH (20:50)
[2018-10-27] MEDS: Cyclobenzaprine TAB* 10 MG PO SCH (21:12)
[2018-10-27] MEDS: Diazepam TAB(*) 5 MG PO SCH (21:13)
[2018-10-27] MEDS: Polyethylene Glycol 3350* 17 GM PACKET PO PRN (23:19)
[2018-10-28 05:51] LABS: ABS Basophils 0.1 10^3/ul (0-0.2); ABS Eosinophils 0.6 10^3/ul (0-0.6); ABS Lymphocytes 2.3 10^3/ul (1.0-4.8); ABS Monocytes 0.5 10^3/ul (0-0.8); ABS Nucleated RBC 0 10^3/ul; Eosinophil % 11.5 %; Hematocrit 43 % (42-52); Hemoglobin 14.6 g/dl (14.0-18.0); Lymphocyte % 41.5 %; Mean Corpuscular HGB Conc 34 g/dl (31-36); Mean Corpuscular Hemoglobin 31 pg (27-31); Mean Corpuscular Volume 92 fL (80-94); Mean Platelet Volume 8.7 fL (7.4-10.4); Nucleated Red Blood Cells % 0; Platelet Count 196 10^3/ul (150-450); Red Blood Count 4.67 10^6/ul (4.00-5.40); Red Cell Distribution Width 14 % (10.5-15); White Blood Count 5.4 10^3/ul (3.5-10.8)
[2018-10-28] MEDS: Heparin VIAL(*) 5000 UNITS/ML VIAL (FIVE THOUSAND) SUBCUT SCH ×3 (05:53→21:04)
[2018-10-28 06:05] LABS: BUN/Creatinine Ratio 23.1 (8-20); Calcium 9.2 mg/dL (8.6-10.3); EGFR African American 265.7 (>60); EGFR Non-African American 219.6 (>60); Potassium 3.8 mmol/L (3.5-5.0)
--- NOTE | 2018-10-28 07:42 | PN ---
Subjective Date of Service: 10/28/18 Interval History: HD#6 on 10/28 68 yo M with a PMH of MS with indwelling brasher who presents with sepsis with suspected complicated UTI. Last UTI 07/2018 Overnight no acute events, broadened to Cefipime on 10/25 22 to clinical non improvement, VSS mild HTN at 150/68, afebrile, tolerating PO, good UOP, seen by ID, plan to do Cefipime until Friday and then d/c home on PO Levaquim Doing well without issues today. Seen sleeping in bed. Tolerating diet no acute complaints. Objective Active Medications: Acetaminophen (Tylenol Tab*) 650 mg PO Q4H PRN PRN Reason: FEVER/PAIN Last Admin: 10/26/18 06:08 Dose: 650 mg Amlodipine Besylate (Norvasc Tab*) 5 mg PO DAILY [facility] Last Admin: 10/27/18 08:35 Dose: 5 mg Ascorbic Acid (Vitamin C Tab*) 1,000 mg PO DAILY [facility] Last Admin: 10/27/18 08:35 Dose: 1,000 mg Baclofen (Lioresal Tab*) 40 mg PO 2200 [facility] Last Admin: 10/27/18 22:53 Dose: 40 mg Baclofen (Lioresal Tab*) 20 mg PO 0800,1400,2000 [facility] Last Admin: 10/27/18 19:53 Dose: 20 mg Cholecalciferol (Vitamin D Tab*) 1,000 units PO DAILY [facility] Last Admin: 10/27/18 08:35 Dose: 1,000 units Cyclobenzaprine HCl (Flexeril Tab*) 10 mg PO BEDTIME [facility] Last Admin: 10/27/18 21:12 Dose: 10 mg Diazepam (Valium Tab(*)) 5 mg PO Q6HR PRN PRN Reason: SPASMS Last Admin: 10/27/18 05:20 Dose: 5 mg Diazepam (Valium Tab(*)) 5 mg PO BEDTIME [facility] Last Admin: 10/27/18 21:13 Dose: 5 mg Escitalopram Oxalate (Lexapro (Nf)) 15 mg PO DAILY [facility] Last Admin: 10/27/18 08:36 Dose: 15 mg Heparin Sodium (Porcine) (Heparin Vial(*)) 5,000 units SUBCUT Q8HR [facility] Last Admin: 10/28/18 05:53 Dose: 5,000 units Cefepime HCl (Maxipime 1 Gm In Dextrose Duplex (*)) 1 gm in 50 mls @ 100 mls/ hr IV Q12H [facility] Last Admin: 10/27/18 23:23 Dose: 100 mls/hr Ibuprofen (Advil Tab*) 200 mg PO TID PRN PRN Reason: DISCOMFORT Last Admin: 10/25/18 11:29 Dose: 200 mg Mirabegron (Myrbetriq (Nf)) 75 mg PO BEDTIME [facility] Last Admin: 10/27/18 20:50 Dose: Not Given Multivitamins/Minerals (Theragran/Minerals Tab*) 1 tab PO DAILY [facility] Last Admin: 10/27/18 08:35 Dose: 1 tab Polyethylene Glycol/Electrolytes (Miralax*) 17 gm PO BEDTIME PRN PRN Reason: CONSTIPATION Last Admin: 10/27/18 23:19 Dose: 17 gm Potassium Chloride (Klor Con Er Tab*) 20 meq PO BID [facility] Last Admin: 10/27/18 21:12 Dose: 20 meq Sodium Biphosphate/Sodium Phosphate (Fleet Enema*) 1 bottle HI BID PRN PRN Reason: CONSTIPATION Last Admin: 10/27/18 10:51 Dose: 1 bottle Vital Signs - 8 hr 10/28/18 03:44 Temperature 97.4 F Pulse Rate 84 Respiratory 16 Rate Blood Pressure 141/61 (mmHg) O2 Sat by Pulse 95 Oximetry Oxygen Devices in Use Now: None Appearance: Pleasant man in NAD Ears/Nose/Mouth/Throat: NL Teeth, Lips, Gums, Mucous Membranes Moist Neck: NL Appearance and Movements; NL JVP, Trachea Midline Respiratory: Symmetrical Chest Expansion and Respiratory Effort, Clear to Auscultation Cardiovascular: NL Sounds; No Murmurs; No JVD, RRR Abdominal: NL Sounds; No Tenderness; No Distention Lymphatic: No Cervical Adenopathy Extremities: No Edema Skin: No Rash or Ulcers Neurological: Alert and Oriented x 3 Result Diagrams: 10/28/18 05:16 10/28/18 05:16 Microbiology and Other Data: .Pseudomonas, Jen I to Levaquin Enterococcus, Jen I to Levaquin Assess/Plan/Problems-Billing Assessment: Mr. Jay is a 68 yo M with a PMH of MS with indwelling brasher who presents with sepsis with suspected complicated UTI. Culture showing enterococcus and Pseudomonas. - Patient Problems (1) Complicated UTI (urinary tract infection) Current Visit: No Status: Acute Code(s): N39.0 - URINARY TRACT INFECTION, SITE NOT SPECIFIED SNOMED Code(s): 95218456 Comment: - Associated with chronic brasher - Broadend from Levaquin to Cefipime on 10/25, goal of 5 days on Cefipime, to finish 10/30 and d/c on Levaquin. Culture with pseudomonas and enterococcus. Intermediate Jen for both to Levaquin (2) Multiple sclerosis Current Visit: No Status: Chronic Code(s): G35 - MULTIPLE SCLEROSIS SNOMED Code(s): 23426699 Comment: - History of end stage relapsing-remitting MS - Continue outpt meds including zanaflex and baclofen at bedtime and Valuim PRN (3) Hypertension Current Visit: Yes Status: Acute Code(s): I10 - ESSENTIAL (PRIMARY) HYPERTENSION SNOMED Code(s): 71436633 Comment: -Stable today Amlodipine, watch closely (4) Hyponatremia Current Visit: No Status: Acute Code(s): E87.1 - HYPO-OSMOLALITY AND HYPONATREMIA SNOMED Code(s): 24558095 Comment: - Resolving with IV fluids. Stop IVF, likely hypovol HypoNA (5) DVT prophylaxis Current Visit: No Status: Acute Code(s): KZC6608 - SNOMED Code(s): 054378951 Comment: - SQ Heparin Status and Disposition: Switch to inpatient. Return to [facility] 10/30/18
[2018-10-28] MEDS: Cholecalciferol TAB* 1000 UNITS PO SCH (08:35)
[2018-10-28] MEDS: Multivitamins/Minerals TAB PO SCH (08:35)
[2018-10-28] MEDS: Potassium Chlor TAB* 20 MEQ TAB.ER PO SCH ×2 (08:35→21:04)
[2018-10-28] MEDS: amLODIPine TAB* 5 MG PO SCH (08:35)
[2018-10-28] MEDS: Baclofen TAB* 20 MG PO SCH ×4 (08:36→22:16)
[2018-10-28] MEDS: Ascorbic Acid TAB* 500 MG PO SCH (08:36)
[2018-10-28] MEDS: CMCS: Escitalopram (NF) 10 MG TAB PO SCH (08:37)
[2018-10-28] MEDS: Cefepime 1 GM in Dextrose(*) 1 GM/50 ML BAG IV SCH ×2 (12:44→23:18)
[2018-10-28] MEDS: Sodium Phosphate ADULT ENEMA* 118 ml bottle PR PRN (12:45)
[2018-10-28] MEDS: Cyclobenzaprine TAB* 10 MG PO SCH (21:03)
[2018-10-28] MEDS: NFT: Mirabegron (NF) 25 MG TAB PO SCH (21:03)
[2018-10-28] MEDS: Diazepam TAB(*) 5 MG PO SCH (21:04)
[2018-10-29] MEDS: Heparin VIAL(*) 5000 UNITS/ML VIAL (FIVE THOUSAND) SUBCUT SCH ×3 (05:36→22:25)
[2018-10-29] MEDS: Potassium Chlor TAB* 20 MEQ TAB.ER PO SCH ×2 (08:47→20:32)
[2018-10-29] MEDS: Ascorbic Acid TAB* 500 MG PO SCH (08:47)
[2018-10-29] MEDS: Cholecalciferol TAB* 1000 UNITS PO SCH (08:47)
[2018-10-29] MEDS: CMCS: Escitalopram (NF) 10 MG TAB PO SCH (08:47)
[2018-10-29] MEDS: amLODIPine TAB* 5 MG PO SCH (08:47)
[2018-10-29] MEDS: Baclofen TAB* 20 MG PO SCH ×4 (08:47→22:18)
[2018-10-29] MEDS: Multivitamins/Minerals TAB PO SCH (08:49)
[2018-10-29] MEDS: Cefepime 1 GM in Dextrose(*) 1 GM/50 ML BAG IV SCH ×2 (12:43→23:24)
--- NOTE | 2018-10-29 14:02 | PN ---
Subjective Date of Service: 10/29/18 Interval History: Pt is feeling well. I was notified by nursing that the patient was c/o cough with thick sputum production. I ordered a CXR to evaluate for infiltrate but he now states he will have episodes like this at [place] and brings up mucous from time to time. Objective Active Medications: Acetaminophen (Tylenol Tab*) 650 mg PO Q4H PRN PRN Reason: FEVER/PAIN Last Admin: 10/26/18 06:08 Dose: 650 mg Amlodipine Besylate (Norvasc Tab*) 5 mg PO DAILY [facility] Last Admin: 10/29/18 08:47 Dose: 5 mg Ascorbic Acid (Vitamin C Tab*) 1,000 mg PO DAILY [facility] Last Admin: 10/29/18 08:47 Dose: 1,000 mg Baclofen (Lioresal Tab*) 40 mg PO 2200 [facility] Last Admin: 10/28/18 22:16 Dose: 40 mg Baclofen (Lioresal Tab*) 20 mg PO 0800,1400,2000 [facility] Last Admin: 10/29/18 08:47 Dose: 20 mg Cholecalciferol (Vitamin D Tab*) 1,000 units PO DAILY [facility] Last Admin: 10/29/18 08:47 Dose: 1,000 units Cyclobenzaprine HCl (Flexeril Tab*) 10 mg PO BEDTIME [facility] Last Admin: 10/28/18 21:03 Dose: 10 mg Diazepam (Valium Tab(*)) 5 mg PO Q6HR PRN PRN Reason: SPASMS Last Admin: 10/27/18 05:20 Dose: 5 mg Diazepam (Valium Tab(*)) 5 mg PO BEDTIME [facility] Last Admin: 10/28/18 21:04 Dose: 5 mg Escitalopram Oxalate (Lexapro (Nf)) 15 mg PO DAILY [facility] Last Admin: 10/29/18 08:47 Dose: 15 mg Heparin Sodium (Porcine) (Heparin Vial(*)) 5,000 units SUBCUT Q8HR [facility] Last Admin: 10/29/18 05:36 Dose: 5,000 units Cefepime HCl (Maxipime 1 Gm In Dextrose Duplex (*)) 1 gm in 50 mls @ 100 mls/ hr IV Q12H [facility] Last Admin: 10/29/18 12:43 Dose: 100 mls/hr Ibuprofen (Advil Tab*) 200 mg PO TID PRN PRN Reason: DISCOMFORT Last Admin: 10/25/18 11:29 Dose: 200 mg Mirabegron (Myrbetriq (Nf)) 75 mg PO BEDTIME [facility] Last Admin: 10/28/18 21:03 Dose: Not Given Multivitamins/Minerals (Theragran/Minerals Tab*) 1 tab PO DAILY [facility] Last Admin: 10/29/18 08:49 Dose: 1 tab Polyethylene Glycol/Electrolytes (Miralax*) 17 gm PO BEDTIME PRN PRN Reason: CONSTIPATION Last Admin: 10/27/18 23:19 Dose: 17 gm Potassium Chloride (Klor Con Er Tab*) 20 meq PO BID [facility] Last Admin: 10/29/18 08:47 Dose: 20 meq Sodium Biphosphate/Sodium Phosphate (Fleet Enema*) 1 bottle PA BID PRN PRN Reason: CONSTIPATION Last Admin: 10/28/18 12:45 Dose: 1 bottle Vital Signs - 8 hr 10/29/18 10/29/18 07:25 08:00 Temperature 98.5 F Pulse Rate 76 Respiratory 16 16 Rate Blood Pressure 148/77 (mmHg) O2 Sat by Pulse 97 97 Oximetry Oxygen Devices in Use Now: None Appearance: Middle aged male who appears younger than his stated age sitting up in bed, NAD Eyes: No Scleral Icterus Ears/Nose/Mouth/Throat: Mucous Membranes Moist Respiratory: Symmetrical Chest Expansion and Respiratory Effort, Clear to Auscultation - diminshed throughout but clear Cardiovascular: NL Sounds; No Murmurs; No JVD, RRR, No Edema Abdominal: NL Sounds; No Tenderness; No Distention Extremities: No Clubbing, Cyanosis, - - spastic extremities Skin: No Nodules or Sclerosis Neurological: Alert and Oriented x 3 Result Diagrams: 10/28/18 05:16 10/28/18 05:16 Microbiology and Other Data: .Pseudomonas, Jen I to Levaquin Enterococcus, Jen I to Levaquin Assess/Plan/Problems-Billing Mr. 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 - Patient Problems (1) Sepsis Current Visit: Yes Status: Acute Comment: Present on admission secondary to catheter associated UTI. Sepsis has now resolved. (2) Complicated UTI (urinary tract infection) Current Visit: Yes Status: Acute Code(s): N39.0 - URINARY TRACT INFECTION, SITE NOT SPECIFIED SNOMED Code(s): 17415740 Comment: Pt with catheter associated UTI (present on admission). Continue cefepime through tomorrow AM then change to levaquin 750mg po q48hr x [address] Clark. (3) Hypertension Current Visit: Yes Status: Acute Code(s): I10 - ESSENTIAL (PRIMARY) HYPERTENSION SNOMED Code(s): 85409929 Comment: BP is generally under ok control, at times high but most of the time in the 130-140's. Continue amlodipine 5mg daily. (4) Stage II pressure ulcer Current Visit: No Status: Acute Code(s): L89.92 - PRESSURE ULCER OF UNSPECIFIED SITE, STAGE 2 SNOMED Code(s): 354183394 Comment: Pt with stage II pressure ulcer on the buttocks. It is healing per nursing. Continue pressure relieving measures. (5) Indwelling Brasher catheter present Current Visit: Yes Status: Chronic Code(s): Z96.0 - PRESENCE OF UROGENITAL IMPLANTS SNOMED Code(s): 693774448 Comment: Catheter just changed 2 weeks ago prior to this admission. Will have catheter changed prior to discharge. (6) Multiple sclerosis Current Visit: Yes Status: Chronic Code(s): G35 - MULTIPLE SCLEROSIS SNOMED Code(s): 83124665 Comment: Pt with advanced secondary progressive MS. Continue valium, baclofen and tizanidine. (7) DVT prophylaxis Current Visit: Yes Status: Acute Code(s): JJN5796 - SNOMED Code(s): 690101308 Comment: SQ Heparin (8) DNR (do not resuscitate) Current Visit: Yes Status: Acute Status and Disposition: Switch to inpatient. Return to [facility] 10/30/18
[2018-10-29] MEDS: Cyclobenzaprine TAB* 10 MG PO SCH (20:32)
[2018-10-29] MEDS: NFT: Mirabegron (NF) 25 MG TAB PO SCH (20:33)
[2018-10-29] MEDS: Diazepam TAB(*) 5 MG PO SCH (20:33)
[2018-10-29 21:42] LABS: BUN/Creatinine Ratio 24.5 (8-20); EGFR African American 186.5 (>60); EGFR Non-African American 154.1 (>60); Potassium 4.1 mmol/L (3.5-5.0)
[2018-10-30] MEDS: Diazepam TAB(*) 5 MG PO PRN (04:06)
[2018-10-30] MEDS: Heparin VIAL(*) 5000 UNITS/ML VIAL (FIVE THOUSAND) SUBCUT SCH ×2 (05:35→15:07)
[2018-10-30] MEDS: Ibuprofen TAB* 200 MG PO PRN (06:32)
[2018-10-30 09:21] VITALS: BP 146/76
[2018-10-30] MEDS: CMCS: Escitalopram (NF) 10 MG TAB PO SCH (09:26)
[2018-10-30] MEDS: amLODIPine TAB* 5 MG PO SCH (09:27)
[2018-10-30] MEDS: Multivitamins/Minerals TAB PO SCH (09:28)
[2018-10-30] MEDS: Cholecalciferol TAB* 1000 UNITS PO SCH (09:28)
[2018-10-30] MEDS: Potassium Chlor TAB* 20 MEQ TAB.ER PO SCH (09:28)
[2018-10-30] MEDS: Ascorbic Acid TAB* 500 MG PO SCH (09:28)
[2018-10-30] MEDS: Baclofen TAB* 20 MG PO SCH ×2 (09:28→15:04)
[2018-10-30] MEDS: Cefepime 1 GM in Dextrose(*) 1 GM/50 ML BAG IV SCH (12:30)
--- NOTE | 2018-10-30 23:59 | DS ---
CC: Dr. Garza * DISCHARGE SUMMARY: DATE OF ADMISSION: 10/24/18 DATE OF DISCHARGE: 10/30/18 PRIMARY CARE PROVIDER: Dr. Garza. PRINCIPAL DIAGNOSIS: Sepsis secondary to catheter-associated pseudomonas urinary tract infection. SECONDARY DIAGNOSES: 1. Multiple sclerosis. 2. Recurrent urinary tract infection. DISCHARGE MEDICATIONS: 1. Baclofen 40 mg at 10 p.m. and 20 mg p.o. q.6 hours. 2. Ascorbic acid 1000 mg p.o. daily. 3. Tylenol 650 mg p.o. q.4 hours p.r.n. pain. 4. Diazepam 5 to 10 mg p.o. q.6 hours p.r.n. spasm. 5. Cystex cranberry liquid 15 mL p.o. b.i.d. 6. Vitamin D 1000 units p.o. daily. 7. Ibuprofen 200 mg p.o. t.i.d. p.r.n. pain. 8. Lexapro 15 mg p.o. daily. 9. Diazepam 5 mg p.o. at bedtime. 10. Multivitamin 1 tab p.o. daily. 11. Myrbetriq 75 mg p.o. q.h.s. 12. Hiprex 1 g p.o. b.i.d. 13. Fleet Enema 1 bottle p.r. b.i.d. p.r.n. constipation. 14. MiraLAX 17 g p.o. q.h.s. p.r.n. constipation. 15. Tizanidine 6 mg p.o. q.h.s. 16. Amlodipine 5 mg p.o. daily (new). 17. Lactobacillus 1 cap p.o. b.i.d. while on antibiotics. 18. Levofloxacin 750 mg p.o. every other day x12 doses. HOSPITAL COURSE: Mr. Jay is a 68-year-old male, who has a history of secondary progressive multiple sclerosis, on symptom management treatment, who presented to the emergency room with concerns for fever. The patient was found to be septic on admission secondary to a catheter-associated UTI. The patient' s urine ultimately grew Pseudomonas aeruginosa and Enterococcus faecalis. The patient was treated with cefepime x5 days. He was seen in consultation by Dr. Clark, who recommended then continuing on levofloxacin 750 mg p.o. q.48 hours for the next 3 weeks (of note, this was by verbal report from Dr. Clark as his consultation recommended 2 weeks). The patient's vital signs improved. He had no fevers during this hospitalization. His white blood cell count normalized. Ultimately, it was thought that the patient was stable for discharge back to [facility] on 10/30/18. On day of discharge, the patient is awake, he is alert, seemed sitting in a shower chair, as he just was showered by the aides, getting ready to be placed back in bed. His cardiac exam revealed a normal S1 and S2 with a regular rate and rhythm. His lungs were clear. His abdomen was soft, nontender, and nondistended. He had contractures and increased tone in the upper extremities. He was awake, alert, and oriented. His vital signs were stable and he was afebrile. FOLLOWUP CONCERNS: The patient is being discharged back to [facility] today, 10/30. Activity level is as tolerated. Diet is regular. CONDITION ON DISCHARGE: Stable. TIME SPENT: Thirty-five minutes was spent discharging this patient. [id number]/[facility] #: [id number] [facility]
== END 2018-10-30 15:45 | disposition home or self-care (01) | DRG 698 ==
LOC: ED 22:05 → MED 10-24 03:58 → OBSVTOIN 10-25 16:03
PROVIDERS: ADMIT Internal Medicine; ATTEND Hospitalist
DX: T83.511A Infection and inflammatory reaction due to indwelling urethral catheter, initial encounter (principal); A41.9 Sepsis, unspecified organism; G82.50 Quadriplegia, unspecified; E87.1 Hypo-osmolality and hyponatremia; L89.322 Pressure ulcer of left buttock, stage 2; G35 Multiple sclerosis; N31.9 Neuromuscular dysfunction of bladder, unspecified; N39.0 Urinary tract infection, site not specified; E86.0 Dehydration; Z66 Do not resuscitate; B95.2 Enterococcus as the cause of diseases classified elsewhere; F32.9 Major depressive disorder, single episode, unspecified; B96.5 Pseudomonas (aeruginosa) (mallei) (pseudomallei) as the cause of diseases classified elsewhere; R33.8 Other retention of urine; Z87.440 Personal history of urinary (tract) infections; Z99.3 Dependence on wheelchair; Z79.1 Long term (current) use of non-steroidal anti-inflammatories (NSAID); Z79.899 Other long term (current) drug therapy; Z88.8 Allergy status to other drugs, medicaments and biological substances; Z80.0 Family history of malignant neoplasm of digestive organs; Z82.69 Family history of other diseases of the musculoskeletal system and connective tissue; X58.XXXA Exposure to other specified factors, initial encounter
CPT/HCPCS: 36415; 76770; 80048; 80053; 81003; 81015; 83605; 83735; 85025; 85610; 85730; 86140; 87040; 87077; 87086; 87186; 93005; 99285; A9270-GY; G0378; G8978-GP-CN; G8979-GP-CN; J0360; J0692; J1644

== ENCOUNTER 2019-12-11 14:26 | Inpatient (IN) | payer MEDICARE ==
[2019-12-11] MEDS ORDERED: NS 0.9% 1000 ML** 1,000 ML IV ONE (14:56)
--- NOTE | 2019-12-11 14:56 | ED ---
HPI Febrile Illness - HPI Summary HPI Summary: 69 year old M with hx UTI and hx MS arriving via private car to [facility] accompanied by complains of fever, dark urine, nausea since Thursday 12/07 afternoon. He states he used to get UTIs every few months but his last UTI was 1 year ago. Patient lives at [facility]. He had an appointment with Dr. Garza and had urinalysis done. The results came back today and he was referred to ED for IV antibiotics. Patient denies abdominal pain and vomiting. Symptoms aggravated by nothing. Symptoms alleviated by nothing. Patient has a suprapubic brasher catheter which he gets changed every 3 weeks. He last had it changed Sun 12/04. Medications reviewed. Allergies noted. Home Medications Medication Instructions Recorded Confirmed Type Ascorbic Acid TAB* [Vitamin C 1,000 mg PO DAILY 01/08/18 01/10/19 History TAB*] Acetaminophen TAB* [Tylenol TAB*] 650 mg PO Q4H PRN tab 01/19/18 01/10/19 Rx Baclofen TAB* [Lioresal TAB*] 20 mg PO Q6HR 06/17/18 01/10/19 History Baclofen TAB* [Lioresal TAB*] 40 mg PO 2200 06/17/18 01/10/19 History Cholecalciferol TAB* [Vitamin D 1,000 unit PO DAILY 06/17/18 01/10/19 History TAB*] Diazepam TAB(*) [Valium TAB(*)] 5 - 10 mg PO Q6HR PRN 06/17/18 01/10/19 History Diazepam TAB(*) [Valium TAB(*)] 5 mg PO BEDTIME 06/17/18 01/10/19 History Escitalopram * [Lexapro 10 mg (NF)] 15 mg PO DAILY 06/17/18 01/10/19 History Ibuprofen TAB* [Advil TAB*] 200 mg PO TID PRN 06/17/18 01/10/19 History Multivitamins/Minerals TAB* 1 tab PO DAILY 06/17/18 01/10/19 History [Theragran/minerals TAB*] Polyethylene Glycol 3350* [Miralax 17 gm PO BEDTIME 06/17/18 01/10/19 History (17 GM DOSE KEYA)] Sodium Phosphate ADULT ENEMA* 1 bottle [place] BID PRN 06/17/18 01/10/19 History [Fleet Enema*] tiZANidine TAB* [Zanaflex TAB*] 6 mg PO BEDTIME 06/17/18 01/10/19 History Methenamine Hippurate TAB* [Hiprex 1 gm PO BID #60 tab 06/22/18 01/10/19 Rx TAB*] Lactobacillus Acidophilus* 1 cap PO BID #60 cap 10/30/18 01/10/19 Rx amLODIPine TAB* [Norvasc 5 mg TAB*] 5 mg PO DAILY #30 tab 01/13/19 Rx - History of Current Complaint Chief Complaint: EDFever Time Seen by Provider: 12/11/19 14:43 Hx Obtained From: Patient Onset/Duration: Started Days Ago - 3, Still Present Timing: Constant Current Severity: None Pain Intensity: 0 Pain Scale Used: 0-10 Numeric Aggravating Factors: Nothing Alleviating Factors: Nothing Associated Signs and Symptoms: Negative - abdominal pain, vomiting - Additional Pertinent History Primary Care Physician: LAKEISHA - Allergy/Home Medications Allergies/Adverse Reactions: Allergies Allergy/AdvReac Type Severity Reaction Status Date / Time daclizumab Allergy Unknown Verified 10/23/18 22:41 Reaction Details Home Medications: Home Medications Ascorbic Acid TAB* [Vitamin C TAB*] 1,000 mg PO DAILY 01/08/18 [History Confirmed 01/10/19] Acetaminophen TAB* [Tylenol TAB*] 650 mg PO Q4H PRN tab 01/19/18 [Rx Confirmed 01/10/19] Baclofen TAB* [Lioresal TAB*] 20 mg PO Q6HR 06/17/18 [History Confirmed ] Baclofen TAB* [Lioresal TAB*] 40 mg PO 2200 06/17/18 [History Confirmed ] Cholecalciferol TAB* [Vitamin D TAB*] 1,000 unit PO DAILY 06/17/18 [History Confirmed 01/10/19] Diazepam TAB(*) [Valium TAB(*)] 5 - 10 mg PO Q6HR PRN 06/17/18 [History Confirmed 01/10/19] Diazepam TAB(*) [Valium TAB(*)] 5 mg PO BEDTIME 06/17/18 [History Confirmed 04/23] Escitalopram * [Lexapro 10 mg (NF)] 15 mg PO DAILY 06/17/18 [History Confirmed 01/10/19] Ibuprofen TAB* [Advil TAB*] 200 mg PO TID PRN 06/17/18 [History Confirmed ] Multivitamins/Minerals TAB* [Theragran/minerals TAB*] 1 tab PO DAILY 06/17/18 [ History Confirmed 01/10/19] Polyethylene Glycol 3350* [Miralax (17 GM DOSE KEYA)] 17 gm PO BEDTIME 06/17/18 [ History Confirmed 01/10/19] Sodium Phosphate ADULT ENEMA* [Fleet Enema*] 1 bottle [place] BID PRN 06/17/18 [ History Confirmed 01/10/19] tiZANidine TAB* [Zanaflex TAB*] 6 mg PO BEDTIME 06/17/18 [History Confirmed 04/23] Methenamine Hippurate TAB* [Hiprex TAB*] 1 gm PO BID #60 tab 06/22/18 [Rx Confirmed 01/10/19] Lactobacillus Acidophilus* 1 cap PO BID #60 cap 10/30/18 [Rx Confirmed 01/10/19] amLODIPine TAB* [Norvasc 5 mg TAB*] 5 mg PO DAILY #30 tab 01/13/19 [Rx] PMH/Surg Hx/FS Hx/Imm Hx Endocrine/Hematology History: Denies: Hx Anticoagulant Therapy, Hx Blood Disorders, Hx Blood Transfusions, Hx Bone Marrow Disease, Hx Diabetes, Hx Systemic Lupus Erythematosus, Hx Sickle Cell Disease, Hx Thyroid Disease, Hx Anemia, Hx Unexplained Bleeding Cardiovascular History: Reports: Hx Hypertension Denies: Hx Aneurysm, Hx Angina, Hx Angioplasty, Hx Auto Implanted Cardiovert Defib, Hx Cardiac Arrest, Hx Cardiomegaly, Hx Congenital Heart Disease, Hx Congestive Heart Failure, Hx Coronary Artery Disease, Hx Deep Vein Thrombosis, Hx Hypercholesterolemia, Hx Hypotension, Hx Pacemaker/ICD, Hx Peripheral Vascular Disease, Hx Rheumatic Fever, Hx Syncope, Hx Valvular Heart Disease, Other Cardiovascular Problems/Disorders Respiratory History: Reports: Hx Seasonal Allergies Denies: Hx Asthma, Hx Chronic Bronchitis, Hx Chronic Obstructive Pulmonary Disease (COPD), Hx Cystic Fibrosis, Hx Lung Cancer, Hx Pleural Effusion, Hx Pneumonia, Hx Pulmonary Edema, Hx Pulmonary Embolism, Hx Sleep Apnea GI History: Reports: Hx Diverticulosis Denies: Hx Cirrhosis, Hx Crohn's Disease, Hx Gall Bladder Disease, Hx Gastroesophageal Reflux Disease, Hx Gastrointestinal Bleed, Hx Hiatal Hernia, Hx Irritable Bowel, Hx Jaundice, Hx Obstructive Bowel, Hx Ileostomy, Hx Pyloric Stenosis, Hx Ulcer History: Reports: Hx Benign Prostatic Hyperplasia, Other Problems/ Disorders - urinary retention, septic UTI Denies: Hx Acute Renal Failure, Hx Chronic Renal Failure, Hx Dialysis, Hx Kidney Infection, Hx Kidney Stones, Hx Renal Disease Musculoskeletal History: Reports: Hx Tendonitis, Other Musculoskeletal History - MS Denies: Hx Arthritis, Hx Back Problems, Hx Bursitis, Hx Congenital Bone Abnormalities, Hx Fibromyalgia, Hx Gout, Hx Orthopedic Injury, Hx Osteoporosis, Hx Scoliosis Sensory History: Reports: Hx Contacts or Glasses Denies: Hx Cataracts, Hx Eye Injury, Hx Eye Prosthesis, Hx Glaucoma, Hx Vision Problem, Hx Deafness, Hx Hearing Aid, Hx Hearing Problem, Other Sensory Impairments Opthamlomology History: Reports: Hx Contacts or Glasses Denies: Hx Cataracts, Hx Eye Injury, Hx Eye Prosthesis, Hx Glaucoma, Hx Vision Problem, Other Sensory Impairments Neurological History: Reports: Other Neuro Impairments/Disorders - MS Denies: Hx Dementia, Hx Developmental Delay, Hx Headaches, Hx Migraine, Hx Nerve Disease, Hx Seizures, Hx Spinal Cord Injury, Hx Transient Ischemic Attacks (TIA) Psychiatric History: Reports: Hx Depression Denies: Hx Anxiety, Hx Attention Deficit Hyperactivity Disorder, Hx Eating Disorder, Hx Panic Disorder, Hx Post Traumatic Stress Disorder, Hx Inpatient Treatment, Hx Community Mental Health Tx, Hx Schizophrenia, Hx Bipolar Disorder , Hx Suicide Attempt, Hx of Violent Episodes Against Others, Hx Substance Abuse , Other Psychiatric Issues/Disorders - Surgical History Surgery Procedure, Year, and Place: October 12, 2012 Anterior cervical dissection with fusion,removal of c3+c4 Hx Anesthesia Reactions: No Infectious Disease History: No Infectious Disease History: Denies: Hx Clostridium Difficile, Hx Hepatitis, Hx Human Immunodeficiency Virus (HIV), Hx of Known/Suspected MRSA, Hx Shingles, Hx Tuberculosis, Hx Known/ Suspected VRE, Hx Known/Suspected VRSA, History Other Infectious Disease, Traveled Outside the [place] in Last 30 Days - Family History Known Family History: Positive: Other - Colon cancer - Social History Alcohol Use: Daily Alcohol Amount: 1 drink Hx Substance Use: No Substance Use Type: Reports: None Hx Tobacco Use: No Smoking Status (MU): Never Smoked Tobacco Have You Smoked in the Last Year: No Review of Systems Positive: Fever Positive: Nausea. Negative: Abdominal Pain, Vomiting Positive: other - dark urine All Other Systems Reviewed And Are Negative: Yes Physical Exam - Summary Physical Exam Summary: Constitutional: Well-developed, Well-nourished, Alert. (-) Distressed Skin: Warm, Dry HENT: Normocephalic; Atraumatic Eyes: Conjunctiva normal Neck: Musculoskeletal ROM normal neck. (-) JVD, (-) Stridor, (-) Tracheal deviation Cardio: Rhythm regular, rate normal, Heart sounds normal; Intact distal pulses; The pedal pulses are 2+ and symmetric. Radial pulses are 2+ and symmetric. (-) Murmur Pulmonary/Chest wall: Effort normal. (-) Respiratory distress, (-) Wheezes, (-) Rales Abd: Soft, (-) tenderness, (-) Distension, (-) Guarding, (-) Rebound Musculoskeletal: (-) Edema Lymph: (-) Cervical adenopathy Neuro: Alert, Oriented x3. Baseline (hx MS). Psych: Mood and affect Normal Triage Information Reviewed: Yes Vital Signs On Initial Exam: Initial Vitals Temp Pulse Resp BP Pulse Ox 97.8 F 64 18 120/70 94 12/11/19 14:28 12/11/19 14:28 12/11/19 14:28 12/11/19 14:28 12/11/19 14:28 Vital Signs Reviewed: Yes Procedures - Sedation Patient Received Moderate/Deep Sedation with Procedure: No Diagnostics - Vital Signs Vital Signs Temp Pulse Resp BP Pulse Ox 12/11/19 14:28 97.8 F 64 18 120/70 94 - Laboratory Result Diagrams: 12/11/19 15:12 12/11/19 15:12 Lab Statement: Any lab studies that have been ordered have been reviewed, and results considered in the medical decision making process. Course/Dx - Course Course Of Treatment: 69 y/o M with hx UTI and hx MS c/o fever, dark urine, nausea since Thursday 12/07 afternoon. He had UA done with his primary care provider. The results came back today and he was referred to ED for IV antibiotics. Patient has a suprapubic brasher catheter. Bloodwork results with no significant abnormalities except for sodium 128, chlroide 94, creatinine 0.50 , CRP 230.67. In the ED course, the patient was given normal saline fluids. He was started on cefepime. Spoke with Dr. Gaspar. She agrees to admit patient. - Diagnoses Provider Diagnoses: Catheter-associated urinary tract infection - Provider Notifications Discussed Care Of Patient With: Beba Gaspar Time Discussed With Above Provider: 15:05 Instructed by Provider To: Admit As Inpatient Discharge ED - Sign-Out/Discharge Documenting (check all that apply): Patient Departure - Discharge Plan Condition: Stable Disposition: ADMITTED TO [facility] Referrals: Karissa Garza MD [Primary Care Provider] - - Billing Disposition and Condition Condition: STABLE Disposition: Admitted to [facility] - Attestation Statements Document Initiated by Keysha: Yes Documenting Scribe: Rukhsana Nguyen Provider For Whom Keysha is Documenting (Include Credential): Toni Morfin DO Scribangelique Attestation: Rukhsana Hanson scribed for Toni Morfin DO on 12/11/19 at 1738. Scribe Documentation Reviewed: Yes Provider Attestation: The documentation as recorded by the Rukhsana morin accurately reflects the service I personally performed and the decisions made by Toni ibarra DO Status of [place] Document: Viewed
[2019-12-11] MEDS ORDERED: Cefepime(*) 1 GM in NS 0.9% 50 ML* 50 ML IVPB ONE (14:57)
[2019-12-11 15:17] LABS: ABS Eosinophils 0.1 10^3/ul (0-0.6); ABS Lymphocytes 1.5 10^3/ul (1.0-4.8); ABS Monocytes 1.1 10^3/ul (0-0.8); ABS Neutrophils 7.2 10^3/ul (1.5-7.7); Eosinophil % 1.3 %; Hematocrit 42 % (42-52); Hemoglobin 14.7 g/dL (14.0-18.0); Lymphocyte % 15.1 %; Mean Corpuscular HGB Conc 35 g/dL (31-36); Mean Corpuscular Hemoglobin 32 pg (27-31); Mean Corpuscular Volume 92 fL (80-94); Mean Platelet Volume 9.4 fL (7.4-10.4); Platelet Count 166 10^3/uL (150-450); Red Blood Count 4.56 10^6 /uL (4.18-5.48); Red Cell Distribution Width 14 % (10-15); White Blood Count 9.9 10^3/uL (3.5-10.8)
[2019-12-11 15:33] LABS: Calcium 9.2 mg/dL (8.6-10.3); EGFR African American 198.9 (>60); EGFR Non-African American 164.4 (>60); Potassium 3.7 mmol/L (3.5-5.0)
[2019-12-11] MEDS ORDERED: Cefepime 1 GM in Dextrose(*) 1 GM/50 ML BAG IV ONE (16:00)
[2019-12-11] MEDS ORDERED: NS 0.9% 1000 ML** 1,000 ML IV SCH (16:30)
[2019-12-11] MEDS ORDERED: Acetaminophen TAB* 325 MG PO PRN (16:30)
[2019-12-11] MEDS ORDERED: Diazepam TAB(*) 5 MG PO PRN (16:30)
[2019-12-11 16:34] LABS: C Reactive Protein 230.67 mg/L (<8.01)
[2019-12-11 16:50] LABS: Urine Appearance Clear; Urine Bilirubin Negative (Negative); Urine Blood Negative (Negative); Urine Color Straw; Urine Glucose Negative (Negative); Urine Ketones Negative (Negative); Urine Nitrite Negative (Negative); Urine Protein Negative (Negative); Urine Specific Gravity 1.001 (1.010-1.030); Urine Urobilinogen Negative (Negative)
[2019-12-11 16:55] LABS: Urine Bacteria Absent (Absent); Urine Red Blood Cell Absent (Absent); Urine White Blood Cell Trace(0-5/hpf) (Absent)
[2019-12-11] MEDS: Baclofen TAB* 20 MG PO SCH ×2 (20:49→20:52)
[2019-12-11] MEDS: Diazepam TAB(*) 5 MG PO SCH (20:49)
[2019-12-11] MEDS: tiZANidine TAB* 2 MG PO SCH (20:50)
[2019-12-11] MEDS: Lactobacillus Acidophilus* 1 TAB PO SCH (20:50)
[2019-12-11] MEDS: Methenamine Hippurate TAB* 1 GM TAB PO SCH (20:51)
[2019-12-11] MEDS: Heparin VIAL(*) 5000 UNITS/ML VIAL (FIVE THOUSAND) SUBCUT SCH (20:53)
--- NOTE | 2019-12-11 21:35 | HP ---
CC: Dr. Garza; Dr. Clark * HISTORY AND PHYSICAL: DATE OF ADMISSION: 12/11/19 PRIMARY CARE PROVIDER: Dr. Garza. CHIEF COMPLAINT: Fevers. HISTORY OF PRESENT ILLNESS: Pedro Jay is a 69-year-old male with history of multiple sclerosis who is currently quadriplegic due to that and he has chronic indwelling Reddy. He was seen by Dr. Garza several days ago for daily chills and temperature of above 100 degrees, approximately 100.8 [address] He stated Dr[address] Garza took his urine sample and prescribed him ciprofloxacin. He stated despite that he continued to have nightly chills and his sensitivities from the urine culture shows over 100,000 colonies of Pseudomonas aeruginosa. Also were cultures obtained from 12/08/19 and the pseudomonas was only sensitive to meropenem, Zosyn, gentamicin or cefepime. Dr. Garza called the patient and asked him to come into the ED for IV antibiotic treatment. The patient would prefer to stay at his settling facility at [facility] if possible, but likely he will need to stay in the hospital for further antibiotic treatment. PAST MEDICAL HISTORY: 1. Multiple sclerosis as mentioned above. 2. Cervical spine diskectomy in the past. 3. Indwelling Reddy due to neurogenic bladder. 4. Recurrent urinary tract infection. 5. Hypertension. 6. Depression. MEDICATIONS: At home include: 1. Ciprofloxacin 500 mg twice a day. 2. Diazepam 5 mg, the patient is supposed to take 1-1/2 tablets which is 7.5 mg at bedtime and diazepam 5 mg every 6 hours p.r.n. 3. Vitamin D3 at 1000 units daily. 4. Vitamin C at 1000 units daily. 5. Tizanidine 6 mg at bedtime and 4 mg as needed p.r.n. 6. Myrbetriq 50 mg 1 tablet every evening and 25 mg in the morning. 7. Methenamine hippurate 1 g twice a day. 8. Lexapro 15 mg daily. 9. Culturelle 1 tablet daily. 10. Baclofen 20 mg on a p.r.n. basis. 11. Amlodipine 5 mg daily. ALLERGIES: To DACLIZUMAB. FAMILY HISTORY: Positive for history of CVA. Mother had a stroke at the age of 91. Grandfather had a stroke at the age of 56. SOCIAL HISTORY: The patient denies any tobacco use. Drinks an occasional alcohol drink a day. He denies any drug use. He is wheelchair dependent due to quadriplegia and he lives in assisted living facility in [facility]. His Amaya Jay with the phone number of [phone] is his surrogate decision maker. REVIEW OF SYSTEMS: Please see history of present illness. In addition to above mentioned, the patient stated that he has not had any upper respiratory infection symptoms recently. Denies any problems with his bowels, although he needs an enema daily due to his problems with multiple sclerosis. He denies any pain. All the remaining 12 systems were reviewed with the patient and were otherwise negative. PHYSICAL EXAMINATION GENERAL: The patient is a very pleasant 69-year-old male who is in no acute distress. The patient is alert and oriented x3. VITAL SIGNS: Blood pressure of 132/74, heart rate of 58 and regular, respiratory rate 18, oxygen saturation 91% on room air, temperature 97.8. HEENT: Head: Atraumatic, normocephalic. Eyes: Pupils are equal, reactive to light and accommodation. Oropharynx clear. Mucosa moist. NECK: Supple. No JVD, no bruits bilaterally. RESPIRATORY: Clear to auscultation bilaterally. CARDIOVASCULAR: Regular rate and rhythm. No murmurs. ABDOMEN: Soft, nontender. Bowel sounds are present in all 4 quadrants. EXTREMITIES: There is trace bilateral ankle edema. Pulses are +2 bilaterally. There is no clubbing or cyanosis. NEUROLOGIC: On neuro evaluation, the patient is paraplegic. Contracted upper and lower extremities. Speech is clear. Cranial nerves II through XII grossly intact. SKIN: On evaluation, no ecchymotic areas or rashes noted. DIAGNOSTIC STUDIES/LAB DATA: White blood cell count of 9.9, hemoglobin 14.7, hematocrit 42, and platelets 176. Sodium 128, potassium 3.7, chloride 94, carbon dioxide 27, BUN 7, creatinine 0.5. The patient's CSF culture is pending at the time of this dictation. Urinalysis and urine cultures were not obtained yet. ASSESSMENT AND PLAN: 1. The patient is a 69-year-old patient with history of quadriplegia due to multiple sclerosis with chronically indwelling Reddy, who presents with daily fevers and urine cultures obtained on 12/08/19 growing pseudomonas that is multiresistant. The patient is going to be placed on cefepime and hospitalized. We will ask ID to see the patient in consultation. 2. In regards to the patient's multiple sclerosis, the patient is going to be placed on his home antispasmodic medications as previously used. 3. For DVT prophylaxis, the patient is going to be placed on heparin subcutaneously. 4. In regards to the patient's code status, the patient is do not resuscitate and do not intubate. His surrogate is his . 5. The patient's hyponatremia appears to be exacerbation of chronic. The patient appears to be mildly dehydrated. We will continue intravenous fluids. TIME SPENT: Approximately 65 minutes was spent on admission of this patient, more than half of that time was spent [id number] with the patient during the interview and physical exam. [id number]/[facility] #: [id number] MTDD
[2019-12-11] MEDS ORDERED: hydrOXYzine HCL TAB* 25 MG PO ONE (23:43)
[2019-12-12] MEDS ORDERED: Diazepam TAB(*) 5 MG PO ONE (00:01)
[2019-12-12] MEDS ORDERED: Baclofen TAB* 20 MG PO ONE (00:01)
[2019-12-12] MEDS: Melatonin 3 MG TAB PO SCH ×2 (00:02→20:46)
[2019-12-12] MEDS: Baclofen TAB* 20 MG PO SCH ×5 (00:03→20:45)
[2019-12-12] MEDS: Cefepime 1 GM in Dextrose(*) 1 GM/50 ML BAG IV SCH ×2 (04:13→17:01)
[2019-12-12] MEDS: Heparin VIAL(*) 5000 UNITS/ML VIAL (FIVE THOUSAND) SUBCUT SCH ×3 (05:58→20:51)
[2019-12-12 06:41] LABS: BUN/Creatinine Ratio 10.3 (8-20); Calcium 8.2 mg/dL (8.6-10.3); Potassium 3.2 mmol/L (3.5-5.0)
[2019-12-12] MEDS: amLODIPine TAB* 5 MG PO SCH (10:02)
[2019-12-12] MEDS: Escitalopram * 5 MG TAB PO SCH (10:02)
[2019-12-12] MEDS: Lactobacillus Acidophilus* 1 TAB PO SCH ×2 (10:02→20:46)
[2019-12-12] MEDS: Cholecalciferol TAB* 1000 UNITS PO SCH (10:02)
[2019-12-12] MEDS: Ascorbic Acid TAB* 500 MG PO SCH (10:02)
[2019-12-12] MEDS: Multivitamins/Minerals TAB PO SCH (10:02)
[2019-12-12] MEDS: Methenamine Hippurate TAB* 1 GM TAB PO SCH ×2 (10:03→20:45)
[2019-12-12] MEDS: KCL 20 MEQ/100 ML IVPREMIX* 20 MEQ/100 ML BAG IV SCH ×2 (10:03→13:03)
[2019-12-12] MEDS: Sodium Phosphate ADULT ENEMA* 118 ml bottle PR PRN (14:07)
--- NOTE | 2019-12-12 14:48 | PN ---
Subjective Date of Service: 12/12/19 Interval History: Pt feels well, although had MS related muscle spasm last night and didn't sleep well Objective Active Medications: Acetaminophen (Tylenol Tab*) 650 mg PO Q4H PRN PRN Reason: PAIN-MILD/TEMP >/= 100.4 Last Admin: 12/12/19 05:58 Dose: 650 mg Amlodipine Besylate (Norvasc Tab*) 5 mg PO DAILY [facility] Last Admin: 12/12/19 10:02 Dose: 5 mg Ascorbic Acid (Vitamin C Tab*) 1,000 mg PO DAILY [facility] Last Admin: 12/12/19 10:02 Dose: 1,000 mg Baclofen (Lioresal Tab*) 20 mg PO Q6HR [facility] Last Admin: 12/12/19 11:46 Dose: 20 mg Baclofen (Lioresal Tab*) 40 mg PO 2200 [facility] Last Admin: 12/11/19 20:49 Dose: 40 mg Cholecalciferol (Vitamin D Tab*) 1,000 units PO DAILY [facility] Last Admin: 12/12/19 10:02 Dose: 1,000 units Diazepam (Valium Tab(*)) 7.5 mg PO BEDTIME [facility] Last Admin: 12/11/19 20:49 Dose: 7.5 mg Diazepam (Valium Tab(*)) 5 mg PO Q6HR PRN PRN Reason: SPASMS Escitalopram Oxalate (Lexapro *) 15 mg PO DAILY [facility] Last Admin: 12/12/19 10:02 Dose: 15 mg Heparin Sodium (Porcine) (Heparin Vial(*)) 5,000 units SUBCUT Q8HR [facility] Last Admin: 12/12/19 14:07 Dose: 5,000 units Sodium Chloride (Ns 0.9% 1000 Ml) 1,000 mls @ 75 mls/hr IV PER RATE [facility] Stop: 12/12/19 18:00 Last Admin: 12/11/19 20:49 Dose: 75 mls/hr Cefepime HCl (Maxipime 1 Gm In Dextrose Duplex (*)) 1 gm in 50 mls @ 100 mls/ hr IV Q12H [facility] Last Admin: 12/12/19 04:13 Dose: 100 mls/hr Lactobacillus Rhamnosus (Lactobacillus Acidophilus*) 1 tab PO BID [facility] Last Admin: 12/12/19 10:02 Dose: 1 tab Melatonin (Melatonin) 3 mg PO BEDTIME [facility] Last Admin: 12/12/19 00:02 Dose: Not Given Methenamine Hippurate (Hiprex Tab*) 1 gm PO BID [facility] Last Admin: 12/12/19 10:03 Dose: 1 gm Multivitamins/Minerals (Theragran/Minerals Tab*) 1 tab PO DAILY [facility] Last Admin: 12/12/19 10:02 Dose: 1 tab Sodium Biphosphate/Sodium Phosphate (Fleet Enema*) 1 bottle [place] BID PRN PRN Reason: CONSTIPATION Last Admin: 12/12/19 14:07 Dose: 1 bottle Tizanidine HCl (Zanaflex Tab*) 6 mg PO BEDTIME [facility] Last Admin: 12/11/19 20:50 Dose: Not Given Vital Signs - 8 hr 12/12/19 12/12/19 12/12/19 07:16 08:00 11:53 Temperature 98.1 F 97.8 F Pulse Rate 71 76 Respiratory 18 18 18 Rate Blood Pressure 143/59 136/59 (mmHg) O2 Sat by Pulse 96 94 Oximetry Oxygen Devices in Use Now: None Appearance: 69 yo M in NAD, aAOx3 Eyes: No Scleral Icterus, PERRLA Ears/Nose/Mouth/Throat: NL Teeth, Lips, Gums, Mucous Membranes Moist Neck: NL Appearance and Movements; NL JVP, Trachea Midline Respiratory: Symmetrical Chest Expansion and Respiratory Effort, Clear to Auscultation Cardiovascular: NL Sounds; No Murmurs; No JVD, RRR Abdominal: NL Sounds; No Tenderness; No Distention Lymphatic: No Cervical Adenopathy Extremities: No Edema Skin: No Rash or Ulcers, No Nodules or Sclerosis Neurological: Alert and Oriented x 3, - - spastic quadriplegic Result Diagrams: 12/11/19 15:12 12/12/19 06:02 Microbiology and Other Data: Microbiology 12/11/19 16:41 Nasal Screen MRSA (PCR) - Final Nasal Mrsa Not Detected Assess/Plan/Problems-Billing Assessment: Mr. Jay is a 69 yo M with a PMH of MS with indwelling Reddy who presents with with suspected UTI. Culture showing enterococcus and Pseudomonas. - Patient Problems (1) UTI (urinary tract infection) Comment: Cx from 12/08/19 resulted in multi drug reisistant Pseudomonas. Pt was placed on Cipro PO x 2 days and UA from 12/11/19 is basically neg, but CRP markedly elevated. Flu test pending. No fever in the past 24H Cont Cefepime for now. ID to consult in AM. Renal US unremarkable. Reddy replaced on 12/05/19 (2) Hypertension Comment: - controlled, cont norvasc (3) Hyponatremia Comment: - Resolving with IV fluids. Stop IVF, likely hypovol HypoNA (4) Indwelling Reddy catheter present Comment: - With neurogenic bladder 2/2 MS, changed today as cultures are negative today (5) Multiple sclerosis Comment: - Pt with advanced secondary progressive MS. - Continue valium, baclofen and tizanidine. (6) DVT prophylaxis Comment: - SQ Heparin Status and Disposition: inpatient
[2019-12-12] MEDS: tiZANidine TAB* 2 MG PO SCH (20:47)
[2019-12-12] MEDS: Diazepam TAB(*) 5 MG PO SCH (20:49)
[2019-12-13] MEDS: Baclofen TAB* 20 MG PO SCH ×5 (01:44→21:58)
[2019-12-13] MEDS: Cefepime 1 GM in Dextrose(*) 1 GM/50 ML BAG IV SCH ×2 (05:03→16:10)
[2019-12-13 05:38] LABS: Hematocrit 41 % (42-52); Hemoglobin 14.3 g/dL (14.0-18.0); Mean Corpuscular HGB Conc 35 g/dL (31-36); Mean Corpuscular Hemoglobin 32 pg (27-31); Mean Corpuscular Volume 92 fL (80-94); Mean Platelet Volume 10.3 fL (7.4-10.4); Platelet Count 181 10^3/uL (150-450); Red Blood Count 4.45 10^6 /uL (4.18-5.48); Red Cell Distribution Width 14 % (10-15); White Blood Count 5.3 10^3/uL (3.5-10.8)
[2019-12-13] MEDS: Heparin VIAL(*) 5000 UNITS/ML VIAL (FIVE THOUSAND) SUBCUT SCH ×3 (05:41→22:03)
[2019-12-13 05:50] LABS: BUN/Creatinine Ratio 10.3 (8-20); C Reactive Protein 100.97 mg/L (<8.01); Calcium 8.6 mg/dL (8.6-10.3); Potassium 3.3 mmol/L (3.5-5.0)
[2019-12-13] MEDS: Methenamine Hippurate TAB* 1 GM TAB PO SCH ×2 (09:16→21:57)
[2019-12-13] MEDS: KCL 20 MEQ/100 ML IVPREMIX* 20 MEQ/100 ML BAG IV SCH ×2 (09:16→13:48)
[2019-12-13] MEDS: Multivitamins/Minerals TAB PO SCH (09:17)
[2019-12-13] MEDS: amLODIPine TAB* 5 MG PO SCH (09:17)
[2019-12-13] MEDS: Lactobacillus Acidophilus* 1 TAB PO SCH ×2 (09:17→21:58)
[2019-12-13] MEDS: Escitalopram * 5 MG TAB PO SCH (09:17)
[2019-12-13] MEDS: Ascorbic Acid TAB* 500 MG PO SCH (09:18)
[2019-12-13] MEDS: Cholecalciferol TAB* 1000 UNITS PO SCH (09:18)
[2019-12-13] MEDS: Sodium Phosphate ADULT ENEMA* 118 ml bottle PR PRN (10:35)
[2019-12-13 12:36] LABS: Influenza A Molecular Negative (Negative); Influenza B Molecular Negative (Negative)
--- NOTE | 2019-12-13 12:45 | CONS ---
CONSULTATION REPORT: DATE OF CONSULT: 12/13/19 REQUESTING PHYSICIAN: Dr. Gaspar. CONSULTING SERVICE: Infectious Disease. REASON FOR CONSULTATION: Fever. IMPRESSION: 1. Developed fever as an outpatient and found to have pseudomonas in his urine on 12/08/19 in the setting of a chronic Reddy catheter. A urinalysis at that time showed leukocyte esterase. He was started on fluoroquinolone as an outpatient and came to the hospital with persistent chills and drug-resistant pseudomonas. He was started on cefepime. He has had no fevers since he has been here. He feels much better today. His urinalysis here showed leukocyte esterase as well. Other culture taken here is pending. 2. Multiple sclerosis with neurogenic bladder, on chronic Reddy catheter. RECOMMENDATION: Continue cefepime through tomorrow. He will get 4 days of IV antibiotics on top of what was likely a partially active outpatient oral antibiotic. HISTORY OF PRESENT ILLNESS: This is a 69-year-old male with multiple sclerosis , neurogenic bladder, chronic Reddy catheter with recurrent urine tract infection, has not had them in some time. He developed fever, shaking chills as an outpatient. Dr. Garza obtained urine with results as above. He was started on Cipro but had persistent fever and when the drug-resistant organism was detected, recommended for ER evaluation. He came to the hospital on Friday, white count 9000, CRP 230,000. He was started on cefepime. This morning his CRP was down to 100. He is feeling much better. He has not had recurrence of his fever. He had slight chills Friday night. Hemodynamically , he has been stable. No abdominal pain or diarrhea. No cough or trouble breathing. Other workup here included a renal ultrasound that was unremarkable. PAST MEDICAL HISTORY: 1. Multiple sclerosis with quadriplegia. 2. Chronic Reddy catheter for neurogenic bladder. 3. Urinary tract infection. 4. Hypertension. 5. Depression. 6. Status post C-spine diskectomy. MEDICATIONS: 1. Tylenol. 2. Amlodipine. 3. Baclofen. 4. Vitamin C. 5. Cefepime 1 g twice daily. 6. Cholecalciferol. 7. Diazepam at bedtime. 8. Lexapro. 9. Heparin subcutaneous injection. 10. Lactobacillus. 11. Melatonin. 12. Methenamine. 13. Sodium phosphate as needed. 14. Tizanidine. ALLERGIES: DACLIZUMAB. FAMILY HISTORY: Mother had a CVA, grandfather had a CVA. SOCIAL HISTORY: He lives at [facility]. He is a nonsmoker. REVIEW OF SYSTEMS: All negative except as noted above to 12-point review of systems. PHYSICAL EXAM: Vital Signs: Temperature 37, heart rate 70, respiratory rate 20 , blood pressure 160/70, oxygen saturation 96% on room air. In general, he is awake, not in distress. Neurologic: He is oriented x3. Answers questions appropriately. Has contractures in the upper and lower extremities bilaterally. HEENT: There is no conjunctival hemorrhage. Oropharynx without lesions. Neck is supple without mass. Heart is regular rate and rhythm without murmurs, rubs, or gallops. Lungs are clear to auscultation bilaterally. Abdomen: Soft , nontender, nondistended. There are bowel sounds present. Skin: There is no rash or splinter hemorrhage. Musculoskeletal: There is no spine tenderness to palpation or joint synovitis. DIAGNOSTIC STUDIES/LAB DATA: Creatinine 0.3. CRP 100. White blood cell count 5, hemoglobin 14, platelets 181. Please see impressions and recommendations outlined above, which I have discussed with Dr. Gaspar. Thanks for asking me to see Mr. Jay in consultation. [id number]/[facility] #: [id number] PAPO
--- NOTE | 2019-12-13 14:20 | PN ---
Subjective Date of Service: 12/13/19 Interval History: Pt feels well, disappointed that he needs to stay another day Objective Active Medications: Acetaminophen (Tylenol Tab*) 650 mg PO Q4H PRN PRN Reason: PAIN-MILD/TEMP >/= 100.4 Last Admin: 12/12/19 05:58 Dose: 650 mg Amlodipine Besylate (Norvasc Tab*) 5 mg PO DAILY [facility] Last Admin: 12/13/19 09:17 Dose: 5 mg Ascorbic Acid (Vitamin C Tab*) 1,000 mg PO DAILY [facility] Last Admin: 12/13/19 09:18 Dose: 1,000 mg Baclofen (Lioresal Tab*) 20 mg PO Q6HR [facility] Last Admin: 12/13/19 11:57 Dose: 20 mg Baclofen (Lioresal Tab*) 40 mg PO 2200 [facility] Last Admin: 12/12/19 20:45 Dose: 40 mg Cholecalciferol (Vitamin D Tab*) 1,000 units PO DAILY [facility] Last Admin: 12/13/19 09:18 Dose: 1,000 units Diazepam (Valium Tab(*)) 7.5 mg PO BEDTIME [facility] Last Admin: 12/12/19 20:49 Dose: 7.5 mg Diazepam (Valium Tab(*)) 5 mg PO Q6HR PRN PRN Reason: SPASMS Last Admin: 12/13/19 01:43 Dose: 5 mg Escitalopram Oxalate (Lexapro *) 15 mg PO DAILY [facility] Last Admin: 12/13/19 09:17 Dose: 15 mg Heparin Sodium (Porcine) (Heparin Vial(*)) 5,000 units SUBCUT Q8HR [facility] Last Admin: 12/13/19 12:00 Dose: 5,000 units Cefepime HCl (Maxipime 1 Gm In Dextrose Duplex (*)) 1 gm in 50 mls @ 100 mls/ hr IV Q12H [facility] Last Admin: 12/13/19 05:03 Dose: 100 mls/hr Lactobacillus Rhamnosus (Lactobacillus Acidophilus*) 1 tab PO BID [facility] Last Admin: 12/13/19 09:17 Dose: 1 tab Melatonin (Melatonin) 3 mg PO BEDTIME [facility] Last Admin: 12/12/19 20:46 Dose: Not Given Methenamine Hippurate (Hiprex Tab*) 1 gm PO BID [facility] Last Admin: 12/13/19 09:16 Dose: 1 gm Multivitamins/Minerals (Theragran/Minerals Tab*) 1 tab PO DAILY [facility] Last Admin: 12/13/19 09:17 Dose: 1 tab Sodium Biphosphate/Sodium Phosphate (Fleet Enema*) 1 bottle NC BID PRN PRN Reason: CONSTIPATION Last Admin: 12/13/19 10:35 Dose: 1 bottle Tizanidine HCl (Zanaflex Tab*) 6 mg PO BEDTIME [facility] Last Admin: 12/12/19 20:47 Dose: Not Given Vital Signs - 8 hr 12/13/19 07:40 Temperature 98.4 F Pulse Rate 75 Respiratory 20 Rate Blood Pressure 142/73 (mmHg) O2 Sat by Pulse 95 Oximetry Oxygen Devices in Use Now: None Appearance: 69 yo M in nAD, aAOx3 Eyes: No Scleral Icterus, PERRLA Ears/Nose/Mouth/Throat: NL Teeth, Lips, Gums, Mucous Membranes Moist Neck: NL Appearance and Movements; NL JVP, Trachea Midline Respiratory: Symmetrical Chest Expansion and Respiratory Effort, Clear to Auscultation Cardiovascular: NL Sounds; No Murmurs; No JVD, RRR Abdominal: NL Sounds; No Tenderness; No Distention, No Hepatosplenomegaly Lymphatic: No Cervical Adenopathy Extremities: No Edema, No Clubbing, Cyanosis Skin: No Rash or Ulcers Neurological: Alert and Oriented x 3, - - quadriplegic, spastic Result Diagrams: 12/13/19 05:17 12/13/19 05:17 Microbiology and Other Data: Microbiology 12/11/19 16:41 Nasal Screen MRSA (PCR) - Final Nasal Mrsa Not Detected Assess/Plan/Problems-Billing Assessment: Mr. Jay is a 69 yo M with a PMH of MS with indwelling Reddy who presents with with suspected UTI. Culture showing enterococcus and Pseudomonas. - Patient Problems (1) UTI (urinary tract infection) Comment: Cx from 12/08/19 resulted in multi drug resistant Pseudomonas. Pt was placed on Cipro PO x 2 days and UA from 12/11/19 is basically neg, but CRP markedly elevated. Flu test neg, afebrile since admission D/w ID, cont Cefepime for one more day. Renal US unremarkable. Reddy replaced on 12/05/19 (2) Hypertension Comment: - controlled, cont norvasc (3) Hyponatremia Comment: - Resolved with IV fluids. Stop IVF, likely hypovol HypoNA (4) Indwelling Reddy catheter present Comment: - With neurogenic bladder 2/2 MS, Reddy last changed 12/05/19 (5) Multiple sclerosis Comment: - Pt with advanced secondary progressive MS. - Continue baclofen and tizanidine. (6) DVT prophylaxis Comment: - SQ Heparin Status and Disposition: inpatient
[2019-12-13] MEDS: Diazepam TAB(*) 5 MG PO SCH (21:50)
[2019-12-13] MEDS: Melatonin 3 MG TAB PO SCH (22:01)
[2019-12-13] MEDS: tiZANidine TAB* 2 MG PO SCH (22:02)
[2019-12-14] MEDS: Baclofen TAB* 20 MG PO SCH ×3 (00:23→12:40)
[2019-12-14] MEDS: Cefepime 1 GM in Dextrose(*) 1 GM/50 ML BAG IV SCH (03:39)
[2019-12-14] MEDS: Heparin VIAL(*) 5000 UNITS/ML VIAL (FIVE THOUSAND) SUBCUT SCH ×2 (05:44→13:58)
--- NOTE | 2019-12-14 08:07 | PN ---
Progress Note - Progress Note Date of Service: 12/14/19 SOAP: Subjective: CC: UTI HPI: Mr. Jay is a 69 yo male with MS, neurogenic bladder, depression, HTN, chronic indwelling urinary catheter with recurrent UTIs; who presented to the hospital with fevers. Denies fevers, chills, ABD pain, nausea, vomiting, diarrhea. He states that he is feeling well and would like to be discharged home today. Objective: Vital Signs 12/14/19 07:35 Temperature 97.8 F Pulse Rate 81 Respiratory 18 Rate Blood Pressure 124/78 (mmHg) O2 Sat by Pulse 96 Oximetry Physical Exam: General: NAD, sitting up in bed Neurological: Alert and Oriented HEENT: Moist MM Cardiovascular: Heart rate regular Respiratory: Lung sounds clear Abdominal: Bowel sounds present; ABD soft, non tender and non distended Skin: No rash Laboratory Tests 12/11/19 12/12/19 12/13/19 15:12 12:00 05:17 WBC 5.3 Hgb 14.3 Hct 41 L Plt Count 181 C-Reactive Protein 230.67 H Influenza A (Rapid) Negative Influenza B (Rapid) Negative 12/13/19 05:17 Sodium 135 Potassium 3.3 L Chloride 101 Carbon Dioxide 28 BUN 4 L Creatinine 0.39 L Glucose 93 C-Reactive Protein 100.97 H Microbiology 12/11/19 16:37 Urine Culture - Preliminary Urine Pseudomonas Aeruginosa 12/11/19 16:41 Nasal Screen MRSA (PCR) - Final Nasal Mrsa Not Detected Assessment: 1. UTI. UA with leukocyte esterase. Urine culture with pseudomonas. Normal renal US. Denies ABD or flank pain. No leukocytosis. Afebrile. CRP is trending down. Was on oral ABX outpatient prior to admission, suspect that this provided some ABX coverage. 2. Multiple Sclerosis with neurogenic bladder. Plan: Continue cefepime, day 4/4.
[2019-12-14] MEDS: Methenamine Hippurate TAB* 1 GM TAB PO SCH (09:35)
[2019-12-14] MEDS: amLODIPine TAB* 5 MG PO SCH (09:35)
[2019-12-14] MEDS: Lactobacillus Acidophilus* 1 TAB PO SCH (09:35)
[2019-12-14] MEDS: Ascorbic Acid TAB* 500 MG PO SCH (09:35)
[2019-12-14] MEDS: Escitalopram * 5 MG TAB PO SCH (09:36)
[2019-12-14] MEDS: Cholecalciferol TAB* 1000 UNITS PO SCH (09:36)
[2019-12-14] MEDS: Multivitamins/Minerals TAB PO SCH (09:36)
[2019-12-14] MEDS: Sodium Phosphate ADULT ENEMA* 118 ml bottle PR PRN (10:22)
[2019-12-14] MEDS ORDERED: Cefepime 1 GM in Dextrose(*) 1 GM/50 ML BAG IV SCH (14:00)
[2019-12-14 16:09] VITALS: BP 132/69
--- NOTE | 2019-12-15 05:13 | DS ---
CC: Dr. Garza, Dr. Clark * DISCHARGE SUMMARY: DATE OF ADMISSION: 12/11/19 DATE OF DISCHARGE: 12/14/19 PRIMARY CARE PROVIDER: Dr. Garza. condition at discharge: stable DISPOSITION AT DISCHARGE: The patient is being discharged to [facility]. DISCHARGE DIAGNOSIS: Multi-resistant pseudomonas urinary tract infection in a patient with chronically indwelling Reddy. Please note that Reddy is being exchanged just before the patient's discharge. LABORATORY DATA DURING HOSPITAL STAY: Included: On 12/13/19, white blood cell count 5.3, hemoglobin 14.3, hematocrit 41 and platelets 181. Sodium 135, potassium 3.3, chloride 101, carbon dioxide 28, BUN 4, creatinine 0.39. The patient's C-reactive protein was down to 100 from 230 on 12/11/19. Urinalysis obtained on 12/11/19 showed specific gravity of 1.001, straw and clear urine with +2 esterase, no rbc's, no wbc's, no nitrites. Influenza testing was negative. Renal ultrasound obtained on 12/11/19, impression: "Normal renal ultrasound." CONSULTATIONS DURING THE HOSPITAL STAY: Included Dr. Clark from Infectious Diseases. MEDICATIONS AT DISCHARGE: Unchanged from admission. Please note that the patient is instructed to take 1 tablet of Cipro tonight 500 mg x1 and he has it at home. He usually takes at the night after his Reddy change. The remaining medications are: 1. Diazepam 5 mg, the patient takes 7.5 mg at bedtime, so it is 1-1/2 tablets and diazepam 5 mg every 6 hours p.r.n. 2. Vitamin D3 at 1000 units daily. 3. Vitamin C at 1000 units daily. 4. Tizanidine 6 mg at bedtime and 4 mg as needed p.r.n. 5. Myrbetriq 50 mg 1 tablet every evening and 25 mg in the morning. 6. Methenamine hippurate 1 g twice a day. 7. Lexapro 15 mg daily. 8. Culturelle 1 tablet daily. 9. Baclofen 20 mg on a p.r.n. basis. 10. Amlodipine 5 mg daily. 11. The patient uses an enema once a day for bowel evacuation. MICROBIOLOGY TESTING: Urine culture from 12/11/19 positive for Pseudomonas aeruginosa, sensitive to cefepime, gentamicin, meropenem and Zosyn only. HOSPITALIZATION COURSE: Pedro Jay is a 69-year-old male who is quadriplegic from multiple sclerosis has indwelling Reddy catheter in. He presented with complaints of daily fevers despite being started on ciprofloxacin by his primary care provider 3 days prior. His prior urinalysis obtained on 12/08/19 was positive for pseudomonas that was multi-resistant. The patient was admitted to the hospital, treated with cefepime that covered for the pseudomonas. During the patient hospital stay, Dr. Clark saw the patient in consultation. Interestingly enough the patient's urinalysis initially obtained was not that remarkable, but that did grow the same pseudomonas and over 75,000 to 100,000 of colonies of the same bacterium that was already found on . As per Dr. Clark's consult, fluoroquinolones could be suppressing that infection but they are not fully treating it. The patient stayed in the hospital and received 4 days of IV cefepime. Before his last dose of cefepime is going to be administered, his Reddy is going to be exchanged today. He is also recommended to take a dose of Cipro tonight as he usually would take after his Reddy exchange. He is recommended to follow up with his primary care provider in approximately 4 to [address] Clark as needed. PHYSICAL EXAMINATION AT THE TIME OF DISCHARGE: Blood pressure of 147/78, heart rate of 81 and regular, respiratory rate 18, oxygen saturation 96% on room air, temperature 97.8. General: The patient is a very pleasant 69-year-old male who is in no acute distress. The patient is alert and oriented x3. HEENT: Head: Atraumatic, normocephalic. Eyes: Pupils are equal, reactive to light and accommodation. Oropharynx is clear. Mucosa moist. Neck: Supple. No JVD. No bruits bilaterally. Cardiovascular: Regular rate and rhythm. No murmur. Respiratory: Clear to auscultation bilaterally. Abdomen: Soft, nontender. Bowel sounds present in 4 quadrants. Extremities: There is no edema. Pulses are 2+ bilaterally. No clubbing or cyanosis. On neuro evaluation, the patient's speech is clear. Cranial nerves II through XII grossly intact. 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 Please note that this is a short summary of the patient's hospitalization. Please refer to further medical records for details. TIME SPENT: Approximately 40 minutes was spent in preparation of the patient's discharge. [id number]/[facility] #: [id number] PAPO
== END 2019-12-14 15:45 | disposition home or self-care (01) | DRG 690 ==
LOC: ED 14:26 → MED 16:33
PROVIDERS: ADMIT Internal Medicine; ATTEND Internal Medicine
DX: N39.0 Urinary tract infection, site not specified (principal); G82.20 Paraplegia, unspecified; E87.1 Hypo-osmolality and hyponatremia; Z16.24 Resistance to multiple antibiotics; G35 Multiple sclerosis; N31.9 Neuromuscular dysfunction of bladder, unspecified; F32.9 Major depressive disorder, single episode, unspecified; B96.5 Pseudomonas (aeruginosa) (mallei) (pseudomallei) as the cause of diseases classified elsewhere; M62.40 Contracture of muscle, unspecified site; M62.838 Other muscle spasm; E86.0 Dehydration; I10 Essential (primary) hypertension; Z79.2 Long term (current) use of antibiotics; Z79.899 Other long term (current) drug therapy; Z88.8 Allergy status to other drugs, medicaments and biological substances; Z82.3 Family history of stroke
CPT/HCPCS: 36415; 76775; 80048; 81003; 81015; 85025; 85027; 86140; 87077; 87086; 87186; 87641; 96374; 99283; A9270-GY; J0692; J1644; J3480

== ENCOUNTER 2021-11-12 14:32 | Inpatient (IN) ==
[2021-11-12] MEDS ORDERED: Piperacillin/Tazobac ADVAN 3.375 GM in NS 0.9% 100 ml BAG 100 ML IV ONE (15:04)
[2021-11-12] MEDS ORDERED: Vancomycin 1,000 MG in NS 0.9% 250 ml 250 ML IVPB ONE (15:04)
[2021-11-12] MEDS ORDERED: Albuterol/Ipratropium NEB.SOL (2.5/0.5 MG) 3 ML NEB.SOLN INH ONE (15:06)
[2021-11-12 15:21] LABS: PCO2 Arterial 55 mmHg (35-45); PO2 Arterial 92 mmHg (80-100)
[2021-11-12 15:25] LABS: ABS Lymphocytes 0.5 10^3/ul (1.0-4.8); ABS Monocytes 0.8 10^3/ul (0-0.8); ABS Neutrophils 8.6 10^3/ul (1.5-7.7); Hematocrit 44 % (42-52); Hemoglobin 14.8 g/dL (14.0-18.0); Lymphocyte % 4.6 %; Mean Corpuscular HGB Conc 34 g/dL (31-36); Mean Corpuscular Hemoglobin 32 pg (27-31); Mean Corpuscular Volume 95 fL (80-94); Mean Platelet Volume 9.8 fL (7.4-10.4); Platelet Count 169 10^3/uL (150-450); Red Blood Count 4.64 10^6 /uL (4.18-5.48); Red Cell Distribution Width 14 % (10-15); White Blood Count 9.9 10^3/uL (3.5-10.8)
[2021-11-12 15:40] LABS: Activated Partial Thrombo Time 28.9 seconds (26.0-38.0); INR 1.24 (0.86-1.15)
[2021-11-12 16:11] LABS: ALT 13 U/L (7-52); AST 18 U/L (13-39); Albumin/Globulin Ratio 1.3 (1-3); Alkaline Phosphatase 61 U/L (35-149); Anion Gap 6 mmol/L (2-11); Blood Urea Nitrogen 13 mg/dL (6-24); CO2 Carbon Dioxide 30 mmol/L (22-32); Calcium 8.8 mg/dL (8.6-10.3); Chloride 94 mmol/L (101-111); Creatine Kinase 67 U/L (10-223); Globulin 3.1 g/dL (2-4); Glucose 175 mg/dL (70-100); Potassium 3.8 mmol/L (3.5-5.0); Sodium 130 mmol/L (135-145); Total Protein 7.1 g/dL (6.4-8.9); eGFR CKD-EPI 114.2 (>60)
[2021-11-12] MEDS ORDERED: Iodixanol (CONTRAST) 320 MG/ML 100 ML SDV IV ONE (16:17)
[2021-11-12 18:05] LABS: Urine Appearance Cloudy; Urine Bilirubin Negative (Negative); Urine Blood 1+ (Negative); Urine Color Amber; Urine Glucose Negative (Negative); Urine Ketones Negative (Negative); Urine Nitrite Positive (Negative); Urine Protein 2+(100 mg/dL) (Negative); Urine Specific Gravity 1.055 (1.002-1.030); Urine Urobilinogen Negative (Negative)
[2021-11-12 18:12] LABS: Urine Bacteria 2+ (Absent); Urine Red Blood Cell 3+(>10/hpf) (Absent); Urine Squamous Epithelial Cell Present (Absent); Urine Transitional Epithelial Present (Absent); Urine White Blood Cell 3+(>20/hpf) (Absent)
[2021-11-12] MEDS ORDERED: Sodium Phosphate ADULT ENEMA 133 ML BTL PR PRN (18:16)
[2021-11-12] MEDS ORDERED: Albuterol/Ipratropium NEB.SOL (2.5/0.5 MG) 3 ML NEB.SOLN INH PRN (18:36)
[2021-11-12] MEDS ORDERED: Zosyn per Pharmacy NOTE FOLLOW UP SCH (19:00)
[2021-11-12] MEDS: ZOSYN 3.375 GM Q8H per EXTENDED INFUSION IV SCH (21:20)
[2021-11-12] MEDS: Linezolid 600 MG IVPREMIX(*) 600 MG/300 ML BAG IVPB SCH (22:09)
[2021-11-12] MEDS: Lactated Ringers 1000 ml BAG 1,000 ML IV SCH (23:15)
[2021-11-12] MEDS: Enoxaparin 40 MG/0.4 ML SYR SUBCUT SCH (23:29)
[2021-11-13] MEDS ORDERED: Lactated Ringers 500 ml BAG 500 ML IV ONE ×2 (00:52→01:41)
[2021-11-13 01:35] LABS: Urine Appearance Cloudy; Urine Bilirubin Negative (Negative); Urine Blood Negative (Negative); Urine Color Yellow; Urine Glucose Negative (Negative); Urine Ketones Negative (Negative); Urine Nitrite Negative (Negative); Urine Protein 2+(100 mg/dL) (Negative); Urine Specific Gravity 1.058 (1.002-1.030); Urine Urobilinogen Negative (Negative)
[2021-11-13 01:41] LABS: Urine Bacteria Absent (Absent); Urine Red Blood Cell 3+(>10/hpf) (Absent); Urine White Blood Cell 3+(>20/hpf) (Absent)
[2021-11-13] MEDS ORDERED: Lactated Ringers 1000 ml BAG 1,000 ML IV ONE (03:04)
[2021-11-13] MEDS: ZOSYN 3.375 GM Q8H per EXTENDED INFUSION IV SCH ×3 (04:48→20:05)
[2021-11-13 04:51] LABS: ABS Lymphocytes 1.1 10^3/ul (1.0-4.8); ABS Monocytes 0.5 10^3/ul (0-0.8); ABS Neutrophils 6.1 10^3/ul (1.5-7.7); Eosinophil % 0.1 %; Hematocrit 34 % (42-52); Hemoglobin 11.6 g/dL (14.0-18.0); Lymphocyte % 14.4 %; Mean Corpuscular HGB Conc 34 g/dL (31-36); Mean Corpuscular Hemoglobin 32 pg (27-31); Mean Corpuscular Volume 94 fL (80-94); Mean Platelet Volume 9.7 fL (7.4-10.4); Platelet Count 113 10^3/uL (150-450); Red Blood Count 3.61 10^6 /uL (4.18-5.48); Red Cell Distribution Width 14 % (10-15); White Blood Count 7.8 10^3/uL (3.5-10.8)
[2021-11-13 05:10] LABS: Albumin 2.9 g/dL (3.2-5.2); Albumin/Globulin Ratio 1.3 (1-3); Calcium 7.8 mg/dL (8.6-10.3); Globulin 2.2 g/dL (2-4); Magnesium 1.6 mg/dL (1.9-2.7); Potassium 3.4 mmol/L (3.5-5.0); Total Bilirubin 0.5 mg/dL (0.2-1.0); Total Protein 5.1 g/dL (6.4-8.9); eGFR CKD-EPI 116.8 (>60)
[2021-11-13] MEDS ORDERED: Magnesium Sulfate IV 3 GM in NS 0.9% 100 ml BAG 100 ML IVPB ONE (05:45)
[2021-11-13] MEDS ORDERED: Magnesium Sulfate 1 GM IV 1 GM/100 ML BAG IV ONE (06:00)
[2021-11-13] MEDS ORDERED: Magnesium Sulfate 2 GM IV (Premix) IVPB ONE (06:00)
[2021-11-13] MEDS: Cholecalciferol (VIT D3) 1,000 unit TAB PO SCH (07:50)
[2021-11-13] MEDS: Multivitamins/Minerals TAB PO SCH (07:50)
[2021-11-13] MEDS: Linezolid 600 MG IVPREMIX(*) 600 MG/300 ML BAG IVPB SCH ×2 (07:51→20:05)
[2021-11-13] MEDS: Polyethylene Glycol 3350 17 GM PACKET PO SCH (08:19)
[2021-11-13] MEDS ORDERED: Magnesium Sulfate 2 gm BAG 2 GM/50 ML BAG IVPB ONE (08:21)
[2021-11-13] MEDS: KCL 10 MEQ/50 ML IVPREMIX 10 MEQ/50 ML BAG IV SCH ×4 (09:06→13:23)
[2021-11-13] MEDS: Lactated Ringers 1000 ml BAG 1,000 ML IV SCH (10:45)
[2021-11-13] MEDS: NF: Mirabegron 25 mg ER TAB (NF) PO SCH (11:24)
[2021-11-13] MEDS: NF: Mirabegron 50 mg ER TAB (NF) PO SCH (11:24)
[2021-11-13] MEDS ORDERED: Acetaminophen IV 1 GM/100ML 100 ML IV PRN (11:37)
[2021-11-13] MEDS: Enoxaparin 40 MG/0.4 ML SYR SUBCUT SCH (20:06)
[2021-11-13] MEDS ORDERED: NS 0.9% 100 ml BAG 100 ML ONE (22:04)
[2021-11-14] MEDS: ZOSYN 3.375 GM Q8H per EXTENDED INFUSION IV SCH ×3 (03:17→20:42)
[2021-11-14] MEDS ORDERED: NS 0.9% 100 ml BAG 100 ML ONE (04:08)
[2021-11-14 04:35] LABS: ABS Monocytes 0.8 10^3/ul (0-0.8); ABS Neutrophils 7.6 10^3/ul (1.5-7.7); Eosinophil % 0.3 %; Hematocrit 37 % (42-52); Hemoglobin 12.6 g/dL (14.0-18.0); Lymphocyte % 10.7 %; Mean Corpuscular HGB Conc 34 g/dL (31-36); Mean Corpuscular Hemoglobin 32 pg (27-31); Mean Corpuscular Volume 93 fL (80-94); Mean Platelet Volume 9.2 fL (7.4-10.4); Nucleated Red Blood Cells % 0.2; Platelet Count 138 10^3/uL (150-450); Red Blood Count 3.93 10^6 /uL (4.18-5.48); Red Cell Distribution Width 14 % (10-15); White Blood Count 9.5 10^3/uL (3.5-10.8)
[2021-11-14 04:51] LABS: Calcium 8.2 mg/dL (8.6-10.3); Potassium 3.4 mmol/L (3.5-5.0)
[2021-11-14] MEDS ORDERED: KCL 20 MEQ/100 ML IVPREMIX 20 MEQ/100 ML BAG IV ONE (07:40)
[2021-11-14] MEDS: Linezolid 600 MG IVPREMIX(*) 600 MG/300 ML BAG IVPB SCH ×2 (09:13→20:42)
[2021-11-14] MEDS: KCL 10 MEQ/50 ML IVPREMIX 10 MEQ/50 ML BAG IV SCH ×4 (09:13→14:17)
[2021-11-14] MEDS: Cholecalciferol (VIT D3) 1,000 unit TAB PO SCH (09:32)
[2021-11-14] MEDS: Multivitamins/Minerals TAB PO SCH (09:32)
[2021-11-14] MEDS: NF: Mirabegron 25 mg ER TAB (NF) PO SCH (09:56)
[2021-11-14] MEDS: NF: Mirabegron 50 mg ER TAB (NF) PO SCH (09:56)
[2021-11-14] MEDS ORDERED: Potassium Phosphate IV 15 MMOLE in NS 0.9% 250 ml 250 ML IVPB ONE (10:36)
[2021-11-14] MEDS: Polyethylene Glycol 3350 17 GM PACKET PO SCH (11:02)
[2021-11-14] MEDS ORDERED: KCL 10 MEQ/50 ML IVPREMIX 10 MEQ/50 ML BAG ONE (14:14)
[2021-11-14] MEDS ORDERED: Polyethylene Glycol 3350 17 GM PACKET PO SCH (21:00)
[2021-11-14] MEDS ORDERED: Furosemide 20 mg/2 ml IV VIAL IV SLOW PU ONE (22:03)
[2021-11-14] MEDS: Enoxaparin 40 MG/0.4 ML SYR SUBCUT SCH (23:38)
[2021-11-15] MEDS: ZOSYN 3.375 GM Q8H per EXTENDED INFUSION IV SCH (04:20)
[2021-11-15 05:36] LABS: ABS Lymphocytes 0.8 10^3/ul (1.0-4.8); ABS Monocytes 0.7 10^3/ul (0-0.8); ABS Neutrophils 6.5 10^3/ul (1.5-7.7); Eosinophil % 0.2 %; Hematocrit 39 % (42-52); Hemoglobin 13.2 g/dL (14.0-18.0); Lymphocyte % 9.9 %; Mean Corpuscular HGB Conc 34 g/dL (31-36); Mean Corpuscular Hemoglobin 32 pg (27-31); Mean Corpuscular Volume 94 fL (80-94); Platelet Count 155 10^3/uL (150-450); Red Blood Count 4.15 10^6 /uL (4.18-5.48); Red Cell Distribution Width 14 % (10-15)
[2021-11-15 05:56] LABS: Anion Gap 10 mmol/L (2-11); Blood Urea Nitrogen 4 mg/dL (6-24); CO2 Carbon Dioxide 34 mmol/L (22-32); Calcium 8.4 mg/dL (8.6-10.3); Chloride 92 mmol/L (101-111); Glucose 84 mg/dL (70-100); Magnesium 1.7 mg/dL (1.9-2.7); Phosphorus 2.2 mg/dL (2.5-5.0); Potassium 3.4 mmol/L (3.5-5.0); Sodium 136 mmol/L (135-145); eGFR CKD-EPI 126.4 (>60)
[2021-11-15] MEDS ORDERED: Potassium Phosphate IV 15 MMOLE in NS 0.9% 250 ml 250 ML IVPB ONE (07:03)
[2021-11-15] MEDS ORDERED: Magnesium Sulfate 2 gm BAG 2 GM/50 ML BAG IVPB ONE (07:04)
[2021-11-15] MEDS ORDERED: Magnesium Sulfate 2 gm BAG 2 GM/50 ML BAG ONE (07:27)
[2021-11-15] MEDS: Linezolid 600 MG IVPREMIX(*) 600 MG/300 ML BAG IVPB SCH (09:22)
[2021-11-15] MEDS: Multivitamins/Minerals TAB PO SCH (09:29)
[2021-11-15] MEDS: Cholecalciferol (VIT D3) 1,000 unit TAB PO SCH (09:29)
[2021-11-15 11:23] VITALS: BP 134/66
== END 2021-11-15 12:50 | disposition hospice, home (50) | DRG 177 ==
LOC: ED 14:32 → ICU 18:11
PROVIDERS: ADMIT Surgery Surgical Critical Care; ATTEND Surgery Surgical Critical Care